=== PATIENT | male | born 1945 | race Caucasian/White ===

== ENCOUNTER → 2017-12-20 09:38 | Outpatient (CLI) | payer MEDICARE, OTHER, SELFPAY ==
[2017-12-20 10:41] LABS: AST(SGOT) 19 U/L (15-37); Alanine Aminotransfer ALT/SGPT 26 U/L (16-61); Albumin, Serum 3.8 g/dL (3.2-5.0); Alkaline Phosphatase 68 U/L (45-117); Bilirubin, Direct 0.27 mg/dL (0.00-0.30); Cholesterol 108 mg/dL (200); Globulin 2.7 g/dL (2.2-4.2); High Density Lipoprotein 47 mg/dL; Protein, Total 6.5 g/dL (6.4-8.2); Triglycerides 70 mg/dL; Very Low Density Lipoprotein 14 mg/dL (5-40)
== END ==
PROVIDERS: Family Provider Family Medicine; PCP Family Medicine; Visit Provider Internal Medicine Cardiovascular Disease
DX: E78.5 Hyperlipidemia, unspecified (principal); Z79.899 Other long term (current) drug therapy
CPT/HCPCS: 36415; 80061; 80076

== ENCOUNTER → 2018-01-30 15:01 | Outpatient (CLI) | payer MEDICARE, OTHER, SELFPAY ==
--- NOTE | 2018-01-30 15:02 | RAD_ITS ---
STUDY: X-RAY - LEFT SHOULDER REASON FOR EXAM: Male, 72 years old. Shoulder pain. TECHNIQUE: 3 view(s) of the shoulder. COMPARISON: None. FINDINGS: There is generalized osteopenia. There is mild arthrosis of the acromioclavicular and glenohumeral joints. Normal acromion. Normal humeral head and visualized proximal humerus. The soft tissue structures are unremarkable. Normal visualized pulmonary apex. RAD/Shoulder min 2 Views IMPRESSION: Osteopenia with mild arthrosis of the glenohumeral and acromioclavicular joints. Electronically Signed: Ty Torres MD at 12:25 EDT , Service support ,
== END ==
PROVIDERS: Family Provider Family Medicine; PCP Family Medicine; Visit Provider Orthopaedic Surgery
DX: M25.512 Pain in left shoulder (principal)
CPT/HCPCS: 73030

== ENCOUNTER → 2018-03-10 11:04 | Outpatient (CLI) | payer MEDICARE, OTHER, SELFPAY ==
--- NOTE | 2018-03-10 11:09 | RAD_ITS ---
STUDY: X-RAY CHEST REASON FOR EXAM: Male, 72 years old. With TECHNIQUE: Frontal and lateral views of the chest COMPARISON: 12/27/2016 FINDINGS: The lungs are clear. There are no pleural effusions. There is no pneumothorax. The heart is normal in size. The patient is status post sternotomy. RAD/Chest PA and Lateral IMPRESSION: No acute thoracic pathology. Electronically Signed: Umang Flowers, at 20:01 EDT Tel , Service support ,
[2018-03-10 12:07] LABS: Absolute Lymphocyte Count 0.96 X10^3/ul (0.83-4.51); Absolute Neutrophil Count 4.4 X10^3/uL (2.0-7.7); Basophil# 0.01 X10^3/uL; Basophil% 0.2 % (0-1); Eosinophil# 0.04 X10^3/uL; Eosinophils% 0.7 % (0-5); Hematocrit 43.8 % (40-54); Hemoglobin 14.6 g/dl (13.0-16.5); Lymphocyte # 0.96 X10^3/ul (4.0); Lymphocyte % 16.4 % (19-41); Mean Corp Hgb Conc 33.3 g/gl (32-36); Mean Corpuscular Hgb 31.5 pg (27.0-32.0); Mean Corpuscular Volume 94.6 fL (80-94); Mean Platelet Vol. 9.9 fl (6.2-12.0); Monocyte# 0.44 X10^3/uL; Monocyte% 7.5 % (0-10); Neutrophil # 4.42 X10^3/uL (2.7-7.7); Neutrophil % 75.2 % (47-70); Platelet Count 130 K/mm3 (150-450); RBC Distribution Width CV 13.2 % (11.6-14.6); Red Blood Count 4.63 M/mm3 (4.6-6.2); White Blood Count 5.9 K/mm3 (4.4-11.0)
[2018-03-10 12:14] LABS: POSITIVE COUNT NO; POSITIVE DIFFERENTIAL NO; POSITIVE MORPHOLOGY NO
[2018-03-10 12:47] LABS: ALB/GLOB Ratio 1.4 RATIO (0.9-2.4); AST(SGOT) 23 U/L (15-37); Alanine Aminotransfer ALT/SGPT 31 U/L (16-61); Albumin, Serum 3.8 g/dL (3.2-5.0); Alkaline Phosphatase 60 U/L (45-117); Anion Gap 5 (5-15); BUN 22 mg/dL (7-18); BUN/Creat Ratio 22.5 RATIO (10-20); Calcium,Total 9.1 mg/dL (8.5-10.1); Chloride 110 mmol/L (98-107); Creatinine, Serum 0.98 mg/dL (0.70-1.30); EST Glomerular Filtration Rate 80 mL/min (>60); Est Glom Filt Rate - Afr Amer 97 mL/min (>60); Globulin 2.7 g/dL (2.2-4.2); Glucose 90 mg/dL (74-106); PSA,Total - Annual Screen 5.26 ng/mL (0.00-4.00); Potassium 4.2 mmol/L (3.5-5.1); Protein, Total 6.5 g/dL (6.4-8.2); Sodium Level 143 mmol/L (136-145); Thyroid Stim Hormone (TSH) 0.59 uIU/mL (0.358-3.74)
== END ==
PROVIDERS: Family Provider Family Medicine; PCP Family Medicine; Visit Provider Family Medicine
DX: R63.4 Abnormal weight loss (principal); R97.20 Elevated prostate specific antigen [PSA]; Z12.5 Encounter for screening for malignant neoplasm of prostate
CPT/HCPCS: 36415; 71046; 80053; 84153; 84443; 85025; G0103

== ENCOUNTER → 2018-05-30 07:57 | Outpatient (CLI) | payer MEDICARE, OTHER, SELFPAY ==
[2018-05-30 09:45] LABS: AST(SGOT) 20 U/L (15-37); Alanine Aminotransfer ALT/SGPT 25 U/L (16-61); Albumin, Serum 3.6 g/dL (3.2-5.0); Alkaline Phosphatase 58 U/L (45-117); Cholesterol 129 mg/dL (200); Globulin 2.9 g/dL (2.2-4.2); High Density Lipoprotein 52 mg/dL; Protein, Total 6.5 g/dL (6.4-8.2); Triglycerides 76 mg/dL; Very Low Density Lipoprotein 15 mg/dL (5-40)
== END ==
PROVIDERS: Family Provider Family Medicine; PCP Family Medicine; Visit Provider Internal Medicine Cardiovascular Disease
DX: E78.5 Hyperlipidemia, unspecified (principal); Z79.899 Other long term (current) drug therapy
CPT/HCPCS: 36415; 80061; 80076

== ENCOUNTER 2018-07-03 19:18 | Inpatient (IN) | payer MEDICARE, OTHER, SELFPAY ==
[2018-07-03 19:20] VITALS: BP 129/72; PULSE 95; RESP 20; TEMP 37.9; O2SAT 97; BMI 23.3
--- NOTE | 2018-07-03 20:21 | EKG12_ITS ---
Test Reason : GEN ILL Blood Pressure : / mmHG Vent. Rate : 081 BPM Atrial Rate : 081 BPM P-R Int : 172 ms QRS Dur : 082 ms QT Int : 352 ms P-R-T Axes : 042 016 050 degrees QTc Int : 408 ms Normal sinus rhythm Normal ECG Confirmed by JENNIE CARLSON ([id number]), newspaper editor managing CASSANDRA MIRANDA ([id number]) on 07/08/2018 2:41:34 PM Referred By: Criss Feliciano Confirmed By:JENNIE CARLSON
[2018-07-03 20:46] LABS: Mucous, Urine 0 SEEN /hpf (<or=2+); Red Blood Cells-Urine 0 SEEN /hpf (0-5); Squamous Epithelial Cells - UA 0 SEEN /hpf (0-5)
[2018-07-03 20:56] LABS: Color, Urine Yellow (Yellow); Glucose, Dipstick Normal (Normal); Ketone-Dipstick 5 mg/dl (Negative); Leukocyte Esterase-Dipstick 500 /ul (Negative); Nitrite-Dipstick Positive (Negative); Occult Blood-Urine 25 /ul (Negative); Protein-Dipstick 15 mg/dl (Negative); Specific Gravity, Urine 1.015 (1.002-1.030); Urine Bilirubin Dipstick Negative (Negative); Urine Clarity Clear (Clear); Urine Urobilinogen Normal (Normal)
[2018-07-03 20:59] LABS: Absolute Neutrophil Count 8.3 X10^3/uL (2.0-7.7); Basophil# 0.01 X10^3/uL; Basophil% 0.1 % (0-1); Eosinophil# 0.01 X10^3/uL; Eosinophils% 0.1 % (0-5); Hematocrit 44.6 % (40-54); Hemoglobin 14.6 g/dl (13.0-16.5); Lymphocyte % 4.4 % (19-41); Mean Corp Hgb Conc 32.7 g/gl (32-36); Mean Corpuscular Hgb 31.3 pg (27.0-32.0); Mean Corpuscular Volume 95.7 fL (80-94); Mean Platelet Vol. 10.3 fl (6.2-12.0); Monocyte# 0.33 X10^3/uL; Monocyte% 3.6 % (0-10); Neutrophil % 91.8 % (47-70); Platelet Count 88 K/mm3 (150-450); RBC Distribution Width CV 12.9 % (11.6-14.6); RBC Distribution Width SD 44.7 fl (35.1-43.9); Red Blood Count 4.66 M/mm3 (4.6-6.2); White Blood Count 9.1 K/mm3 (4.4-11.0)
[2018-07-03 21:01] LABS: Anion Gap 12 (5-15); BUN 21 mg/dL (7-18); BUN/Creat Ratio 21.5 RATIO (10-20); Calcium,Total 9.1 mg/dL (8.5-10.1); Chloride 104 mmol/L (98-107); Creatinine, Serum 0.98 mg/dL (0.70-1.30); EST Glomerular Filtration Rate 80 mL/min (>60); Est Glom Filt Rate - Afr Amer 97 mL/min (>60); Estimated Creatinine Clearance 69.14 ml/min; Glucose 96 mg/dL (74-106); Potassium 3.8 mmol/L (3.5-5.1); Sodium Level 138 mmol/L (136-145)
[2018-07-03 21:02] LABS: White Blood Cells 50-100 SEEN /hpf (0-5)
[2018-07-03 21:03] LABS: Bacteria 2+ /hpf (None Seen)
[2018-07-03 21:06] LABS: Differential Indicated SCAN CRITERIA MET; POSITIVE COUNT NO; POSITIVE DIFFERENTIAL YES; POSITIVE MORPHOLOGY NO
[2018-07-03 21:21] VITALS: BP 134/70; PULSE 85; RESP 15; O2SAT 98
[2018-07-03 21:29] LABS: Anisocytosis RARE; Macrocytosis RARE; Platelet Estimate MOD DEC (ADEQ)
[2018-07-03] MEDS: Ceftriaxone 1 GM/50 ML BAG IV (21:45)
--- NOTE | 2018-07-03 22:09 | PCM.HP.STD ---
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 Associated symptoms includes chills.He went to the urgent care and because his heart rate was severely elevated above his base line it was thought that he may be in sepsis so he was advised to come to the ED. 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 At emergency department his temperature was 100.2. Past Medical History Past Medical History (Chronic Problems): Chronic Problems (Last Reviewed 07/03/18 @ 23:28 by Wade Kelley MD) Premature ventricular contractions (Chronic) Left carotid bruit (Chronic) 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) stenosis (Chronic) Presence of aortocoronary bypass graft (Chronic) CABG 01/11/93, DELANEY to LAD, THIAGO to lateral circumflex, SVG to diagonal & SVG to PDA Arteriosclerosis of coronary artery bypass graft (Chronic) Hypertension (Chronic) Hyperlipidemia (Chronic) Medical History: Medical History (Last Reviewed 07/03/18 @ 23:28 by Wade Kelley MD) Premature ventricular contractions (Chronic) I49.3 Left carotid bruit (Chronic) R09.89 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) stenosis (Chronic) I35.0 Arteriosclerosis of coronary artery bypass graft (Chronic) I25.810 Hypertension (Chronic) I10 Hyperlipidemia (Chronic) E78.5 custodial use of drug Z79.899 Allergies Opioids - Morphine Analogues Allergy (Verified 07/03/18 19:22) Nausea PAIN MEDICATION Allergy (Uncoded 07/03/18 19:22) Unknown Home Medications: Ambulatory Orders Medication Instructions Recorded Aspirin 81 mg PO DAILY 01/01/17 Cholecalciferol (VIT D3) [Vitamin 1,000 unit PO DAILY 01/01/17 D] Lisinopril [Zestril] 15 mg PO DAILY 01/01/17 Omeprazole [Prilosec] 20 mg PO DAILY 01/01/17 cyanocobalamin (vit B-12) 1,000 1,000 mcg PO DAILY 12/17/17 mcg tablet Atenolol [Tenormin (beta shakir)] 25 mg PO QODAY 07/03/18 Rosuvastatin Calcium [Crestor] 40 mg PO DAILY 07/03/18 Surgical History: Surgical History (Last Reviewed 07/03/18 @ 23:28 by Wade Kelley MD) Presence of aortocoronary bypass graft (Chronic) Z95.1 CABG 01/11/93, DELANEY to LAD, THIAGO to lateral circumflex, SVG to diagonal & SVG to PDA Surgical History: herniorrhaphy, - - Decompression surgery at back x 2; fusion of L4-L5 X 1 Lives: Spouse/ Significant Other Smoking Status: Never smoker Alcohol: Occasional - *Family History Maternal Family History: Family History (Last Reviewed 07/04/18 @ 07:19 by Wade Kelley MD) Father CAD (coronary artery disease) Cancer Myocardial infarction FH valvular heart dx FH: CABG (coronary artery bypass surgery) Mother Alzheimer disease Sister Hypertension Other Family history of hypertension Paternal Family History: Family History (Last Reviewed 07/04/18 @ 07:19 by Wade Kelley MD) Father CAD (coronary artery disease) Cancer Myocardial infarction FH valvular heart dx FH: CABG (coronary artery bypass surgery) Mother Alzheimer disease Sister Hypertension Other Family history of hypertension Review of Systems Constitutional: Reports: Chills, Fever Eyes: Denies: Blurred vision, Pain HEENT: Denies: Head Aches, Sinus Congestion, Sinus Drainage Cardiovascular: Reports: Light Headedness, - - NEAR SYNCOPE Respiratory: Denies: Cough, Shortness of breath at rest, Sputum production Gastrointestinal: Denies: Abdominal Pain, Nausea, Vomiting Genitourinary: Reports: Dysuria Musculoskeletal: Denies: Joint Pain, Joint Tenderness Skin: Denies: Rash, Wounds Neurological: Denies: Numbness, Tingling, Focal weakness Psychiatric: Denies: Anxiety, Depression, Homicidal Ideations, Suicidal Ideations Hematologic/ Lymphatic: Denies: Easy Bruising, Easy Bleeding VTE Information - Inpt Only VTE Present on Admission: No VTE Mechan Device Prophylaxis: SCD's VTE Pharm Prophylaxis ordered?: No Reason prophylaxis not ordered:: Medical Contraindication - Thrombocytopenia Patient Problems: Active and Suspected Problems (Last Reviewed 07/03/18 @ 23:28 by Wade Kelley MD) Cystitis (Acute) Thrombocytopenia (Acute) - Physical Exam General: Alert, Oriented x3, Cooperative HEENT: Atraumatic, PERRLA, EOMI, Normocephalic Neck: Supple, No JVD, Negative Carotid Bruits Lungs: Clear to auscultation, Normal air movement Cardiovascular: Regular rate, No murmurs Abdomen: Bowel Sounds Present, Soft, Non Tender Extremities: No edema, Capillary Refill Less than 3 Seconds Skin: No rashes, No breakdown Musculoskeletal: No Tenderness to Palpation of Joints or Extremities Neurological: Cranial nerves II-XII grossly intact Psych/Mental Status: Normal Affect, Appropriate Vital Signs Temp Pulse Resp BP Pulse Ox 100.2 F H 85 15 134/70 H 98 07/03/18 19:20 07/03/18 21:21 07/03/18 21:21 07/03/18 21:21 07/03/18 21:21 Oxygen Delivery Method Room Air Weight: 71.668 kg Body Mass Index (BMI) 23.3 Laboratory Tests Past 24 Hrs 07/03/18 07/03/18 07/03/18 20:35 20:35 20:35 WBC 9.1 RBC 4.66 Hgb 14.6 Hct 44.6 MCV 95.7 H MCH 31.3 MCHC 32.7 RDW 12.9 RDW Differential 44.7 H Plt Count 88 L MPV 10.3 Immature Gran % (Auto) 0.000 Neut % (Auto) 91.8 H Lymph % (Auto) 4.4 L [place] % (Auto) 3.6 Eos % (Auto) 0.1 Baso % (Auto) 0.1 Absolute Neuts (auto) 8.3 H Absolute Lymphs (auto) 0.40 L Total Counted Not Reportable Differential Comment SEE COMMENT Platelet Estimate MOD DEC Anisocytosis RARE Macrocytosis RARE Sodium 138 Potassium 3.8 Chloride 104 Carbon Dioxide 22.0 Anion Gap 12 BUN 21 H Creatinine 0.98 Estim Creat Clear Calc 69.14 Est GFR (MDRD) Af Amer 97 Est GFR (MDRD) Non-Af 80 BUN/Creatinine Ratio 21.5 H Glucose 96 Lactic Acid 1.0 Calcium 9.1 Urine Color Urine Clarity Urine pH Ur Specific [place] Urine Protein Urine Glucose (UA) Urine Ketones Urine Occult Blood Urine Nitrite Urine Bilirubin Urine Urobilinogen Ur Leukocyte Esterase Urine RBC Urine WBC Ur Squamous Epith Cells Urine Bacteria Urine Mucus 07/03/18 20:35 WBC RBC Hgb Hct MCV MCH MCHC RDW RDW Differential Plt Count MPV Immature Gran % (Auto) Neut % (Auto) Lymph % (Auto) [place] % (Auto) Eos % (Auto) Baso % (Auto) Absolute Neuts (auto) Absolute Lymphs (auto) Total Counted Differential Comment Platelet Estimate Anisocytosis Macrocytosis Sodium Potassium Chloride Carbon Dioxide Anion Gap BUN Creatinine Estim Creat Clear Calc Est GFR (MDRD) Af Amer Est GFR (MDRD) Non-Af BUN/Creatinine Ratio Glucose Lactic Acid Calcium Urine Color Yellow Urine Clarity Clear Urine pH 5.0 Ur Specific [place] 1.015 Urine Protein 15 H Urine Glucose (UA) Normal Urine Ketones 5 H Urine Occult Blood 25 H Urine Nitrite Positive H Urine Bilirubin Negative Urine Urobilinogen Normal Ur Leukocyte Esterase 500 H Urine RBC 0 SEEN Urine WBC 50-100 SEEN Ur Squamous Epith Cells 0 SEEN Urine Bacteria 2+ Urine Mucus 0 SEEN Assessment/Plan All Active Problems (Last Reviewed 07/03/18 @ 23:28 by Wade Kelley MD) Cystitis (Acute) Thrombocytopenia (Acute) Family history of hypertension (Acute) Fatigue (Acute) The patient is a 72 year old M with a significant history of CAD s/p quadruple CABG, HTN who presents with a one day history of burning with urination; fever chills and near syncope consistent with likely cystitis. Cystitis Urinalysis reviewed; abnormal Ceftriaxone started at the emergency department; continued Trend CBC and BMP Blood culture and urine urine culture pending Received IV normal saline bolus at emergency department. IV normal saline continued. Hypertension Controlled Trend blood pressures Lisinopril continued with hold parameters. Atenolol continued with hold parameters. Thrombocytopenia Platelets on admission was 88 Review of old records showed mildly reduced platelets. His platelets at this time is markedly reduced from baseline. This could be due to infection Trend CBC. DVT prophylaxis No anticoagulants because of thrombocytopenia Code Visit Inpatient E&M: 66579 Init Hosp L3
--- NOTE | 2018-07-03 22:34 | ED.VISSUMM ---
- ER Visit Summary Date of Service: 07/03/18 Chief Complaint: Generalized weakness, fever History of Present Illness: The patient is a 72 M presenting with generalized weakness, fever. Patient states he has not felt well today. He complains of dizziness with near syncope. He complains of generalized weakness and fatigue. He went to urgent care. He had a urinalysis which showed UTI. His heart rate is elevated. His doctor advised that his heart rate usually runs in the 50s and it has been in the high 90s today. He was sent in for concern for sepsis. He denies chest pain or shortness of breath. He has a history of chronic back pain but states this is no worse than usual. He complains of dysuria. Denies other complaints. Physical Examination: Vitals are stable. Heart rate 99. Temperature 100.2 Alert no acute distress. HEENT exam dry mucous membranes Neck is supple. Lungs are clear and equal bilaterally. Heart is regular and tachycardic. Abdomen is soft nontender nondistended. No guarding or rebound Extremities are unremarkable. Skin is warm and dry. No focal neurologic deficit. Remainder of exam is unremarkable. Emergency Department Course and Treatment: EKG is sinus rhythm rate of 81. Chest x-ray shows no acute process. CBC is unremarkable other than platelets of 88. Chemistries show BUN 21. Urinalysis shows 50-100 white blood cells with 2+ bacteria. Lactic acid is normal. Urine culture was sent. He was given IV fluids, Tylenol. He was given Rocephin IV. Discussed with the hospitalist for admission. Disposition: Admission Impression: UTI, generalized weakness, near syncope This note was generated with [employer] dictation software. It may contain incorrect words, spelling, and punctuation that were not noted in review of the chart prior to signing ED Disposition - Plan for ED Patient: Chief Complaint: General Illness Referrals: Nori Louis MD [Primary Care Provider] -
[2018-07-03 22:48] VITALS: BP 97/60; PULSE 80; RESP 15
[2018-07-03] MEDS: Acetaminophen 500 MG Tablet 1000 MG PO (22:52)
[2018-07-03] MEDS: 0.9% Normal Saline 1,000 ML 999 ML IV (22:52)
[2018-07-03 23:25] VITALS: BMI 23.0
[2018-07-03 23:28] VITALS: BMI 23.0
[2018-07-03 23:55] VITALS: BP 97/63; PULSE 66; RESP 18; TEMP 36.8; O2SAT 94
[2018-07-04] VITALS (7 sets, daily range): BP systolic 100–119; BP diastolic 60–68; PULSE 58–64; RESP 16–18; TEMP 36.4–37.1; O2SAT 94–100
[2018-07-04] MEDS: 0.9% Normal Saline 1,000 ML 100 ML IV ×3 (00:32→23:17)
[2018-07-04] MEDS: Aspirin 81 MG TAB.CHEW PO (02:14)
[2018-07-04] MEDS: Cyanocobalamin 500 MCG Tablet 1000 MCG PO (02:14)
[2018-07-04 06:08] LABS: Absolute Lymphocyte Count 0.71 X10^3/ul (0.83-4.51); Basophil# 0.01 X10^3/uL; Basophil% 0.1 % (0-1); Eosinophil# 0.02 X10^3/uL; Eosinophils% 0.2 % (0-5); Hemoglobin 13.2 g/dl (13.0-16.5); Lymphocyte # 0.71 X10^3/ul (4.0); Lymphocyte % 7.6 % (19-41); Mean Corpuscular Volume 97.1 fL (80-94); Mean Platelet Vol. 10.3 fl (6.2-12.0); Monocyte# 0.57 X10^3/uL; Monocyte% 6.1 % (0-10); Neutrophil # 7.97 X10^3/uL (2.7-7.7); Neutrophil % 85.9 % (47-70); Platelet Count 92 K/mm3 (150-450); RBC Distribution Width CV 12.8 % (11.6-14.6); RBC Distribution Width SD 44.7 fl (35.1-43.9); Red Blood Count 4.12 M/mm3 (4.6-6.2); White Blood Count 9.3 K/mm3 (4.4-11.0)
[2018-07-04 06:18] LABS: POSITIVE COUNT NO; POSITIVE DIFFERENTIAL NO; POSITIVE MORPHOLOGY NO
[2018-07-04 06:51] LABS: Anion Gap 9 (5-15); BUN 21 mg/dL (7-18); Calcium,Total 8.6 mg/dL (8.5-10.1); Chloride 111 mmol/L (98-107); Creatinine, Serum 0.95 mg/dL (0.70-1.30); EST Glomerular Filtration Rate 83 mL/min (>60); Est Glom Filt Rate - Afr Amer 100 mL/min (>60); Estimated Creatinine Clearance 71.32 ml/min; Glucose 104 mg/dL (74-106); Potassium 4.3 mmol/L (3.5-5.1); Sodium Level 145 mmol/L (136-145)
[2018-07-04] MEDS: Pantoprazole Sodium 20 MG Tablet PO (09:37)
[2018-07-04] MEDS: Lisinopril 5 MG Tablet 15 MG PO (09:37)
--- NOTE | 2018-07-04 10:34 | PCM.PN.HOSP ---
Patient Problems: Active and Suspected Problems (Last Reviewed 07/03/18 @ 23:28 by Wade Kelley MD) Cystitis (Acute) Thrombocytopenia (Acute) Subjective: Patient seen and examined. Discussed with patient and his present in the room. Patient complain of burning micturition, increased frequency and urgency for last 2 days. Also had chills. He had history of kidney stones in the past and has seen Dr. Lopez Sharp and had a stent put in about 5-10 years ago. He does not remember well which kidney or ureter stone. He also complained of incomplete empty bladder completely urinary incontinence and has perhaps history of BPH. Is not on Flomax or helical medication Vitals/I&O's: Vital Signs Temp Pulse Resp BP Pulse Ox 98.6 F 58 L 16 108/68 97 07/04/18 07:46 07/04/18 07:46 07/04/18 07:46 07/04/18 07:46 07/04/18 07:50 Oxygen Delivery Method Room Air Weight: 156 lb Body Mass Index (BMI) 23.0 Intake and Output for Last 24 Hours 07/02/18 07/03/18 07/04/18 23:59 23:59 23:59 Intake Total 218 / 2182 Balance 218 / 218 General: Alert, Oriented x3, Cooperative HEENT: Atraumatic, PERRLA, EOMI, Normocephalic Neck: Supple, No JVD, Negative Carotid Bruits Lungs: Clear to auscultation, Normal air movement Cardiovascular: Regular rate, Regular Rhythm, Normal S1, Normal S2, No murmurs Abdomen: Bowel Sounds Present, Soft, Non Tender, Non-Distended Extremities: No edema, Capillary Refill Less than 3 Seconds Skin: No rashes, No breakdown Musculoskeletal: No Tenderness to Palpation of Joints or Extremities Neurological: Cranial nerves II-XII grossly intact Psych/Mental Status: Normal Affect, Appropriate Laboratory Results 07/04/18 05:12: WBC 9.3, RBC 4.12 L, Hgb 13.2, Hct 40.0, MCV 97.1 H, MCH 32.0, MCHC 33.0, RDW 12.8, RDW Differential 44.7 H, Plt Count 92 L, MPV 10.3, Immature Gran % (Auto) 0.100, Neut % (Auto) 85.9 H, Lymph % (Auto) 7.6 L, [place] % (Auto) 6.1, Eos % (Auto) 0.2, Baso % (Auto) 0.1, Absolute Neuts (auto) 8.0 H, Absolute Lymphs (auto) 0.71 L, Total Counted Not Reportable 07/04/18 05:12: Sodium 145, Potassium 4.3, Chloride 111 H, Carbon Dioxide 25.0, Anion Gap 9, BUN 21 H, Creatinine 0.95, Estim Creat Clear Calc 71.32, Est GFR (MDRD) Af Amer 100, Est GFR (MDRD) Non-Af 83, BUN/Creatinine Ratio 22.0 H, Glucose 104, Calcium 8.6 Current Medications Acetaminophen (Tylenol) 650 mg PO Q6H PRN PRN PRN Reason: Mild Pain (scale 0-3)/T>100.7 Al Hydroxide/Mg Hydroxide (Mylanta Ii) 30 ml PO Q6H PRN PRN PRN Reason: Gastric Burning Aspirin (Aspirin, Baby) [facility] Last Admin: 07/04/18 02:14 Dose: 81 mg Atenolol (Tenormin (Beta Letitia)) 25 mg PO QODAY@2200 [facility] Cholecalciferol (Vitamin D) 1,000 unit PO DAILY [facility] Cyanocobalamin (Vitamin B12) 1,000 mcg PO DAILY [facility] Last Admin: 07/04/18 02:14 Dose: 1,000 mcg Docusate Sodium (Colace) 200 mg PO BID PRN PRN PRN Reason: Constipation Sodium Chloride () 1,000 mls @ 100 mls/hr IV .Q10H [facility] Last Admin: 07/04/18 00:32 Dose: 100 mls/hr Ceftriaxone Sodium (Rocephin) 1 gm in 50 mls @ 100 mls/hr IV Q24 [facility] Lisinopril (Zestril) 10 mg PO DAILY [facility] Magnesium Hydroxide (Milk Of Magnesia) 30 ml PO DAILY PRN PRN PRN Reason: Constipation Morphine Sulfate () 1 - 2 mg IV Q4H PRN PRN PRN Reason: SEVERE PAIN (6-10/10) Ondansetron HCl (Zofran) 4 mg IV Q6H PRN PRN PRN Reason: Nausea Oxycodone HCl (Oxyir) 5 mg PO Q4H PRN PRN PRN Reason: Moderate Pain (pain scale 4-5) Pantoprazole Sodium (Protonix) 20 mg PO DAILY [facility] Last Admin: 07/04/18 09:37 Dose: 20 mg Sodium Chloride () 5 - 30 ml IV UD PRN PRN Reason: SALINE FLUSH Tamsulosin HCl (Flomax) 0.4 mg PO DAILY@1730 [facility] Medical Necessity - Tobacco Use Smoking Status: Never smoker Assessment/Plan All Active Problems (Last Reviewed 07/03/18 @ 23:28 by Wade Kelley MD) Cystitis (Acute) Thrombocytopenia (Acute) Family history of hypertension (Acute) Fatigue (Acute) The patient is a 72 year old M with a significant history of CAD s/p quadruple CABG, HTN who is being admitted with lower urinary tract symptoms of burning micturition, increased frequency, urgency for about 2 days consistent with UTI. He also has history of incomplete emptying of bladder most probably from undiagnosed BPH. he also had fever with chills and near syncope. 1. Complicated E. coli UTI most probably secondary to bladder outlet obstruction with BPH: Patient is being admitted on regular MedSurg floor. Started on IV ceftriaxone. Urine culture shows more than 100,000 E. coli; complete sensitivity pending. Since patient has history of kidney stones in the past, CT abdomen KUB, stone protocol ordered and done but official report pending. Bladder scan every 6 hourly to look for post void residual. Patient had history of UTI about 3 months. 2. Possible undiagnosed BPH with bladder outlet obstruction: Started on Flomax. Patient will need outpatient PSA when UTI is treated. Follow-up with urologist Dr. Vera as an outpatient. 3. Cardiac conditions: Coronary artery status post quadruple CABG, hypertension: Continue home medication. No chest pain. 4. Acute on chronic thrombocytopenia, probably from infection: Patient admitting platelet was 88,000. Currently 92,000. His platelet count was about 1 25,000 from March 2013 until February 2018. Pharmacological prophylaxis contraindicated. B/L SCDs Microbiology Past 72 Hours 07/03/18 20:35 Urine, Clean Catch Urine Culture - Preliminary Presumptive E. coli 07/03/18 21:30 Blood Culture (Wb) - Left Hand Blood Culture - Preliminary 07/03/18 20:35 Blood Culture (Wb) - Anticubital Left Blood Culture - Preliminary Laboratory Results 07/03/18 20:35: WBC 9.1, RBC 4.66, Hgb 14.6, Hct 44.6, MCV 95.7 H, MCH 31.3, MCHC 32.7, RDW 12.9, RDW Differential 44.7 H, Plt Count 88 L, MPV 10.3, Immature Gran % (Auto) 0.000, Neut % (Auto) 91.8 H, Lymph % (Auto) 4.4 L, [place] % (Auto) 3.6, Eos % (Auto) 0.1, Baso % (Auto) 0.1, Absolute Neuts (auto) 8.3 H, Absolute Lymphs (auto) 0.40 L, Total Counted Not Reportable, Differential Comment SEE COMMENT, Platelet Estimate MOD DEC, Anisocytosis RARE, Macrocytosis RARE 07/03/18 20:35: Sodium 138, Potassium 3.8, Chloride 104, Carbon Dioxide 22.0, Anion Gap 12, BUN 21 H, Creatinine 0.98, Estim Creat Clear Calc 69.14, Est GFR (MDRD) Af Amer 97, Est GFR (MDRD) Non-Af 80, BUN/Creatinine Ratio 21.5 H, Glucose 96, Calcium 9.1 07/03/18 20:35: Lactic Acid 1.0 07/03/18 20:35: Urine Color Yellow, Urine Clarity Clear, Urine pH 5.0, Ur Specific [place] 1.015, Urine Protein 15 H, Urine Glucose (UA) Normal, Urine Ketones 5 H, Urine Occult Blood 25 H, Urine Nitrite Positive H, Urine Bilirubin Negative, Urine Urobilinogen Normal, Ur Leukocyte Esterase 500 H, Urine RBC 0 SEEN, Urine WBC 50-100 SEEN, Ur Squamous Epith Cells 0 SEEN, Urine Bacteria 2+, Urine Mucus 0 SEEN 07/04/18 05:12: WBC 9.3, RBC 4.12 L, Hgb 13.2, Hct 40.0, MCV 97.1 H, MCH 32.0, MCHC 33.0, RDW 12.8, RDW Differential 44.7 H, Plt Count 92 L, MPV 10.3, Immature Gran % (Auto) 0.100, Neut % (Auto) 85.9 H, Lymph % (Auto) 7.6 L, [place] % (Auto) 6.1, Eos % (Auto) 0.2, Baso % (Auto) 0.1, Absolute Neuts (auto) 8.0 H, Absolute Lymphs (auto) 0.71 L, Total Counted Not Reportable 07/04/18 05:12: Sodium 145, Potassium 4.3, Chloride 111 H, Carbon Dioxide 25.0, Anion Gap 9, BUN 21 H, Creatinine 0.95, Estim Creat Clear Calc 71.32, Est GFR (MDRD) Af Amer 100, Est GFR (MDRD) Non-Af 83, BUN/Creatinine Ratio 22.0 H, Glucose 104, Calcium 8.6 Clinical Impression(s) from Imaging Studies Chest X-Ray 07/03/18 20:28 IMPRESSION: No acute cardiopulmonary process. Active Medications Acetaminophen (Tylenol) 650 mg PO Q6H PRN PRN PRN Reason: Mild Pain (scale 0-3)/T>100.7 Al Hydroxide/Mg Hydroxide (Mylanta Ii) 30 ml PO Q6H PRN PRN PRN Reason: Gastric Burning Aspirin (Aspirin, Baby) [facility] Last Admin: 07/04/18 02:14 Dose: 81 mg Atenolol (Tenormin (Beta Letitia)) 25 mg PO QODAY@2200 [facility] Cholecalciferol (Vitamin D) 1,000 unit PO DAILY [facility] Last Admin: 07/04/18 13:57 Dose: 1,000 unit Cyanocobalamin (Vitamin B12) 1,000 mcg PO DAILY [facility] Last Admin: 07/04/18 02:14 Dose: 1,000 mcg Docusate Sodium (Colace) 200 mg PO BID PRN PRN PRN Reason: Constipation Sodium Chloride () 1,000 mls @ 100 mls/hr IV .Q10H [facility] Last Admin: 07/04/18 10:44 Dose: 100 mls/hr Ceftriaxone Sodium (Rocephin) 1 gm in 50 mls @ 100 mls/hr IV Q24 [facility] Last Admin: 07/04/18 11:46 Dose: 100 mls/hr Lisinopril (Zestril) 10 mg PO DAILY [facility] Magnesium Hydroxide (Milk Of Magnesia) 30 ml PO DAILY PRN PRN PRN Reason: Constipation Morphine Sulfate () 1 - 2 mg IV Q4H PRN PRN PRN Reason: SEVERE PAIN (6-10/10) Ondansetron HCl (Zofran) 4 mg IV Q6H PRN PRN PRN Reason: Nausea Oxycodone HCl (Oxyir) 5 mg PO Q4H PRN PRN PRN Reason: Moderate Pain (pain scale 4-5) Pantoprazole Sodium (Protonix) 20 mg PO DAILY [facility] Last Admin: 07/04/18 09:37 Dose: 20 mg Sodium Chloride () 5 - 30 ml IV UD PRN PRN Reason: SALINE FLUSH Last Admin: 07/04/18 11:47 Dose: 10 ml Tamsulosin HCl (Flomax) 0.4 mg PO DAILY@1730 [facility] Last Admin: 07/04/18 11:54 Dose: 0.4 mg Code Visit Inpatient E&M: 27912 Subs Hosp L3
--- NOTE | 2018-07-04 10:50 | NURSING ---
pt off unit at this time via wc for ct
--- NOTE | 2018-07-04 11:40 | CASEMGMT ---
ROXANN PRICE Face to Face with patient for initial transition planning/care coordination assessment. RN CM introduced self and role at [facility]. Patient lying in bed, alert and oriented. Patient willing to participate in assessment and is able to answer all questions appropriately. Care providers, pharmacy, and demographics verified. Patient lives in 2 story home with . Patient is independent at home and denies DME needs at this time. Patient wishes to discharge home, denies need for home health at this time. Patient states he has no further needs or concerns at this time. CM to follow for discharge planning needs that may arise. Disposition Plan: Patient to discharge home with family support and follow-up plans in place. Georgina MUIR, RN, CM
[2018-07-04] MEDS: Ceftriaxone 1 GM/50 ML BAG IV (11:46)
[2018-07-04] MEDS: 0.9% NaCl Peripheral Flush Adult/Peds IV (11:47)
[2018-07-04] MEDS: Tamsulosin HCl 0.4 MG Capsule PO (11:54)
--- NOTE | 2018-07-04 16:53 | NURSING ---
PT VOIDED PRIOR TO BLADDER SCAN, BUT PT VOIDED DIRECTLY IN TOILET - DID NOT MEASURE.
[2018-07-04] MEDS: Atenolol 25 MG Tablet PO (23:23)
[2018-07-05 05:25] VITALS: BP 110/64; PULSE 59; RESP 16; TEMP 36.9; O2SAT 96
[2018-07-05 07:40] VITALS: O2SAT 97
[2018-07-05] MEDS: Pantoprazole Sodium 20 MG Tablet PO (10:24)
[2018-07-05] MEDS: Aspirin 81 MG TAB.CHEW PO (10:24)
[2018-07-05] MEDS: Cyanocobalamin 500 MCG Tablet 1000 MCG PO (10:24)
[2018-07-05] MEDS: Lisinopril 10 MG Tablet PO (10:25)
[2018-07-05] MEDS: Tamsulosin HCl 0.4 MG Capsule PO (10:25)
[2018-07-05] MEDS: Ceftriaxone 1 GM/50 ML BAG IV (10:33)
[2018-07-05 11:15] VITALS: BP 112/66; PULSE 66; RESP 16; TEMP 36.7; O2SAT 99
--- NOTE | 2018-07-05 11:30 | PCM.DC ---
- Discharge Diagnoses Current Active Problems: Current Active and Chronic Problems (Last Reviewed 07/03/18 @ 23:28 by Wade Kelley MD) Cystitis (Acute) Thrombocytopenia (Acute) You will use the following diet at home:: Cardiac Discharge Activity: May not drive while taking narcotic pain medications. Call your doctor if you observe: Fever of 101 or Higher, Inability to urinate, Shortness of breath Allergies/Adverse Reactions: Allergies Opioids - Morphine Analogues Allergy (Verified 07/03/18 19:22) Nausea PAIN MEDICATION Allergy (Uncoded 07/03/18 19:22) Unknown Medications to take at Discharge Aspirin 81 mg PO QHS 01/01/17 Cholecalciferol (VIT D3) [Vitamin D3] 1,000 unit PO DAILY 01/01/17 Lisinopril [Zestril] 15 mg PO DAILY 01/01/17 Omeprazole [Prilosec] 20 mg PO DAILY 01/01/17 cyanocobalamin (vit B-12) 1,000 mcg tablet 1,000 mcg PO QHS 12/17/17 Atenolol [Tenormin (beta shakir)] 25 mg PO QHS 07/03/18 Rosuvastatin Calcium [Crestor] 40 mg PO QHS 07/03/18 Cefadroxil [Duracef] 500 mg PO BID #14 cap 07/05/18 Lactobacillus Acidophilus [Acidophilus] 1 each PO BID #14 tablet 07/05/18 Tamsulosin HCl [Flomax] 0.4 mg PO DAILY@1730 #30 cap 07/05/18 The following prescriptions were given: Tamsulosin HCl [Flomax] 0.4 mg PO DAILY@1730 #30 capsule Cefadroxil [Duracef] 500 mg PO BID #14 capsule Primary Care Physician: Nori Louis MD [Primary Care Provider] - Please follow up with your Primary Care Physician in: in 1-2 weeks Test Results: Test results from this visit will be discussed in further detail at your follow-up appointment, if applicable. Please Follow Up With: Navid Vera MD When: IN 2-3 WEEKS FOR BPH and UTI
--- NOTE | 2018-07-05 13:09 | PCM.DC.SUM ---
Discharge Date and Diagnosis Date of Admission: 07/03/18 Date of Discharge: 07/05/18 - Primary Discharge Diagnosis Active and Suspected Problems (Last Reviewed 07/03/18 @ 23:28 by Wade Kelley MD) Complicated E. coli UTI with E. coli bacteremia most probably secondary to bladder outlet obstruction with BPH: Pyelonephritis ruled out. 2. Possible undiagnosed BPH with bladder outlet obstruction: Started on Flomax. 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 He also has history of incomplete emptying of bladder most probably from undiagnosed BPH. he also had fever with chills and near syncope. 1. Complicated E. coli UTI with E. coli bacteremia most probably secondary to bladder outlet obstruction with BPH: Patient was being admitted on regular [facility] floor. Started on IV ceftriaxone. Urine culture shows more than 100,000 E. coli; sensitive to cephalosporins and in fact pansensitive. Since patient has history of kidney stones in the past, CT abdomen KUB, stone protocol was done. It is reported as bilateral perinephric fluid, which may be the result of previous infection or ischemia. No CT evidence for hydronephrosis, hydroureter or radiopaque ureteral calculus. Patient does not have renal angle tenderness or ureteric colic pain, or leukocytosis. I do not think patient has evidence of pyelonephritis. Postvoid bladder scan was 145 mL and then 110 mL. Patient was started on Flomax at the time of admission. Patient is discharged on cefadroxil 500 mg twice daily for 7 more days to complete a total of 10 days. Advised to take probiotic. 2. Possible undiagnosed BPH with bladder outlet obstruction: Started on Flomax. Patient will need outpatient PSA when UTI is treated. Follow-up with urologist Dr. Vera as an outpatient. 3. Cardiac conditions: Coronary artery status post quadruple CABG, hypertension: Continue home medication. No chest pain. 4. Acute on chronic thrombocytopenia, probably from infection: Patient admitting platelet was 88,000. Currently 92,000. His platelet count was about 1 25,000 from March 2013 until February 2018. Pharmacological prophylaxis contraindicated. B/L SCDs Microbiology Past 72 Hours 07/03/18 20:35 Urine, Clean Catch Urine Culture - Final Presumptive E. coli 07/03/18 21:30 Blood Culture (Wb) - Left Hand Blood Culture - Preliminary GNR lactose hydrographical technical officer 07/03/18 20:35 Blood Culture (Wb) - Anticubital Left Blood Culture - Preliminary GNR lactose hydrographical technical officer Clinical Impression(s) from Imaging Studies Chest X-Ray 07/03/18 20:28 IMPRESSION: No acute cardiopulmonary process. Electronically Signed: Padma Tucker MD at 20:55 EDT Tel , Service support , Abdomen/Pelvis CT 07/04/18 10:27 IMPRESSION: 1. No CT evidence of acute intra-abdominal disease. 2. Hepatic cysts. 3. 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 4. Colonic diverticulosis. Discharge Activity: May not drive while taking narcotic pain medications. Call your doctor if you observe: Fever of 101 or Higher, Inability to urinate, Shortness of breath Home Medications: Medications to take at Discharge Aspirin 81 mg PO QHS 01/01/17 Cholecalciferol (VIT D3) [Vitamin D3] 1,000 unit PO DAILY 01/01/17 Lisinopril [Zestril] 15 mg PO DAILY 01/01/17 Omeprazole [Prilosec] 20 mg PO DAILY 01/01/17 cyanocobalamin (vit B-12) 1,000 mcg tablet 1,000 mcg PO QHS 12/17/17 Atenolol [Tenormin (beta shakir)] 25 mg PO QHS 07/03/18 Rosuvastatin Calcium [Crestor] 40 mg PO QHS 07/03/18 Cefadroxil [Duracef] 500 mg PO BID #14 cap 07/05/18 Lactobacillus Acidophilus [Acidophilus] 1 each PO BID #14 tablet 07/05/18 Tamsulosin HCl [Flomax] 0.4 mg PO DAILY@1730 #30 cap 07/05/18 Following Prescrptions Were Given to Patient: Tamsulosin HCl [Flomax] 0.4 mg PO DAILY@1730 #30 cap Cefadroxil [Duracef] 500 mg PO BID #14 cap Lactobacillus Acidophilus [Acidophilus] 1 each PO BID #14 tablet Primary Care Physician: Nori Louis MD [Primary Care Provider] - Please follow up with your Primary Care Physician in: in 1-2 weeks Please Follow Up With: Navid Vera MD When: IN 2-3 WEEKS FOR BPH and UTI Medical Necessity - Tobacco Use Smoking Status: Never smoker Meaningful Use Info Meaningful Use Diagnoses (Choose all that apply): None applicable Code Visit Inpatient E&M: 41762 [facility]
== END 2018-07-05 13:55 | disposition home or self-care (01) | DRG 690 ==
LOC: ED 22:35 → MS3 22:54
PROVIDERS: Emergency Medicine; Admitting Provider Hospitalist; Emergency Provider Emergency Medicine; Family Provider Family Medicine; PCP Family Medicine; Visit Provider Internal Medicine
DX: N39.0 Urinary tract infection, site not specified (principal); I10 Essential (primary) hypertension; N13.8 Other obstructive and reflux uropathy; D69.6 Thrombocytopenia, unspecified; I25.10 Atherosclerotic heart disease of native coronary artery without angina pectoris; Z95.1 Presence of aortocoronary bypass graft; B96.20 Unspecified Escherichia coli [E. coli] as the cause of diseases classified elsewhere; E78.5 Hyperlipidemia, unspecified; I35.0 Nonrheumatic aortic (valve) stenosis; N40.1 Benign prostatic hyperplasia with lower urinary tract symptoms; Z87.442 Personal history of urinary calculi
CPT/HCPCS: 36415; 71045; 74176; 80048; 81001; 83605; 85025; 87040; 87077; 87086; 87088; 87186; 93005; 99282; J7030; J7050; A4216

== ENCOUNTER 2019-01-05 19:42 | Emergency (ER) | payer MEDICARE, OTHER, SELFPAY ==
[2018-10-09 10:37] VITALS: BMI 23.3
[2019-01-05 19:43] VITALS: BP 139/78; PULSE 82; RESP 18; TEMP 38.1; O2SAT 97; BMI 24.7
[2019-01-05 21:52] VITALS: PULSE 85; TEMP 38
[2019-01-05 22:03] LABS: Absolute Lymphocyte Count 0.98 X10^3/ul (0.83-4.51); Absolute Neutrophil Count 10.5 X10^3/uL (2.0-7.7); Basophil# 0.01 X10^3/uL; Basophil% 0.1 % (0-1); Eosinophil# 0.01 X10^3/uL; Eosinophils% 0.1 % (0-5); Hematocrit 42.7 % (40-54); Hemoglobin 13.9 g/dl (13.0-16.5); Lymphocyte # 0.98 X10^3/ul (4.0); Lymphocyte % 8.2 % (19-41); Mean Corp Hgb Conc 32.6 g/gl (32-36); Mean Corpuscular Hgb 30.6 pg (27.0-32.0); Mean Corpuscular Volume 94.1 fL (80-94); Mean Platelet Vol. 10.4 fl (6.2-12.0); Monocyte# 0.45 X10^3/uL; Monocyte% 3.8 % (0-10); Neutrophil # 10.48 X10^3/uL (2.7-7.7); Neutrophil % 87.7 % (47-70); POSITIVE COUNT NO; POSITIVE DIFFERENTIAL NO; POSITIVE MORPHOLOGY NO; Platelet Count 125 K/mm3 (150-450); RBC Distribution Width CV 13.1 % (11.6-14.6); RBC Distribution Width SD 44.9 fl (35.1-43.9); Red Blood Count 4.54 M/mm3 (4.6-6.2); White Blood Count 11.9 K/mm3 (4.4-11.0)
[2019-01-05 22:03] LABS: Mucous, Urine 0 SEEN /hpf (<or=2+); Red Blood Cells-Urine 0 SEEN /hpf (0-5); Squamous Epithelial Cells - UA 0 SEEN /hpf (0-5)
[2019-01-05 22:07] LABS: Color, Urine Yellow (Yellow); Glucose, Dipstick Normal (Normal); Ketone-Dipstick 5 mg/dl (Negative); Leukocyte Esterase-Dipstick 500 /ul (Negative); Nitrite-Dipstick Positive (Negative); Occult Blood-Urine 25 /ul (Negative); Protein-Dipstick 30 mg/dl (Negative); Specific Gravity, Urine 1.015 (1.002-1.030); Urine Bilirubin Dipstick Negative (Negative); Urine Clarity Clear (Clear); Urine Urobilinogen Normal (Normal)
[2019-01-05 22:16] LABS: Bacteria 2+ /hpf (None Seen); White Blood Cells 10-25 SEEN /hpf (0-5)
[2019-01-05 22:20] LABS: Anion Gap 10 (5-15); BUN 19 mg/dL (7-18); BUN/Creat Ratio 21.7 RATIO (10-20); Calcium,Total 8.8 mg/dL (8.5-10.1); Chloride 110 mmol/L (98-107); Creatinine, Serum 0.88 mg/dL (0.70-1.30); EST Glomerular Filtration Rate 91 mL/min (>60); Est Glom Filt Rate - Afr Amer 110 mL/min (>60); Estimated Creatinine Clearance 75.88 ml/min; Glucose 104 mg/dL (74-106); Potassium 4.2 mmol/L (3.5-5.1); Sodium Level 141 mmol/L (136-145)
[2019-01-05 22:33] LABS: Lactic Acid 0.9 mmol/L (0.4-2.0)
--- NOTE | 2019-01-05 23:00 | ED.VISSUMM ---
- ER Visit Summary Date of Service: 01/05/19 Chief Complaint: Urinary frequency and fever History of Present Illness: The patient is a 73 M who reports urinary frequency and mild burning with urination today. This evening he developed chills and body aches. He was admitted in June for similar symptoms and had E. coli bacteremia at that time. Patient states his fever was reportedly up to 104 over urgent care, but he was not given anything for fever. Patient states he does have a follow-up appointment with Dr. Vera 830 tomorrow morning already scheduled. Patient is a history of reflux disease, hypertension, high cholesterol, BPH. Physical Examination: Blood pressure is 139/78, temperature 100.4, heart rate 85, respiratory rate 18, pulse ox 97% on room air. Patient sitting upright in bed no acute distress. He is nontoxic appearing. Head neck examination is normal. Heart is regular rate and rhythm with a 3/6 murmur. Lung sounds are clear. Abdomen is soft with mild right sided tenderness. No guarding or rebound. Back examination was no CVA tenderness. Test Results: CBC was a white count 11.9 with 87% neutrophils. Platelet count is 125,000. Chemistry studies unremarkable. Urinalysis is positive for nitrites with 10-25 white cells and 2+ bacteria. Lactate is normal. CT flank shows no acute findings. Enlarged prostate is noted. Blood and urine cultures were sent. Emergency Department Course and Treatment: Patient was given a dose of IV Rocephin here along with Zofran and p.o. Tylenol. Patient wishes to go home. I did discuss with him the importance of close follow-up. If his blood cultures are positive he will be called and asked to return for admission. He voices understanding and agreement. Patient is given a prescription for Cipro but will follow up with Dr. Vera in the morning before filling this. Treatment Plan: [] Disposition: Discharge Impression: Cystitis This note was generated with [employer] dictation software. It may contain incorrect words, spelling, and punctuation that were not noted in review of the chart prior to signing ED Disposition - Plan for ED Patient: Disposition: Home or Assisted Living Instructions: ED UTI Cystitis Male Prescriptions: Ciprofloxacin [Cipro] 500 mg PO BID #14 tablet Referrals: Navid Vera MD [STAFF PHYSICIAN] - Keep Eileen appointment
[2019-01-05 23:04] VITALS: BP 125/73; PULSE 82; RESP 20; TEMP 37.7; O2SAT 96
[2019-01-05] MEDS: Ceftriaxone 1 GM/50 ML BAG IV (23:15)
[2019-01-05] MEDS: Ondansetron 4 MG/2 ML Vial IV (23:15)
[2019-01-05] MEDS: Acetaminophen 325 MG Tablet 650 MG PO (23:15)
[2019-01-05] MEDS: 0.9% Normal Saline 1,000 ML 150 ML IV (23:35)
[2019-01-06 01:47] VITALS: BP 106/59; PULSE 67; PULSE 69; RESP 16; TEMP 36.9; O2SAT 96
[2019-01-06 02:33] VITALS: BP 114/60; PULSE 68; RESP 16; TEMP 36.6; O2SAT 97
--- NOTE | 2019-01-06 02:33 | ED.DEP ---
ED Disposition - Plan for ED Patient: Disposition: Home or Assisted Living Instructions: ED UTI Cystitis Male Prescriptions: Ciprofloxacin [Cipro] 500 mg PO BID #14 tablet Referrals: Navid Vera MD [STAFF PHYSICIAN] - Keep Eileen appointment
--- NOTE | 2019-01-06 22:56 | CT_ITS ---
STUDY: CT ABDOMEN AND PELVIS WITHOUT CONTRAST REASON FOR EXAM: Male, 73 years old. Urinary frequency. Penile pain. Fever, chills, nausea. RADIATION DOSAGE (If Supplied By Facility): CTDIvol = ( 7.02 ) mGy, DLP = ( 517.48 ) mGycm TECHNIQUE: Transaxial images were obtained from the dome of the diaphragm to the symphysis pubis without oral contrast, and without intravenous contrast. Sagittal and coronal images were reconstructed. Individualized dose optimization techniques were used for this CT. COMPARISON: July 04, 2018. FINDINGS: The visualized lung bases are unremarkable. The visualized portions of the heart are within normal limits. Sternal wires are present. Multiple hepatic cysts, the largest measuring 2.3 cm, clearly simple, unchanged. Normal gallbladder and extrahepatic biliary system. Normal spleen. Normal pancreas. Normal bilateral adrenal glands. Bilateral parapelvic renal cysts. No hydronephrosis. Normal visualized stomach. Normal small intestine. Minimal colonic diverticulosis. There are surgical clips in the region of the appendix consistent with a prior appendectomy. There is diffuse atherosclerotic calcification of the abdominal aorta and common iliac arteries, in addition to atherosclerotic calcification of the origin of major branch vessels. Mild dilatation of common iliac arteries unchanged. Normal inferior vena cava. Normal retroperitoneum. No intra-abdominal free air. Normal urinary bladder. Prostate gland is enlarged measuring 5.8 cm in transverse dimension. Scrotal hydrocele. No inguinal lymphadenopathy. Normal abdominal wall. Postoperative changes of posterior fusion L4-L5. Bilateral rods and pedicle screws. Surgical hardware appears intact. Multilevel degenerative changes of the lower thoracic and lumbar spine. CT/Abdomen/Pelvis without Cont IMPRESSION: No acute findings in the abdomen or pelvis. Prostate gland enlargement. Hydrocele. Stable hepatic cysts. Parapelvic renal cysts. Minimal colonic diverticulosis. Atherosclerotic calcification of the abdominal aorta and major branch vessels. Postoperative changes of posterior lumbar fusion. Electronically Signed: Rocco Esquivel MD at 2:16 EDT , Service support ,
== END 2019-01-06 02:38 | disposition home or self-care (01) ==
PROVIDERS: Emergency Provider Emergency Medicine; Family Provider Family Medicine; PCP Family Medicine
DX: N30.90 Cystitis, unspecified without hematuria (principal); I10 Essential (primary) hypertension; E78.00 Pure hypercholesterolemia, unspecified; K21.9 Gastro-esophageal reflux disease without esophagitis; N40.0 Benign prostatic hyperplasia without lower urinary tract symptoms; Z79.899 Other long term (current) drug therapy
CPT/HCPCS: 74176; 80048; 81001; 83605; 85025; 87040; 87086; 87088; 87186; 96361; 96365; 96366; 96375; 99282; J7030; A4216; J2405

== ENCOUNTER → 2019-01-22 07:00 | Outpatient (CLI) | payer MEDICARE, OTHER, SELFPAY ==
[2019-01-05 19:43] VITALS: BMI 24.7
--- NOTE | 2019-01-22 07:40 | MRI_ITS ---
STUDY: MRI RIGHT FOREFOOT WITHOUT CONTRAST REASON FOR EXAM: Pain for 4 years, evaluate for Meyer's neuroma in third intermetatarsal space. TECHNIQUE: Standardized fat and water weighted pulse sequences were obtained in all 3 orthogonal planes. COMPARISON: None. FINDINGS: There is arthrosis of the metatarsophalangeal joint of the hallux with chondral thinning (T1 sagittal image 24). There is cystic change of the tibial sesamoid (inversion recovery sagittal image 25) suggestive of sesamoiditis. Normal fibular sesamoid. There is arthrosis of the interphalangeal joint of the hallux with chondral thinning (T1 sagittal image 23). There is a prominent cyst in the first proximal phalanx (inversion recovery sagittal images 23-25) measuring 1.6 cm in length. Normal first distal phalanx. Normal medial and lateral heads of the flexor hallucis brevis tendons. Normal flexor and extensor hallucis longus tendons. Normal second through fifth metatarsophalangeal (MTP) joints. Normal interphalangeal joints of the second through fifth toes. Normal proximal, middle and distal phalanges of the second through fifth toes. There is soft tissue fullness at the plantar aspect of the third webspace (T1 series 2 images 22, 23) measuring 0.7 cm in AP dimension. There is also soft tissue fullness at the plantar aspect of the second webspace (T1 series 2 images 23, 24) measuring 0.4 cm in AP dimension. Normal flexor and extensor tendons of the second through fifth toes. There is mild cystic change of the head/neck of the first metatarsal (T2 series 5 images 8, 9). Otherwise, unremarkable metatarsals. There is atrophy with partial fat replacement of the abductor digiti minimi muscle (T1 sagittal images 8, 9). There is mild edema in the dorsal subcutis adipose space. 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 Arthrosis of the first metatarsophalangeal joint and interphalangeal joint of the first digit. Prominent cyst in the first proximal phalanx. Tibial sesamoiditis. Atrophy of the abductor digiti minimi muscle. Electronically Signed: Dane Arellano MD at 14:53 EDT Tel , Service support ,
== END ==
PROVIDERS: Family Provider Family Medicine; PCP Family Medicine; Referring Provider Podiatrist; Visit Provider Podiatrist
DX: G57.61 Lesion of plantar nerve, right lower limb (principal)
CPT/HCPCS: 73718

== ENCOUNTER → 2019-03-27 | Outpatient (CLI) | payer MEDICARE, OTHER, SELFPAY ==
[2019-03-27 07:37] LABS: AST(SGOT) 17 U/L (15-37); Alanine Aminotransfer ALT/SGPT 25 U/L (16-61); Albumin, Serum 3.7 g/dL (3.2-5.0); Alkaline Phosphatase 63 U/L (45-117); Bilirubin, Direct 0.24 mg/dL (0.00-0.30); Cholesterol 143 mg/dL (200); High Density Lipoprotein 69 mg/dL; Protein, Total 6.7 g/dL (6.4-8.2); Triglycerides 70 mg/dL; Very Low Density Lipoprotein 14 mg/dL (5-40)
== END | disposition home or self-care (01) ==
LOC: LAB 06:57
PROVIDERS: Family Provider Family Medicine; PCP Family Medicine; Referring Provider Internal Medicine Cardiovascular Disease; Visit Provider Internal Medicine Cardiovascular Disease
DX: E78.5 Hyperlipidemia, unspecified (principal)
CPT/HCPCS: 36415; 80061; 80076

== ENCOUNTER → 2019-04-24 | Outpatient (CLI) | payer MEDICARE, OTHER, SELFPAY ==
[2019-04-14 09:22] VITALS: BMI 23.6
--- NOTE | 2019-04-24 07:31 | CDU_ITS ---
Reason For Study: Left carotid bruit Rt. Velocities/BP Lt. Velocities/BP Prox CCA 95.6/18.6 cm/sec. Prox CCA 92.5/21.2 cm/sec. Mid CCA 100.8/16 cm/sec. Mid CCA 87.6/16.3 cm/sec. Dist CCA 82.6/17.3 cm/sec. Dist CCA 75.3/16.3 cm/sec. Prox ICA 66.9/13.4 cm/sec. Prox ICA 70.4/16.3 cm/sec. Mid ICA 79.9/26.5 cm/sec. Mid ICA 85.1/27.4 cm/sec. Dist ICA 91.7/30.4 cm/sec. Dist ICA 88.8/27.4 cm/sec. Rt. ICA/CCA = 1.0. Lt. ICA/CCA = 1.0. Prox ECA 94.3/9.5 cm/sec. Prox ECA 75.3/9 cm/sec. Rt. Vert. 34.4/7.7 cm/sec. Lt. Vert. 48.6/14.4 cm/sec. Right Extracranial There is intimal thickening but no significant atherosclerotic plaque noted in the right common carotid artery. There is heterogeneous, irregular atherosclerotic plaque noted in the right internal carotid artery. There is intimal thickening but no significant atherosclerotic plaque noted in the right external carotid artery. Antegrade flow is noted in the right vertebral artery. Left Extracranial There is homogeneous, smooth atherosclerotic plaque noted in the left common carotid artery. There is heterogeneous, irregular atherosclerotic plaque noted in the left internal carotid artery. There is intimal thickening but no significant atherosclerotic plaque noted in the left external carotid artery. Antegrade flow is noted in the left vertebral artery. Procedure Carotid Duplex [id number]. Exam performed in department. Interpretation Summary Minimal calcific plague at the proximal right internal and external carotids with <50% stenosis of each Irregular calcific plague at the proximal left internal carotid with <50% stenosis. <50% stenosis left external carotid Patent and antegrade vertebrals bilaterally Ordering Physician: Devi Ramos Referring Physician: Nori Louis M.D. Performed By: Georgina Howard RVT
== END | disposition home or self-care (01) ==
LOC: CVS 07:29
PROVIDERS: Family Provider Family Medicine; PCP Family Medicine; Referring Provider Physician Assistant Medical; Visit Provider Physician Assistant Medical
DX: R09.89 Other specified symptoms and signs involving the circulatory and respiratory systems (principal)
CPT/HCPCS: 93880

== ENCOUNTER → 2019-07-31 | Outpatient (CLI) | payer MEDICARE, OTHER, SELFPAY ==
[2019-04-14 09:22] VITALS: BMI 23.6
[2019-07-31 08:49] LABS: PSA,Total- Diagnostic 2.92 ng/mL (0.0-4.0)
[2019-07-31 14:54] LABS: Hematocrit 45.4 % (40-54); Hemoglobin 14.4 g/dL (13.0-16.5); Mean Corp Hgb Conc 31.7 g/dL (32-36); Mean Corpuscular Hgb 31.4 pg (27.0-32.0); Mean Corpuscular Volume 98.9 fL (80-94); Platelet Count 134 K/mm3 (150-450); RBC Distribution Width CV 12.6 % (11.6-14.6); RBC Distribution Width SD 46.2 fl (35.1-43.9); Red Blood Count 4.59 M/mm3 (4.6-6.2); White Blood Count 4.9 K/mm3 (4.4-11.0)
[2019-07-31 16:08] LABS: Anion Gap 7 (5-15); BUN 21 mg/dL (7-18); Calcium,Total 9.1 mg/dL (8.5-10.1); Chloride 111 mmol/L (98-107); Creatinine, Serum 0.88 mg/dL (0.70-1.30); EST Glomerular Filtration Rate 91 mL/min (>60); Est Glom Filt Rate - Afr Amer 110 mL/min (>60); Glucose 113 mg/dL (74-106); Potassium 4.5 mmol/L (3.5-5.1); Sodium Level 145 mmol/L (136-145)
== END | disposition home or self-care (01) ==
LOC: LAB 07:18
PROVIDERS: Family Provider Family Medicine; PCP Family Medicine; Referring Provider Urology; Visit Provider Urology
DX: Z01.818 Encounter for other preprocedural examination (principal); N40.0 Benign prostatic hyperplasia without lower urinary tract symptoms
CPT/HCPCS: 36415; 80048; 84153; 85027

== ENCOUNTER 2019-08-05 09:03 | Day surgery (SDC) | payer MEDICARE, OTHER, SELFPAY ==
[2019-04-14 09:22] VITALS: BMI 23.6
--- NOTE | 2019-08-03 07:46 | PCM.HP.BLA ---
History and Physical Patient Name: Lopez Garcia : 1945 From: [facility] DATE OF SURGERY: 08/05/2019 SCHEDULED PROCEDURE: Left knee arthroscopy with partial medial and lateral meniscectomy and chondroplasty HISTORY OF PRESENT ILLNESS: Preoperative history and physical exam was performed on July 31, 2019. This is a 73-year-old male who is having ongoing pain in his left knee since February 2019. Patient had an injury at that time when he was hiking in [place] when he twisted his knee climbing a mountain. Since then patient has had pain in the left knee. Patient has undergone corticosteroid injection which initially helped but the pain did return. He has tried [id number] medications without any relief in symptoms. Patient is an avid cyclist and hiker. This has prevented him from performing his activities. He is now having increased pain with clicking sensation as well as locking. He does have episodes of instability. Patient did have an MRI of the left knee which did reveal medial and lateral meniscus tear as well as underlying chondromalacia in the left knee. Patient has failed conservative measures including physical therapy, corticosteroid injection, [id number] medications. At this time patient does wish to proceed with a left knee arthroscopy with partial medial and lateral meniscectomy and chondroplasty. Patient does have a history of previous heart bypass as well as coronary artery disease and heart attack. Heart bypass was in 1991. He is followed by Dr. Yadav. We are obtaining surgical clearance from the [employer]. He currently denies any chest pain, shortness of breath, fevers chills, or recent infections. REVIEW OF SYSTEMS: ROS: Const: Reports change in appetite, but denies fever and weight change. CV: Reports heart murmur, but denies chest pain and irregular heartbeat. Resp: Denies cough, pneumonia, shortness of breath, tuberculosis and wheezing. GI: Reports heartburn, but denies constipation, diarrhea, nausea, rectal itching, bloody stools and vomiting. : Denies incontinence. Musculo: Denies leg swelling, pain, trouble walking and weakness. Skin: Reports history of shingles and tattoo, but denies Raynaud's. Neuro: Denies ambulatory dysfunction, dizziness, numbness/tingling and tremor. Psych: Denies anxiety, insomnia and stress. Chaz/Lymph: Denies anemia, bleeding/bruising tendency and past transfusion. Reviewed, no changes. PAST MEDICAL HISTORY: Advance Care Plan: Other Directive, POA Effective Date: 04/09/2019 Other Directive, LIVING WILL Effective Date: 04/09/2019 PMH: Medical Problems: Arthritis, Coronary Artery Disease (CAD), Hard of Hearing, Heart Attack, High Blood Pressure, Hypercholesterolemia, History Of Phlebitis, Kidney Stones Accidents: Fracture - LT LEG LT ARM 5 RIBS Surgical Hx: Appendectomy - (2015) [facility] Heart Bypass (CABG) - (1991) [facility] Hernia Repair - (2013) [facility] Tonsillectomy - (1953) Kidney Stones - (2011) [facility] JOEL Anesthesia Complications: None Assistive Devices: Glasses, Hearing Aid Reviewed, no changes. SOCIAL HISTORY: SH: Marital: .Occupation: Retired.Work Status: Retired.Hand Dominance: Ambidextrous. Personal Habits: Cigarette Use: Former.Smokeless Tobacco: Never Used Smokeless Tobacco.E-Cigarette Use: Never used.Alcohol: Weekly use.Drug Use: Denies Use.Enjoy Exercising: Daily. Reviewed, no changes. VITALS: Ht: 69 Wt: 162lb 8oz Wt k.710 BMI: 24.0 BP: 112/63 Pulse: 67 Resp: 16 T: 98.1 T: 36.7C ALLERGIES: opioid anangesics MEDICATIONS: Tramadol HCL 50 mg 1-2 by mouth every 6 hours as needed pain, Atenolol 25 mg 1 by mouth every other day, Lisinopril 10 mg 1 half tablet by mouth every day, Crestor 40 mg 1 po daily, Aspirin 81 81 mg 1 po daily, Tamsulosin HCL 0.4 mg 1 by mouth every day, Dutasteride 0.5 mg 1 by mouth every day, mm Vitamin B12 5000 mcg 1 po daily, CVS D3 5000 Unit 1 po daily PRE-OP EXAM: General appearance:NORMAL Other: Eyes: Conjunctivae and lids: NORMAL Pupils: ERR Ears, Nose, Mouth, and Throat: NORMAL Other: Inspection of lips, teeth and gums: NORMAL Other: Neck: Examination of neck: no masses noted. Respiratory: Assessment of respiratory effort: NORMAL Other: Auscultation of lungs: clear to auscultation no wheezes, rhonchi or rales. Cardiovascular: Auscultation of heart: regular rate and rhythm, positive systolic murmur Gastrointestinal: Exam of abdomen: soft, nontender, nondistended bowel sounds present. PHYSICAL EXAMINATION: On exam patient does walk with a limping gait. There is tenderness to palpation along the medial and lateral joint line of the left knee. There is tenderness to palpation the posterior left knee. Trace effusion. Range of motion left knee: 0 of extension to 110 flexion. Positive Pauline's examination with reproduction of symptoms. Negative anterior/posterior drawer, negative varus/valgus stress test. Sensation intact to light touch. IMAGING STUDIES: [facility] 2019 which does reveal moderate joint space narrowing and osteophyte formation of the left knee in the medial compartment. There is osteoarthritis in the patellofemoral joint with osteophyte formation and joint space narrowing. There is presence of grafting on the left lower leg with vascular clips. MRI of the left knee was obtained at [facility] on July 24, 2019 of the left knee which did reveal posterior horn lateral meniscus tear with chondromalacia in the lateral compartment. There is medial meniscus tear with chondromalacia. There is evidence of patellofemoral chondral malacia. IMPRESSION: 1. Left knee medial and lateral meniscus tear 2. Left knee osteoarthritis 3. Hypertension 4. Hypercholesterolemia 5. History of phlebitis 6. Previous heart attack and coronary artery disease: Heart bypass 1992 PLAN: I did discuss and review with the patient all treatment options including surgical versus nonsurgical options. Patient does wish to proceed with the above-stated procedure. Potential risks, benefits, and complications of the procedure were discussed in detail including but not limited to , infection, nerve and blood vessel damage, persistent pain, numbness, tingling, paresthesias, blood clot, pulmonary embolism, and requirement for possible further surgery. The patient expressed full understanding and has no further questions for the doctor. Patient does agree to proceed with the above-stated procedure and has signed the surgery consent form. We are obtaining surgical clearance from the [employer]. Patient was given tramadol for postoperative pain control. He will use Tylenol Extra Strength 500 mg 2 tablets 3 times daily. We will also have the patient continue with his aspirin postoperatively for DVT prophylaxis. This dictation was created using voice recognition software. Phonetic and/or grammatical errors may exist. ___ I have re-examined the patient. There are no clinical changes since date of exam. ___ See progress notes for changes. ___ Dictated on admission Date: Time: Signature:
[2019-08-05] VITALS (8 sets, daily range): BP systolic 111–150; BP diastolic 56–85; PULSE 55–70; RESP 14–16; TEMP 36.6–37.2; O2SAT 96–99; BMI 24.0
[2019-08-05] MEDS: Lactated Ringers 1,000 ML 100 ML IV (10:06)
[2019-08-05] MEDS: Cefazolin 2 GM in 0.9% Normal Saline 100 ML IV (11:34)
[2019-08-05] MEDS: Epinephrine (1 mg/ml) 1 MG/ML VIAL (12:01)
--- NOTE | 2019-08-05 12:20 | OP.PCM_ITS ---
Report of Operation Date of Procedure: 08/05/19 Pre-Operative Diagnosis: Left knee medial and lateral meniscus tearing. Left knee chondromalacia tricompartmental Post-Operative Diagnosis: Left knee medial and lateral meniscus tearing. Left knee chondromalacia tricompartmental Surgery/Procedure Performed:: 1. Arthroscopic left knee partial medial lateral meniscectomy. 2. 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 Patient was brought back to the operating room where they w ere transferred to the bed. Anesthesia assumed control of the C-spine airway and administered anesthetic. All bony prominences were identified and well- padded and the L leg was placed in the arthroscopic leg escalante. The contralateral leg was then draped over the bed and well-padded. There was padding underneath both sciatic nerves. The foot of the bed was then dropped and the L leg was prepped in a sterile fashion. The surgeon then scrubbed. Upon reentering the room, the operative leg was draped in a standard orthopedic fashion. A timeout was called, everyone agreed upon the side, the site, the procedure to be performed, patient's identity and antibiotics given. Incisions were marked out for the medial and lateral infrapatellar portals. Esmarch bandage was then used to exsanguinate the leg and tourniquet was placed at 250 mmHg. At this time, the lateral portal incision was made in a vertical fashion. The trocar was placed into the joint. The camera was then placed and the p atellofemoral joint was visualized. The patella did appear to have grade 3 chondral changes. The trochlea appeared to have grade 3 chondral changes. We then directed our attention to the medial gutter where there was no foreign body. Then directed our attention to the medial joint compartment. There were grade 3 chondral changes on the medial distal femur, grade 3 chondral changes on the medial tibial plateau. The medial meniscus had large posterior horn tear. The medial portal was then placed under direct visualization using a spinal needle an 11 blade scalpel. Once this was done a probe was placed in the joint and the meniscus was probed finding large posterior horn tear. The biters and joseph were then used sequentially to debriding get rid of any free edges that could be a source of pain and catching in the meniscus tear. At the completion of this we also used a shaver to clean up any free edges of cartilage flap tissue and chondromalacia performing her chondroplasty in the medial compartment. Once we felt medial meniscus tear was adequately debrided, we again visualized the joint and noted the meniscus tear was adequately debrided. Attention was then turned towards the notch where the anterior cruciate ligament was intact. PCL was visualized and appeared intact. Attention was then directed towards the lateral compartment where the lateral distal femur had grade 3 chondral changes, the lateral proximal tibia had grade 3 chondral changes. The lateral meniscus had a cleavage tear.The biters and joseph were then used sequentially to debriding get rid of any free edges that could be a source of pain and catching in the meniscus tear. At the completion of this we also used a shaver to clean up any free edges of cartilage flap tissue and chondromalacia performing her chondroplasty in the lateral compartment. We then directed our attention to the lateral gutter, which was visualized and no free bodies were noted. At this time the wound was copiously irrigated out with normal saline with epinephrine. The wound was closed with 4-0 nylon and 0.5% Marcaine and epinephrine were injected for local anesthetic. Xeroform was placed over the incision. Sterile dressing was placed. Compressive dressing was placed. Tourniquet was let down. For that there was then placed up. Patient was awakened by anesthesia patient was transferred to the PACU for recovery in stable condition. Postoperative plan: Patient will be made weight-bear as tolerated. Return to activities as tolerated. He will come to the office in 2 weeks for postoperative wound check and suture removal. If he is doing well that time he can follow-up as needed. - Complications No intraoperative complications - Admit VTE Documentation VTE Present on Admission: No VTE Mechan Device Prophylaxis: SCD's VTE Pharm Prophylaxis ordered?: Yes
[2019-08-05] MEDS: Ketorolac 15 MG/ML Vial IV (12:25)
--- NOTE | 2019-08-05 14:46 | SUR.PREOP ---
PHYSICAL THERAPY IN ROOM SEEING PT.
--- NOTE | 2019-08-05 15:05 | SUR.PHASEII ---
KNEE IMMOBLIZER APPLIED TO LEFT LEG.
== END 2019-08-05 15:22 | disposition home or self-care (01) ==
LOC: SDC 09:03 → AC 09:04
PROVIDERS: Family Provider Family Medicine; PCP Family Medicine; Referring Provider Specialist; Visit Provider Specialist
PROC: (CPT 29870; principal; 2019-08-05 10:55)
DX: S83.282A Other tear of lateral meniscus, current injury, left knee, initial encounter (principal); S83.242A Other tear of medial meniscus, current injury, left knee, initial encounter; M94.262 Chondromalacia, left knee; M17.12 Unilateral primary osteoarthritis, left knee; I10 Essential (primary) hypertension; E78.00 Pure hypercholesterolemia, unspecified; I25.2 Old myocardial infarction; I25.10 Atherosclerotic heart disease of native coronary artery without angina pectoris; K21.9 Gastro-esophageal reflux disease without esophagitis; Z87.891 Personal history of nicotine dependence; Z95.1 Presence of aortocoronary bypass graft; Z79.82 Long term (current) use of aspirin; Z79.899 Other long term (current) drug therapy; Z85.828 Personal history of other malignant neoplasm of skin; Z87.442 Personal history of urinary calculi; X50.1XXA Overexertion from prolonged static or awkward postures, initial encounter; Y93.31 Activity, mountain climbing, rock climbing and wall climbing; Y92.828 Other wilderness area as the place of occurrence of the external cause; Y99.8 Other external cause status
CPT/HCPCS: 01400; 29880; 93005; 97162; J7120

== ENCOUNTER → 2019-11-06 12:33 | Outpatient (CLI) | payer MEDICARE, OTHER, SELFPAY ==
[2019-10-15 08:22] VITALS: BMI 24.7
--- NOTE | 2019-11-06 12:34 | ECHOD_ITS ---
Reason For Study: MURMUR Procedure This was a 2D Doppler, Color Flow transthoracic echocardiogram. The exam was of adequate technical quality. Exam performed in department. Left Ventricle Normal LV size. Segmental dysfunction with preserved ejection fraction (see wall motion). The estimated ejection fraction is 65 %. No evidence for diastolic dysfunction. Infero-Basal: Hypokinetic. Mid-Inferior: Hypokinetic. Mid-inferoseptal : Hypokinetic. Mid-anteroseptal : Hypokinetic. Right Ventricle Normal RV size. Normal systolic function. Atria The left atrium is mildly enlarged. Normal right atrium. No doppler evidence for ASD. Mitral Valve There is mild mitral annular calcification. Extension of the mitral annular calcification on the base of the posterior mitral valve leaflet. Mild (1+) mitral valve insufficiency. Tricuspid Valve Normal tricuspid valve. Mild tricuspid valve insufficiency. Right ventricular systolic pressure estimated to be 33 mmHg. Aortic Valve Trisinus/trileaflet aortic valve. Mild diffuse aortic valve thickening. Moderate diffuse aortic valve calcification. Moderate aortic stenosis. Pulmonic Valve The pulmonic valve is not well visualized. Mild (1+) pulmonic valve insufficiency. Great Vessels Normal sized aortic root. Calcified aortic root. Pericardium/Pleural No pericardial effusion. MMode/2D Measurements & Calculations LVIDd: 5.1 cm IVSd: 1.2 cm LVOT diam: 2.0 cm LVIDs: 3.5 cm LVPWd: 1.1 cm LVOT area: 3.1 cm2 RVDd: 4.0 cm FS: 31.6 % Ao root diam: 3.3 cm LAV(MOD-bp): 67.4 ml LVAd ap4: 33.4 cm2 LAV(MOD-bp) Indexed: 35.9 ml/m2 EDV(MOD-sp4): 108.5 ml LAV(MOD-sp2): 74.0 ml EDV(sp4-el): 112.5 ml LAV(MOD-sp4): 57.1 ml LVAs ap4: 16.8 cm2 ESV(MOD-sp4): 34.8 ml ESV(sp4-el): 35.0 ml EF(MOD-sp4): 67.9 % EF(sp4-el): 68.9 % SV(MOD-sp4): 73.7 ml SV(sp4-el): 77.5 ml LA A4 area: 20.5 cm2 LA dimension(2D): 4.9 cm RA A4 area: 17.8 cm2 Time Measurements MV dec time: 0.28 sec Doppler Measurements & Calculations MV E max jarrett: 93.7 cm/sec Lat Peak E' Jarrett: 13.8 cm/sec Med Peak E' Jarrett: 7.4 cm/sec MV A max jarrett: 104.8 cm/sec E/E' lat: 6.8 E/E' med: 12.6 MV E/A: 0.89 Ao V2 max: 359.2 cm/sec LV V1 max: 179.8 cm/sec SV(LVOT): 130.0 ml Ao max P.7 mmHg LV V1 max P.9 mmHg Ao V2 mean: 271.2 cm/sec LV V1 mean P.9 mmHg Ao mean P.1 mmHg LV V1 mean: 121.3 cm/sec Ao V2 VTI: 87.6 cm LV V1 VTI: 41.8 cm OSIEL(I,D): 1.5 cm2 OSIEL(V,D): 1.6 cm2 PA V2 max: 135.9 cm/sec TR max jarrett: 273.2 cm/sec TR max P.9 mmHg Interpretation Summary Segmental dysfunction with preserved ejection fraction (see wall motion). The estimated ejection fraction is 65 %. The left atrium is mildly enlarged. There is mild mitral annular calcification. Extension of the mitral annular calcification on the base of the posterior mitral valve leaflet. Mild (1+) mitral valve insufficiency. Mild tricuspid valve insufficiency. Moderate aortic stenosis. Mild (1+) pulmonic valve insufficiency. Calcified aortic root. Right ventricular systolic pressure estimated to be 33 mmHg. No evidence for diastolic dysfunction. Ordering Physician: Devi Ramos/Lopez Yadav Referring Physician: GERARDO STEINBERG Performed By: Ester Wheeler RDCS
== END ==
PROVIDERS: Family Provider Family Medicine; PCP Family Medicine; Referring Provider Physician Assistant Medical; Visit Provider Physician Assistant Medical
DX: I25.810 Atherosclerosis of coronary artery bypass graft(s) without angina pectoris (principal)
CPT/HCPCS: 93306

== ENCOUNTER → 2019-11-17 06:05 | Outpatient (CLI) | payer MEDICARE, OTHER, SELFPAY ==
[2019-10-15 08:22] VITALS: BMI 24.7
--- NOTE | 2019-11-17 10:46 | STRESSREP ---
Stress Test Report Date: 11-17-2019 Procedure: Exercise tolerance test/imaging study Indications: Palpitations; fatigue; CAD; abnormal transthoracic echocardiogram Consent: Per the patient Procedure: The patient exercised on a Robert protocol for 7 minutes and 30 seconds completing Stage II and 1 minute and 30 seconds of Stage III achieving a peak heart rate of 151 bpm (102 % predicted maximal heart rate) with a peak blood pressure 170/90 mmHg and a peak MET capacity of 9 METs. The baseline ECG demonstrated sinus bradycardia. The peak exercise ECG demonstrated somatic/motion artifact with [id number] nonspecific ST segment variability with gradual resolution towards baseline in recovery. There was an occasional PVC during exercise and recovery; a rare ventricular couplet/triplets/quadruplet during exercise; a rare ventricular couplet during recovery. The functional capacity was considered good. There was no complaint of chest discomfort during exercise or recovery. The examination was discontinued secondary to back discomfort. Impression: 1. Technically adequate (percent predicted maximal heart rate greater than 85%) exercise tolerance test 2. Peak exercise ECG with somatic/motion artifact with [id number] nonspecific ST segment variability with gradual resolution towards baseline in recovery 3. There was an occasional PVC during exercise and recovery; a rare ventricular couplets/triplets/quadruplet during exercise; a rare ventricular couplet during recovery 4. Nuclear images pending Myocardial perfusion imaging study: Technique: The patient was injected with 11.1 mCi of technetium 99m Cardiolite and subsequently rest SPECT Cardiolite nuclear imaging was obtained in the horizontal long, vertical long, and short axis views. The patient exercised on a Robert protocol for 7 minutes and 30 seconds completing Stage II and 1 minute and 30 seconds of Stage III achieving a peak heart rate of 151 bpm (102 % predicted maximal heart rate) with a peak blood pressure 170/90 mmHg and a peak MET capacity of 9 METs. The patient was injected with a 3.0 mCi of technetium 99m Cardiolite and subsequently stress SPECT Cardiolite nuclear imaging was obtained in the horizontal long, vertical long, and short axis views. A gated Cardiolite study at peak stress was obtained. Interpretation: Rest and stress SPECT Cardiolite nuclear imaging status post realignment, normalization, and attenuation correction, demonstrates the appearance of an area of diminished tracer uptake in portions of the mid anterior segments which status post stress appears to be more prominent in the mid to distal anterior and distal anterolateral segments. There is end systolic thickening and brightening. The gated Cardiolite study demonstrates myocardial thickening and inward wall motion. The reported LVEF is 63 %. Impression: 1. Rest and stress SPECT Cardiolite nuclear imaging demonstrate cardial perfusion changes potentially compatible with an area of previous myocardial injury/infarction portions of the mid anterior segments with post stress myocardial perfusion changes appearing compatible with an area of stress-induced myocardial ischemia in portions of the mid to distal anterior and distal anterolateral segments. 2. The gated Cardiolite study reports an LVEF of 63 %. This note was generated with [employer] software. It may contain incorrect words, spelling, and punctuation that were not noted in checking the note before signing.
== END ==
PROVIDERS: PCP Family Medicine; Referring Provider Physician Assistant Medical; Visit Provider Physician Assistant Medical
DX: I10 Essential (primary) hypertension (principal); I25.810 Atherosclerosis of coronary artery bypass graft(s) without angina pectoris; I49.3 Ventricular premature depolarization; E78.5 Hyperlipidemia, unspecified; I25.10 Atherosclerotic heart disease of native coronary artery without angina pectoris; R53.83 Other fatigue; R00.2 Palpitations
CPT/HCPCS: 78452; 93017; A9500; A4216

== ENCOUNTER 2019-11-27 07:46 | Day surgery (SDC) | payer MEDICARE, OTHER, SELFPAY ==
[2019-10-15 08:22] VITALS: BMI 24.7
--- NOTE | 2019-11-20 06:35 | RAD_ITS ---
STUDY: X-RAY CHEST REASON FOR EXAM: Male, 74 years old. ABN STRESS TEST, PRE-HEART CATH. NO CHEST COMPLAINTS TODAY. HX CAD, CABG X 4 IN 1991 TECHNIQUE: PA and lateral views of the chest. COMPARISON: 07/03/2018 FINDINGS: Status post median sternotomy. The lungs are clear and expanded. There is no demonstrated pleural abnormality. Normal size heart. Normal mediastinum and zeyad. Normal visualized pulmonary arteries. Normal visualized aortic arch and descending thoracic aorta. Normal visualized thoracic spine. Normal visualized ribs, clavicles, and shoulders. There is no demonstrated abnormality of the visualized soft tissue structures of the upper abdomen. RAD/Chest PA and Lateral IMPRESSION: No active disease. Electronically Signed: Percy Brdoy MD at 8:25 EST Tel , Service support ,
[2019-11-20 07:26] LABS: Absolute Lymphocyte Count 1.29 X10^3/uL (0.83-4.51); Basophil# 0.03 X10^3/uL; Basophil% 0.6 % (0-1); Eosinophil# 0.25 X10^3/uL; Eosinophils% 5.1 % (0-5); Hemoglobin 14.1 g/dL (13.0-16.5); Lymphocyte # 1.29 X10^3/ul (4.0); Lymphocyte % 26.4 % (19-41); Mean Corp Hgb Conc 32.8 g/dL (32-36); Mean Corpuscular Hgb 31.6 pg (27.0-32.0); Mean Corpuscular Volume 96.4 fL (80-94); Mean Platelet Vol. 10.5 fl (6.2-12.0); Monocyte# 0.33 X10^3/uL; Monocyte% 6.8 % (0-10); NRBC Flagged by Analyzer 0 % (0-5); Neutrophil # 2.97 X10^3/uL (2.7-7.7); Neutrophil % 60.9 % (47-70); Platelet Count 124 K/mm3 (150-450); RBC Distribution Width CV 12.7 % (11.6-14.6); RBC Distribution Width SD 45.3 fl (35.1-43.9); Red Blood Count 4.46 M/mm3 (4.6-6.2); White Blood Count 4.9 K/mm3 (4.4-11.0)
[2019-11-20 07:49] LABS: AST(SGOT) 19 U/L (15-37); Alanine Aminotransfer ALT/SGPT 28 U/L (16-61); Albumin, Serum 3.8 g/dL (3.2-5.0); Alkaline Phosphatase 84 U/L (45-117); Anion Gap 5 (5-15); BUN 22 mg/dL (7-18); BUN/Creat Ratio 22.2 RATIO (10-20); Bilirubin, Direct 0.27 mg/dL (0.00-0.30); Calcium,Total 9.2 mg/dL (8.5-10.1); Chloride 111 mmol/L (98-107); Cholesterol 136 mg/dL (200); Creatinine, Serum 0.99 mg/dL (0.70-1.30); EST Glomerular Filtration Rate 79 mL/min (>60); Est Glom Filt Rate - Afr Amer 95 mL/min (>60); Globulin 2.8 g/dL (2.2-4.2); Glucose 100 mg/dL (74-106); High Density Lipoprotein 65 mg/dL; Potassium 4.2 mmol/L (3.5-5.1); Protein, Total 6.6 g/dL (6.4-8.2); Sodium Level 144 mmol/L (136-145); Triglycerides 74 mg/dL; Very Low Density Lipoprotein 15 mg/dL (5-40)
[2019-11-26 07:50] VITALS: BMI 24.7
--- NOTE | 2019-11-26 16:02 | PCM.HP.BLA ---
<Denis Cameron - Last Filed: 11/27/19 08:44> History and Physical Date of Admission: 11/27/19 HPI HPI History of Present Illness Details: LOPEZ NAJERA, is a 74 M who presents to the [facility] lab[facility] today for for a heart catheterization. He has a history of coronary artery disease with bypass surgery and aortic stenosis. 1992 he had an DELANEY to his LAD, THIAGO to the lateral circumflex, SVG to the diagonal, SVG to the PDA. He does have known mild aortic stenosis. He also has a history of hyperlipidemia. After his office appointment on 10/15/2019 he underwent an echocardiogram to evaluate aortic stenosis. His echocardiogram showed ejection unction of 65%, mildly large left atrium, mild mitral insufficiency, mild aortic stenosis, mild pulmonic valve insufficiency, and RVSP 33 mmHg. Segmental dysfunction with preserved ejection fraction was noted. Because his aortic valve is slightly worse, he underwent a stress test on 11/17/2019 to evaluate palpitations in the setting of coronary artery disease. This showed an area of stress-induced myocardial-ischemia in portions of the mid to distal anterior and distal anterolateral segments. Because of this result, he will proceed with a right and left heart catheterization. From a cardiac standpoint, patient is doing well. He does not have any chest discomfort/heaviness/tightness. His exercise tolerance is stable for his age. He continues to some kind of activity every day whether it is between walking, hiking, biking or swimming. He does not have any worsening symptoms of shortness of breath. He denies any PND. He does not have any orthopnea. He does not have any symptoms of congestive heart failure. He does not have any lightheadedness or dizziness. He does not have any near-syncope or syncope. He does not have any lower extremity edema. He does not have any symptoms of claudication. His biggest issue is his arthritis. He did have knee surgery 2 months ago and has recovered from this. After surgery he felt fluttering when he would start to walk, this would then go away after a few minutes. He has not had any for approx one month. 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 Required: No Accompanied by: None Is patient in pain?: No Allergies Opioids - Morphine Analogues Allergy (Verified 10/15/19 08:22) Nausea PAIN MEDICATION Allergy (Uncoded 08/05/19 09:38) Unknown Medications See EMR [facility] Medical History Atherosclerosis of coronary artery bypass graft without angina pectoris (Chronic) Essential hypertension (Chronic) Premature ventricular contractions (Chronic) Left carotid bruit (Chronic) 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) stenosis (Chronic) Hyperlipidemia (Chronic) FDC use of drug (Chronic) Arteriosclerosis of coronary artery bypass graft (Inactive) Hypertension (Inactive) Surgical History Presence of aortocoronary bypass graft (Chronic ~01/11/93) Family History Father CAD (coronary artery disease) Cancer Bone cancer Myocardial infarction FH valvular heart dx FH: CABG (coronary artery bypass surgery) Mother Alzheimer disease Sister Hypertension Other Family history of hypertension Social History (Updated 10/15/19 @ 09:07 by JEREMY Paredes) Smoking Status: Former smoker how long ago did patient quit smokin alcohol intake: current alcohol intake frequency: a few times a week Alcohol type: wine substance use type: does not use caffeine: Yes Type: tea what type of physical activity do you participate in: bicycling, weight training frequency: daily duration: 60-90 minutes/day seatbelt use: always do you feel safe at home: Yes ROS Const Const: Negative for fatigue, weakness, fever(s) or headache(s) Eyes Eyes: Negative for blind spots, loss of peripheral vision or transient loss of vision ENT ENT: Negative for headache(s) Cardio Chest Pain: No Palpitations: Yes Edema: None Muscle aches with walking: None Resp Respiratory: Negative for SOB with activity, SOB at rest, SOB orthopnea\SOB lying down or Cough GI GI: Negative nausea, vomiting, heartburn or vomiting blood/hematemesis : Negative for hematuria Musc Musc: Negative for muscle aches/ myalgia Neuro Neuro: Negative for headache(s) or weakness Chaz Hematologic/Lymphatic: Negative for easy bleeding Endo Endo: Negative for fatigue Cardiology Exam Const Appearance: cooperative, no acute distress and well developed Orientation: alert, awake and oriented x3 Head Head: normocephalic and atraumatic Mouth: moist mucous membranes Eyes General: appearance normal, both eyes and all related structures Conjunctivae: conjunctivae normal Pupils: PERRL EOM: EOM intact bilaterally Neck Neck: normal visual inspection, no lymphadenopathy and no JVD Neck Mass: Negative Neck mass Chest Chest inspection: normal inspection of the chest and symmetric chest movement Auscultation: Bilateral: Clear to Auscultation Cardio Palpation: normal PMI Rate: regular rate Rhythm: regular rhythm Heart sounds: S1 normal, S2 normal and murmur; negative rub or gallop Murmur: Grade 2/6, harsh and mid systolic (radiates to carotids) GI GI: normal to inspection, soft, no hepatosplenomegaly and bowel sounds present; negative tender Neuro General: alert, awake, oriented x3, CN's II-XI intact bilaterally and moves all extremities Extremities Pulses: Normal: Right Posterior Tibial Pulse, Left Posterior Tibial Pulse, Right Radial Pulse, Left Radial Pulse Lower Extremity Edema: None: Bilateral Psych Psychological: normal affect Assessment & Plan 1. Atherosclerosis of coronary artery bypass graft of [place] heart without angina pectoris I25.810 Plan His stress test on 11/17/2019 was considered to be abnormal. He will proceed with heart catheterization to further evaluate. 2. Essential hypertension I10 Plan Blood pressure is well controlled on current medications, we do not recommend any changes at this time. 3. Pure hypercholesterolemia E78.00 Plan Recent lipid profile demonstrates: Cholesterol 143, HDL 69, LDL 60. Patient will continue with current medical management. He is due to have these checked. 4. 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) stenosis I35.0 Plan Patient does have mild aortic stenosis. His murmur does appear slightly louder, with his palpitations post surgery would like to reevaluate this. 5. Palpitations R00.2 Plan Patient has not had any further recurrence. If he has any recurrence have asked him to let us know. We will then obtain labs and a Holter monitor to further evaluate. Supplemental Info Supplemental Information Echocardiogram from 11/06/2019 Interpretation Summary Segmental dysfunction with preserved ejection fraction (see wall motion). The estimated ejection fraction is 65 %. The left atrium is mildly enlarged. There is mild mitral annular calcification. Extension of the mitral annular calcification on the base of the posterior mitral valve leaflet. Mild (1+) mitral valve insufficiency. Mild tricuspid valve insufficiency. Moderate aortic stenosis. Mild (1+) pulmonic valve insufficiency. Calcified aortic root. Right ventricular systolic pressure estimated to be 33 mmHg. No evidence for diastolic dysfunction. Heart catheterization in 2017 demonstrated left main with moderate calcification with 25% stenosis, the LAD with moderate calcification with proximal 50% stenosis. The LAD filled from competitive flow from antegrade flow and DELANEY graft flow. The first diagonal branch was a small caliber vessel with proximal 85% appearing stenosis. The LCX had an OM vessel which was occluded. The OM filled from the THIAGO graft. The RCA was proximally occluded with bridging collaterals to the mid segment which appear to be occluded. The DELANEY to the LAD was patent. The THIAGO to the LCX was patent, the SVG to the diagonal branch was occluded and the SVG to the RCA had been previously documented as occluded. Medical therapy recommended Stress Test Report Date: 11-17-2019 Procedure: Exercise tolerance test/imaging study Indications: Palpitations; fatigue; CAD; abnormal transthoracic echocardiogram Consent: Per the patient Procedure: The patient exercised on a Robert protocol for 7 minutes and 30 seconds completing Stage II and 1 minute and 30 seconds of Stage III achieving a peak heart rate of 151 bpm (102 % predicted maximal heart rate) with a peak blood pressure 170/90 mmHg and a peak MET capacity of 9 METs. The baseline ECG demonstrated sinus bradycardia. The peak exercise ECG demonstrated somatic/motion artifact with sdwe-le-myxh nonspecific ST segment variability with gradual resolution towards baseline in recovery. There was an occasional PVC during exercise and recovery; a rare ventricular couplet/triplets/quadruplet during exercise; a rare ventricular couplet during recovery. The functional capacity was considered good. There was no complaint of chest discomfort during exercise or recovery. The examination was discontinued secondary to back discomfort. Impression: 1. Technically adequate (percent predicted maximal heart rate greater than 85%) exercise tolerance test 2. Peak exercise ECG with somatic/motion artifact with [id number]-ex-oywt nonspecific ST segment variability with gradual resolution towards baseline in recovery 3. There was an occasional PVC during exercise and recovery; a rare ventricular couplets/triplets/quadruplet during exercise; a rare ventricular couplet during recovery 4. Nuclear images pending Myocardial perfusion imaging study: Technique: The patient was injected with 11.1 mCi of technetium 99m Cardiolite and subsequently rest SPECT Cardiolite nuclear imaging was obtained in the horizontal long, vertical long, and short axis views. The patient exercised on a Robert protocol for 7 minutes and 30 seconds completing Stage II and 1 minute and 30 seconds of Stage III achieving a peak heart rate of 151 bpm (102 % predicted maximal heart rate) with a peak blood pressure 170/90 mmHg and a peak MET capacity of 9 METs. The patient was injected with a 3.0 mCi of technetium 99m Cardiolite and subsequently stress SPECT Cardiolite nuclear imaging was obtained in the horizontal long, vertical long, and short axis views. A gated Cardiolite study at peak stress was obtained. Interpretation: Rest and stress SPECT Cardiolite nuclear imaging status post realignment, normalization, and attenuation correction, demonstrates the appearance of an area of diminished tracer uptake in portions of the mid anterior segments which status post stress appears to be more prominent in the mid to distal anterior and distal anterolateral segments. There is end systolic thickening and brightening. The gated Cardiolite study demonstrates myocardial thickening and inward wall motion. The reported LVEF is 63 %. Impression: 1. Rest and stress SPECT Cardiolite nuclear imaging demonstrate cardial perfusion changes potentially compatible with an area of previous myocardial injury/infarction portions of the mid anterior segments with post stress myocardial perfusion changes appearing compatible with an area of stress-induced myocardial ischemia in portions of the mid to distal anterior and distal anterolateral segments. 2. The gated Cardiolite study reports an LVEF of 63 %. Carotid ultrasound in 2017 demonstrated mild stenosis bilaterally <Lopez Yadav - Last Filed: 11/27/19 08:58> History and Physical I have re-examined the patient. There are no clinical changes since date of exam.
--- NOTE | 2019-11-27 11:00 | CL.D_ITS ---
Patient Name: LOPEZ NAJERA Study Date: 11/27/2019 Performing: Lopez Yadav MD Ht: 68.89 inches 175 cm : 1945 Wt: 167.55 lbs 76 kg Age: 74 Gender: male BSA: 1.91 PROCEDURE(S) PERFORMED [id number]/LHC/COR/LV/CABG CLINICAL PROFILE AND INDICATIONS Indications: Suspected CAD, Valvular Disease Heart Failure: None Stress/Imaging Date: 11/17/2019 Angina Classification Anginal Classification w/in 2 Weeks: No symptoms CAD Presentations: Other: palpitations CONCLUSIONS Right heart pressures - Normal Intracardiac shunting: None Normal Left Ventricular End Diastolic Pressure Segmented LV systolic dysfunction- Mild LVEF: by LV gram 60 % [place] Multivessel CAD DELANEY to LAD: patent THIAGO to LCX/OM: patent SVG to DX1: occluded (chronic) SVG to RCA: occluded (chronic) Right to Right Collateral Flow Aortic Valve Stenosis- Moderate RECOMMENDATIONS Risk factor modification Medical therapy DESCRIPTION OF PROCEDURE The patient arrived to the procedure lab. The risks and benefits of the procedure as well as a full d escription of our services here and current unavailability of surgical backup were fully explained to the patient and/or their significant other prior to the catheterization. The Timeout was completed, verifying the correct patient and procedure. The patient's procedural site was prepped and draped in the usual fashion. Local anesthetic was given subcutaneously to right groin region with Lidocaine 2%. Using a modified Seldinger technique, arterial access was obtained via the right femoral artery, a 4 Fr sheath was inserted Venous access was obtained via the right femoral vein, a 7Fr sheath was insert ed. A 7Fr thermal dilution catheter was inserted and right heart pressures were recorded, it was then advanced to PA position for cardiac outputs. Thermal dilution cardiac outputs were then recorded. O2 saturations were then obtained. Simultaneous pressures were then recorded. Left Ventriculography was performed in JACOBSON projection using a 4 Fr. Pigtail catheter. LV to AO pullback pr essures were then recorded. The Thermal dilution catheter was then removed. Left Coronary Artery chicho ctive angiography was performed in multiple views using a 4 Fr. JL5 catheter. Saphenous Vein graft to the RPDA selective angiography was performed in multiple views using a 4 Fr. JR4 catheter. Right Cor onary Artery selective angiography was then performed in multiple views using a 4 Fr. JR4 catheter. R ight internal mammary artery graft to the Circumflex selective angiography was performed in multiple views using a 4 Fr. IM catheter. Left internal mammary artery graft to the LAD selective angiography was performed in multiple views using a 4 Fr. IM catheter.The arterial sheath was pulled and manual c ompression applied until hemostasis is achieved.. The venous sheath was then pulled and manual compre ssion applied until hemostasis achieved CORONARY ANGIOGRAPHY DOMINANCE: Right Dominant LEFT HEART ASSESSMENT Left Ventricular Ejection Fraction: by LV Gram 60 % Inferior Mid Hypokinesis Normal Left Ventricular End Diastolic Pressure LVEDP: 7 mmHg RIGHT HEART ASSESSMENT Thermal CO: 5.96 Thermal CI: 3.12 Reba CO: 6.97 Reba CI: 3.65 PW: 5/2 2 PA: 17/1 6 RV: 22/-4 1 RA: 10/29 - PVR: 54 Aortic Valve Area: 1.43 Aortic Valve Index: 0.75 Aortic Valve Mean Gradient: 26.9 Mitral Valve Area: 2.78 Mitral Valve index: 1.45 Mitral Valve Mean Gradient: 6.1 Right Heart pressures - normal Intracardiac shunting: None LEFT MAIN: Moderate calcification, 25 % Stenosis LEFT ANTERIOR DESCENDING ARTERY: PROX LAD: Moderate calcification, 50 % Stenosis MID LAD: filling from competitive flow but predeominantly DELANEY graft flow with no angiographically si gnificant appearing stenosis distal to the graft attachment DIAGONAL 1: Proximal - small caliber vessel: proximal: 85 % Stenosis CIRCUMFLEX ARTERY: OM 1: Proximal - is occluded with the remainder of the vessel filling from THIAGO graft flow with no an giographically significant appearing stenosis distal to the graft attachment RIGHT CORONARY ARTERY: PROX RCA: is occluded with bridging collaterals filling the mid RCA with the distal RCA being occlude d GRAFTS: DELANEY graft to the Mid LAD is patent THIAGO graft to the LCX/OM: patent Saphenous Vein graft to the 1st Diagonal is totally occluded (chronic) Saphenous Vein graft to the RCA is totally occluded (chronic: not reevaluated during this procedure) COLLATERAL FLOW: Collateral flow from Right to Right VALVE FINDINGS: Aortic Valve Stenosis - moderate AORTIC ROOT: Angiographically normal COMPLICATIONS No Complications PROCEDURE MEDICATIONS Versed 1 mg IV Oxygen: 2 L/min via nasal cannula SUMMARY OF HEMODYNAMIC DATA Time AIR REST ECG 08:03:09 RA 10/29 (-1) :35:39 RV 22/-4, 1 09:36:01 PW 5/2 (2) PV 09:36:46 PA 17/1 (6) PA 09:37:00 LV 136/-14, 9 09:48:34 LV 140/-16, 7 09:48:40 LV 141/-16, 5 09:49:01 PW 6/3 (1) 09:49:01 LV 143/-15, 10 09:50:20 LV 140/-14, 6 09:50:26 LV 139/-13, 9 09:50:39 PW 7/ (3) 09:50:39 LVp 136/-13, 4 09:51:01 AOp 118/57 (83) 09:51:06 PA 19/3 (10) 09:52:03 RV 23/-4, 1 09:52:21 RA 3/ (0) 09:52:34 AO 96/59 (77) SA 09:55:37 RM AIR REST 10:47:38 Valve Area (c P-P/ms Time AIR REST Mitral 2.77 6.1 mn/378 ms 09:50:39 Aortic 1.43 26.9 mn/288 ms18.0 pk/288 ms 09:51:01 Type SV CO (l/m) CI (l/m/ HR Time AIR REST Thermal 102.80 5.96 3.12 58 08:03:09 Reba 120.20 6.97 3.65 58 08:03:09 RM AIR REST Thermal 0.00 [id number] [id number] 0 10:47:38 Label % O2 Pres/Loc Time AIR REST AO 96 PV 09:46:50 PA 72 PA 09:46:55 IVC 77 SV 09:47:03 SVC 71 09:47:11 Signed By Lopez Yadav MD On 11/27/2019 11:00:13 Lopez Yadav MD
[2019-11-27 11:06] LABS: Blood Gas Specimen Type VEN; VBG BASE EXCESS -2 mmol/L (-1.0-3.5); VBG Bicarbonate 23 mmol/L (22-26); VBG Oxygen Content 25 mmol/L (23-33); VBG PO2 39 mmHg (25-40); VBG SO2 71 % (50-70); VBG pH 7.35 (7.32-7.42)
[2019-11-27 11:06] LABS: Blood Gas Specimen Type VEN; VBG BASE EXCESS -2 mmol/L (-1.0-3.5); VBG Bicarbonate 23 mmol/L (22-26); VBG Oxygen Content 24 mmol/L (23-33); VBG PO2 39 mmHg (25-40); VBG SO2 72 % (50-70); VBG pCO2 40.2 mmHg (41-51); VBG pH 7.37 (7.32-7.42)
[2019-11-27 11:06] LABS: Base Excess -2 mmol/L (-2 to +2); Bicarbonate 23.2 mmol/L (22-26); Blood Gas Specimen Type ART; PO2 85 mmHG (75-100); SO2 96 % (95-99); Total Carbon Dioxide 24 mmol/L; pCO2 39.4 mmHg (35-45); pH 7.38 (7.35-7.45)
[2019-11-27 11:06] LABS: Blood Gas Specimen Type VEN; VBG BASE EXCESS -1 mmol/L (-1.0-3.5); VBG Bicarbonate 24 mmol/L (22-26); VBG Oxygen Content 25 mmol/L (23-33); VBG PO2 43 mmHg (25-40); VBG SO2 77 % (50-70); VBG pH 7.37 (7.32-7.42)
== END 2019-11-27 15:00 | disposition home or self-care (01) ==
LOC: CLSP 07:46
PROVIDERS: PCP Family Medicine; Referring Provider Internal Medicine Cardiovascular Disease; Visit Provider Internal Medicine Cardiovascular Disease
DX: I25.810 Atherosclerosis of coronary artery bypass graft(s) without angina pectoris (principal); R94.39 Abnormal result of other cardiovascular function study; I35.0 Nonrheumatic aortic (valve) stenosis; E78.5 Hyperlipidemia, unspecified; R00.2 Palpitations; R09.89 Other specified symptoms and signs involving the circulatory and respiratory systems; I10 Essential (primary) hypertension; Z87.891 Personal history of nicotine dependence; Z88.6 Allergy status to analgesic agent; Z88.5 Allergy status to narcotic agent; Z82.49 Family history of ischemic heart disease and other diseases of the circulatory system
CPT/HCPCS: 36415; 71046; 80048; 80061; 80076; 82803; 85025; 93461; 99152; 99153; J7040; Q9967; C1751; C1769; C1894

== ENCOUNTER → 2020-04-18 12:13 | Outpatient (CLI) | payer MEDICARE, OTHER, SELFPAY ==
[2019-11-26 07:50] VITALS: BMI 24.7
[2020-04-18 15:58] LABS: Absolute Lymphocyte Count 1.18 X10^3/uL (0.83-4.51); Absolute Neutrophil Count 3.7 X10^3/uL (2.0-7.7); Basophil# 0.02 X10^3/uL; Basophil% 0.4 % (0-1); Eosinophil# 0.09 X10^3/uL; Eosinophils% 1.7 % (0-5); Hematocrit 43.5 % (40-54); Hemoglobin 13.9 g/dL (13.0-16.5); Lymphocyte # 1.18 X10^3/ul (4.0); Lymphocyte % 21.8 % (19-41); Mean Corpuscular Hgb 31.5 pg (27.0-32.0); Mean Corpuscular Volume 98.6 fL (80-94); Mean Platelet Vol. 10.5 fl (6.2-12.0); Monocyte# 0.41 X10^3/uL; Monocyte% 7.6 % (0-10); NRBC Flagged by Analyzer 0 % (0-5); Neutrophil % 68.3 % (47-70); Platelet Count 120 K/mm3 (150-450); RBC Distribution Width CV 12.9 % (11.6-14.6); RBC Distribution Width SD 46.3 fl (35.1-43.9); Red Blood Count 4.41 M/mm3 (4.6-6.2); White Blood Count 5.4 K/mm3 (4.4-11.0)
[2020-04-18 16:27] LABS: ALB/GLOB Ratio 1.4 RATIO (0.9-2.4); AST(SGOT) 23 U/L (15-37); Alanine Aminotransfer ALT/SGPT 27 U/L (16-61); Alkaline Phosphatase 66 U/L (45-117); Anion Gap 7 (5-15); BUN 24 mg/dL (7-18); BUN/Creat Ratio 26.1 RATIO (10-20); Calcium,Total 9.2 mg/dL (8.5-10.1); Chloride 110 mmol/L (98-107); Creatinine, Serum 0.92 mg/dL (0.70-1.30); EST Glomerular Filtration Rate 86 mL/min (>60); Est Glom Filt Rate - Afr Amer 103 mL/min (>60); Globulin 2.9 g/dL (2.2-4.2); Glucose 96 mg/dL (74-106); Protein, Total 6.9 g/dL (6.4-8.2); Sodium Level 142 mmol/L (136-145); Thyroid Stim Hormone (TSH) 0.84 uIU/mL (0.358-3.74)
[2020-04-18 17:16] LABS: Erythrocyte Sedimentation Rate 1 mm/hr (0-20)
== END ==
PROVIDERS: PCP Family Medicine; Referring Provider Family Medicine; Visit Provider Family Medicine
DX: R63.4 Abnormal weight loss (principal)
CPT/HCPCS: 36415; 80053; 84443; 85025; 85652

== ENCOUNTER → 2020-04-27 07:45 | Outpatient (CLI) | payer MEDICARE, OTHER, SELFPAY ==
[2019-11-26 07:50] VITALS: BMI 24.7
--- NOTE | 2020-04-27 07:46 | CT_ITS ---
STUDY: CT ABDOMEN AND PELVIS WITH CONTRAST REASON FOR EXAM: Male, 74 years old. RECENT WEIGHT LOSS, NAUSEA RADIATION DOSAGE (If Supplied By Facility): CTDIvol = ( 15.09 ) mGy, DLP = ( 683.03 ) mGycm TECHNIQUE: Transaxial images were obtained from the dome of the diaphragm to the symphysis pubis with oral contrast. Oral and amp; IV Readi-CAT and amp; 100mL Isovue-300 was administered. Sagittal and coronal images were reconstructed. Individualized dose optimization techniques were used for this CT. COMPARISON: Comparison is made with prior examination dated January 06, 2019. FINDINGS: The visualized lung bases are unremarkable. The visualized portions of the heart are within normal limits. Stable multiple hepatic cysts involving the left and right lobes of the liver. Normal gallbladder and extrahepatic biliary system. Normal spleen. Normal pancreas. Normal bilateral adrenal glands. Normal right kidney. Normal left kidney. Normal visualized stomach. Normal small intestine. There are multiple colonic diverticula consistent with diverticulosis. There are surgical clips in the region of the appendix consistent with a prior appendectomy. There is diffuse atherosclerotic calcification of the abdominal aorta and its major visceral branches, with minimally dilated dictation of the distal abdominal aorta with a transverse dimension of 2.7 cm. Normal inferior vena cava. Normal retroperitoneum. Normal urinary bladder. There is enlargement of the prostate gland. The prostate measures 4.5 cm x 5.5 cm. This causes indentation at the bladder base. Normal abdominal wall. There are diffuse degenerative changes of the visualized lumbar spine. Prior laminectomy and fusion at the L4-L5 level. CT/Abdomen/Pelvis WITH Contrast IMPRESSION: Stable examination. Multiple hepatic cysts. Sigmoid diverticulosis. Prostatic enlargement. Electronically Signed: Giovany Jorge, at 15:38 EDT , Service support ,
== END ==
PROVIDERS: PCP Family Medicine; Referring Provider Family Medicine; Visit Provider Family Medicine
DX: R63.4 Abnormal weight loss (principal)
CPT/HCPCS: 74177; Q9967

== ENCOUNTER → 2020-05-03 08:07 | Outpatient (CLI) | payer MEDICARE, OTHER, SELFPAY ==
[2019-11-26 07:50] VITALS: BMI 24.7
[2020-05-03 10:50] LABS: PSA,Total - Annual Screen 2.56 ng/mL (0.00-4.00)
== END ==
PROVIDERS: PCP Family Medicine; Referring Provider Family Medicine; Visit Provider Family Medicine
DX: R97.20 Elevated prostate specific antigen [PSA] (principal); Z12.5 Encounter for screening for malignant neoplasm of prostate
CPT/HCPCS: 36415; 84153; G0103

== ENCOUNTER → 2020-05-21 07:09 | Outpatient (CLI) | payer MEDICARE, OTHER, SELFPAY ==
[2020-05-19 15:25] VITALS: BMI 23.6
[2020-05-21 08:09] LABS: AST(SGOT) 16 U/L (15-37); Alanine Aminotransfer ALT/SGPT 21 U/L (16-61); Alkaline Phosphatase 63 U/L (45-117); Bilirubin, Direct 0.36 mg/dL (0.00-0.30); Cholesterol 131 mg/dL (200); Globulin 2.6 g/dL (2.2-4.2); High Density Lipoprotein 74 mg/dL; Protein, Total 6.6 g/dL (6.4-8.2); Triglycerides 55 mg/dL; Very Low Density Lipoprotein 11 mg/dL (5-40)
== END ==
PROVIDERS: PCP Family Medicine; Referring Provider Internal Medicine Cardiovascular Disease; Visit Provider Internal Medicine Cardiovascular Disease
DX: E78.00 Pure hypercholesterolemia, unspecified (principal); E78.5 Hyperlipidemia, unspecified
CPT/HCPCS: 36415; 80061; 80076

== ENCOUNTER → 2020-09-12 07:13 | Outpatient (CLI) | payer MEDICARE, OTHER, SELFPAY ==
[2020-05-19 15:25] VITALS: BMI 23.6
--- NOTE | 2020-09-12 07:20 | MRI_ITS ---
STUDY: MRI BRAIN WITH AND WITHOUT CONTRAST REASON FOR EXAM: Male, 75 years old. diplopia; one episode, migraines TECHNIQUE: Standardized multiplanar fat and water weighted pulse sequences were obtained. IV Dotarem 15ml was administered for the contrast portion of the examination. COMPARISON: None. FINDINGS: Normal size of the ventricles and extra-axial spaces for the patient''s age. Normal white matter tracts of the supratentorial brain. There is no evidence for recent intracranial ischemia or other cause of cytotoxic edema on diffusion weighted imaging (DWI). Normal T2* images of the brain without demonstrated susceptibility artifact. There is no demonstrated hemosiderin stain. Normal bilateral basal ganglia. Normal thalami. There is no extra-axial fluid accumulation. Normal flow voids within the major intracranial circulation suggesting patency by spin echo criteria. Normal venous enhancement. There is no enhancing intra-axial or extra-axial abnormality. Normal sella turcica, pituitary gland, infundibular stalk, optic chiasm and hypothalamus. Normal tectal plate and pineal gland. Normal midbrain, julianna and medulla. Normal cerebellum. Normal basal cisterns. Normal bilateral temporal bones. Normal bilateral internal auditory canals. No demonstrated orbital abnormality, within the constraints of a routine brain study. Normal visualized paranasal sinuses. Normal calvarium and skull base. Normal visualized soft tissue structures. Normal visualized upper cervical spine. MRI/Brain W/WO Contrast IMPRESSION: Normal unenhanced and enhanced MRI of the brain. Electronically Signed: Percy Brody MD at 8:51 EST Tel , Service support ,
[2020-09-12 09:10] LABS: EGFR FINGERSTICK > 60.0000 mL/min (>60)
== END ==
PROVIDERS: PCP Family Medicine; Referring Provider Family Medicine; Visit Provider Family Medicine
DX: H53.2 Diplopia (principal)
CPT/HCPCS: 70553; A9575

== ENCOUNTER 2020-09-28 10:11 | Day surgery (SDC) | payer MEDICARE, OTHER, SELFPAY ==
[2020-05-19 15:25] VITALS: BMI 23.6
[2020-09-12 15:26] VITALS: BMI 23.9
--- NOTE | 2020-09-14 09:15 | PCM.HP.BLA ---
History and Physical History and Physical [facility] Patient Name: Lopez Garcia : 1945 From: [facility] DATE OF SURGERY: 09/28/2020 SCHEDULED PROCEDURE: right knee arthroscopy with medial and lateral meniscectomy with chondroplasty HISTORY OF PRESENT ILLNESS: Preoperative history and physical exam was performed on September 14, 2020. This is a 75-year-old male who initially had an injury on July 18, 2020 while golfing. Patient states during his back swing he was off balance and had a locking sensation in his right knee during the swing. Since then he has had increased pain. He gets instability with the right knee since the injury. His pain can reach 8/10. He has increased pain going up and down stairs, walking, and sitting. He has attempted nonsteroidal anti-inflammatories without any relief. Patient is frustrated with the limitations with his activities of daily living due to the right knee pain. Patient has had a previous left knee arthroscopy by Dr. Umang Blackmon in July 2019 and his symptoms are very similar. Patient is a very active 75-year-old male who tries to bicycle 30-50 miles per week, walks 4-6 miles, and plays golf but this has been decreased and difficult since his injury. An MRI did reveal meniscus tearing. After failing conservative measures and discussing treatment options the patient does wish to proceed with a right knee arthroscopy with medial and lateral meniscectomy and chondroplasty. 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 Previous heart bypass in 1991. He currently denies any chest pain, shortness of breath, fevers chills, or recent infections. Patient will stop the aspirin 81 mg 5 days prior to surgery. REVIEW OF SYSTEMS: ROS: Const: Reports change in appetite and weight change, but denies fever. CV: Reports heart murmur, but denies chest pain and irregular heartbeat. Resp: Denies cough, pneumonia, shortness of breath, tuberculosis and wheezing. GI: Reports heartburn, but denies constipation, diarrhea, nausea, rectal itching, bloody stools and vomiting. : . (F Genital Sx) Denies incontinence. Musculo: Denies leg swelling, pain, trouble walking and weakness. Skin: Reports history of shingles and tattoo, but denies Raynaud's. Neuro: Denies ambulatory dysfunction, dizziness, numbness/tingling and tremor. Psych: Denies anxiety, insomnia and stress. Chaz/Lymph: Denies anemia, bleeding/bruising tendency and past transfusion. Reviewed and updated. PAST MEDICAL HISTORY: Advance Care Plan: Other Directive, POA Effective Date: 04/09/2019 Other Directive, LIVING WILL Effective Date: 04/09/2019 PMH: Medical Problems: Arthritis, Coronary Artery Disease (CAD), Hard of Hearing, Heart Attack, High Blood Pressure, Hypercholesterolemia, History Of Phlebitis, Kidney Stones, Hiatal Hernia Accidents: Fracture - LT LEG LT ARM 5 RIBS RT Knee Injury - (07/18/2020) [facility] Surgical Hx: Appendectomy - (2015) [facility] Heart Bypass (CABG) - (1991) [facility] ULLOA Hernia Repair - (2013) [facility] Tonsillectomy - (1953) Kidney Stones - (2011) [facility]-DR JOEL LT Knee Arthroscopy - (08/05/2019) [email or web address] Anesthesia Complications: None Assistive Devices: Glasses, Hearing Aid Reviewed and updated. SOCIAL HISTORY: SH: Marital: .Occupation: Retired.Work Status: Retired.Hand Dominance: Ambidextrous. Personal Habits: Cigarette Use: Former.Smokeless Tobacco: Never Used Smokeless Tobacco.E-Cigarette Use: Never used.Alcohol: Weekly use.Drug Use: Denies Use.Enjoy Exercising: Daily. Reviewed, no changes. VITALS: Ht: 69.5 Wt: 160lb Wt k.576 BMI: 23.3 BP: 122/86 Pulse: 76 T: 94.3 T: 34.6C ALLERGIES: opioid anangesics MEDICATIONS: Tramadol HCL 50 mg 1 by mouth every 6 hours as needed pain, Atenolol 25 mg 1 by mouth every other day, Lisinopril 10 mg 1 half tablet by mouth every day, Crestor 40 mg 1 po daily, Dutasteride 0.5 mg 1 by mouth every day, [facility] D3 5000 Unit 1 po daily, Prilosec OTC 20 mg 1po qday, Vitamin B12 1000 mcg 1po qday, Advil 200 mg 1po qday, Tamsulosin HCL 0.4 mg 1 by mouth every day, Aspirin 81 81 mg 1 by mouth every day PRE-OP EXAM: General appearance:NORMAL Other: Eyes: Conjunctivae and lids: NORMAL Pupils: ERR Ears, Nose, Mouth, and Throat: NORMAL Other: Inspection of lips, teeth and gums: NORMAL Other: Neck: Examination of neck: no masses noted. Respiratory: Assessment of respiratory effort: NORMAL Other: Auscultation of lungs: clear to auscultation no wheezes, rhonchi or rales. Cardiovascular: Auscultation of heart: regular rate and rhythm, positive systolic murmur Exam of carotid arteries: NORMAL Other: Gastrointestinal: Exam of abdomen: soft, nontender, nondistended bowel sounds present. PHYSICAL EXAMINATION: Exam of the right knee patient does have positive effusion. There is tenderness to palpation along the medial and lateral joint line. Range of motion: 0 of extension to 100 flexion on the right knee with increased pain, left knee 0 extension to 120 flexion. Special tests: Positive Pauline's examination on the right knee which does reproduce symptoms, stable to varus/valgus stress test, stable to anterior/posterior drawer. Patient does walk with a limping gait. IMAGING STUDIES: Previous x-rays of the right knee does reveal mild to moderate narrowing of the medial compartment with well-maintained lateral compartment. There is moderate to severe patellofemoral osteoarthritis. MRI was obtained on July 21, 2020 and [facility] which does reveal a large lateral meniscus tear with a medial meniscus posterior horn tear. There is chondral malacia in the patellofemoral compartment and medial compartment and lateral compartment. Most severe in the patellofemoral. IMPRESSION: 1. Right knee pain with medial and lateral meniscus tear 2. Right knee osteoarthritis 3. Previous left knee arthroscopy 2018 4. Coronary artery disease 5. Hypertension 6. Hypercholesterolemia 7. Hiatal hernia 8. History of kidney stones 9. Previous heart bypass 1992 PLAN: I did discuss and review with the patient all treatment options including surgical versus nonsurgical options. Patient does wish to proceed with the above-stated procedure. Potential risks, benefits, and complications of the procedure were discussed in detail including but not limited to , infection, nerve and blood vessel damage, persistent pain, numbness, tingling, paresthesias, blood clot, pulmonary embolism, and requirement for possible further surgery. The patient expressed full understanding and has no further questions for the doctor. Patient does agree to proceed with the above-stated procedure and has signed the surgery consent form. We discussed the current risks associated with COVID 19. This does include the risk of exposure while in the hospital. Patient was reassured local hospitals have low infection rates and are taking all necessary precautions to avoid exposure to patients. In addition, we discussed strategies that can be used to help limit exposure including those that limit the patient's time in the hospital. Also using strategies to limit the patient's need for continued inpatient services after being discharged from the hospital. Patient was notified that we will need to comply with any screening or testing the hospital wishes to perform or that surgery may be delayed for any positive results. This dictation was created using voice recognition software. Phonetic and/or grammatical errors may exist. ___ I have re-examined the patient. There are no clinical changes since date of exam. ___ See progress notes for changes. ___ Dictated on admission Date: Time: Signature:
[2020-09-27 14:28] LABS: Probe Check PASS; Specimen Processing Control PASS
[2020-09-28 10:30] VITALS: BP 105/57; PULSE 48; RESP 16; TEMP 36.8; O2SAT 98; BMI 23.8
[2020-09-28] MEDS: Lactated Ringers 1,000 ML 125 ML IV (11:00)
[2020-09-28] MEDS: Cefazolin 2 GM in 0.9% Normal Saline 100 ML IV (11:42)
[2020-09-28] MEDS: Epinephrine (1 mg/ml) 1 MG/ML VIAL (12:06)
--- NOTE | 2020-09-28 12:28 | OP.PCM_ITS ---
Report of Operation Date of Procedure: 09/28/20 Pre-Operative Diagnosis: Right knee lateral meniscus tear. Right knee medial meniscus tear. Right knee chondromalacia Post-Operative Diagnosis: Right knee lateral meniscus tear. Right knee medial plica. Right knee chondromalacia Surgery/Procedure Performed:: Right knee arthroscopic. 1. Partial lateral meniscectomy. 2. Lateral chondroplasty. 3. Medial plica resection Description of Surgical Findings:: A large medial plica was encountered intraoperatively. No definitive medial meniscus tear was appreciated intraoperatively. deputy register of deeds: None Type of Anesthesia:: General Anesthesiologist: aMx Aguilar Special Medications: Ancef Estimated Blood Loss (mL): 5 Fluids Replaced: 800 mL crystalloid Description of Procedure: On the date of the procedure, the patient's R lower extremity was marked in the preoperative area. Patient was brought back to the operating room where they were transferred to the bed. Anesthesia assumed control of the C-spine airway and administered anesthetic. All bony prominences were identified and well- padded and the R leg was placed in the arthroscopic leg escalante. The contralateral leg was then draped over the bed and well-padded. There was padding underneath both sciatic nerves. The foot of the bed was then dropped and the R leg was prepped in a sterile fashion. The surgeon then scrubbed. Upon reentering the room, the operative leg was draped in a standard orthopedic fashion. A timeout was called, everyone agreed upon the side, the site, the procedure to be performed, patient's identity and antibiotics given. Incisions were marked out for the medial and lateral infrapatellar portals. Esmarch bandage was then used to exsanguinate the leg and tourniquet was placed at 250 mmHg. At this time, the lateral portal incision was made in a vertical fashion. The trocar was placed into the joint. The camera was then placed and the patellofemoral joint was visualized. The patella did appear to have grade 4 chondral changes on the superior medial facet remainder had grade 2 chondral changes. The trochlea appeared to have grade 2 chondral changes. We then directed our attention to the medial gutter where there was no foreign body. As we directed our attention to the medial gutter there was a large plica on OUr way. Then directed our attention to the medial joint compartment. There were grade 2 chondral changes on the medial distal femur, grade 2 chondral changes on the medial tibial plateau. The medial meniscus had no visible tears. The medial portal was then placed under direct visualization using a spinal needle an 11 blade scalpel. Once this was done a probe was placed in the joint and the meniscus was probed finding no appreciable tears. Based on the preoperative MRI which showed possible tear with intrasubstance signal we elected not to proceed with any meniscus debridement. Attention was then turned towards the notch where the anterior cruciate ligament was intact. PCL was visualized and appeared intact. Attention was then directed towards the lateral compartment where the lateral distal femur had grade 3 chondral changes, the lateral proximal tibia had grade 2 chondral changes. The lateral meniscus had a fibrillated anterior horn meniscus tear and posterior body cleavage tear. The biters and joseph were then used sequentially to debriding get rid of any free edges that could be a source of pain and catching in the meniscus tear. Once we felt lateral meniscus tear was adequately debrided, we again visualized the joint and noted the meniscus tear was adequately debrided. At this time we noted there was some chondral flaps on the distal femoral condyle. Shaver was used to debride these chondral flaps and smooth out cartilage edges performing our chondroplasty. We then directed our attention to the lateral gutter, which was visualized and no free bodies were noted. We then directed our attention back to patellofemoral compartment. Shaver was placed in patellofemoral compartment and the shaver was used to debride the large medial plica. At this time the wound was copiously irrigated out with normal saline with epinephrine. The wound was closed with 4-0 nylon and 0.5% Marcaine and epinephrine were injected for local anesthetic. Xeroform was placed over the incision. Sterile dressing was placed. Compressive dressing was placed. Tourniquet was let down. For that there was then placed up. Patient was awakened by anesthesia patient was transferred to the PACU for recovery in stable condition. Postoperative plan: Patient will be made weight-bear as tolerated. Return to activities as tolerated. He will come to the office in 2 weeks for postoperative wound check and suture removal. If he is doing well that time he can follow-up as needed. - Complications No intraoperative complications - Admit VTE Documentation VTE Present on Admission: No VTE Mechan Device Prophylaxis: SCD's, Thigh High ARIES Hose VTE Pharm Prophylaxis ordered?: Yes
[2020-09-28 12:40] VITALS: BP 105/57; BP 111/65; PULSE 65; RESP 16; TEMP 36.5; O2SAT 97
[2020-09-28 12:45] VITALS: BP 105/57; BP 112/60; PULSE 65; RESP 16; O2SAT 97
[2020-09-28 13:00] VITALS: BP 101/64; BP 105/57; PULSE 63; RESP 16; O2SAT 98
[2020-09-28] MEDS: Ketorolac 30 MG/ML Syringe IV (13:07)
[2020-09-28 13:14] VITALS: BP 105/57; BP 110/52; PULSE 60; RESP 16; TEMP 36.9; O2SAT 99
== END 2020-09-28 14:07 | disposition home or self-care (01) ==
LOC: SDC 10:12 → AC 10:14
PROVIDERS: PCP Family Medicine; Referring Provider Specialist; Visit Provider Specialist
PROC: (CPT 29870; principal; 2020-09-28 11:55)
DX: S83.281A Other tear of lateral meniscus, current injury, right knee, initial encounter (principal); Z20.828 Contact with and (suspected) exposure to other viral communicable diseases; S83.241A Other tear of medial meniscus, current injury, right knee, initial encounter; X58.XXXA Exposure to other specified factors, initial encounter; Y93.53 Activity, golf; Y92.9 Unspecified place or not applicable; Y99.9 Unspecified external cause status; M94.261 Chondromalacia, right knee; E78.00 Pure hypercholesterolemia, unspecified; K44.9 Diaphragmatic hernia without obstruction or gangrene; I25.10 Atherosclerotic heart disease of native coronary artery without angina pectoris; I25.2 Old myocardial infarction; I10 Essential (primary) hypertension; Z79.82 Long term (current) use of aspirin; Z79.899 Other long term (current) drug therapy; M17.11 Unilateral primary osteoarthritis, right knee
CPT/HCPCS: 01400; 29881; 87426; 87635; C9803; J7120; J2405; U0002

== ENCOUNTER → 2021-05-26 07:13 | Outpatient (CLI) | payer MEDICARE, OTHER, SELFPAY ==
[2021-05-25 08:59] VITALS: BMI 23.8
[2021-05-26 07:56] LABS: Absolute Lymphocyte Count 1.35 X10^3/uL (0.83-4.51); Absolute Neutrophil Count 3.7 X10^3/uL (2.0-7.7); Basophil# 0.04 X10^3/uL; Basophil% 0.7 % (0-1); Eosinophil# 0.22 X10^3/uL; Eosinophils% 3.8 % (0-5); Hematocrit 43.5 % (40-54); Hemoglobin 14.1 g/dL (13.0-16.5); Lymphocyte # 1.35 X10^3/ul (0.83-4.51); Lymphocyte % 23.1 % (19-41); Mean Corp Hgb Conc 32.4 g/dL (32-36); Mean Corpuscular Hgb 31.1 pg (27.0-32.0); Mean Platelet Vol. 9.4 fl (6.2-12.0); Monocyte# 0.53 X10^3/uL; Monocyte% 9.1 % (0-10); NRBC Flagged by Analyzer 0 % (0-5); Neutrophil # 3.69 X10^3/uL (2.7-7.7); Neutrophil % 63.1 % (47-70); Platelet Count 136 K/mm3 (150-450); RBC Distribution Width CV 12.8 % (11.6-14.6); RBC Distribution Width SD 45.8 fl (35.1-43.9); Red Blood Count 4.53 M/mm3 (4.6-6.2); White Blood Count 5.8 K/mm3 (4.4-11.0)
[2021-05-26 08:16] LABS: ALB/GLOB Ratio 1.3 RATIO (0.9-2.4); AST(SGOT) 20 U/L (15-37); Alanine Aminotransfer ALT/SGPT 26 U/L (16-61); Albumin, Serum 4.1 g/dL (3.2-5.0); Alkaline Phosphatase 61 U/L (45-117); Anion Gap 7 (5-15); BUN 20 mg/dL (7-18); Calcium,Total 9.1 mg/dL (8.5-10.1); Chloride 109 mmol/L (98-107); Cholesterol 149 mg/dL (200); EST Glomerular Filtration Rate 78 mL/min (>60); Est Glom Filt Rate - Afr Amer 94 mL/min (>60); Globulin 3.1 g/dL (2.2-4.2); Glucose 93 mg/dL (74-106); High Density Lipoprotein 71 mg/dL; Potassium 4.2 mmol/L (3.5-5.1); Protein, Total 7.2 g/dL (6.4-8.2); Sodium Level 141 mmol/L (136-145); Triglycerides 87 mg/dL; Very Low Density Lipoprotein 17 mg/dL (5-40)
== END ==
PROVIDERS: PCP Family Medicine; Referring Provider Nurse Practitioner Gerontology; Visit Provider Nurse Practitioner Gerontology
DX: R06.02 Shortness of breath (principal); I10 Essential (primary) hypertension; E78.00 Pure hypercholesterolemia, unspecified
CPT/HCPCS: 36415; 80053; 80061; 85025

== ENCOUNTER → 2021-06-13 07:49 | Outpatient (CLI) | payer MEDICARE, OTHER, SELFPAY ==
[2021-05-25 08:59] VITALS: BMI 23.8
--- NOTE | 2021-06-13 07:50 | ECHOD_ITS ---
Reason For Study: Dyspnea/SOB Procedure This was a 2D Doppler, Color Flow transthoracic echocardiogram. Exam performed in department. Left Ventricle Normal LV size. Segmental dysfunction with preserved ejection fraction (see wall motion). The estimated ejection fraction is 65 %. Diastolic function is indeterminate. No regional wall motion abnormalities noted. Right Ventricle Normal RV size. Normal systolic function. Atria The left atrium is mildly enlarged. Normal right atrium. No doppler evidence for ASD. Mitral Valve There is no mitral annular calcification. Normal mitral valve. Mild (1+) mitral valve insufficiency. Tricuspid Valve Normal tricuspid valve. Mild tricuspid valve insufficiency. Unable to estimate RV systolic pressure due to insufficient tricuspid regurgitant envelope. Aortic Valve Trisinus/trileaflet aortic valve. Mild diffuse aortic valve thickening. Moderate to severe diffuse calcification of the aortic valve leaflets. Moderate aortic stenosis. Trivial aortic valve insufficiency. Pulmonic Valve The pulmonic valve is not well visualized. Trivial pulmonic valve insufficiency. Great Vessels The aortic root is not well visualized. Pericardium/Pleural No pericardial effusion. MMode/2D Measurements & Calculations LVIDd: 5.4 cm IVSd: 1.2 cm LVOT diam: 2.0 cm LVIDs: 3.4 cm LVPWd: 1.7 cm LVOT area: 3.0 cm2 RVDd: 4.0 cm FS: 36.3 % LA dimension: 4.7 cm LAV(MOD-bp): 66.4 ml LA A4 area: 21.4 cm2 LAV(MOD-bp) Indexed: 35.2 ml/m2 LAV(MOD-sp2): 61.6 ml LAV(MOD-sp4): 60.2 ml RA A4 area: 16.9 cm2 Time Measurements MV dec time: 0.49 sec Doppler Measurements & Calculations MV E max jarrett: 64.6 cm/sec Lat Peak E' Jarrett: 10.2 cm/sec Med Peak E' Jarrett: 4.7 cm/sec MV A max jarrett: 96.6 cm/sec E/E' lat: 6.3 E/E' med: 13.7 MV E/A: 0.67 MV V2 max: 101.1 cm/sec MV P1/2t max jarrett: 80.9 cm/sec Ao V2 max: 339.0 cm/sec MV max P.1 mmHg MV P1/2t: 188.4 msec Ao max P.0 mmHg MV V2 mean: 53.7 cm/sec MV dec slope: 125.8 cm/sec2 Ao V2 mean: 240.5 cm/sec MV mean P.3 mmHg Ao mean P.9 mmHg MV V2 VTI: 41.6 cm MVA(P1/2t): 1.2 cm2 Ao V2 VTI: 83.1 cm MVA(VTI): 2.4 cm2 OSIEL(I,D): 1.2 cm2 OSIEL(V,D): 1.3 cm2 AI max jarrett: 448.4 cm/sec LV V1 max: 145.5 cm/sec SV(LVOT): 99.0 ml AI max P.4 mmHg LV V1 max P.5 mmHg LV V1 mean P.6 mmHg AI dec slope: 167.6 cm/sec2 LV V1 mean: 85.4 cm/sec AI P1/2t: 783.9 msec LV V1 VTI: 32.8 cm PA V2 max: 109.8 cm/sec ECHO/Echo Complete Interpretation Summary Segmental dysfunction with preserved ejection fraction (see wall motion). The estimated ejection fraction is 65 %. The left atrium is mildly enlarged. Mild (1+) mitral valve insufficiency. Mild tricuspid valve insufficiency. Moderate aortic stenosis. Trivial aortic valve insufficiency. Trivial pulmonic valve insufficiency. Unable to estimate RV systolic pressure due to insufficient tricuspid regurgita nt envelope. Diastolic function is indeterminate. Ordering Physician: Devi Ramos Referring Physician: Nori Louis M.D. Performed By: Kvng Collins RCS
== END ==
PROVIDERS: PCP Family Medicine; Referring Provider Physician Assistant Medical; Visit Provider Physician Assistant Medical
DX: I25.810 Atherosclerosis of coronary artery bypass graft(s) without angina pectoris (principal)
CPT/HCPCS: 93306

== ENCOUNTER → 2021-07-13 08:42 | Outpatient (CLI) | payer MEDICARE, OTHER, SELFPAY ==
[2021-07-13 11:22] LABS: PSA,Total - Annual Screen 3.08 ng/mL (0.00-4.00)
== END ==
PROVIDERS: PCP Family Medicine; Referring Provider Nurse Practitioner Adult Health; Visit Provider Nurse Practitioner Adult Health
DX: Z12.5 Encounter for screening for malignant neoplasm of prostate (principal)
CPT/HCPCS: 36415; 84153; G0103

== ENCOUNTER → 2021-08-30 06:23 | Outpatient (CLI) | payer MEDICARE, OTHER, SELFPAY ==
--- NOTE | 2021-08-30 17:04 | STRESSREP_ITS ---
Stress Test Report Date: 08-30-2021 Procedure: Exercise tolerance test/imaging study Indications: Chest pain; shortness of breath/dyspnea on exertion; CAD; CABG Consent: Per the patient Procedure: The patient exercised on a Robert protocol for 7 minutes and 10-second completing Stage II and 1 minute and 10 seconds of Stage III achieving a peak heart rate of 148 bpm (102% predicted maximal heart rate) with a peak blood pressure 160/70 mmHg and a peak MET capacity of 9 METs. The baseline ECG demonstrated normal sinus rhythm. The peak exercise ECG demonstrated somatic/motion artifact with no obvious ECG changes. There were occasional PVCs and ventricular couplets during exercise and an isolated ventricular triplet near peak exercise and an occasional PVC and an isolated ventricular couplet in recovery. The functional capacity was considered good. There was no complaint of chest discomfort during exercise or recovery. The examination was discontinued secondary to dyspnea. Impression: 1. Technically adequate (percent predicted maximal heart rate greater than 85%) exercise tolerance test 2. Peak exercise ECG with somatic/motion artifact with no obvious ECG changes 3. There were occasional PVCs and ventricular couplets during exercise and an isolated ventricular triplet near peak exercise and an occasional PVC and an isolated ventricular couplet in recovery 4. Nuclear images pending Myocardial perfusion imaging study: Technique: The patient was injected with 11.8 mCi of technetium 99m Cardiolite and subsequently rest SPECT Cardiolite nuclear imaging was obtained in the horizontal long, vertical long, and short axis views. The patient exercised on a Robert protocol for 7 minutes and 10-second completing Stage II and 1 minute and 10 seconds of Stage III achieving a peak heart rate of 148 bpm (102% predicted maximal heart rate) with a peak blood pressure 160/70 mmHg and a peak MET capacity of 9 METs. The patient was injected with 33.9 mCi of technetium 99m Cardiolite and subsequently stress SPECT Cardiolite nuclear imaging was obtained in the horizontal long, vertical long, and short axis views. A gated Cardiolite study at peak stress was obtained. Interpretation: Rest and stress SPECT Cardiolite nuclear imaging status post realignment, normalization, and attenuation correction, demonstrates status post stress the appearance of diminished absence of myocardial perfusion/tracer uptake in portions of the mid anterior segments. There is diminished end systolic thickening and brightening in the aforementioned areas. The gated Cardiolite study demonstrates myocardial thickening and inward wall motion. The reported LVEF is 59%. Impression: 1. Rest and stress SPECT Cardiolite nuclear imaging demonstrate myocardial perfusion changes concerning for an area of stress-induced myocardial ischemia in portions of the mid anterior segments. 2. The gated Cardiolite study reports an LVEF of 59%. This note was generated with [employer] software. It may contain incorrect words, spelling, and punctuation that were not noted in checking the note before signing.
== END ==
PROVIDERS: PCP Family Medicine; Referring Provider Nurse Practitioner Gerontology; Visit Provider Nurse Practitioner Gerontology
DX: R07.89 Other chest pain (principal); R06.02 Shortness of breath
CPT/HCPCS: 78452; 93017; A9500; A4216

== ENCOUNTER 2021-09-26 07:55 | Day surgery (SDC) | payer MEDICARE, OTHER, SELFPAY ==
--- NOTE | 2021-09-19 11:20 | RAD_ITS ---
STUDY: X-RAY CHEST REASON FOR EXAM: Male, 76 years old. Preprocedural evaluation for heart catheterization. TECHNIQUE: Frontal and lateral views of the chest. COMPARISON: 11/20/2019. FINDINGS: The lungs are clear and expanded. There is no demonstrated pleural abnormality. Cardiomegaly with sternotomy wires and changes of coronary artery bypass grafting, unaltered. Normal mediastinum and zeyad. Normal visualized pulmonary arteries. Normal visualized aortic arch and descending thoracic aorta. Stable thoracic spondylosis. Normal visualized ribs, clavicles, and shoulders. There is no demonstrated abnormality of the visualized soft tissue structures of the upper abdomen. RAD/Chest PA and Lateral IMPRESSION: Stable cardiomegaly with no acute or active cardiopulmonary disease. Electronically Signed: Ty Torres MD at 11:56 EST , Service support ,
[2021-09-19 12:33] LABS: Hematocrit 44.7 % (40-54); Hemoglobin 14.4 g/dL (13.0-16.5); Mean Corp Hgb Conc 32.2 g/dL (32-36); Mean Corpuscular Hgb 30.7 pg (27.0-32.0); Mean Corpuscular Volume 95.3 fL (80-94); Mean Platelet Vol. 9.9 fl (6.2-12.0); Platelet Count 159 K/mm3 (150-450); RBC Distribution Width CV 12.5 % (11.6-14.6); RBC Distribution Width SD 43.6 fl (35.1-43.9); Red Blood Count 4.69 M/mm3 (4.6-6.2); White Blood Count 5.7 K/mm3 (4.4-11.0)
[2021-09-19 12:53] LABS: Prothrombin Time (Protime)PT. 12.5 SECONDS (11.7-14.9)
[2021-09-19 12:54] LABS: Partial Thromboplast Time 26.8 Seconds (24.1-36.2)
[2021-09-19 12:58] LABS: Anion Gap 5 (5-15); BUN 21 mg/dL (7-18); BUN/Creat Ratio 23.2 RATIO (10-20); Calcium,Total 9.3 mg/dL (8.5-10.1); Chloride 111 mmol/L (98-107); Creatinine, Serum 0.91 mg/dL (0.70-1.30); EST Glomerular Filtration Rate 87 mL/min (>60); Est Glom Filt Rate - Afr Amer 105 mL/min (>60); Glucose 95 mg/dL (74-106); Sodium Level 141 mmol/L (136-145)
[2021-09-25 09:58] VITALS: BMI 24.0
--- NOTE | 2021-09-25 17:59 | HP.PCM_ITS ---
History and Physical Date of Admission: 09/26/21 [facility] [id number] [place], [place] [phone] OFFICE VISITDate of Service: 09/19/21 MR#:[id number]:[id number]: LOPEZ NAJERA Jr.Rep #:[id number] Provider: BREN Menon/Sex: 76/M [facility] H[facility] HPI History of Present Illness Surgical H&P: Yes Details: LOPEZ NAJERA, is a 76 year old white male who presents to the office today for for a cardiovascular visit. He is scheduled for a cardiac catheterization on 09/26/2021. He has a history of coronary artery disease with bypass surgery and aortic stenosis and hyperlipidemia. As you recall, in 1992 he had an DELANEY to his LAD, THIAGO to the lateral circumflex, SVG to the diagonal, SVG to the PDA. His recent stress test was abnormal-results are noted below. He does have an occasional flutter sensation. He states this is about once a week. He does state that he has chest tightness/heaviness with activity. Goes away with rest. He does continue to have SOB with exertion. He denies Orthopnea, and PND. He does not have any bleeding issues; no blood in urine, stool or nosebleeds. He denies any decrease in energy level, myalgias, or claudication. He does not have edema, or sudden weight gain. He denies dizziness, lightheadedness, syncopal or near syncopal episodes, and headaches. Intake Vital Signs 09/19/21 11:48 Height 5 ft 9 in Weight: 163 lb 8 oz BMI 24.1 BP 120/78 Blood Pressure Location Lt brachial Position Sitting Respiration 16 Pulse 82 Pulse Oximetry (%) 97 Oxygen Delivery Method room air Intake Visit Reasons: H&P for heart cath for PFM Allergies Opioids - Morphine Analogues Allergy (Verified 09/19/21 10:55) Nausea PAIN MEDICATION Allergy (Uncoded 08/05/19 09:38) Unknown Medications aspirin 81 mg PO QHS 01/01/17 [History Confirmed 09/19/21] cholecalciferol (vitamin D3) 1,000 unit PO DAILY 01/01/17 [History Confirmed 09/19/21] omeprazole 20 mg PO DAILY 01/01/17 [History Confirmed 09/19/21] tamsulosin 0.4 mg PO DAILY 01/05/19 [History Confirmed 09/19/21] dutasteride 0.5 mg capsule 0.5 mg PO DAILY #90 cap 04/14/19 [History Confirmed 09/19/21] vitamin B12 2,500 mcg-folic acid 400 mcg disintegrating tablet tab PO DAILY tab 05/25/21 [History Confirmed 09/19/21] rosuvastatin 40 mg tablet 40 mg PO QHS #90 tab 06/08/21 [Rx Confirmed 09/19/21] lisinopril 10 mg tablet 15 mg PO DAILY #135 tab 07/07/21 [Rx Confirmed 09/19/21] clopidogrel 75 mg tablet 75 mg PO DAILY #30 tab 08/31/21 [Rx Confirmed 09/19/21] PFSH Medical History Arteriosclerosis of coronary artery bypass graft Atherosclerosis of coronary artery bypass graft without angina pectoris Essential hypertension History of left heart catheterization (LHC) (~11/27/19) Hyperlipidemia Hypertension 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) stenosis Premature ventricular contractions Surgical History Presence of aortocoronary bypass graft (~01/11/93) Family History Father CAD (coronary artery disease) Cancer Bone cancer Myocardial infarction FH valvular heart dx FH: CABG (coronary artery bypass surgery) Mother Alzheimer disease Sister Hypertension Other Family history of hypertension Social History Smoking Status: Former smoker how long ago did patient quit smokin alcohol intake: current alcohol intake frequency: a few times a week Alcohol type: wine substance use type: does not use caffeine: Yes Type: tea what type of physical activity do you participate in: bicycling and weight training frequency: daily duration: 60-90 minutes/day seatbelt use: always do you feel safe at home: Yes ROS Const Const: Negative for fatigue, weakness, fever(s), headache(s), chills, frequent falls, weight gain or weight loss Eyes Eyes: Negative for blind spots, loss of peripheral vision, transient loss of vision, blurry vision, change in vision, double vision, floaters or tunnel vision ENT ENT: Negative for headache(s), dizziness, Nosebleed/epistaxis, balance problems or neck pain Cardio Chest Pain: No Palpitations: No Edema: None Muscle aches with walking: None Resp Respiratory: Negative for SOB with activity, SOB at rest or SOB orthopnea\SOB lying down GI GI: Negative nausea, vomiting, heartburn, bloating, vomiting blood/hematemesis, bright, red blood in stools or black,tarry stools Musc Musc: Negative for muscle aches/ myalgia, muscle weakness, joint pain or balance problems Neuro Neuro: Negative for dizziness, lightheadedness, near syncope, syncope, orthostatic symptoms, frequent falls, headache(s), weakness, blurry vision or double vision Chaz Hematologic/Lymphatic: Negative for easy bleeding or easy bruising Endo Endo: Negative for fatigue Cardiology Exam Const Appearance: cooperative and no acute distress Orientation: alert and oriented x3 Head Head: normal to inspection Ears: hearing grossly normal bilaterally Nose: external nose normal Face and Sinus: face symmetric Eyes General: appearance normal, both eyes and all related structures Eyelids: eyelids normal Conjunctivae: conjunctivae normal Pupils: PERRL and pupil size EOM: EOM intact bilaterally Neck Neck: normal visual inspection Carotids: Negative bruit Chest Chest inspection: normal inspection of the chest and normal respiratory effort Auscultation: Bilateral: Clear to Auscultation Cardio Palpation: normal PMI Rate: regular rate Rhythm: regular rhythm Heart sounds: S1 normal, S2 normal and murmur; Negative rub or gallop Murmur: Grade 3/6, harsh, mid systolic, LLSB, LVOT and sternal notch GI GI: normal to inspection and soft; Negative no hepatosplenomegaly Neuro General: patient alert, patient oriented x3 and CN's II-XI intact bilaterally Skin Skin: no rashes or lesions noted Extremities Pulses: Normal: Right Posterior Tibial Pulse, Left Posterior Tibial Pulse, Right Radial Pulse and Left Radial Pulse Lower Extremity Edema: None: Bilateral Psych Psychological: normal affect Supplemental Info Supplemental Information Test test from 08/30/2021: Procedure: Exercise tolerance test/imaging study Indications: Chest pain; shortness of breath/dyspnea on exertion; CAD; CABG Consent: Per the patient Procedure: The patient exercised on a Robert protocol for 7 minutes and 10-second completing Stage II and 1 minute and 10 seconds of Stage III achieving a peak heart rate of 148 bpm (102% predicted maximal heart rate) with a peak blood pressure 160/70 mmHg and a peak MET capacity of 9 METs. The baseline ECG demonstrated normal sinus rhythm. The peak exercise ECG demonstrated somatic/motion artifact with no obvious ECG changes. There were occasional PVCs and ventricular couplets during exercise and an isolated ventricular triplet near peak exercise and an occasional PVC and an isolated ventricular couplet in recovery. The functional capacity was considered good. There was no complaint of chest discomfort during exercise or recovery. The examination was discontinued secondary to dyspnea. Impression: 1. Technically adequate (percent predicted maximal heart rate greater than 85%) exercise tolerance test 2. Peak exercise ECG with somatic/motion artifact with no obvious ECG changes 3. There were occasional PVCs and ventricular couplets during exercise and an isolated ventricular triplet near peak exercise and an occasional PVC and an isolated ventricular couplet in recovery 4. Nuclear images pending Myocardial perfusion imaging study: Technique: The patient was injected with 11.8 mCi of technetium 99m Cardiolite and subsequently rest SPECT Cardiolite nuclear imaging was obtained in the horizontal long, vertical long, and short axis views. The patient exercised on a Robert protocol for 7 minutes and 10-second completing Stage II and 1 minute and 10 seconds of Stage III achieving a peak heart rate of 148 bpm (102% predicted maximal heart rate) with a peak blood pressure 160/70 mmHg and a peak MET capacity of 9 METs. The patient was injected with 33.9 mCi of technetium 99m Cardiolite and subsequently stress SPECT Cardiolite nuclear imaging was obtained in the horizontal long, vertical long, and short axis views. A gated Cardiolite study at peak stress was obtained. Interpretation: Rest and stress SPECT Cardiolite nuclear imaging status post realignment, chery lization, and attenuation correction, demonstrates status post stress the appearance of diminished absence of myocardial perfusion/tracer uptake in portions of the mid anterior segments. There is diminished end systolic thickening and brightening in the aforementioned areas. The gated Cardiolite study demonstrates myocardial thickening and inward wall motion. The reported LVEF is 59%. Impression: 1. Rest and stress SPECT Cardiolite nuclear imaging demonstrate myocardial perfusion changes concerning for an area of stress-induced myocardial ischemia in portions of the mid anterior segments. 2. The gated Cardiolite study reports an LVEF of 59%. Cardiac catheterization from 11/27/2019: PROCEDURE(S) PERFORMED MY02-DZW/LHC/COR/LV/CABG CLINICAL PROFILE AND INDICATIONS Indications: Suspected CAD, Valvular Disease Heart Failure: None Stress/Imaging Date: 11/17/2019 Angina Classification Anginal Classification w/in 2 Weeks: No symptoms CAD Presentations: Other: palpitations CONCLUSIONS Right heart pressures - Normal Intracardiac shunting: None Normal Left Ventricular End Diastolic Pressure Segmented LV systolic dysfunction- Mild LVEF: by LV gram 60 % [place] Multivessel CAD DELANEY to LAD: patent THIAGO to LCX/OM: patent SVG to DX1: occluded (chronic) SVG to RCA: occluded (chronic) Right to Right Collateral Flow Aortic Valve Stenosis- Moderate RECOMMENDATIONS Risk factor modification Medical therapy DESCRIPTION OF PROCEDURE The patient arrived to the procedure lab. The risks and benefits of the procedure as well as a full description of our services here and current unavailability of surgical backup were fully explained to the patient and/or their significant other prior to the catheterization. The Timeout was completed, verifying the correct patient and procedure. The patient's procedural site was prepped and draped in the usual fashion. Local anesthetic was given subcutaneously to right groin region with Lidocaine 2%. Using a modified Seldinger technique, arterial access was obtained via the right femoral artery, a 4Fr sheath was inserted Venous access was obtained via the right femoral vein, a 7Fr sheath was inserted. A 7Fr thermal dilution catheter was inserted and right heart pressures were recorded, it was then advanced to PA position for cardiac outputs. Thermal dilution cardiac outputs were then recorded. O2 saturations were then obtained. Simultaneous pressures were then recorded. Left Ventriculography was performed in JACOBSON projection using a 4 Fr. Pigtail catheter. LV to AO pullback pressures were then recorded. The Thermal dilution catheter was then removed. Left Coronary Artery selective angiography was performed in multiple views using a 4 Fr. JL5 catheter. Saphenous Vein graft to the RPDA selective angiography was performed in multiple views using a 4 Fr. JR4 catheter. Right Coronary Artery selective angiography was then performed in multiple views using a 4 Fr. JR4 catheter. Right internal mammary artery graft t o the Circumflex selective angiography was performed in multiple views using a 4 Fr. IM catheter. Left internal mammary artery graft to the LAD selective angiography was performed in multiple views using a 4 Fr. IM catheter.The arterial sheath was pulled and manual compression applied until hemostasis is achieved.. The venous sheath was then pulled and manual compression applied until hemostasis achieved CORONARY ANGIOGRAPHY DOMINANCE: Right Dominant LEFT HEART ASSESSMENT Left Ventricular Ejection Fraction: by LV Gram 60 % Inferior Mid Hypokinesis Normal Left Ventricular End Diastolic Pressure LVEDP: 7 mmHg RIGHT HEART ASSESSMENT Thermal CO: 5.96 Thermal CI: 3.12 Reba CO: 6.97 Reba CI: 3.65 PW: 5/2 2 PA: 17/ 6 RV: 22/-4 1 RA: 2 -1 PVR: 54 Aortic Valve Area: 1.43 Aortic Valve Index: 0.75 Aortic Valve Mean Gradient: 26.9 Mitral Valve Area: 2.78 Mitral Valve index: 1.45 Mitral Valve Mean Gradient: 6.1 Right Heart pressures - normal Intracardiac shunting: None LEFT MAIN: Moderate calcification, 25 % Stenosis LEFT ANTERIOR DESCENDING ARTERY: PROX LAD: Moderate calcification, 50 % Stenosis MID LAD: filling from competitive flow but predeominantly DELANEY graft flow with no angiographically significant appearing stenosis distal to the graft attachment DIAGONAL 1: Proximal - small caliber vessel: proximal: 85 % Stenosis CIRCUMFLEX ARTERY: OM 1: Proximal - is occluded with the remainder of the vessel filling from THIAGO graft flow with no angiographically significant appearing stenosis distal to the graft attachment RIGHT CORONARY ARTERY: PROX RCA: is occluded with bridging collaterals filling the mid RCA with the distal RCA being occluded GRAFTS: DELANEY graft to the Mid LAD is patent THIAGO graft to the LCX/OM: patent Saphenous Vein graft to the 1st Diagonal is totally occluded (chronic) Saphenous Vein graft to the RCA is totally occluded (chronic: not reevaluated during this procedure) COLLATERAL FLOW: Collateral flow from Right to Right VALVE FINDINGS: Aortic Valve Stenosis - moderate AORTIC ROOT: Angiographically normal Echocardiogram from 06/13/2021: Interpretation Summary Segmental dysfunction with preserved ejection fraction (see wall motion). The estimated ejection fraction is 65 %. The left atrium is mildly enlarged. Mild (1+) mitral valve insufficiency. Mild tricuspid valve insufficiency. Moderate aortic stenosis. Trivial aortic valve insufficiency. Trivial pulmonic valve insufficiency. Unable to estimate RV systolic pressure due to insufficient tricuspid regurgitant envelope. Diastolic function is indeterminate. Labs: LDL Cholesterol 61 mg/dL (0-130) HDL Cholesterol 71 mg/dL (40-) Triglycerides 87 mg/dL (-199) VLDL Cholesterol 17 mg/dL (5-40) Diagnostics: Electrocardiogram Echocardiogram Stress Test NM Stress Test Cardiac Catheterization Chest X-Ray Pulmonary: No Data to Display Assessment and Plan Assessment and Plan (1) Abnormal stress test: Status: Acute Orders: Orders: 12 Lead EKG performed by BMS Today Plan: Patient's most recent stress test was noted to be abnormal. His EKG from today demonstrated Sinus Rhythm with a heart rate of 65. He will undergo a cardiac catheterization to evaluate his coronary arteries. Cardiac Catheterization instructions given to patient. Patient verbalized understanding. (2) SOBOE (shortness of breath on exertion): Status: Acute Plan: Patient has complaints of shortness of breath with exertion. His most recent stress test was abnormal. He will undergo a cardiac catheterization to evaluate his coronary arteries. If his cardiac catheterization is normal. Patient will be referred to pulmonology for a workup of his shortness of breath. (3) Atherosclerosis of coronary artery bypass graft without angina pectoris: Status: Chronic Qualifiers: [place] vs. transplanted heart: [place] heart Qualified Code(s): I25.810 - Atherosclerosis of coronary artery bypass graft(s) without angina pectoris Plan: Patient has a history of coronary artery disease. He does have complaints of chest tightness/heaviness and shortness of breath with exertion. His most recent stress test was abnormal. He will be evaluated with a cardiac catheterization. At this time, he will continue with his current medications, along with aggressive risk factor and lifestyle modifications. (4) Presence of aortocoronary bypass graft: Status: Chronic Comment: CABG 01/11/93, DELANEY to LAD, THIAGO to lateral circumflex, SVG to diagonal & SVG to PDA Plan: Patient has a history of coronary artery disease with bypass surgery in 1992. He does have complaints of chest tightness/heaviness, and shortness of breath with exertion. Again, his most recent stress test was abnormal. He will be evaluated with a cardiac catheterization. At this time, he will continue with his current medications, along with aggressive risk factor and lifestyle modifications. (5) 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) stenosis: Status: Chronic Plan: Patient does have a history of aortic valve stenosis. His most recent echocardiogram from May 2021 demonstrated moderate aortic stenosis. We will continue to monitor with history, exam, and echocardiograms as deemed appropriate. (6) Essential hypertension: Status: Chronic Plan: Patient has a history of hypertension. His blood pressure is well controlled at this time. He will continue with his current medications, along with monitoring his blood pressures at home. (7) Hyperlipidemia: Status: Chronic Qualifiers: Hyperlipidemia type: pure hypercholesterolemia Qualified Code(s): E78.00 - Pure hypercholesterolemia, unspecified; E78.0 - Pure hypercholesterolemia Plan: Patient has a history of hyperlipidemia. His most recent lipid panel from 05/26/2021: Cholesterol 149, HDL 71, LDL 61, triglycerides 87. He will continue with rosuvastatin 40 mg daily. Plan Details Additional Comments: Patient will follow up in 7 months, or sooner if needed. Thank you for allowing me to participate in the care of your patient. Please don't hesitate to call if any issues arise. This note was generated using a voice recognition system and there may be incorrect words, spelling, or punctuation that were not noted when reviewing the office note prior to saving. Follow Up: Keep as is (PFM) COVID (Procedure Consent) Procedure Criteria Procedure Criteria: Yes Elective The surgeon/proceduralist and patient have discussed in detail the risk of exposure to and/or potential harm posed by the COVID-19 virus with having a surgery/procedure at this time versus the risk of delaying the surgery/procedure. It is not possible to know either the risk of delaying the surgery or procedure or chance of getting an infection with perfect accuracy, but a joint decision was made between the patient and the surgeon/proceduralist to proceed at this time with the scheduled surgery/pro cedure as indicated on the consent form. Coding Level of Care Code Off vis,est,level 3 Diagnoses Abnormal stress test R94.39 SOBOE (shortness of breath on exertion) R06.02 Atherosclerosis of coronary artery bypass graft without angina pectoris I25.810 [place] vs. transplanted heart: [place] heart Presence of aortocoronary bypass graft Z95.1 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) stenosis I35.0 Essential hypertension I10 Hyperlipidemia E78.00; E78.0 Hyperlipidemia type: pure hypercholesterolemia Coding Level of Care Code Off vis,est,level 3 Diagnoses Abnormal stress test R94.39 SOBOE (shortness of breath on exertion) R06.02 Atherosclerosis of coronary artery bypass graft without angina pectoris I25.810 [place] vs. transplanted heart: [place] heart Presence of aortocoronary bypass graft Z95.1 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) stenosis I35.0 Essential hypertension I10 Hyperlipidemia E78.00; E78.0 Hyperlipidemia type: pure hypercholesterolemia 09/19/21 1206<Electronically signed by Molly Sidhu TYPEWRITER OPERATOR AUTOMATIC TYPEWRITER OPERATOR AUTOMATIC-C>Date Molly Sidhu NP TYPEWRITER OPERATOR AUTOMATIC-C 09/20/212051<Electronically signed by Lopez Yadav MD>Cosigner Signature:Date (if applicable)Lopez Yadav MD CC: Dr. Nori Louis MD ~ Assessment & Plan Addt'l Comments I have re-examined the patient. There are no clinical changes since date of exam
[2021-09-26 10:35] LABS: Base Excess -3 mmol/L (-2 to +2); Bicarbonate 21.9 mmol/L (22-26); Blood Gas Specimen Type ART; PO2 89 mmHG (75-100); SO2 97 % (95-99); Total Carbon Dioxide 23 mmol/L; pCO2 36.2 mmHg (35-45); pH 7.39 (7.35-7.45)
[2021-09-26 10:40] LABS: Blood Gas Specimen Type VEN; VBG BASE EXCESS -3 mmol/L (-1.0-3.5); VBG Bicarbonate 23 mmol/L (22-26); VBG PO2 33 mmHg (25-40); VBG SO2 59 % (50-70); VBG TCO2 24 mmol/L (23-33); VBG pCO2 42.7 mmHg (41-51); VBG pH 7.34 (7.32-7.42)
[2021-09-26 10:40] LABS: Blood Gas Specimen Type VEN; VBG BASE EXCESS -3 mmol/L (-1.0-3.5); VBG Bicarbonate 22 mmol/L (22-26); VBG PO2 40 mmHg (25-40); VBG SO2 74 % (50-70); VBG TCO2 24 mmol/L (23-33); VBG pCO2 38.4 mmHg (41-51); VBG pH 7.38 (7.32-7.42)
[2021-09-26 11:00] LABS: Blood Gas Specimen Type VEN; VBG BASE EXCESS -3 mmol/L (-1.0-3.5); VBG Bicarbonate 23 mmol/L (22-26); VBG PO2 41 mmHg (25-40); VBG SO2 76 % (50-70); VBG TCO2 24 mmol/L (23-33); VBG pCO2 37.8 mmHg (41-51); VBG pH 7.38 (7.32-7.42)
[2021-09-26 11:00] LABS: Blood Gas Specimen Type VEN; VBG BASE EXCESS -2 mmol/L (-1.0-3.5); VBG Bicarbonate 23 mmol/L (22-26); VBG PO2 38 mmHg (25-40); VBG SO2 70 % (50-70); VBG TCO2 25 mmol/L (23-33); VBG pCO2 40.8 mmHg (41-51); VBG pH 7.36 (7.32-7.42)
--- NOTE | 2021-09-26 16:28 | CL.D_ITS ---
Patient Name: LOPEZ NAJERA [facility] Study Date: 09/26/2021 Performing: Lopez Yadav MD Ht: 69 inches 175 cm : 1945 Wt: 163.4 lbs 74 kg Age: 76 Gender: male BSA: 1.89 PROCEDURE(S) PERFORMED BM51-FBU/LHC/COR/LV/CABG CLINICAL PROFILE AND INDICATIONS Indications: Worsening Angina, Suspected CAD, Valvular Disease Heart Failure: None Stress/Imaging Date: 08/30/2021tress Test with SPECT MPI: Positive Intermediate Risk Angina Classification Anginal Classification w/in 2 Weeks: CCS III CAD Presentations: Stable angina. Other: dyspnea on exertion CONCLUSIONS Right heart pressures - Normal The patient has normal pulmonary hemodynamics. Intracardiac shunting: None Normal Left Ventricular End Diastolic Pressure Normal LV size, wall motion,and systolic function LVEF: by LV gram 55 % [place] Multivessel CAD DELANEY to LAD: patent THIAGO to OM1: patent SVG to DX1: occluded (chronic) SVG to RCA: occluded (chronic) Aortic Valve Calcification- Moderate Aortic Valve Stenosis- Mild to Moderate RECOMMENDATIONS Risk factor modification Medical therapy Surgery consult for valvular disease DESCRIPTION OF PROCEDURE The patient arrived to the procedure lab. The risks and benefits of the procedure as well as a full d escription of our services here and current unavailability of surgical backup were fully explained to the patient and/or their significant other prior to the catheterization. The Timeout was completed, verifying the correct patient and procedure. The patient's procedural site was prepped and draped in the usual fashion. Local anesthetic was given subcutaneously to right groin region with Lidocaine 2%. Using a modified Seldinger technique, arterial access was obtained via the right femoral artery, a 4 Fr sheath was inserted Venous access was obtained via the right femoral vein, a 7Fr sheath was insert ed. Left Coronary Artery selective angiography was performed in multiple views using a 4 Fr. JL5 cath eter. Right Coronary Artery selective angiography was then performed in multiple views using a 4 Fr. 3DRC catheter. Right internal mammary artery graft to the Circumflex selective angiography was performed in multiple views using a 4 Fr. 3DRC catheter. Left internal mammary artery graft to th e LAD selective angiography was performed in multiple views using a 4 Fr. JR4 catheter. Left Ventricu lography was performed in JACOBSON projection using a 4 Fr. Pigtail catheter. LV to AO pullback pressures were then recorded. A 7Fr thermal dilution catheter was inserted and right heart pressures were recor ded, it was then advanced to PA position for cardiac outputs. Thermal dilution cardiac outputs were t hen recorded. O2 saturations were then obtained. LV to AO pullback pressures were then recorded. The Thermal dilution catheter was then removed.The venous sheath was then pulled and manual compression a pplied until hemostasis achieved. The arterial sheath was pulled and manual compression applied until hemostasis is achieved. CORONARY ANGIOGRAPHY DOMINANCE: Right Dominant LEFT HEART ASSESSMENT Left Ventricular Ejection Fraction: by LV Gram 55 % Normal LV wall motion Normal Left Ventricular End Diastolic Pressure LVEDP: 11 mmHg RIGHT HEART ASSESSMENT Thermal CO: 5.81 Thermal CI: 3.07 Reba CO: 6.11 Reba CI: 3.23 PW: 6/5 2 PA: 20/1 7 RV: 26/-4 1 RA: 3/1 0 PVR: 69 Aortic Valve Area: 2.20 Aortic Valve Index: 1.17 Aortic Valve Mean Gradient: 23.8 LEFT MAIN: Mild luminal irregularities, distal: eccentric: 25 % Stenosis LEFT ANTERIOR DESCENDING ARTERY: PROX LAD: Mild calcification MID LAD: is occluded with the mid to distal LAD filling from the DELANEY graft with no angiographically significant appearing disease distal to the graft attachment CIRCUMFLEX ARTERY: OM 1: Proximal - is occluded with the mid to distal OM1 filling from the THIAGO graft with no angiograp hically significant appearing disease distal to the graft attachment RIGHT CORONARY ARTERY: PROX RCA: is occluded GRAFTS: DELANEY graft to the Mid LAD is patent THIAGO graft to the OM1 is patent OM 1 is patent Saphenous Vein graft to the 1st Diagonal is totally occluded (chronic: not reevaluated during this ex amination) Saphenous Vein graft to the RCA is totally occluded (chronic: not reevaluated during this examination ) VALVE FINDINGS: Aortic Valve Calcification - moderate Aortic Valve Stenosis - mild to moderate AORTIC ROOT: Angiographically normal COMPLICATIONS No Complications PROCEDURE MEDICATIONS Versed 1 mg IV Oxygen: 2 L/min via nasal cannula SUMMARY OF HEMODYNAMIC DATA Time AIR REST ECG 08:22:51 Art 139/61 (88) 09:37:05 AO 110/61 (83) SA 09:46:43 LV 145/0, 9 10:04:39 LV 151/-2, 8 10:05:05 LV 143/-11, 16 10:05:53 LV 144/-10, 11 10:06:00 LVp 145/-17, 5 10:06:06 AOp 123/56 (83) 10:06:11 RA 3/1 (0) 10:33:19 RV 26/-4, 1 10:33:36 PW 6/5 (2) PV 10:34:29 PA 20/1 (7) PA 10:34:46 LV 133/1, 5 10:43:57 PW 8/7 (2) 10:43:57 LV 134/1, 5 10:44:03 PW 9/8 (2) 10:44:03 LV 153/-15, 8 10:45:08 PW 8/5 (3) 10:45:08 LV 148/-17, 7 10:45:15 PW 7/5 (2) 10:45:15 LVp 135/-14, 7 10:46:06 AOp 117/46 (78) 10:46:11 Valve Area (c P-P/ms Time AIR REST Aortic 0.00 23.8 mn/200 ms22.0 pk/200 ms 10:06:06 Aortic 1.73 19.2 mn/288 ms18.0 pk/288 ms 10:46:06 Type SV CO (l/m) CI (l/m/ HR Time AIR REST Thermal 80.70 5.81 3.07 72 08:22:51 Reba 84.90 6.11 3.23 72 08:22:51 Label % O2 Pres/Loc Time AIR REST AO 97 PV 10:48:20 PA 74 PA 10:58:30 IVC 76 SV 10:58:38 Signed By Lopez Yadav MD On 09/26/2021 16:27:45 Lopez Yadav MD
== END 2021-09-26 15:50 | disposition home or self-care (01) ==
LOC: CLSP 07:56
PROVIDERS: PCP Family Medicine; Referring Provider Internal Medicine Cardiovascular Disease; Visit Provider Internal Medicine Cardiovascular Disease
DX: I25.708 Atherosclerosis of coronary artery bypass graft(s), unspecified, with other forms of angina pectoris (principal); I25.118 Atherosclerotic heart disease of native coronary artery with other forms of angina pectoris; R06.09 Other forms of dyspnea; I35.0 Nonrheumatic aortic (valve) stenosis; R06.02 Shortness of breath; E78.5 Hyperlipidemia, unspecified; I10 Essential (primary) hypertension; Z95.1 Presence of aortocoronary bypass graft; Z87.891 Personal history of nicotine dependence; Z82.49 Family history of ischemic heart disease and other diseases of the circulatory system; Z79.899 Other long term (current) drug therapy; Z79.82 Long term (current) use of aspirin
CPT/HCPCS: 36415; 71046; 80048; 82803; 85027; 85610; 85730; 93461; 99152; 99153; J7040; Q9967; C1751; C1769; C1894

== ENCOUNTER → 2021-10-03 06:55 | Outpatient (CLI) | payer MEDICARE, OTHER, SELFPAY ==
--- NOTE | 2021-10-03 13:47 | PFTCOMP_ITS ---
COMPLETE PULMONARY FUNCTION TEST INTERPRETATION Brief HPI: Patient is a 76 year old male, currently under the care of Dr. Yadav, who presents to [facility] for complete pulmonary function tests secondary to diagnosis of dyspnea. Respiratory therapist reports good effort and reproducible results. Interpretation: Forced expiration spirometry shows no large airways obstructive ventilatory defect with an FEV1 of 105% predicted. There is no significant bronchodilator response by strict ATS criteria. Spirograms are of good quality and plateau slowly, indicating slowly emptying areas of the lungs. The respiratory flow volume loop shows decreased expiratory flow rates at high lung volumes consistent with small airways obstruction. Lung volumes by body plethysmography show a normal total lung capacity at 6.73 L, 109% predicted. All other lung volumes are within normal limits. Diffusion capacity by carbon monoxide is elevated at 158% predicted. The airway resistance is normal. No previous pulmonary function tests were available for review. Impression: Grossly normal pulmonary function studies with some stigmata of small airways disease. Could consider a bronchoprovocation study if asthma is suspected
== END ==
PROVIDERS: PCP Family Medicine; Referring Provider Internal Medicine Cardiovascular Disease; Visit Provider Internal Medicine Cardiovascular Disease
DX: R06.02 Shortness of breath (principal)
CPT/HCPCS: 94060; 94726; 94729

== ENCOUNTER → 2021-10-23 12:50 | Outpatient (CLI) | payer MEDICARE, OTHER, SELFPAY ==
[2021-10-23] MEDS: Methacholine Chloride 18 ml neb kit INHALATION (13:03)
--- NOTE | 2021-10-24 10:37 | BRONCHALL ---
Bronchoprovocation Challenge Bronchoprovocation Challenge Bronchoprovocation Challenge: INTRODUCTION: The patient is a 76-year-old male that presents for a bronchoprovocation challenge secondary to a diagnosis of shortness of breath. Respiratory therapy reported good patient effort. Patient did not have any contraindications to testing. INTERPRETATION: Initial spirometry did not show any large airways obstructive ventilatory defect and preserved airflows throughout. The patient was then given progressively increasing doses of methacholine in a standardized fashion. At no point during testing did the patient's FEV1 drop to the threshold that would be considered a positive test. IMPRESSION: Negative methacholine challenge.
== END ==
PROVIDERS: PCP Family Medicine; Referring Provider Internal Medicine Critical Care Medicine; Visit Provider Internal Medicine Critical Care Medicine
DX: R06.02 Shortness of breath (principal)
CPT/HCPCS: 94070; 95070

== ENCOUNTER 2021-12-18 06:27 | Outpatient (CLI) | payer MEDICARE, OTHER, SELFPAY ==
[2021-12-18 06:49] LABS: Hematocrit 36.6 % (40-54); Hemoglobin 11.8 g/dL (13.0-16.5); Mean Corp Hgb Conc 32.2 g/dL (32-36); Mean Corpuscular Hgb 31.1 pg (27.0-32.0); Mean Corpuscular Volume 96.6 fL (80-94); POSITIVE COUNT YES; RBC Distribution Width CV 12.5 % (11.6-14.6); RBC Distribution Width SD 44.3 fl (35.1-43.9); Red Blood Count 3.79 M/mm3 (4.6-6.2); White Blood Count 5.7 K/mm3 (4.4-11.0)
[2021-12-18 07:37] LABS: ALB/GLOB Ratio 1.1 RATIO (0.9-2.4); AST(SGOT) 23 U/L (15-37); Alanine Aminotransfer ALT/SGPT 20 U/L (16-61); Albumin, Serum 3.3 g/dL (3.2-5.0); Alkaline Phosphatase 60 U/L (45-117); Anion Gap 2 (5-15); BUN 30 mg/dL (7-18); BUN/Creat Ratio 29.1 RATIO (10-20); Calcium,Total 9.2 mg/dL (8.5-10.1); Chloride 112 mmol/L (98-107); Cholesterol 130 mg/dL (200); Creatinine, Serum 1.03 mg/dL (0.70-1.30); EST Glomerular Filtration Rate 75 mL/min (>60); Est Glom Filt Rate - Afr Amer 91 mL/min (>60); Globulin 3.1 g/dL (2.2-4.2); Glucose 109 mg/dL (74-106); High Density Lipoprotein 60 mg/dL; Potassium 4.2 mmol/L (3.5-5.1); Protein, Total 6.4 g/dL (6.4-8.2); Sodium Level 142 mmol/L (136-145); Triglycerides 61 mg/dL; Very Low Density Lipoprotein 12 mg/dL (5-40)
[2021-12-18 08:03] LABS: Platelet Count 20 K/mm3 (150-450); Scan Indicated on CBC? Y/N YES- FLAGS NOTED
[2021-12-18 14:23] LABS: Pathologist Review Reviewed
== END 2021-12-18 23:59 | disposition home or self-care (01) ==
LOC: LAB 06:32
PROVIDERS: PCP Family Medicine; Referring Provider Nurse Practitioner Gerontology; Visit Provider Nurse Practitioner Gerontology
DX: I10 Essential (primary) hypertension (principal); E78.00 Pure hypercholesterolemia, unspecified; Z95.2 Presence of prosthetic heart valve
CPT/HCPCS: 80053; 80061; 85027

== ENCOUNTER → 2022-04-18 | Outpatient (CLI) | payer MEDICARE, OTHER, SELFPAY ==
[2022-04-18] VITALS (9 sets, daily range): BP systolic 130–170; BP diastolic 46–76; PULSE 62–71; RESP 12–35; TEMP 36.4; O2SAT 96–100; BMI 23.3
--- NOTE | 2022-04-18 | BMB_PTH ---
PATIENT: GOVIND NAJERA Jr. LOC: [place] U#:[id number] AGE/SX: 76/M ROOM: RE04/18/[address]: Dr. Wade Lopez MD : 1945 BED: DIS: 04/18/2022 SPEC #: [id number] RECD: 04/18/22 11:26 STATUS: JEREMY NITA #: [id number] JORGE: 04/18/22 00:[address]: Wade Lopez DEPT: BONE MARROW RECD BY: Deysi Guallpa ENTERED: 04/18/22 11:26 SP TYPE: BMB PAUL DR: Dr. Nori Louis MD Tissues: A - Bone marrow, NOS B - Bone marrow, NOS C - Bone marrow, NOS Procedures: Decalcification bone/plaque Bone Marrow Aspiration Bone Marrow Core Biopsy Iron Stain Bone Marrow HEADER OPERATION: Bone marrow biopsy and aspiration, left hip PRE-OP DIAGNOSIS: Persistent thrombocytopenia TISSUE SUBMITTED: A - Core, B - Clot, C - Smears, and send outs (flow, cytogenetics and FISH) BONE MARROW DIAGNOSIS Bone marrow biopsy, clot and aspiration: Normocytic anemia. Moderate thrombocytopenia. Trilineage hematopoiesis. Benign lymphoid aggregates. No evidence of malignancy. See comment. AM:lc 04/23/2022 COMMENT Flow cytometry analysis of aspirate material reveals no evidence of acute leukemia or increased blasts. There is no evidence of abnormal myeloid maturation, T or B-cell lymphoproliferative disorder or monocytosis. Complete flow report is viewable in EMR. Immunohistochemistry ([id number]) supports the above diagnosis. Case has been reviewed in consultation with Dr. Sears who concurs with the above diagnosis. IDC:[id number] BONE MARROW STUDY Slides are reviewed. CBC DATE: 04/18/2022 WBC 5.6; RBC 4.3; HGB 12.6; HCT 39.1; MCV 90.9; RDW 41.0; PLTS 70,000 SEGS 69.8%; LYMPHS 19.5%; MONOS 7.8%; EOS 2.0%; BASOS 0.7% PERIPHERAL SMEAR: Submitted. RBC: Normocytic anemia WBC: Normomorphic PLTS: Moderate thrombocytopenia BONE MARROW ASPIRATE DIFFERENTIAL: Markedly hemodilute with trilineage hematopoiesis. ASPIRATE FINDINGS: Site: Left hip Aspicular Hypocellular M/E ratio: Not applicable (Normal 1.5 - 4.0) Megakaryocytes: Rare, normomorphic Erythropoiesis: Normoblastic Granulopoiesis: Progressive CORE BIOPSY FINDINGS: Site: Left hip Adequacy: Adequate Cellularity %: 15-20% M/E ratio: Within normal limits Megakaryocytes: Adequate Bony trabeculae: Within normal limits Granulomas: 0 Lymphoid aggregate(s): Rare, microscopic and polytypic by IHC. Atypical infiltrate(s): None ASPIRATE CLOT FINDINGS: Site: Left hip Cellularity %: 10-15% M/E ratio: Within normal limits Megakaryocytes: Rare Granuloma(s): 0 Lymphoid aggregate(s): 0 Atypical infiltrate(s): 0 SPECIAL STAINS (with matched controls): Iron: No stainable iron identified. Reticulin: Within normal limits PAS: Highlights myeloid elements and megakaryocytes. BONE MARROW GROSS A - Received is a container labeled with the patient's name and designated left hip bone marrow. The specimen consists of multiple fragments of blood clot mixed with fragments of bone measuring in aggregate 1.5 x 0.5 x 0.1 cm after decalcification. / SJ: 04/18/2022 B - Received labeled with the patient's name and designated left hip bone marrow clot is a specimen that consists of approximately 5 ml of reddish-reynoso tissue that on filtration yields multiple minute fragments of reddish-reynoso tissue measuring in aggregate 3 x 2.5 x <0.1 cm. The specimen is totally submitted in one cassette. / AM: 04/18/2022 C - Also received are 13 unstained and 1 peripheral stained slides. The unstained slides are submitted for appropriate staining. Also received are two green top tubes which are sent to our reference lab for flow, cytogenetics and FISH. / AM: 04/18/2022 TC:5 CPT: 64598, 85199, 56767 x2, 30388 x3, 82531 ADDENDUM ADDENDUM ADDENDUM ADDENDUM ADDENDUM ADDENDUM ADDENDUM ADDENDUM ADDENDUM ADDENDUM ADDENDUM ADDENDUM ADDENDUM ADDENDUM ADDENDUM ADDENDUM ADDENDUM ADDENDUM ADDENDUM ADDENDUM 05/01/2022 09:29 ADDENDUM 05/01/2022 09:29 ADDENDUM 05/01/2022 09:29 ADDENDUM 05/01/2022 09:29 ADDENDUM 05/01/2022 09:29 CYTOGENETICS REPORT FROM [facility] INTERPRETATION: A normal male karyotype was observed in twenty metaphases analyzed. Karyotype: 46,XY[20] FLUORESCENCE IN SITU HYBRIDIZATION (FISH) FROM [facility] INTERPRETATION: 1. No evidence of deletion of 5q or monosomy 5. 2. No evidence of monosomy 7 or deletion of 7q. 3. No evidence of trisomy 8 (+8). 4. No evidence of deletion of 20q12. 5. No evidence of BCR/ABL rearrangement. 6. No evidence of PML/LUISA gene rearrangement. 7. No evidence of RUNX1/RWCJ0O5 [t(8;21)]. 8. No evidence of CBFB [inversion(16) or translocation t(16;16) 9. No evidence of MLL gene locus 11q23 translocation. Please see complete report in e-chart or EMR
--- NOTE | 2022-04-18 | IMM_PTH ---
PATIENT: GOVIND NAJERA Jr. LOC: [place] U#:[id number] AGE/SX: 76/M ROOM: RE04/18/[address]: Dr. Wade Lopez MD : 1945 BED: DIS: 04/18/2022 SPEC #: [id number] RECD: 04/19/22 11:46 STATUS: JEREMY REQ #: [id number] JORGE: 04/18/22 00:[address]: Wade Lopez DEPT: IMMUNOHISTOCHEMISTRY RECD BY: Maci Hoffmann ENTERED: 04/19/22 11:49 SP TYPE: IMMUNO OTHR DR: Dr. Nori Louis MD Tissues: A - Bone marrow of iliac crest Procedures: BCL-2 (add) BCL-6 (add) CD10 (add) CD138 (add) CD20 (add) CD3 (add) CD30 (add) CD34 (add) CD43 (add) CD45 (add) CD5 (add) CD56 (add) CD79A (add) CYCLIN (add) KAPPA (add) KI-67 (add) LAMBDA (add) MUM1 (add) C-MYC (add) Pankeratin (initial) PHYSICIAN & [place] [id number] SPECIMEN INFORMATION: Tissue Source: A ? Bone marrow biopsy, core Clinical Info: Persistent thrombocytopenia Specimen Number: [id number] CPT code: 82707, 27200 x19 METHODOLOGY: Deparaffinized sections of prefer/formalin-fixed tissue or PAP/DQ stained slides are incubated with monoclonal/polyclonal antibodies/oligonucleotide probes. Localization is made via biotin free immunoperoxidase method. Appropriate controls are performed and reacted as expected. Results on target cell population are indicated in the following table: RESULTS: ANTIBODY / CLONE RESULT Block A AE1-3 (AE1/AE3/PCK26) negative CD3 (PS1) positive CD5 (SP10) positive CD10 (56C6) negative CD20 (L26) positive CD30 (Tyron-H2) negative CD34 (QBEnd-10) negative CD43 (L60) positive CD45 (RP2/18) positive CD56 (123C3.D5) negative CD79a (11E3) positive CD138 (B-A38) negative BCL-2 (bcl-2/100/D5) negative BCL-6 (LT012L/A8) negative Cyclin D1/BCL-1 (SP4) negative MUM1 (MRQ-43) negative C-MYC (Y69) negative Amorita (polyclonal) negative Lambda (polyclonal) negative Ki-67 (30-9) negative These tests were developed and their performance characteristics determined by [facility]. They may not have been cleared or approved by the U.S. Food and Drug Administration. The FDA has determined that such clearance or approval is not necessary. The above immunohistochemical/dualISH markers are ordered and reviewed by the Pathologist. INTERPRETATION: A. Bone marrow biopsy, core: No evidence of lymphoproliferative disorder or plasma cell dyscrasia. See comment. AM:lc 04/23/2022 Comment: There is no evidence of an increased blast count.
--- NOTE | 2022-04-18 08:41 | CT_ITS ---
PROCEDURE: CT-guided bone marrow biopsy. DATE OF EXAMINATION: 04/18/2022 INDICATION: Male, 76 years old. Thrombocytopenia PHYSICIAN: Lew Estrada DO RADIATION DOSAGE (If Supplied By Facility): CTDIvol = ( 18.99 ) mGy, DLP = ( 441.64 ) mGycm CONSENT: The risks, benefits and alternatives to the procedure were explained to the patient, and the patient agreed to the procedure and signed the consent. SEDATION: 1 mg of VERSED. 50 mcg of FENTANYL. Sedation start time: 10:03 AM Sedation stop time: 10:42 AM STERILE BARRIER TECHNIQUE: The following sterile barrier precautions were used during the procedure: hand hygiene, mask, sterile gown, sterile gloves, and a large sterile sheet. PROCEDURE/TECHNIQUE: (All elements of maximal sterile barrier technique followed, including US elements as applicable) The risks, benefits, and alternatives to the procedure were explained to patient, and the patient agreed to the procedure and signed a consent form for the procedure. A timeout was performed to confirm the patient''s identity, the type of procedure, to be performed and the site of entry. Initial communications designer CT of the pelvis was performed. An appropriate trajectory in the patient''s right ischium was selected and the skin was marked. The skin surface was prepared with IODINE prep. 10 mL of LIDOCAINE was used for local anesthetic and injected to the cortex of the bone using CT guidance. A skin gabriella was then made. An 11-gauge bone marrow biopsy needle was then inserted into the bone using fluoroscopic guidance. A 10 cc sample with HEPARIN was aspirated and given to on-site pathology. An additional 4 cc sample without HEPARIN was aspirated and given to on-site pathology. The biopsy needle was then advanced for the core sample. A single core sample was obtained and given to on-site pathology. The needle was removed and the exam was completed. There were no complications. The patient tolerated the procedure well and was observed in the nursing bay for 2 hours post procedure. The patient was discharged home in stable condition. CT/Biopsy/Inj or Needle Placement IMPRESSION: CT-guided bone marrow biopsy as detailed above. Electronically Signed: Lew Estrada, at 12:55 EDT ,
[2022-04-18 08:49] LABS: Absolute Neutrophil Count 3.9 X10^3/uL (2.0-7.7); Basophil# 0.04 X10^3/uL; Basophil% 0.7 % (0-1); Eosinophil# 0.11 X10^3/uL; Hematocrit 39.1 % (40-54); Hemoglobin 12.6 g/dL (13.0-16.5); Lymphocyte % 19.5 % (19-41); Mean Corp Hgb Conc 32.2 g/dL (32-36); Mean Corpuscular Hgb 29.3 pg (27.0-32.0); Mean Corpuscular Volume 90.9 fL (80-94); Mean Platelet Vol. 11.1 fl (6.2-12.0); Monocyte# 0.44 X10^3/uL; Monocyte% 7.8 % (0-10); NRBC Flagged by Analyzer 0 % (0-5); Neutrophil # 3.94 X10^3/uL (2.7-7.7); Neutrophil % 69.8 % (47-70); POSITIVE COUNT YES; Platelet Count 70 K/mm3 (150-450); RBC Distribution Width CV 12.2 % (11.6-14.6); White Blood Count 5.6 K/mm3 (4.4-11.0)
[2022-04-18 08:53] LABS: Prothrombin Time (Protime)PT. 12.7 SECONDS (11.7-14.9)
[2022-04-18 08:54] LABS: Partial Thromboplast Time 24.3 Seconds (24.1-36.2)
[2022-04-18] MEDS: fentaNYL 100 MCG/2 ML Ampul IV (10:03)
[2022-04-18] MEDS: Midazolam 2 MG/2 ML Syringe IV (10:06)
[2022-04-18] MEDS: 0.9% Normal Saline 250 ML IV.SOLN. (10:08)
[2022-04-18] MEDS: 0.9% Saline Lock 10 ML Syringe IV (10:09)
[2022-04-18] MEDS: Lidocaine 2% (20 ml mdv) 20 ML Vial INFILT (10:15)
== END | disposition home or self-care (01) ==
PROVIDERS: PCP Family Medicine; Referring Provider Internal Medicine Medical Oncology; Visit Provider Internal Medicine Medical Oncology
DX: Z01.818 Encounter for other preprocedural examination (principal); D69.6 Thrombocytopenia, unspecified; I49.3 Ventricular premature depolarization
CPT/HCPCS: 38221; 36415; 77012; 85025; 85610; 85730; 88305; 88311; 88313; 88341; 88342; 99156; 99157; J7050; A4216

== ENCOUNTER → 2022-06-13 | Outpatient (CLI) | payer MEDICARE, OTHER, SELFPAY ==
--- NOTE | 2022-06-13 17:14 | RAD_ITS ---
STUDY: X-RAY - LEFT HAND REASON FOR EXAM: Male, 76 years old. THUMB SPRAIN TECHNIQUE: 3 view(s) of the hand. COMPARISON: None. 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 Mild osteoarthritis throughout the remainder of the carpus and MCP joints. Mild to moderate osteoarthritis distal second and third interphalangeal joints. Mild osteoarthritis remainder of interphalangeal joints. Soft tissues normal. RAD/Hand Min 3 Views IMPRESSION: Osteoarthritis as above. Electronically Signed: Edin Aguilar MD, CELESTE at 18:34 EDT ,
== END | disposition home or self-care (01) ==
LOC: MTRAD 17:12
PROVIDERS: PCP Family Medicine; Referring Provider Family Medicine; Visit Provider Family Medicine
DX: S63.602A Unspecified sprain of left thumb, initial encounter (principal)
CPT/HCPCS: 73130

== ENCOUNTER → 2022-07-17 | Outpatient (CLI) | payer MEDICARE, OTHER, SELFPAY ==
[2022-07-17 07:31] LABS: Absolute Lymphocyte Count 1.21 X10^3/uL (0.83-4.51); Basophil# 0.03 X10^3/uL; Basophil% 0.8 % (0-1); Eosinophil# 0.18 X10^3/uL; Eosinophils% 4.9 % (0-5); Hematocrit 38.8 % (40-54); Hemoglobin 12.6 g/dL (13.0-16.5); Lymphocyte # 1.21 X10^3/ul (0.83-4.51); Lymphocyte % 32.6 % (19-41); Mean Corp Hgb Conc 32.5 g/dL (32-36); Mean Corpuscular Hgb 30.2 pg (27.0-32.0); Mean Platelet Vol. 10.5 fl (6.2-12.0); Monocyte# 0.31 X10^3/uL; Monocyte% 8.4 % (0-10); NRBC Flagged by Analyzer 0 % (0-5); Neutrophil # 1.98 X10^3/uL (2.7-7.7); Neutrophil % 53.3 % (47-70); POSITIVE COUNT YES; Platelet Count 79 K/mm3 (150-450); RBC Distribution Width CV 15.7 % (11.6-14.6); RBC Distribution Width SD 53.6 fl (35.1-43.9); Red Blood Count 4.17 M/mm3 (4.6-6.2); White Blood Count 3.7 K/mm3 (4.4-11.0)
[2022-07-17 07:45] LABS: Differential Indicated SCAN CRITERIA MET
[2022-07-17 08:05] LABS: Platelet Estimate SLT DEC (ADEQ); Red Cell Morphology NORM C+C NORMAL (NORM C&C)
[2022-07-17 08:06] LABS: Vitamin B12 1497 pg/mL (211-911)
[2022-07-17 08:07] LABS: ALB/GLOB Ratio 1.3 RATIO (0.9-2.4); AST(SGOT) 22 U/L (15-37); Alanine Aminotransfer ALT/SGPT 27 U/L (16-61); Albumin, Serum 3.6 g/dL (3.2-5.0); Alkaline Phosphatase 60 U/L (45-117); Anion Gap 7 (5-15); BUN 22 mg/dL (7-18); BUN/Creat Ratio 20.4 RATIO (10-20); Calcium,Total 9.1 mg/dL (8.5-10.1); Chloride 112 mmol/L (98-107); Creatinine, Serum 1.08 mg/dL (0.70-1.30); EST Glomerular Filtration Rate 71 mL/min (>60); Est Glom Filt Rate - Afr Amer 86 mL/min (>60); Ferritin 13 ng/mL (26-388); Globulin 2.8 g/dL (2.2-4.2); Glucose 110 mg/dL (74-106); Iron 72 ug/dL (65-175); Iron Binding Capacity,Total 347 ug/dL (250-450); LDH 368 U/L (87-241); PERCENT IRON SATURATION 20.7 % (15.0-55.0); Protein, Total 6.4 g/dL (6.4-8.2); Sodium Level 144 mmol/L (136-145)
[2022-07-17 08:16] LABS: Cholesterol 145 mg/dL (200); High Density Lipoprotein 73 mg/dL; PSA,Total - Annual Screen 2.59 ng/mL (0.00-4.00); Triglycerides 108 mg/dL; Very Low Density Lipoprotein 22 mg/dL (5-40)
== END | disposition home or self-care (01) ==
LOC: LAB 06:49
PROVIDERS: Internal Medicine Medical Oncology; PCP Family Medicine; Referring Provider Nurse Practitioner Family; Visit Provider Nurse Practitioner Family
DX: Z12.5 Encounter for screening for malignant neoplasm of prostate (principal); D69.6 Thrombocytopenia, unspecified; I25.810 Atherosclerosis of coronary artery bypass graft(s) without angina pectoris; E78.00 Pure hypercholesterolemia, unspecified; R53.83 Other fatigue; D64.9 Anemia, unspecified
CPT/HCPCS: 36415; 80053; 80061; 82248; 82607; 82728; 83540; 83550; 83615; 84153; 85025; G0103

== ENCOUNTER → 2023-01-08 | Outpatient (CLI) | payer MEDICARE, OTHER, SELFPAY ==
[2023-01-08 08:17] LABS: Absolute Neutrophil Count 3.4 X10^3/uL (2.0-7.7); Basophil# 0.04 X10^3/uL; Basophil% 0.8 % (0-1); Eosinophil# 0.18 X10^3/uL; Eosinophils% 3.5 % (0-5); Hemoglobin 12.9 g/dL (13.0-16.5); Lymphocyte % 23.1 % (19-41); Mean Corp Hgb Conc 31.5 g/dL (32-36); Mean Corpuscular Hgb 29.9 pg (27.0-32.0); Mean Corpuscular Volume 95.1 fL (80-94); Mean Platelet Vol. 11.4 fl (6.2-12.0); Monocyte# 0.39 X10^3/uL; Monocyte% 7.5 % (0-10); NRBC Flagged by Analyzer 0 % (0-5); Neutrophil # 3.37 X10^3/uL (2.7-7.7); Neutrophil % 64.9 % (47-70); POSITIVE COUNT YES; Platelet Count 65 K/mm3 (150-450); RBC Distribution Width CV 13.1 % (11.6-14.6); RBC Distribution Width SD 45.9 fl (35.1-43.9); Red Blood Count 4.31 M/mm3 (4.6-6.2); White Blood Count 5.2 K/mm3 (4.4-11.0)
[2023-01-08 08:42] LABS: Vitamin B12 376 pg/mL (211-911)
[2023-01-08 08:47] LABS: Cholesterol 130 mg/dL (200); High Density Lipoprotein 58 mg/dL; Triglycerides 76 mg/dL; Very Low Density Lipoprotein 15 mg/dL (5-40)
[2023-01-08 08:53] LABS: ALB/GLOB Ratio 1.4 RATIO (0.9-2.4); AST(SGOT) 22 U/L (15-37); Alanine Aminotransfer ALT/SGPT 23 U/L (16-61); Albumin, Serum 3.8 g/dL (3.2-5.0); Alkaline Phosphatase 59 U/L (45-117); Anion Gap 8 (5-15); BUN 22 mg/dL (7-18); Bilirubin, Direct 0.26 mg/dL (0.00-0.30); Chloride 113 mmol/L (98-107); Creatinine, Serum 0.96 mg/dL (0.70-1.30); EST Glomerular Filtration Rate 81 mL/min (>60); Est Glom Filt Rate - Afr Amer 98 mL/min (>60); Ferritin 10 ng/mL (26-388); Globulin 2.8 g/dL (2.2-4.2); Glucose 102 mg/dL (74-106); Iron 65 ug/dL (65-175); Iron Binding Capacity,Total 351 ug/dL (250-450); LDH 345 U/L (87-241); PERCENT IRON SATURATION 18.5 % (15.0-55.0); Protein, Total 6.6 g/dL (6.4-8.2); Sodium Level 146 mmol/L (136-145)
[2023-01-09 08:16] LABS: Haptoglobin < 10 mg/dL (34-355)
== END | disposition home or self-care (01) ==
PROVIDERS: Nurse Practitioner Family; PCP Family Medicine; Referring Provider Internal Medicine Medical Oncology; Visit Provider Internal Medicine Medical Oncology
DX: D69.6 Thrombocytopenia, unspecified (principal); E61.1 Iron deficiency; E78.00 Pure hypercholesterolemia, unspecified
CPT/HCPCS: 36415; 80053; 80061; 82248; 82607; 82728; 82746; 83010; 83540; 83550; 83615; 85025

== ENCOUNTER → 2023-01-30 | Outpatient (CLI) | payer MEDICARE, OTHER, SELFPAY ==
--- NOTE | 2023-01-30 09:18 | US_ITS ---
STUDY: ABDOMINAL ULTRASOUND - ELASTOGRAPHY REASON FOR VISIT: Male, 77 years old. Low levels of 13. TECHNIQUE: Liver stiffness measurements were obtained on a [employer] RS 85 ultrasound machine using a CA 1-7 probe following the SRU guidelines. 3 measurements were obtained using a 2-D-SWE method. TheIQR/M was 16% suggesting a quality data set. TECHNICAL QUALITY: Adequate. COMPARISON: Comparison is made with prior study done earlier today. FINDINGS: Liver: Heterogeneous hepatic echotexture. Median liver stiffness measured 16.5 kPa. Abdomen: There is no demonstrated mass lesion. US/Elastography Parenchyma/Organ IMPRESSION: Liver stiffness measures 16.5 kPa compatible with F3-F4 (Moderate to severe liver fibrosis) Metavir score. Electronically Signed: Giovany Jorge MD at 15:31 EDT ,
--- NOTE | 2023-01-30 09:18 | US_ITS ---
STUDY: ABDOMINAL ULTRASOUND REASON FOR EXAM: Male, 77 years old. LOW FERRITIN-R/O LIVER DISEASE TECHNIQUE: Transabdominal ultrasound was performed with real-time and static simmons scale imaging. TECHNICAL QUALITY: Adequate. COMPARISON: None. FINDINGS: Liver: The liver measures 13.5 cm. There is a heterogeneous echogenicity of the liver. The bile ducts are within normal limits. There is hepatic color flow. The direction of portal flow is hepatopetal. There is a 1.9 cm x 1.8 cm x 0.8 cm cyst in the left lobe of the liver. 2 cysts are seen in the right lobe. The largest cyst measures 2 cm x 2.2 cm x 2.1 cm. Gallbladder: Normal distended gallbladder. The gallbladder wall measures 1.7 mm. There is a negative sonographic Villegas''s sign. There is no pericholecystic fluid. There are no gallstones. Common Bile Duct (C.B.D.): The common bile duct measures 3.8 mm. Pancreas: There is nonvisualization of the pancreas due to overlying bowel gas. Spleen: Normal size of the spleen. The spleen measures 10.3 cm x 4.8 cm x 4.7 cm. Right Kidney: Normal size of the right kidney. The right kidney measures 11.5 cm x 5.7 cm x 5.3 cm. Normal renal cortex. The right cortex measures 1.2 cm. There is no demonstrated renal mass or cyst. There is no right hydronephrosis. Left Kidney: Normal size of the left kidney. The left kidney measures 11.8 cm x 4.6 cm x 4.2 cm. Normal renal cortex. The left cortex measures 1.4 cm. There is a 1.2 cm x 1.1 cm x 0.9 cm cyst in the lateral portion of the kidney. There is no left hydronephrosis. Aorta: Unremarkable. I.V.C.: The IVC is patent. There is no ascites. US/Abdomen Complete IMPRESSION: Multiple hepatic cysts. Small left renal cyst. Electronically Signed: Giovany Jorge MD at 11:07 EDT ,
== END | disposition home or self-care (01) ==
LOC: US 09:17
PROVIDERS: PCP Family Medicine; Referring Provider Internal Medicine Medical Oncology; Visit Provider Internal Medicine Medical Oncology
DX: R79.0 Abnormal level of blood mineral (principal); D69.6 Thrombocytopenia, unspecified
CPT/HCPCS: 76700; 76981

== ENCOUNTER → 2023-02-20 | Outpatient (CLI) | payer MEDICARE, OTHER, SELFPAY ==
--- NOTE | 2023-02-20 13:54 | US_ITS ---
STUDY: RENAL ULTRASOUND - COMPLETE REASON FOR EXAM: Male, 77 years old. Renal cysts. TECHNIQUE: Ultrasound evaluation of the kidneys was performed with real-time and static goode-scale imaging. COMPARISON: None. FINDINGS: RIGHT KIDNEY: Normal location of the right kidney, which is normal in size. The right kidney measures 11.5 cm x 5.3 cm x 6 cm. There is a normal cortex of the right kidney. The renal cortex measures 1 cm. There is no right renal mass or cyst. There are no right renal calculi. There is no right hydronephrosis. DISTAL RIGHT URETER: There is non-visualization of the distal right ureter. There is no demonstrated right ureterovesical junction calculus. There is a visualized right ureteral jet. LEFT KIDNEY: Normal location of the left kidney, which is normal in size. The left kidney measures 12 cm x 4.3 cm x 5.5 cm. There is a normal cortex of the left kidney. The renal cortex measures 1.1 cm. There is a 1.1 cm x 1 cm x 0.9 cm left renal cyst. There are no left renal calculi. There is no left hydronephrosis. DISTAL LEFT URETER: There is non-visualization of the distal left ureter. There is no demonstrated left ureterovesical junction calculus. There is a visualized left ureteral jet. BLADDER: The distended urinary bladder has a volume of 188.5 ml. There is a normal wall thickness of the distended urinary bladder. There is no demonstrated mass within the urinary bladder. There are no demonstrated bladder calculi. Incidental note is made of heterogeneous enlargement of the prostate. US/Kidney and Bladder IMPRESSION: Small left renal cyst. Heterogeneous enlargement of the prostate Electronically Signed: Giovany Jorge MD at 9:23 EDT ,
== END | disposition home or self-care (01) ==
LOC: US 13:53
PROVIDERS: PCP Family Medicine; Referring Provider Family Medicine; Visit Provider Family Medicine
DX: N28.1 Cyst of kidney, acquired (principal)
CPT/HCPCS: 76770

== ENCOUNTER → 2023-08-06 | Outpatient (CLI) | payer MEDICARE, OTHER, SELFPAY ==
[2023-08-06 07:02] LABS: Absolute Lymphocyte Count 1.12 X10^3/uL (0.83-4.51); Absolute Neutrophil Count 5.1 X10^3/uL (2.0-7.7); Basophil# 0.03 X10^3/uL; Basophil% 0.4 % (0-1); Eosinophils% 2.8 % (0-5); Hematocrit 38.8 % (40-54); Hemoglobin 12.5 g/dL (13.0-16.5); Lymphocyte # 1.12 X10^3/ul (0.83-4.51); Lymphocyte % 15.9 % (19-41); Mean Corp Hgb Conc 32.2 g/dL (32-36); Mean Corpuscular Hgb 31.6 pg (27.0-32.0); Mean Corpuscular Volume 98.2 fL (80-94); Mean Platelet Vol. 10.6 fl (6.2-12.0); Monocyte# 0.53 X10^3/uL; Monocyte% 7.5 % (0-10); NRBC Flagged by Analyzer 0 % (0-5); Neutrophil # 5.14 X10^3/uL (2.7-7.7); Neutrophil % 73.3 % (47-70); Platelet Count 115 K/mm3 (150-450); RBC Distribution Width CV 13.2 % (11.6-14.6); RBC Distribution Width SD 47.5 fl (35.1-43.9); Red Blood Count 3.95 M/mm3 (4.6-6.2)
[2023-08-06 07:44] LABS: ALB/GLOB Ratio 1.2 RATIO (0.9-2.4); AST(SGOT) 25 U/L (15-37); Alanine Aminotransfer ALT/SGPT 24 U/L (16-61); Albumin, Serum 3.9 g/dL (3.2-5.0); Alkaline Phosphatase 75 U/L (45-117); Anion Gap 4 (5-15); BUN 22 mg/dL (7-18); BUN/Creat Ratio 22.5 RATIO (10-20); Calcium,Total 9.3 mg/dL (8.5-10.1); Chloride 111 mmol/L (98-107); Creatinine, Serum 0.98 mg/dL (0.70-1.30); EST Glomerular Filtration Rate 79 mL/min (>60); Est Glom Filt Rate - Afr Amer 96 mL/min (>60); GGTP 23 U/L (15-85); Globulin 3.3 g/dL (2.2-4.2); Glucose 106 mg/dL (74-106); LDH 571 U/L (87-241); Potassium 4.1 mmol/L (3.5-5.1); Protein, Total 7.2 g/dL (6.4-8.2); Sodium Level 145 mmol/L (136-145)
[2023-08-06 08:01] LABS: Bilirubin, Direct 0.22 mg/dL (0.00-0.30); Cholesterol 150 mg/dL (200); High Density Lipoprotein 67 mg/dL; Triglycerides 88 mg/dL; Very Low Density Lipoprotein 18 mg/dL (5-40)
== END | disposition home or self-care (01) ==
LOC: LAB 06:36
PROVIDERS: Nurse Practitioner Family; PCP Family Medicine; Referring Provider Internal Medicine Medical Oncology; Visit Provider Internal Medicine Medical Oncology
DX: R53.83 Other fatigue (principal); D69.6 Thrombocytopenia, unspecified; E61.1 Iron deficiency; E78.00 Pure hypercholesterolemia, unspecified
CPT/HCPCS: 36415; 80053; 80061; 82248; 82977; 83615; 85025

== ENCOUNTER → 2023-11-19 | Outpatient (CLI) | payer MEDICARE, OTHER, SELFPAY ==
--- NOTE | 2023-11-19 14:55 | ECHOD_ITS ---
Reason For Study: CAD/ASHD Procedure This was a 2D Doppler, Color Flow transthoracic echocardiogram. Exam performed in department. Left Ventricle Normal LV size. Left ventricular systolic function is normal. The estimated ejection fraction is 65 %. Stage 1 diastolic dysfunction. No regional wall motion abnormalities noted. Right Ventricle Normal RV size. Normal systolic function. Atria Normal left atrium. Normal right atrium. Mitral Valve Normal mitral valve. Tricuspid Valve Normal tricuspid valve. Mild tricuspid valve insufficiency. Pulmonary artery systolic pressure is 30 mmHg. Aortic Valve Peak aortic valve gradient 56 mmHg. Mean aortic valve gradient 34 mmHg. Bioprosthetic aortic valve functioning normally. Pulmonic Valve Normal pulmonic valve. Great Vessels Normal aortic root. The pulmonary artery is normal size. Normal inferior vena cava. Pericardium/Pleural No pericardial effusion. MMode/2D Measurements & Calculations LVIDd: 5.6 cm IVSd: 1.1 cm LVOT diam: 2.0 cm LVIDs: 3.7 cm LVPWd: 1.1 cm LVOT area: 3.2 cm2 RVDd: 3.7 cm FS: 34.3 % Ao root diam: 3.2 cm LAV(MOD-bp): 54.4 ml LVAd ap4: 38.6 cm2 LAV(MOD-bp) Indexed: 28.9 ml/m2 LVLd ap4: 9.0 cm LAV(MOD-sp2): 55.4 ml EDV(MOD-sp4): 138.2 ml LAV(MOD-sp4): 51.5 ml EDV(sp4-el): 141.4 ml LVAs ap4: 19.7 cm2 LVLs ap4: 7.3 cm ESV(MOD-sp4): 46.5 ml ESV(sp4-el): 44.9 ml EF(MOD-sp4): 66.4 % EF(sp4-el): 68.3 % SV(MOD-sp4): 91.7 ml SV(sp4-el): 96.5 ml LA A4 area: 19.7 cm2 LA dimension(2D): 4.3 cm RA A4 area: 16.1 cm2 TAPSE: 1.8 cm Time Measurements MV dec time: 0.31 sec Doppler Measurements & Calculations MV E max jarrett: 58.8 cm/sec Lat Peak E' Jarrett: 12.8 cm/sec Med Peak E' Jarrett: 6.8 cm/sec MV A max jarrett: 102.2 cm/sec E/E' lat: 4.6 E/E' med: 8.6 MV E/A: 0.57 Ao V2 max: 375.2 cm/sec LV V1 max: 165.6 cm/sec SV(LVOT): 130.3 ml Ao max P.3 mmHg LV V1 max P.0 mmHg Ao V2 mean: 275.8 cm/sec LV V1 mean P.0 mmHg Ao mean P.4 mmHg LV V1 mean: 124.4 cm/sec Ao V2 VTI: 81.1 cm LV V1 VTI: 40.2 cm AV (velocity ratio): 0.50 OSIEL(I,D): 1.6 cm2 OSIEL(V,D): 1.4 cm2 PA V2 max: 117.0 cm/sec TR max jarrett: 250.4 cm/sec TR max P.1 mmHg ECHO/Echo Complete Interpretation Summary Normal LV size. Left ventricular systolic function is normal. The estimated ejection fraction is 65 %. Stage 1 diastolic dysfunction. Bioprosthetic aortic valve functioning normally. Mean aortic valve gradient 34 mmHg. Ordering Physician: Mg Forman Referring Physician: GERARDO STEINBERG Performed By: Ester Wheeler RDCS
== END | disposition home or self-care (01) ==
LOC: CVS 14:54
PROVIDERS: PCP Family Medicine; Referring Provider Internal Medicine Cardiovascular Disease; Visit Provider Internal Medicine Cardiovascular Disease
DX: I25.810 Atherosclerosis of coronary artery bypass graft(s) without angina pectoris (principal)
CPT/HCPCS: 93306

== ENCOUNTER → 2024-01-27 | Outpatient (CLI) | payer MEDICARE, OTHER, SELFPAY ==
[2024-01-27 07:31] LABS: Absolute Lymphocyte Count 1.48 X10^3/uL (0.83-4.51); Absolute Neutrophil Count 2.6 X10^3/uL (2.0-7.7); Basophil# 0.03 X10^3/uL; Basophil% 0.6 % (0-1); Eosinophil# 0.14 X10^3/uL; Hematocrit 39.2 % (40-54); Hemoglobin 12.9 g/dL (13.0-16.5); Lymphocyte # 1.48 X10^3/ul (0.83-4.51); Mean Corp Hgb Conc 32.9 g/dL (32-36); Mean Corpuscular Hgb 31.5 pg (27.0-32.0); Mean Corpuscular Volume 95.8 fL (80-94); Mean Platelet Vol. 10.3 fl (6.2-12.0); Monocyte# 0.39 X10^3/uL; Monocyte% 8.4 % (0-10); NRBC Flagged by Analyzer 0 % (0-5); Neutrophil # 2.57 X10^3/uL (2.7-7.7); Neutrophil % 55.8 % (47-70); Platelet Count 110 K/mm3 (150-450); RBC Distribution Width CV 13.3 % (11.6-14.6); Red Blood Count 4.09 M/mm3 (4.6-6.2); White Blood Count 4.6 K/mm3 (4.4-11.0)
[2024-01-27 08:35] LABS: Cholesterol 150 mg/dL (200); High Density Lipoprotein 73 mg/dL; Triglycerides 49 mg/dL; Very Low Density Lipoprotein 10 mg/dL (5-40)
[2024-01-27 08:36] LABS: ALB/GLOB Ratio 1.3 RATIO (0.9-2.4); AST(SGOT) 33 U/L (15-37); Alanine Aminotransfer ALT/SGPT 25 U/L (16-61); Alkaline Phosphatase 67 U/L (45-117); Anion Gap 5 (5-15); BUN 19 mg/dL (7-18); BUN/Creat Ratio 19.9 RATIO (10-20); Calcium,Total 9.3 mg/dL (8.5-10.1); Chloride 111 mmol/L (98-107); Creatinine, Serum 0.95 mg/dL (0.70-1.30); EST Glomerular Filtration Rate 81 mL/min (>60); Est Glom Filt Rate - Afr Amer 98 mL/min (>60); Ferritin 28 ng/mL (26-388); Glucose 103 mg/dL (74-106); Iron 82 ug/dL (65-175); Iron Binding Capacity,Total 343 ug/dL (250-450); LDH 441 U/L (87-241); PERCENT IRON SATURATION 23.9 % (15.0-55.0); Potassium 4.2 mmol/L (3.5-5.1); Sodium Level 142 mmol/L (136-145)
[2024-01-27 08:41] LABS: Thyroid Stim Hormone (TSH) 0.84 uIU/mL (0.358-3.74)
[2024-01-27 09:05] LABS: Vitamin B12 273 pg/mL (211-911)
== END | disposition home or self-care (01) ==
PROVIDERS: Internal Medicine Medical Oncology; Physician Assistant Medical; PCP Family Medicine; Referring Provider Nurse Practitioner Family; Visit Provider Nurse Practitioner Family
DX: D69.6 Thrombocytopenia, unspecified (principal); R53.83 Other fatigue; R06.02 Shortness of breath; R79.0 Abnormal level of blood mineral
CPT/HCPCS: 36415; 80053; 80061; 82607; 82728; 82746; 83540; 83550; 83615; 84443; 85025

== ENCOUNTER → 2024-04-01 | Outpatient (CLI) | payer MEDICARE, OTHER, SELFPAY ==
[2024-04-01 08:23] LABS: Absolute Lymphocyte Count 1.63 X10^3/uL (0.83-4.51); Absolute Neutrophil Count 3.6 X10^3/uL (2.0-7.7); Basophil# 0.03 X10^3/uL; Basophil% 0.5 % (0-1); Eosinophil# 0.13 X10^3/uL; Eosinophils% 2.2 % (0-5); Hematocrit 41.7 % (40-54); Hemoglobin 13.5 g/dL (13.0-16.5); Lymphocyte # 1.63 X10^3/ul (0.83-4.51); Lymphocyte % 27.7 % (19-41); Mean Corp Hgb Conc 32.4 g/dL (32-36); Mean Corpuscular Hgb 31.4 pg (27.0-32.0); Mean Platelet Vol. 10.4 fl (6.2-12.0); Monocyte# 0.46 X10^3/uL; Monocyte% 7.8 % (0-10); NRBC Flagged by Analyzer 0 % (0-5); Neutrophil # 3.61 X10^3/uL (2.7-7.7); Neutrophil % 61.5 % (47-70); POSITIVE COUNT YES; Platelet Count 89 K/mm3 (150-450); RBC Distribution Width CV 13.1 % (11.6-14.6); RBC Distribution Width SD 46.6 fl (35.1-43.9); White Blood Count 5.9 K/mm3 (4.4-11.0)
[2024-04-01 08:25] LABS: Differential Indicated SCAN CRITERIA MET
[2024-04-01 08:44] LABS: BNP,B-Type NATRIURETIC PEPTIDE 217.1 pg/mL (0-100)
[2024-04-01 09:21] LABS: Platelet Estimate MOD DEC (ADEQ)
[2024-04-01 09:44] LABS: ALB/GLOB Ratio 1.4 RATIO (0.9-2.4); AST(SGOT) 33 U/L (15-37); Alanine Aminotransfer ALT/SGPT 25 U/L (16-61); Albumin, Serum 4.2 g/dL (3.2-5.0); Alkaline Phosphatase 70 U/L (45-117); Anion Gap 10 (5-15); BUN 22 mg/dL (7-18); Calcium,Total 9.4 mg/dL (8.5-10.1); Chloride 110 mmol/L (98-107); EST Glomerular Filtration Rate 69 mL/min (>60); Est Glom Filt Rate - Afr Amer 83 mL/min (>60); Globulin 2.9 g/dL (2.2-4.2); Glucose 111 mg/dL (74-106); Potassium 4.2 mmol/L (3.5-5.1); Protein, Total 7.1 g/dL (6.4-8.2); Sodium Level 140 mmol/L (136-145)
== END | disposition home or self-care (01) ==
PROVIDERS: PCP Family Medicine; Referring Provider Nurse Practitioner Family; Visit Provider Nurse Practitioner Family
DX: R06.02 Shortness of breath (principal); D69.6 Thrombocytopenia, unspecified; R79.0 Abnormal level of blood mineral; Z95.1 Presence of aortocoronary bypass graft; Z95.2 Presence of prosthetic heart valve
CPT/HCPCS: 80053; 83880; 85025

== ENCOUNTER → 2024-04-24 | Outpatient (CLI) | payer MEDICARE, OTHER, SELFPAY | END | disposition home or self-care (01) | PROVIDERS: PCP Family Medicine; Referring Provider Nurse Practitioner Family; Visit Provider Nurse Practitioner Family | DX: R06.02 Shortness of breath (principal); I10 Essential (primary) hypertension; Z95.1 Presence of aortocoronary bypass graft; Z95.2 Presence of prosthetic heart valve ==

== ENCOUNTER → 2024-04-28 | Outpatient (CLI) | payer MEDICARE, OTHER, SELFPAY ==
--- NOTE | 2024-04-28 10:45 | RAD_ITS ---
STUDY: X-RAY CHEST REASON FOR EXAM: Male, 78 years old. Preoperative evaluation. TECHNIQUE: Frontal and lateral views of the chest on 3 images. COMPARISON: September 19, 2021 FINDINGS: Stable mild hyperinflation with scattered parenchymal granulomatous calcifications. Localized eventration of the right hemidiaphragm medially, unaltered. There is no demonstrated pleural abnormality. Cardiomegaly with sternotomy wires and valve replacement unchanged. Normal mediastinum and zeyad. Normal visualized pulmonary arteries. Aortic tortuosity with calcification unchanged. Diffuse thoracic osteopenia with diffuse mild thoracic spondylosis. Normal visualized ribs, clavicles, and shoulders. No abnormality of the visualized soft tissue structures of the upper abdomen. RAD/Chest PA and Lateral IMPRESSION: Stable cardiomegaly, eventration of the right hemidiaphragm and mild hyperinflation. No active or acute cardiopulmonary disease. Electronically Signed: Ty Torres MD at 11:02 EDT ,
[2024-04-28 11:33] LABS: Absolute Lymphocyte Count 1.14 X10^3/uL (0.83-4.51); Absolute Neutrophil Count 5.6 X10^3/uL (2.0-7.7); Basophil# 0.04 X10^3/uL; Basophil% 0.5 % (0-1); Eosinophil# 0.07 X10^3/uL; Hematocrit 40.8 % (40-54); Hemoglobin 13.3 g/dL (13.0-16.5); Lymphocyte # 1.14 X10^3/ul (0.83-4.51); Lymphocyte % 15.5 % (19-41); Mean Corp Hgb Conc 32.6 g/dL (32-36); Mean Corpuscular Hgb 31.2 pg (27.0-32.0); Mean Corpuscular Volume 95.8 fL (80-94); Mean Platelet Vol. 11.6 fl (6.2-12.0); Monocyte# 0.48 X10^3/uL; Monocyte% 6.5 % (0-10); NRBC Flagged by Analyzer 0 % (0-5); Neutrophil % 76.2 % (47-70); Platelet Count 103 K/mm3 (150-450); RBC Distribution Width SD 45.7 fl (35.1-43.9); Red Blood Count 4.26 M/mm3 (4.6-6.2); White Blood Count 7.4 K/mm3 (4.4-11.0)
[2024-04-28 11:54] LABS: Anion Gap 5 (5-15); BUN 24 mg/dL (7-18); BUN/Creat Ratio 18.8 RATIO (10-20); Calcium,Total 9.3 mg/dL (8.5-10.1); Chloride 108 mmol/L (98-107); Creatinine, Serum 1.28 mg/dL (0.70-1.30); EST Glomerular Filtration Rate 58 mL/min (>60); Est Glom Filt Rate - Afr Amer 70 mL/min (>60); Glucose 114 mg/dL (74-106); Potassium 4.3 mmol/L (3.5-5.1); Sodium Level 139 mmol/L (136-145)
== END | disposition home or self-care (01) ==
LOC: LAB 10:39
PROVIDERS: PCP Family Medicine; Referring Provider Nurse Practitioner Family; Visit Provider Nurse Practitioner Family
DX: Z01.818 Encounter for other preprocedural examination (principal); R06.02 Shortness of breath; Z95.1 Presence of aortocoronary bypass graft; I25.810 Atherosclerosis of coronary artery bypass graft(s) without angina pectoris; I10 Essential (primary) hypertension; I35.0 Nonrheumatic aortic (valve) stenosis; E78.00 Pure hypercholesterolemia, unspecified
CPT/HCPCS: 36415; 71046; 80048; 85025

== ENCOUNTER → 2024-06-01 | Outpatient (CLI) | payer MEDICARE, OTHER, SELFPAY ==
[2024-06-01 13:01] LABS: Anion Gap 5 (5-15); BUN 56 mg/dL (7-18); BUN/Creat Ratio 37.6 RATIO (10-20); Calcium,Total 10.2 mg/dL (8.5-10.1); Chloride 106 mmol/L (98-107); Creatinine, Serum 1.49 mg/dL (0.70-1.30); EST Glomerular Filtration Rate 49 mL/min (>60); Est Glom Filt Rate - Afr Amer 59 mL/min (>60); Glucose 112 mg/dL (74-106); Potassium 4.4 mmol/L (3.5-5.1); Sodium Level 138 mmol/L (136-145)
== END | disposition home or self-care (01) ==
LOC: LAB 11:43
PROVIDERS: PCP Family Medicine; Referring Provider Nurse Practitioner Family; Visit Provider Nurse Practitioner Family
DX: I10 Essential (primary) hypertension (principal); Z95.1 Presence of aortocoronary bypass graft
CPT/HCPCS: 36415; 80048

== ENCOUNTER → 2024-06-25 | Outpatient (CLI) | payer MEDICARE, OTHER, SELFPAY ==
--- NOTE | 2024-06-25 07:48 | ECHOD_ITS ---
Reason For Study: AORTIC VALVE REPLACEMENT Procedure This was a 2D Doppler, Color Flow transthoracic echocardiogram. Exam performed in department. Left Ventricle Normal LV size. Severe concentric left ventricular hypertrophy. The left ventricular ejection fraction is 60 %. Stage 1 diastolic dysfunction. No regional wall motion abnormalities noted. Right Ventricle Normal RV size. Normal systolic function. Atria Normal left atrium. Normal right atrium. Mitral Valve Mild (1+) mitral valve insufficiency. Tricuspid Valve Normal tricuspid valve. Aortic Valve Peak aortic valve gradient 50 mmHg. Mean aortic valve gradient 31 mmHg. Bioprosthetic aortic valve. Pericardium/Pleural No pericardial effusion. MMode/2D Measurements & Calculations LVIDd: 5.1 cm IVSd: 1.8 cm LVOT diam: 2.0 cm LVIDs: 3.3 cm LVPWd: 1.5 cm LVOT area: 3.2 cm2 RVDd: 3.9 cm FS: 35.6 % Ao root diam: 3.4 cm LAV(MOD-bp): 73.3 ml LVAd ap4: 34.8 cm2 LAV(MOD-bp) Indexed: 39.2 ml/m2 LVLd ap4: 8.3 cm LAV(MOD-sp2): 87.7 ml EDV(MOD-sp4): 117.3 ml LAV(MOD-sp4): 57.0 ml EDV(sp4-el): 123.3 ml LVAs ap4: 19.5 cm2 LVLs ap4: 7.1 cm ESV(MOD-sp4): 44.0 ml ESV(sp4-el): 45.6 ml EF(MOD-sp4): 62.5 % EF(sp4-el): 63.1 % SV(MOD-sp4): 73.3 ml SV(MOD-sp2): 96.4 ml LVAd ap2: 38.7 cm2 LVLd ap2: 8.3 cm EDV(MOD-sp2): 146.1 ml EDV(sp2-el): 153.1 ml LVAs ap2: 20.3 cm2 LVLs ap2: 7.0 cm ESV(MOD-sp2): 49.7 ml ESV(sp2-el): 50.1 ml EF(MOD-sp2): 66.0 % SV(sp4-el): 77.8 ml LA A4 area: 19.9 cm2 LA dimension(2D): 5.1 cm TAPSE: 1.8 cm RA A4 area: 13.0 cm2 Time Measurements MV dec time: 0.28 sec Doppler Measurements & Calculations MV E max jarrett: 72.9 cm/sec Lat Peak E' Jarrett: 14.9 cm/sec Med Peak E' Jarrett: 6.0 cm/sec MV A max jarrett: 85.9 cm/sec E/E' lat: 4.9 E/E' med: 12.1 MV E/A: 0.85 MV dec slope: 260.9 cm/sec2 Ao V2 max: 352.9 cm/sec LV V1 max: 137.6 cm/sec Ao max P.0 mmHg LV V1 max P.6 mmHg Ao V2 mean: 264.9 cm/sec LV V1 mean P.9 mmHg Ao mean P.7 mmHg LV V1 mean: 106.6 cm/sec Ao V2 VTI: 90.8 cm LV V1 VTI: 34.1 cm AV (velocity ratio): 0.38 OSIEL(I,D): 1.2 cm2 OSIEL(V,D): 1.3 cm2 SV(LVOT): 109.7 ml PA V2 max: 107.5 cm/sec PA max PG (full): 3.2 mmHg ECHO/Echo Complete Interpretation Summary Normal LV size. Severe concentric left ventricular hypertrophy. The left ventricular ejection fraction is 60 %. Stage 1 diastolic dysfunction. Mean aortic valve gradient 31 mmHg. Bioprosthetic aortic valve. Ordering Physician: Denis Cameron Referring Physician: Nori Louis M.D. Performed By: Kalyn Naik RDCS
== END | disposition home or self-care (01) ==
PROVIDERS: PCP Family Medicine; Referring Provider Nurse Practitioner Family; Visit Provider Nurse Practitioner Family
DX: Z95.2 Presence of prosthetic heart valve (principal)
CPT/HCPCS: 93306

== ENCOUNTER → 2024-08-27 | Outpatient (CLI) | payer MEDICARE, OTHER, SELFPAY ==
[2024-08-27 14:42] LABS: PSA,Total- Diagnostic 2.05 ng/mL (0.0-4.0)
== END | disposition home or self-care (01) ==
LOC: LAB 13:27
PROVIDERS: PCP Family Medicine; Referring Provider Urology; Visit Provider Urology
DX: R97.20 Elevated prostate specific antigen [PSA] (principal)
CPT/HCPCS: 36415; 84153

== ENCOUNTER → 2024-11-16 | Outpatient (CLI) | payer MEDICARE, OTHER, SELFPAY ==
--- NOTE | 2024-11-16 11:46 | CT_ITS ---
STUDY: CT BRAIN WITHOUT CONTRAST REASON FOR EXAM: Male, 79 years old. STAT, fall, LOC, amnesia RADIATION DOSAGE (If Supplied By Facility): CTDIvol = ( 44.99 ) mGy, DLP = ( 863.60 ) mGycm TECHNIQUE: Transaxial CT imaging of the brain was performed without administration of intravenous contrast material. Individualized dose optimization techniques were used for this CT. COMPARISON: No relevant priors. FINDINGS: Normal soft tissue structures. Normal calvarium. There is mild cerebral atrophy with widening of the extra-axial spaces and ventricular dilatation. 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 Normal basal ganglia and thalami. Normal brainstem. There is mild cerebellar atrophy. There is no intracranial hemorrhage. There are no findings of an acute ischemic infarction. Normal visualized paranasal sinuses. CT/Brain/Head without Contrast IMPRESSION: Chronic involutional changes of the brain. Prominent CSF space overlying the left cerebral hemisphere as described suggestive of chronic subdural hematoma. No midline shift is seen. Electronically Signed: Giovany Jorge MD at 12:37 EST ,
== END | disposition home or self-care (01) ==
LOC: CT 11:43
PROVIDERS: PCP Family Medicine; Referring Provider Family Medicine; Visit Provider Family Medicine
DX: S06.0X1A Concussion with loss of consciousness of 30 minutes or less, initial encounter (principal)
CPT/HCPCS: 70450

== ENCOUNTER → 2024-12-01 | Outpatient (CLI) | payer MEDICARE, OTHER, SELFPAY ==
[2024-12-01 08:15] LABS: AST(SGOT) 19 U/L (15-37); Alanine Aminotransfer ALT/SGPT 15 U/L (16-61); Albumin, Serum 3.7 g/dL (3.2-5.0); Alkaline Phosphatase 83 U/L (45-117); Bilirubin, Direct 0.16 mg/dL (0.00-0.30); Cholesterol 217 mg/dL (200); Globulin 2.9 g/dL (2.2-4.2); High Density Lipoprotein 63 mg/dL; Protein, Total 6.6 g/dL (6.4-8.2); Triglycerides 72 mg/dL; Very Low Density Lipoprotein 14 mg/dL (5-40)
== END | disposition home or self-care (01) ==
PROVIDERS: PCP Family Medicine; Referring Provider Nurse Practitioner Family; Visit Provider Nurse Practitioner Family
DX: E78.00 Pure hypercholesterolemia, unspecified (principal)
CPT/HCPCS: 36415; 80061; 80076

== ENCOUNTER → 2025-01-29 | Outpatient (CLI) | payer MEDICARE, OTHER, SELFPAY ==
[2025-01-29 15:36] LABS: Absolute Lymphocyte Count 1.53 X10^3/uL (0.83-4.51); Absolute Neutrophil Count 8.1 X10^3/uL (2.0-7.7); Basophil# 0.03 X10^3/uL; Basophil% 0.3 % (0-1); Eosinophil# 0.06 X10^3/uL; Eosinophils% 0.6 % (0-5); Hematocrit 42.3 % (40-54); Hemoglobin 13.8 g/dL (13.0-16.5); Lymphocyte # 1.53 X10^3/ul (0.83-4.51); Lymphocyte % 14.7 % (19-41); Mean Corp Hgb Conc 32.6 g/dL (32-36); Mean Corpuscular Hgb 30.7 pg (27.0-32.0); Mean Corpuscular Volume 94.2 fL (80-94); Mean Platelet Vol. 11.4 fl (6.2-12.0); Monocyte# 0.64 X10^3/uL; Monocyte% 6.2 % (0-10); NRBC Flagged by Analyzer 0 % (0-5); Neutrophil # 8.11 X10^3/uL (2.7-7.7); Platelet Count 102 K/mm3 (150-450); RBC Distribution Width SD 44.6 fl (35.1-43.9); Red Blood Count 4.49 M/mm3 (4.6-6.2); White Blood Count 10.4 K/mm3 (4.4-11.0)
[2025-01-29 16:31] LABS: ALB/GLOB Ratio 1.9 RATIO (0.9-2.4); AST(SGOT) 29 U/L (<=37); Alanine Aminotransfer ALT/SGPT 19 U/L (<=46); Albumin, Serum 4.7 g/dL (3.4-4.8); Alkaline Phosphatase 70 U/L (40-129); Anion Gap 14 (5-15); BUN 23 mg/dL (4-19); BUN/Creat Ratio 21.5 RATIO (10-20); Calcium,Total 10.2 mg/dL (7.6-11.0); Carbon Dioxide 22.2 mmol/L (21.0-32.0); Chloride 107 mmol/L (98-108); Creatinine, Serum 1.08 mg/dL (0.70-1.20); EST Glomerular Filtration Rate 70 (>60); Globulin 2.4 g/dL (2.2-4.2); Glucose 97 mg/dL (70-99); Potassium 4.2 mmol/L (3.3-5.1); Protein, Total 7.2 g/dL (5.9-8.4); Sodium Level 143 mmol/L (133-145); Total Bilirubin 1.17 mg/dL (0.00-1.30); Vitamin B12 238 pg/mL (180-914)
== END | disposition home or self-care (01) ==
LOC: MTLAB 12:37
PROVIDERS: PCP Family Medicine; Referring Provider Family Medicine; Visit Provider Family Medicine
DX: R41.89 Other symptoms and signs involving cognitive functions and awareness (principal)
CPT/HCPCS: 36415; 80053; 82607; 82746; 84443; 85025

== ENCOUNTER → 2025-02-22 | Outpatient (CLI) | payer MEDICARE, OTHER, SELFPAY ==
--- NOTE | 2025-02-22 16:47 | CT_ITS ---
PROCEDURE: BRAIN/HEAD W/WO CONTRAST 02/22/2025 REASON FOR EXAM: RECENT MENTAL STATUS CHANGES TECHNIQUE: Head CT before and following intravenous contrast. Coronal and Sagittal reconstruction series were provided. One or more dose reduction techniques were used (e.g., Automated exposure control, adjustment of the mA and/or kV according to patient size, use of iterative reconstruction technique). COMPARISON: 10/2024 FINDINGS: Acute findings: Thickening and enhancement of the dura surrounding of the left parietal lobe likely related to prior subdural hematoma. Brain: Within normal limits for age Postcontrast images: No solid contrast enhancement. CSF Spaces: Mild generalized cerebral atrophy Sinuses/Mastoids: Clear at visualized levels Bones: Unremarkable. CT/Brain/Head W/WO Contrast IMPRESSION: Thickening and enhancement of the dura surrounding of the left parietal lobe me asuring up to 4 mm thick likely related to prior subdural hematoma. No mass effect. Reading Location: [id number]
== END | disposition home or self-care (01) ==
LOC: CT 16:45
PROVIDERS: PCP Family Medicine; Referring Provider Family Medicine; Visit Provider Family Medicine
DX: R41.89 Other symptoms and signs involving cognitive functions and awareness (principal)
CPT/HCPCS: 70470; Q9967

== ENCOUNTER → 2025-06-08 | Outpatient (CLI) | payer MEDICARE, OTHER, SELFPAY ==
[2025-06-08 17:38] LABS: AST(SGOT) 28 U/L (<=37); Alanine Aminotransfer ALT/SGPT 20 U/L (<=46); Albumin, Serum 4.3 g/dL (3.4-4.8); Alkaline Phosphatase 68 U/L (40-129); Bilirubin, Direct 0.39 mg/dL (0.00-0.30); Cholesterol 143 mg/dL (<=200); Globulin 2.1 g/dL (2.2-4.2); Low Density Lipoprotein Calc. 44 mg/dL; Triglycerides 129 mg/dL; Very Low Density Lipoprotein 26 mg/dL (5-40); cholesterol:hdl ratio screen 1.95
== END | disposition home or self-care (01) ==
LOC: LAB 16:23
PROVIDERS: PCP Family Medicine; Referring Provider Student in an Organized Health Care Education/Training Program; Visit Provider Student in an Organized Health Care Education/Training Program
DX: E78.00 Pure hypercholesterolemia, unspecified (principal)
CPT/HCPCS: 36415; 80061; 80076

== ENCOUNTER → 2025-06-10 | Outpatient (CLI) | payer MEDICARE, OTHER, SELFPAY ==
[2025-06-10 10:26] LABS: Hematocrit 38.4 % (40-54); Hemoglobin 12.9 g/dL (13.0-16.5); Mean Corp Hgb Conc 33.6 g/dL (32-36); Mean Corpuscular Volume 93.2 fL (80-94); Mean Platelet Vol. 11.0 fl (6.2-12.0); POSITIVE COUNT YES; Platelet Count 90 K/mm3 (150-450); RBC Distribution Width CV 12.5 % (11.6-14.6); RBC Distribution Width SD 42.5 fl (35.1-43.9); Red Blood Count 4.12 M/mm3 (4.6-6.2); White Blood Count 5.3 K/mm3 (4.4-11.0)
[2025-06-10 10:45] LABS: AST(SGOT) 26 U/L (<=37); Alanine Aminotransfer ALT/SGPT 18 U/L (<=46); Albumin, Serum 4.2 g/dL (3.4-4.8); Alkaline Phosphatase 57 U/L (40-129); Anion Gap 11 (5-15); BUN 25 mg/dL (4-19); BUN/Creat Ratio 24.0 RATIO (10-20); Calcium,Total 9.7 mg/dL (7.6-11.0); Carbon Dioxide 23.3 mmol/L (21.0-32.0); Chloride 108 mmol/L (98-108); Globulin 2.1 g/dL (2.2-4.2); Glucose 108 mg/dL (70-99); Potassium 4.2 mmol/L (3.3-5.1)
[2025-06-14 13:08] LABS: Vitamin D 1,25-Dihydroxy 39.0 pg/mL (24.8-81.5)
[2025-06-15 11:08] LABS: VITAMIN B6 42.3 ug/L (3.4-65.2); Vitamin B1, Thiamine 140.9 nmol/L (66.5-200.0)
== END | disposition home or self-care (01) ==
LOC: MTLAB 07:56
PROVIDERS: PCP Family Medicine; Referring Provider Psychiatry & Neurology Neurology; Visit Provider Psychiatry & Neurology Neurology
DX: F07.81 Postconcussional syndrome (principal); R73.9 Hyperglycemia, unspecified; R53.83 Other fatigue; I10 Essential (primary) hypertension
CPT/HCPCS: 36415; 80053; 82652; 83036; 84207; 84425; 84443; 85027

== ENCOUNTER → 2025-06-21 | Outpatient (CLI) | payer MEDICARE, OTHER, SELFPAY ==
--- NOTE | 2025-06-21 09:55 | CDU_ITS ---
Reason For Study Reason For Study: Bilateral carotid bruit Rt. Velocities/BP Lt. Velocities/BP Prox CCA 103.5/12.6 cm/sec. Prox CCA 111.2/10.8 cm/sec. Mid CCA 90/10.2 cm/sec. Mid CCA 83/14.2 cm/sec. Dist CCA 71.8/11.3 cm/sec. Dist CCA 83.8/14.4 cm/sec. Prox ICA 77.7/12.6 cm/sec. Prox ICA 69.5/16.7 cm/sec. Mid ICA 80.4/21.1 cm/sec. Mid ICA 89.9/26.2 cm/sec. Dist ICA 71.8/20.1 cm/sec. Dist ICA 89.1/21.6 cm/sec. Rt. ICA/CCA = 0.89. Lt. ICA/CCA = 1.08. Prox ECA 98.6/7.7 cm/sec. Prox ECA 76.9/4.4 cm/sec. Rt. Vert. 50/10.7 cm/sec. Lt. Vert. 41/10.4 cm/sec. Right Extracranial There is intimal thickening but no significant atherosclerotic plaque noted in the right common carotid artery. There is heterogeneous, irregular atherosclerotic plaque noted in the right internal carotid artery. The right internal carotid artery is very tortuous. There is intimal thickening but no significant atherosclerotic plaque noted in the right external carotid artery. Antegrade flow is noted in the right vertebral artery. Left Extracranial There is intimal thickening but no significant atherosclerotic plaque noted in the left common carotid artery. There is heterogeneous, irregular atherosclerotic plaque noted in the left internal carotid artery. There is intimal thickening but no significant atherosclerotic plaque noted in the left external carotid artery. Antegrade flow is noted in the left vertebral artery. Procedure Carotid Duplex 18147. This is a Carotid Duplex examination using B-mode, color flow and specral Doppler. Exam performed in department. VL/Carotid Duplex Ultrasound Interpretation Summary Mild (<50%) stenosis right extracranial internal carotid. Mild (<50%) stenosis left extracranial internal carotid. Flow within the vertebral arteries is antegrade bilaterally. Ordering Physician: Elvin Grant Referring Physician: Lopez Burnette Performed By: Georgina Howard RVT and Student
== END | disposition home or self-care (01) ==
LOC: CVS 09:52
PROVIDERS: PCP Family Medicine; Referring Provider Psychiatry & Neurology Neurology; Visit Provider Psychiatry & Neurology Neurology
DX: R09.89 Other specified symptoms and signs involving the circulatory and respiratory systems (principal)
CPT/HCPCS: 93880

== ENCOUNTER → 2025-06-25 | Outpatient (CLI) | payer MEDICARE, OTHER, SELFPAY | END | disposition home or self-care (01) | PROVIDERS: PCP Family Medicine; Referring Provider Psychiatry & Neurology Neurology; Visit Provider Psychiatry & Neurology Neurology | DX: F07.81 Postconcussional syndrome (principal) | CPT/HCPCS: 95819 ==

== ENCOUNTER → 2025-07-06 | Outpatient (CLI) | payer MEDICARE, OTHER, SELFPAY ==
--- NOTE | 2025-07-06 06:54 | MRI_ITS ---
PROCEDURE: BRAIN W/WO CONTRAST 07/06/2025 REASON FOR EXAM: TBI; SUBDURAL HEMATOMA; MEMORY LOSS TECHNIQUE: Procedure Code: [id number] Modality: MR Procedure: BRAIN W/WO CONTRAST Multiplanar and multisequence images were obtained. CONTRAST: Clariscan VOLUME: 13 mL COMPARISON: Multiple previous exams including CTs of 02/22/2025 and 10/2024 and an MRI of the brain of 09/12/2020. FINDINGS: Stable small subdural hematoma in the left parietal convexity measuring 2.8 mm in greatest thickness and demonstrating avid enhancement following contrast. No new focal area of hemorrhage. Ventricles are normal in size and contour. There is no restricted diffusion to suggest acute infarct. No additional areas of enhancement detected. Mild small-vessel ischemic changes. The posterior fossa in orbits are intact. There is mucoperiosteal thickening in the ethmoid air cells. The mastoid air cells demonstrate normal signal as does the IAC's. Unremarkable appearance of the skull and soft tissues.. MRI/Brain W/WO Contrast IMPRESSION: Known small subdural hematoma along the left parietal convexity without mass ef fect. No change in size when compared to February 22, 2025. No acute intracranial abnormality. No restricted diffusion to suggest acute in farct. Mild small-vessel ischemic changes. Mild sinus disease. Reading Location: [id number]
--- OUTSIDE RECORDS SUMMARY | 2025-07-06 07:18 | XMS RPT_ITS | CCD ---
Author Organization [facility] Care Team Providers Care Exercise Equipment Specialist Name Role Phone [facility] Nurse Unavailable Unavailable [facility] Nurse Unavailable Unavailable Ivy, Stefany Unavailable Unavailable Stefany Ivy Unavailable Unavailable Felicia Bauer Unavailable Unavailable Leif DUONG, Lopez Rey Unavailable Dossi DC, Lizbeth Schulz Unavailable Rakesh GAS LINE INSTALLER SUPERVISOR, Denis Parkinson Unavailable Dossi DC, Lizbeth Schulz Unavailable [facility] Nurse Unavailable Unavailable Teresa RN, Devi Reynolds Unavailable DR NORI LOUIS MD Primary Care Physician DR NORI LOUIS MD Primary Care Physician Dr. Nori Louis Primary Care Provider Dr. Nori Louis Referring Provider Dr. Wade Lopez Attending Provider Dr. Lopez Yadav Attending Provider Dr. Nori Louis Primary Care Provider Dr. Nori Louis Referring Provider Dr. Wade Lopez Attending Provider Dr. Nori Louis Primary Care Provider Dr. Nori Louis Referring Provider Dr. Wade Lopez Attending Provider Rakesh GAS LINE INSTALLER SUPERVISOR, GAS LINE INSTALLER SUPERVISOR-Damon Parkinson Attending Provider MIGUELINA WHITT Attending Alberto LOUIS MD., DR. CARRILLO Primary Care Unavailable MIGUELINA WHITT Attending Unavail able HERIBERTO MCNEIL, DR. CARRILLO Primary Care Unavailable JAIMIE MADERA-NETWORK ARCHITECT, MIGUELINA Attending Unavail able HERIBERTO DUONG., DR. CARRILLO Primary Care Unavailable ELIO DUONG, MIHAIL Consulting Unavailable JAIMIE TRACYNETWORK ARCHITECT, MIGUELINA Attending Unavail able HERIBERTO DUONG., DR. CARRILLO Primary Care Unavailable ELIO DUONG, MIHAIL Attending Unavailable HERIBERTO DUONG., DRJimy CARRILLO Primary Care Unavailable ELIO DUONG, MIHAIL Attending Unavailable HERIBERTO DUONG., DRJimy CARRILLO Primary Care Unavailable ELIO DUONG, MIHAIL Admitting Unavailable JAIMIE TRACYNETWORK ARCHITECT, MIGUELINA Consulting Unavail able CONNOR DUONG., DR. STEPHAN Lima Consulting Unavailabl martha NULL MD, MIHAIL Attending Unavailable HERIBERTO DUONG., DR. CARIRLLO Primary Care Unavailable CONNOR DUONG., DR. STEPHAN Lima Consulting Unavailabl e ELIO DUONG, MIHAIL Admitting Unavailable ELIO DUONG, MIHAIL Attending Unavailable HERIBERTO DUONG., DR. CARRILLO Primary Care Unavailable JAIMIE TRACYNETWORK ARCHITECT, MIGUELINA Attending Unavail able HERIBERTO DUONG., DR. CARRILLO Primary Care Unavailable ELIO DUONG, MIHAIL Attending Unavailable HERIBERTO DUONG., DR. CARRILLO Primary Care Unavailable JAIMIE CABRERA, MIGUELINA Attending Unavail able HERIBERTO DUONG., DR. CARRILLO Primary Care Unavailable JAIMIE MADERA-NETWORK ARCHITECT, MIGUELINA Attending Unavail able HERIBERTO DUONG., DR. CARRILLO Primary Care Unavailable JAIMIE TRACYNETWORK ARCHITECT, MIGUELINA Attending Unavail able HERIBERTO MCNEIL, DR. CARRILLO Primary Care Unavailable Dr. Nori Louis Primary Care Provider Dr. Nori Louis Referring Provider [facility], Dr. Olvera Attending Provider [phone] Dr. Nori Louis Primary Care Provider Dr[facility]i Louis [facility] Olvera Attending Provider Dr. Nori Louis Primary Care Provider Dr. Nori Louis Referring Provider [phone] [facility], Dr. Olvera Attending Provider [phone] Dr. Mg Forman Attending Provider Dr. Nori Louis Primary Care Provider Dasia, Dr. Holliday Attending Provider Dasia, Dr. Holliday Referring Provider Dr. Nori Louis Referring Provider Dr. Wade Lopez Attending Provider Heriberto DUONG, Dr. Nori Holley Primary Care Provider Heriberto DUONG, Dr. Nori Holley Attending Provider Heriberto DUONG, Dr. Nori Holley Referring Provider Roof GAS LINE INSTALLER SUPERVISOR-C, Denis Parkinson Attending Provider Roof GAS LINE INSTALLER SUPERVISOR-C, Denis Parkinson Referring Provider John DUONG, Dr. Olvera Attending Provider John DUONG, Dr. Olvera Referring Provider Heriberto DUONG, Dr. Nori Holley Primary Care Provider Heriberto DUONG, Dr. Nori Holley Attending Provider Heriberto DUONG, Dr. Nori Holley Referring Provider Hitesh Hines Attending Provider Yomaira DUONG, Dr. Marroquin Primary Care Provider Hitesh Hines Referring Provider Rudy DUONG, Dr. Oconnor Attending Provider Rudy DUONG, Dr. Oconnor Referring Provider Heriberto DUONG, Dr. Nori Holley Referring Provider Lopez Burnette Primary Care Unavailable Elvin Grant Referring Unavailable Elvin Grant Attending Unavailable Wade Lopez Referring Unavailable Nori Louis Primary Care Unavailable Wade Lopez Attending Unavailable Lopez Brunette Primary Care Unavailable Elvin Grant Attending Unavailable Elvin Grant Referring Unavailable Lopez Burnette Primary Care Unavailable Elvin Grant Attending Unavailable Nori Louis Referring Unavailable Roof GAS LINE INSTALLER SUPERVISOR, Denis H Attending Unavailable Jolliff, Nori S Primary Care Unavailable Jolliff, Nori S Referring Unavailable Jolliff, Nori S Primary Care Unavailable Jolliff, Nori S Referring Unavailable Wade Lopez Attending Unavailable Demiter, Hitesh Attending Unavailable Jolliff, Nori S Referring Unavailable Burnette, Lopez Primary Care Unavailable Burentte, Lopez Primary Care Unavailable Rudy, Elvin Attending Unavailable Rudy, Elvin Referring Unavailable Chuy, Navid Lancaster Referring Unavailable Chuy, Navid Lancaster Attending Unavailable Jolliff, Nori S Primary Care Unavailable Jolliff, Nori S Primary Care Unavailable Jolliff, Nori S Referring Unavailable Jolliff, Nori S Attending Unavailable Roof GAS LINE INSTALLER SUPERVISOR, Denis H Referring Unavailable Roof GAS LINE INSTALLER SUPERVISOR, Denis H Attending Unavailable Jolliff, Nori S Primary Care Unavailable Jolliff, Nori S Primary Care Unavailable Jolliff, Nori S Referring Unavailable Jolliff, Nroi S Attending Unavailable Jolliff, Nori S Primary Care Unavailable Jolliff, Nori S Referring Unavailable Jolliff, Nori S Attending Unavailable Burnette, Lopez Primary Care Unavailable Rudy, Elvin Referring Unavailable Rudy, Elvin Attending Unavailable Burnette, Lopez Primary Care Unavailable Demiter, Hitesh Referring Unavailable Demiter, Hitesh Attending Unavailable Allergies Allergy Classification Reported Allergen(s) Allergy Type Date of Onset Reaction(s) Facility (14 sources) PAIN KILLERS drug allergy 05-27-20 13 [facility] Work Phone: (9 sources) Morphine; Translations: [morphine] Drug Allergy Nausea and vomiting (disorder) [facility] (20 sources) heparin; Translations: [heparin] Drug Allergy 04-06-20 22 thrombocytopenia [facility] (17 sources) Opioids - Morphine Analogues; Translations: [Opioids - Morphine Analogues] Allergy to substance 04-06-20 [address] [facility] (6 sources) PAIN MEDICATION Allergy to substance 04-06-[address] [facility] (1 source) Opiate agonist; Translations: [opioid-like analgesics] Drug allergy Nausea and vomiting (disorder) [facility] (1 source) heparin Drug Allergy 06-09-[address] [facility] Repository Medications Current Medications Medication Drug Class(es) Dates Sig (Normalized) Sig (Original) acetaminophen 325 mg oral tablet (8 sources) Start: 06-01-2024 take 2 tablets by mouth at bedtime Acetaminophen 325 mg tablet Active 650 mg PO AT BEDTIME June 01, 2024 12:00am Start: 06-21-2022 Tylenol Extra Strength 500 mg oral tablet Dose : 500 mg = 1 tab(s), Oral, q4h, PRN as needed for pain, # 50 tab(s), 0 Refill(s) Start Date: 06/21/22 Status: Ordered ALPRAZolam 1 mg oral tablet (4 sources) Benzodiazepine Start: 06-09-2025 Alprazolam 1 m g tablet Active 1 mg PO ONCE 1 0 June 09, 2025 12:00am Anxiety Anxiety disorder, unspecified Take 1 tablet orally 30 minutes prior to MRI. aspirin 81 mg delayed release oral tablet (20 sources) Nonsteroidal Anti-inflammatory Drug Start: 10-06-2021 aspirin 81 mg ora l delayed release tablet Dose : 81 mg = 1 tab(s), Oral, qPM, 0 Refill(s) Start Date: 10/06/21 Status: Ordered Start: 10-06-2021 aspirin 81 mg oral delayed release tablet Dose : 81 mg = 1 tab(s), Oral, qPM, 0 Refill(s) Start Date: 10/06/21 Status: Ordered Start: 10-06-2021 aspirin 81 mg oral delayed release tablet Dose : 81 mg = 1 tab(s), Oral, Daily, 0 Refill(s) Start Date: 10/06/21 Status: Ordered Start: 01-01-2017 take 1 tablet by david th at bedtime Aspirin 81 MG tablet,chewable Active 81 mg PO AT BEDTIME January 01, 2017 1:00am [facility] Start: 04-24-2011 take 1 tablet by david th once daily ASPIRIN 81 MG TABS One tablet by mouth daily ASPIRIN [id number] [facility] Start: 04-24-2011 take 1 tablet by david th once daily ASPIRIN 81 MG TABS One tablet by mouth daily ASPIRIN [id number] [employer] Start: 04-24-2011 take 1 tablet by david th once daily ASPIRIN EC 81 MG TBEC One tablet by mouth daily ASPIRIN [id number] Felicia Bauer atenolol 25 mg oral tablet (20 sources) beta-Adrenergic Letitia Start: 11-21-2021 atenol ol 25 mg oral tablet Dose : 25 mg = 1 tab(s), Oral, Every other day, 0 Refill(s) Start Date: 11/21/21 Status: Ordered Start: 04-24-2011 End: 08-31-2021 take 1 tablet by mouth every other day at bedtime Atenolol 25 mg tablet Discontinued 25 mg PO EVERY OTHER DAY 90 3 September 03, 2020 12:44pm August 31, 2021 1:54pm BLOOD PRESSURE qod hs Start: 04-24-2011 take 1 tablet by david th once daily ATENOLOL 25 MG TABS One tablet by mouth daily ATENOLOL [id number] Lopez Yadav MD Start: 04-24-2011 ATENOLOL 50 MG TABS 1/2 tablet daily ATENOLOL [id number] Devi Ramos PA-C Start: 04-24-2011 ATENOLOL 50 MG TABS 1/2 tablet 2 X daily ATENOLOL [id number] Lopez Yadav MD cholecalciferol 0.025 mg oral capsule (20 sources) Vitamin D Start: 12-18-2021 take 1 capsule by mouth once daily Cholecalciferol (Vitamin D3) 25 mcg (1,000 unit) capsule Active 25 ug PO DAILY December 18, 2021 1:00am Start: 01-01-2017 End: 10-16-2021 take 1 tablet by mouth once daily Cholecalciferol (Vitamin D3) 1,000 UNIT tablet Discontinued 1000 U PO DAILY January 01, 2017 1:00am October 16, 2021 2:35pm WELLNESS dutasteride 0.5 mg oral capsule (20 sources) 5-alpha Reductase Inhibitor Start: 07-10-2022 take 1 capsule by mouth once daily Dutasteride 0.5 mg capsule Active 0.5 mg PO DAILY July 10, 2022 12:00am Start: 04-14-2019 End: 12-18-2021 take 1 capsule by mouth once daily Dutasteride 0.5 mg capsule Discontinued 0.5 mg PO DAILY 90 0 April 14, 2019 12:00am December 18, 2021 2:09pm Multivitamin (Multiple Vitamins) tablet (5 sources) Start: 06-09-2025 Multivitamin (Multiple Vitamins) tablet Active 1 {tbl} PO daily June 09, 2025 12:00am omeprazole 20 mg delayed release oral capsule (20 sources) Proton Pump Inhibitor Start: 12-18-2021 End: 03-20-2022 take 1 capsule by mouth once daily Omeprazole 20 mg capsule,delayed release(DR/EC) Active 20 mg PO DAILY December 18, 2021 1:00am Start: 10-06-2021 omeprazole 20 mg oral delayed release tablet Dose : 20 mg = 1 tab(s), Oral, qAM, tab(s), 0 Refill(s) Start Date: 10/06/21 Status: Ordered Start: 01-01-2017 End: 10-16-2021 take 1 capsule by mouth once daily Omeprazole 20 MG capsule Discontinued 20 mg PO DAILY January 01, 2017 1:00am October 16, 2021 2:36pm ACID REFULX Start: 02-01-2014 take 1 tablet by david th once daily PRILOSEC OTC 20 MG TBEC One tablet by mouth daily OMEPRAZOLE MAGNESIUM [id number] Lopez Yadav MD Start: 02-01-2014 take 1 tablet by david th once daily PRILOSEC OTC 20 MG TBEC One tablet by mouth daily OMEPRAZOLE MAGNESIUM [id number] Lopez Yadav MD omeprazole 20 mg oral delaye d release tablet (4 sources) Start: 10-06-2021 omeprazole 20 mg oral delayed release tablet Dose : 20 mg = 1 tab(s), Oral, qAM, tab(s), 0 Refill(s) Start Date: 10/06/21 Status: Ordered Start: 10-06-2021 omeprazole 20 mg oral delayed release tablet Dose : 20 mg = 1 tab(s), Oral, qDay, tab(s), 0 Refill(s) Start Date: 10/06/21 Status: Ordered oregeno oil 50 mg (7 sources) Start: 06-01-2024 oregeno oil 50 mg Active 1 NMA PO TWICE A DAY June 01, 2024 12:00am Oxygen Concentrator (12 sources) Start: 05-03-2025 Oxygen Concent rator Active 0 .Route .MEDSUPPLY 1 0 May 03, 2025 9:27am Effects of high altitude Encounter for preventive measure Iron deficiency Paravalvular leak of prosthetic heart valve History of transcatheter aortic valve replacement (TAVR) Short of breath on exertion 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 Thrombocytopenia Low ferritin level Unspecified effects of high altitude, initial encounter Encounter for prophylactic measures, unspecified Iron deficiency Leakage of heart valve prosthesis, initial encounter Presence of prosthetic heart valve Shortness of breath Atherosclerosis of coronary artery bypass graft(s) without angina pectoris 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) stenosis Presence of aortocoronary bypass graft Thrombocytopenia, unspecified Abnormal level of blood mineral Prevention of Elevation Sickness As directed Start: 04-28-2025 End: 05-03-2025 Oxygen Concentrator Disconti nued 0 .Route .MEDSUPPLY 1 0 April 28, 2025 12:00am May 03, 2025 9:27am Effects of high altitude Encounter for preventive measure Iron deficiency Paravalvular leak of prosthetic heart valve History of transcatheter aortic valve replacement (TAVR) Short of breath on exertion 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 Thrombocytopenia Low ferritin level Unspecified effects of high altitude, initial encounter Encounter for prophylactic measures, unspecified Iron deficiency Leakage of heart valve prosthesis, initial encounter Presence of prosthetic heart valve Shortness of breath Atherosclerosis of coronary artery bypass graft(s) without angina pectoris 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) stenosis Presence of aortocoronary bypass graft Thrombocytopenia, unspecified Abnormal level of blood mineral Prevention of Elevation Sickness As directed oxymetazoline hydrochloride 0.5 mg/ml nasal spray (1 source) Start: 06-21-2022 Zicam Sinus Re lief 0.05% nasal spray Dose = 2 spray(s), Nasal, qHS, # 15 mL, 0 Refill(s) Start Date: 06/21/22 Status: Ordered rosuvastatin calcium 40 mg oral tablet (20 sources) HMG-CoA Reductase Inhibitor Start: 10-06-2021 rosuvastatin 40 mg oral capsule Dose : 40 mg = 1 cap(s), Oral, qPM, 0 Refill(s) Start Date: 10/06/21 Status: Ordered Start: 04-24-2011 End: 06-29-2025 take 1 tablet by mouth at bedtime Rosuvastatin 40 mg tablet Active 40 mg PO AT BEDTIME 90 June 29, 2025 12:21pm CHOLESTEROL tamsulosin hydrochloride 0.4 mg oral capsule (20 sources) alpha-Adrenergic Letitia Start: 07-05-2018 End: 01-05-2019 take 1 capsule by mouth once daily Tamsulosin 0.4 MG capsule Active 0.4 mg PO DAILY January 05, 2019 11:48pm Start: 04-24-2011 End: 02-01-2014 take 1 tablet by mouth once daily FLOMAX 0.4 MG CAPS One tablet by mouth daily TAMSULOSIN HCL [id number] [employer]elin [facility] vitamin b12 2.5 mg sublingual tablet (20 sources) Vitamin B12 Start: 10-06-2021 Vitamin B12 25 00 mcg sublingual tablet Dose : 2,500 mcg = 1 tab(s), Sublingual, 0 Refill(s) Start Date: 10/06/21 Status: Ordered Start: 12-17-2017 End: 05-25-2021 take 5 tablets by mouth at bedtime Cyanocobalamin (Vitamin B-12) (Vitamin B-12) 1,000 mcg tablet Discontinued 5000 ug PO AT BEDTIME December 17, 2017 1:00am May 25, 2021 3:00pm [facility] Start: 04-22-2015 take 1 tablet by david th once daily VITAMIN B-12 1000 MCG TABS One tablet by mouth daily (2500 mcg daily) CYANOCOBALAMIN [id number] Lopez Yadav MD Vitamin B12 2500 mcg sublingual tablet (5 sources) Start: 10-06-2021 Vitamin B12 25 00 mcg sublingual tablet Dose : 2,500 mcg = 1 tab(s), Sublingual, 0 Refill(s) Start Date: 10/06/21 Status: Ordered Vitamin S27-Vehgh Acid (20 sources) Start: 04-06-2022 take 1 tablet by mouth once daily Vitamin G35-Omjrb Acid Active 1 TABLET PO DAILY April 06, 2022 9:37am Start: 04-06-2022 take 1 tablet by david th once daily Vitamin T87-Fjsqa Acid Active 1 TABLET PO DAILY April 06, 2022 10:37am Start: 12-18-2021 End: 04-06-2022 Vitamin K91-Ksnqy Acid Disco ntinued TABLET PO December 18, 2021 12:00am April 06, 2022 9:37am Start: 12-18-2021 End: 04-06-2022 Vitamin M53-Pbomp Acid Disco ntinued TABLET PO December 18, 2021 1:00am April 06, 2022 10:37am Start: 05-25-2021 End: 10-16-2021 take 1 tablet by mouth once daily Vitamin C65-Spuqe Acid Discontinued 1 TABLET PO DAILY May 24, 2021 11:00pm October 16, 2021 1:36pm Start: 05-25-2021 End: 10-16-2021 take 1 tablet by mouth once daily Vitamin K69-Jsxwg Acid Discontinued 1 TABLET PO DAILY May 25, 2021 12:00am October 16, 2021 2:36pm Vitamin D3 (2 sources) Start: 10-06-2021 Vitamin D3 Dos e : 1,000 unit(s) = 1 tab(s), Oral, Daily, 0 Refill(s) Start Date: 10/06/21 Status: Ordered Vitamin D3 25 mcg (1000 intl units) oral capsule (7 sources) Start: 12-06-2021 Vitamin D3 25 mcg (1000 intl units) oral capsule Dose : 1,000 unit(s) = 1 cap(s), Oral, qAM, # 30 cap(s), 0 Refill(s) Start Date: 12/06/21 Status: Ordered Completed/Discontinued Medications Medication Drug Class(es) Dates Sig (Normalized) Sig (Original) [id number] actuat albuterol 0.09 mg/actuat metered dose inhaler (16 sources) beta2-Adrenergic Agonist Start: 10-16-2021 End: 04-06-2022 Albuterol Sulfate 90 mcg/actuation HFA aerosol inhaler Discontinued 2 NMA INHALATION Q4H as needed for shortness of breath or wheezing 8.5 3 October 16, 2021 1:00am April 06, 2022 10:36am administer with spacer Start: 10-16-2021 End: 04-06-2022 take 1 puff(s) by inhalation every four hours Albuterol Sulfate Discontinued 2 PUFF INHALATION Q4H 8.5 October 16, 2021 1:00am April 06, 2022 10:36am administer with spacer amLODIPine 2.5 mg oral tablet (20 sources) Dihydropyridine Calcium Channel Letitia Start: 01-14-2024 End: 02-11-2025 take 1 tablet by mouth once daily Amlodipine 2.5 mg tablet Discontinued 2.5 mg PO DAILY 90 3 February 09, 2025 9:08am February 11, 2025 7:56am amoxicillin 500 mg oral tablet (20 sources) Penicillin-class Antibacterial Start: 11-06-2011 End: 02-01-2014 AMOXICILLIN 500 MG TABS 4 tablets 1 hour prior to procedure AMOXICILLIN [id number] Pito Segal MD cefadroxil 500 mg oral capsule (16 sources) Cephalosporin Antibacterial Start: 07-05-2018 End: 10-09-2018 take 1 capsule by mouth twice daily Cefadroxil 500 MG capsule Discontinued 500 mg PO TWICE A DAY 14 0 July 05, 2018 12:00am October 09, 2018 11:38am ciprofloxacin 500 mg oral tablet (16 sources) Quinolone Antimicrobial Start: 01-06-2019 End: 04-14-2019 take 1 tablet by mouth twice daily Ciprofloxacin Hcl 500 MG tablet Discontinued 500 mg PO TWICE A DAY 14 0 January 06, 2019 12:00am April 14, 2019 9:52am clopidogrel 75 mg oral tablet (20 sources) [id number] Platelet Inhibitor Start: 08-31-2021 End: 09-26-2021 take 1 tablet by mouth once daily Clopidogrel (Plavix) 75 mg tablet Discontinued 75 mg PO DAILY 30 3 August 31, 2021 12:00am September 26, 2021 6:37pm for heart cath Start: 11-18-2019 End: 11-30-2019 take 1 tablet by mouth once daily Clopidogrel (Plavix) 75 mg tablet Discontinued 75 mg PO DAILY 30 November 18, 2019 1:00am November 30, 2019 10:20am Start: 01-01-2017 End: 12-23-2017 take 1 tablet by mouth once daily Clopidogrel 75 MG tablet Discontinued 75 mg PO DAILY January 01, 2017 1:00am December 23, 2017 11:02am Start: 12-27-2016 End: 01-01-2017 PLAVIX 75 MG TABS 4 tablets by mouth today, then 1 tablet by mouth daily for heart cath on 01/01/2017 CLOPIDOGREL BISULFATE [id number] Lopez Yadav MD etodolac 400 mg oral tablet (20 sources) Nonsteroidal Anti-inflammatory Drug Start: 09-30-2012 End: 06-06-2016 take 1 tablet by mouth twice daily ETODOLAC 400 MG TABS One tablet by mouth twice daily ETODOLAC [id number] Pito Segal MD folic acid 0.8 mg oral capsule (7 sources) Start: 03-30-2024 End: 06-01-2024 take 1 capsule by mouth once daily Folic Acid 0.8 mg capsule Discontinued 0.8 mg PO DAILY March 30, 2024 12:00am June 01, 2024 10:40am furosemide 40 mg oral tablet (20 sources) Loop Diuretic Start: 04-29-2024 End: 06-08-2025 take 1 tablet by mouth once daily as needed for edema Furosemide 40 mg tablet Discontinued 40 mg PO DAILY as needed for edema 26 09June 15, 2024 9:27am June 08, 2025 3:26pm gabapentin 300 mg oral capsule (10 sources) Anti-epileptic Agent Start: 08-07-2023 End: 06-01-2024 take 1 capsule by mouth twice daily Gabapentin 300 mg capsule Discontinued 300 mg PO TWICE A DAY August 07, 2023 12:00am June 01, 2024 10:40am glucosamine sulfate 500 mg oral tablet (20 sources) Start: 04-24-2011 End: 09-30-2012 take 1 tablet by mouth twice daily GLUCOSAMINE SULFATE 500 MG TABS One tablet by mouth twice daily GLUCOSAMINE SULFATE [id number] Mayelin Church lactobacillus acidophilus [id number] unt oral tablet (16 sources) Start: 07-05-2018 End: 10-09-2018 Lactobacillus Acidophilus 1 EACH tablet Discontinued 1 NMA PO TWICE A DAY 14 0 July 05, 2018 12:00am October 09, 2018 11:39am Start: 07-05-2018 End: 10-09-2018 Lactobacillus Acidophilus Di scontinued 1 EACH PO TWICE A DAY July 05, 2018 12:00am October 09, 2018 11:39am lisinopril 40 mg oral tablet (20 sources) Angiotensin Converting Enzyme Inhibitor Start: 11-28-2023 End: 02-09-2025 take 1 tablet by mouth once daily Lisinopril 40 mg tablet Discontinued 40 mg PO DAILY 90 0 November 16, 2024 9:43am February 09, 2025 7:51am Start: 04-06-2022 End: 11-28-2023 take 1 tablet by mouth once daily Lisinopril 20 mg tablet Discontinued 20 mg PO DAILY 90 3 June 07, 2023 10:39am November 28, 2023 5:19pm Start: 03-01-2022 lisinopril 10 mg oral tablet Dose : 20 mg = 2 tab(s), Oral, qAM, # 60 tab(s), 3 Refill(s), Pharmacy: [facility] [address], 175.3, cm, 02/20/22 6:39:00 EDT, Height Start Date: 03/01/22 Status: Ordered Start: 10-06-2021 lisinopril 10 mg oral tablet Dose : 15 mg = 1.5 tab(s), Oral, qAM, 0 Refill(s) Start Date: 10/06/21 Status: Ordered Start: 10-06-2021 take 1.5 tablets by mouth once daily lisinopril 10 mg oral tablet 1.5, Oral, Daily, 0 Refill(s) Start Date: 10/06/21 Status: Ordered Start: 01-01-2017 End: 04-06-2022 Lisinopril 10 mg tablet Disc ontinued 15 mg PO DAILY 135 3 July 07, 2021 3:15pm April 06, 2022 10:36am BLOOD PRESSURE Start: 01-01-2017 End: 04-06-2022 take 15 mg by mouth once daily Lisinopril Discontinued 15 MG PO DAILY 135 July 07, 2021 3:15pm April 06, 2022 10:36am Start: 04-24-2011 take 1-0.5 tablets b y mouth once daily ZESTRIL 10 MG TABS 1-1/2 tablets by mouth daily LISINOPRIL [id number] Lopez Yadav MD medical marijuana (7 sources) Start: 12-06-2021 edmund medrano medical marijuana, 0.5 dropper, Oral, qDay, 0 Refill(s), 75 Start Date: 12/06/21 Status: Ordered niacin 500 mg oral tablet (20 sources) Nicotinic Acid Start: 11-20-2013 End: 02-01-2014 take 1 tablet by mouth once daily NIACIN TABS One tablet by mouth daily NIACIN TABS Santa Terry RN Start: 04-24-2011 take 1 tablet by david th once daily NIASPAN 1000 MG CR-TABS One tablet by mouth daily NIACIN (ANTIHYPERLIPIDEMIC) [id number] Lopez Yadav MD Start: 04-24-2011 take 1 tablet by david th once daily NIASPAN 1000 MG CR-TABS One tablet by mouth daily NIACIN (ANTIHYPERLIPIDEMIC) [id number] Lopez Yadav MD polysaccharide iron complex 150 mg oral capsule (20 sources) Start: 04-25-2022 End: 10-15-2024 Polysaccharide Iron Complex (Ferrex 150) 150 mg iron capsule Discontinued 150 mg PO DAILY 90 3 September 13, 2023 2:54pm October 15, 2024 5:21pm potassium chloride 10 meq extended release oral tablet (20 sources) Start: 04-24-2011 End: 09-30-2012 POTASSIUM CHLORIDE ER 10 MEQ CR-TABS As needed POTASSIUM CHLORIDE [id number] Pito Segal MD Vitamin Q49-Tyqpt Acid 1-0.8 mg tablet (14 sources) Start: 04-06-2022 End: 03-30-2024 Vitamin S04-Bfyha Acid 1-0.8 mg tablet Discontinued 1 {tbl} PO DAILY April 06, 2022 10:37am March 30, 2024 10:57am Start: 12-18-2021 End: 04-06-2022 Vitamin W52-Cdllp Acid 1-0.8 mg tablet Discontinued {tbl} PO December 18, 2021 1:00am April 06, 2022 10:37am Vitamin C43-Rcvma Acid 2,500-400 mcg tablet,disintegrating (7 sources) Start: 05-25-2021 End: 10-16-2021 Vitamin Z66-Dyzsx Acid 2,500-400 mcg tablet,disintegrating Discontinued 1 {tbl} PO DAILY May 25, 2021 12:00am October 16, 2021 2:36pm CHOLECALCIFEROL (14 sources) Start: 02-01-2014 take 1 tablet by mouth once daily VITAMIN D 1000 UNIT TABS One tablet by mouth daily CHOLECALCIFEROL [id number] Lopez Yadav MD Start: 02-01-2014 take 1 tablet by david th once daily VITAMIN D 1000 UNIT TABS One tablet by mouth daily CHOLECALCIFEROL [id number] Lopez Yadav MD Start: 02-01-2014 take 1 tablet by david th once daily VITAMIN D 1000 UNIT TABS One tablet by mouth daily CHOLECALCIFEROL [id number] Lopez Yadav MD Problems Active Problems Problem Classification Problem Date Documented Date Episodic/Chronic Abdominal hernia (2 sources) Diaphragmatic hernia; Translations: [Diaphragmatic hernia without obstruction or gangrene] Episodic Cardiac dysrhythmias (20 sources) Ventricular premature beats; Translations: [Ventricular premature complex] Onset: 05-16-2015 05-16-2015 Chronic Cardiac dysrhythmias (20 sources) Sinus bradycardia; Translations: [Bradycardia, unspecified] Episodic Cataract (1 source) Cataract 06-21-2022 Chronic Coagulation and hemorrhagic disorders (20 sources) Heparin-induced thrombocytopenia; 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 No intervention needed at this time. Coagulation and hemorrhagic disorders (1 source) Acquired thrombocytopenia; Translations: [Other secondary thrombocytopenia] Episodic Complication of device; implant or graft (20 sources) Arteriosclerosis of coronary artery bypass graft; Translations: [Atherosclerosis of coronary artery bypass graft(s) without angina pectoris] Onset: 04-24-2011 01-02-2017 Chronic Coronary atherosclerosis and other heart disease (20 sources) Atherosclerotic heart disease of [place] coronary artery without angina pectoris; Translations: [Coronary arteriosclerosis] Onset: 04-24-2011 06-05-2016 Chronic Deficiency and other anemia (1 source) Anemia 06-21-2022 Episodic Delirium, dementia, and amnestic and other cognitive disorders (9 sources) Postconcussion syndrome; Translations: [Postconcussional syndrome] Onset: 07-01-2025 06-09-2025 Chronic Disorders of lipid metabolism (20 sources) Hyperlipidemia; Translations: [Hyperlipidemia, unspecified] Onset: 04-24-2011 04-24-2011 Chronic E Codes: Fall (7 sources) Fall; Translations: [Unspecified fall, initial encounter] 12-01-2024 Episodic Esophageal disorders (1 source) Gastroesophageal reflux disease 06-21-2022 Chronic Essential hypertension (20 sources) Hypertensive disorder; Translations: [Essential hypertension] Onset: 04-24-2011 04-24-2011 Chronic Headache; including migraine (1 source) Migraine 06-21-2022 Chronic Heart valve disorders (20 sources) 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) stenosis; Translations: [Aortic valve disorder] Onset: 04-24-2011 10-17-2015 Chronic Comment on above: FAILED; paravalvular leak 01/2022; replaced with Parsons 23mm S3 11/2021 Hyperplasia of prostate (1 source) Large prostate 06-21-2022 Chronic Joint disorders and dislocations; trauma-related (14 sources) Chondromalacia of patella; Translations: [Chondromalacia patellae, left knee] 03-20-2013 Chronic Malaise and fatigue (20 sources) Fatigue; Translations: [Other fatigue] Onset: 12-04-2016 12-04-2016 Episodic Melanomas of skin (13 sources) Malignant melanoma of skin, unspecified; Translations: [Malignant melanoma of skin, unspecified] Onset: 05-28-2017 05-28-2017 Chronic Nonspecific chest pain (14 sources) Chest pain; Translations: [Chest pain, unspecified] Onset: 06-09-2025 07-09-2024 Episodic Nutritional deficiencies (20 sources) Iron deficiency; Translations: [Iron deficiency] Episodic Comment on above: No stainable iron in bone marrow. Ferritin is 28 on 01/27/2024. Improving. Osteoarthritis (13 sources) Unspecified osteoarthritis, unspecified site; Translations: [Unspecified osteoarthritis, unspecified site] Onset: 05-28-2017 05-28-2017 Chronic Other aftercare (1 source) Long-term current use of anticoagulant; Translations: [intermediate (current) use of anticoagulants] Episodic Other circulatory disease (20 sources) Carotid bruit; Translations: [Other specified symptoms and signs involving the circulatory and respiratory systems] Onset: 05-27-2013 12-04-2016 Episodic Other circulatory disease (1 source) Other specified symptoms and signs involving the circulatory and respiratory systems; Translations: [Other specified symptoms and signs involving the circulatory and respiratory systems] Onset: 06-24-2025 Episodic Other ear and sense organ disorders (1 source) Hearing loss 06-21-2022 Chronic Other injuries and conditions due to external causes (6 sources) Effects of high altitude; Translations: [Unspecified effects of high altitude, initial encounter] 04-28-2025 Episodic Other liver diseases (16 sources) Hepatic fibrosis; Translations: [Hepatic fibrosis] 02-06-2023 Chronic Comment on above: Discussed liver fibr osis and management, observation till he has symptoms. Pt does not want referral to [facility]. Other lower respiratory disease (16 sources) Dyspnea; Translations: [Shortness of breath] 10-16-2021 Episodic Other lower respiratory disease (20 sources) Dyspnea on exertion; Translations: [Shortness of breath] 06-21-2022 Episodic Other nervous system disorders (13 sources) Cervical radiculopathy; Translations: [Radiculopathy, cervical region] Onset: 05-28-2017 05-29-2017 Chronic Other nervous system disorders (1 source) H/O: retinal detachment 06-21-2022 Episodic Other nervous system disorders (8 sources) Paresthesia of skin; Translations: [Paresthesia of both hands] 06-09-2025 Episodic Other screening for suspected conditions (not mental disorders or infectious disease) (20 sources) Cardiovascular stress test abnormal; Translations: [Carotid bruit] Onset: 05-27-2013 12-13-2016 Episodic Residual codes; unclassified (1 source) Past history of procedure; Translations: [Other specified postprocedural states] Onset: 02-21-2022 Episodic Residual codes; unclassified (6 sources) Patient encounter status; Translations: [Encounter for prophylactic measures, unspecified] 04-28-2025 Episodic Spondylosis; intervertebral disc disorders; other back problems (1 source) Backache 06-21-2022 Episodic Substance-related disorders (1 source) Marijuana user 06-21-2022 Episodic Unclassified (20 sources) FH: Hypertension; Translations: [Family history of ischemic heart disease and other diseases of the circulatory system] 08-02-2014 Episodic Unclassified (4 sources) Long-term drug therapy; Translations: [Other watermaster (current) drug therapy] Onset: 04-24-2011 04-24-2011 Unclassified (1 source) Eye glasses, device (physical object) 06-21-2022 Unclassified (1 source) Hearing aid, device (physical object) 06-21-2022 Comment on above: bilat Unclassified (2 sources) Concussion with loss of consciousness status unknown, initial encounter; Translations: [Concussion with loss of consciousness status unknown, initial encounter] Onset: 06-09-2025 Unclassified (1 source) Hepatic fibrosis, unspecified; Translations: [Hepatic fibrosis, unspecified] Onset: 02-01-2025 Urinary tract infections (16 sources) Cystitis; Translations: [Cystitis, unspecified without hematuria] 08-03-2019 Episodic Past or Other Problems Problem Classification Problem Date Documented Da te Episodic/Chronic Complication of device; implant or graft (20 sources) Mechanical complication of heart valve prosthesis; 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] Onset: 10-28-2021 02-09-2022 Episodic Comment on above: Failed TAVR Coronary atherosclerosis and other heart disease (20 sources) Presence of aortocoronary bypass graft; Translations: [Aortocoronary bypass graft present] Onset: 12-26-1992 06-05-2016 Episodic Comment on above: CABG 01/11/93, DELANEY t o LAD, THIAGO to lateral circumflex, SVG to diagonal & SVG to PDA Intracranial injury (13 sources) Concussion injury of body structure; Translations: [Concussion] Onset: 12-05-2024 12-01-2024 Episodic Joint disorders and dislocations; trauma-related (20 sources) Tear of medial meniscus of knee; Translations: [Tear of lateral meniscus of knee] Onset: 03-30-2013 04-06-2013 Episodic Other aftercare (10 sources) Other watermaster (current) drug therapy; Translations: [Other group home (current) drug therapy] Onset: 04-24-2011 04-24-2011 Episodic Other bone disease and musculoskeletal deformities (20 sources) Segmental and somatic dysfunction; Translations: [Segmental and somatic dysfunction of thoracic region] Onset: 05-28-2017 05-29-2017 Episodic Other gastrointestinal disorders (1 source) Heartburn; Translations: [Heartburn] Onset: 02-01-2025 Episodic Other nervous system disorders (1 source) Other symptoms and signs involving cognitive functions and awareness; Translations: [Other symptoms and signs involving cognitive functions and awareness] Onset: 03-01-2025 Episodic Other nutritional; endocrine; and metabolic disorders (20 sources) Body mass index (BMI) 28.0-28.9, adult; Translations: [Body mass index (BMI) 27.0-27.9, adult] Onset: 02-01-2014 Resolved: 10-14-2015 02-01-2014 Episodic Other nutritional; endocrine; and metabolic disorders (12 sources) Body mass index (BMI) 27.0-27.9, adult; Translations: [Body mass index (BMI) 26.0-26.9, adult] Onset: 08-02-2014 08-02-2014 Episodic Other screening for suspected conditions (not mental disorders or infectious disease) (20 sources) Ferritin level low; Translations: [Abnormal level of blood mineral] Onset: 09-15-2024 01-09-2023 Episodic Comment on above: R/o Liver disease. L iver elastography on 01/30/2023 shows moderate to severe fibrosis. Results Test Name Value Interpretation Reference Range Facility Duplex ultrasound of carotid artery reportOrdered By: Devendra Singh on 06-23-2025 Study report [facility] [address] [place] [id number] Carotid Duplex Ultrasound 06/21/25 1009 MR#: [id number] Acct: [id number] Name: DANIALOPEZ BANKSABBIE Alves Rep #:[id number] : 1945 79 From: Devendra Signh MD Attending Dr: Dr. Elvin Grant MD Status: REG CLI Ordering Dr: Elvin Grant MD Date: 06/21/25 Location: [facility] Sex: M C Admitted: Reason For Study Reason For Study: Bilateral carotid bruit Rt. Velocities/BP Lt. Velocities/BP Prox CCA 103.5/12.6 cm/sec. Prox CCA 111.2/10.8 cm/sec. Mid CCA 90/10.2 cm/sec. Mid CCA 83/14.2 cm/sec. Dist CCA 71.8/11.3 cm/sec. Dist CCA 83.8/14.4 cm/sec. Prox ICA 77.7/12.6 cm/sec. Prox ICA 69.5/16.7 cm/sec. Mid ICA 80.4/21.1 cm/sec. Mid ICA 89.9/26.2 cm/sec. Dist ICA 71.8/20.1 cm/sec. Dist ICA 89.1/21.6 cm/sec. Rt. ICA/CCA = 0.89. Lt. ICA/CCA = 1.08. Prox ECA 98.6/7.7 cm/sec. Prox ECA 76.9/4.4 cm/sec. Rt. Vert. 50/10.7 cm/sec. Lt. Vert. 41/10.4 cm/sec. Right Extracranial There is intimal thickening but no significant atherosclerotic plaque noted in the right common carotid artery. There is heterogeneous, irregular atherosclerotic plaque noted in the right internal carotid artery. The right internal carotid artery is very tortuous. There is intimal thickening but no significant atherosclerotic plaque noted in the right external carotid artery. Antegrade flow is noted in the right vertebral artery. Left Extracranial There is intimal thickening but no significant atherosclerotic plaque noted in the left common carotid artery. There is heterogeneous, irregular atherosclerotic plaque noted in the left internal carotid artery. There is intimal thickening but no significant atherosclerotic plaque noted in the left external carotid artery. Antegrade flow is noted in the left vertebral artery. Procedure Carotid Duplex [id number]. This is a Carotid Duplex examination using B-mode, color flow and specral Doppler. Exam performed in department. VL/Carotid Duplex Ultrasound Interpretation Summary Mild (<50%) stenosis right extracranial internal carotid. Mild (<50%) stenosis left extracranial internal carotid. Flow within the vertebral arteries is antegrade bilaterally. Ordering Physician: Elvin Grant Referring Physician: Lopez Burnette Performed By: Georgina Howard RVT and Student 06/23/252242 Date _ Devendra Singh MD CC: Dr. Lopez Burnette MD; Dr. Elvin Grant MD ~ Date Dictated: 06/21/251008 Date Transcribed: 06/23/252242 Mine Surveyor: Signed [facility] Other Carotid Duplex Ultrasoundon 06-21-2025 Carotid Duplex Ultrasound [facility] [address] [place] [address] Carotid Duplex Ultrasound 06/21/25 100 MR#: [id number] Acct: [id number] Name: LOPEZ NAJERA Jr. Rep #: [id number] : 1945 79 From: Devendra Singh MD Attending Dr: Dr. Elvin Grant MD Status: R EG CLI Ordering Dr: Elvin Grant MD Date: 06/21/25 Location: [facility] Sex: M C Admitted: Reason For Study Reason For Study: Bilateral carotid bruit Rt. Velocities/BP Lt. Velocities/BP Prox CCA 103.5/12.6 cm/sec. Prox CCA 111.2/10.8 cm/sec. Mid CCA 90/10.2 cm/sec. Mid CCA 83/14.2 cm/sec. Dist CCA 71.8/11.3 cm/sec. Dist CCA 83.8/14.4 cm/sec. Prox ICA 77.7/12.6 cm/sec. Prox ICA 69.5/16.7 cm/sec. Mid ICA 80.4/21.1 cm/sec. Mid ICA 89.9/26.2 cm/sec. Dist ICA 71.8/20.1 cm/sec. Dist ICA 89.1/21.6 cm/sec. Rt. ICA/CCA = 0.89. Lt. ICA/CCA = 1.08. Prox ECA 98.6/7.7 cm/sec. Prox ECA 76.9/4.4 cm/sec. Rt. Vert. 50/10.7 cm/sec. Lt. Vert. 41/10.4 cm/sec. Right Extracranial There is intimal thickening but no significant atherosclerotic plaque noted in the right common carotid artery. There is heterogeneous, irregular atherosclerotic plaque noted in the right internal carotid artery. The right internal carotid artery is very tortuous. There is intimal thickening but no significant atherosclerotic plaque noted in the right external carotid artery. Antegrade flow is noted in the right vertebral artery. Left Extracranial There is intimal thickening but no significant atherosclerotic plaque noted in the left common carotid artery. There is heterogeneous, irregular atherosclerotic plaque noted in the left internal carotid artery. There is intimal thickening but no significant atherosclerotic plaque noted in the left external carotid artery. Antegrade flow is noted in the left vertebral artery. Procedure Carotid Duplex 57894. This is a Carotid Duplex examination using B-mode, color flow and specral Doppler. Exam performed in department. VL/Carotid Duplex Ultrasound Interpretation Summary Mild (<50%) stenosis right extracranial internal carotid. Mild (<50%) stenosis left extracranial internal carotid. Flow within the vertebral arteries is antegrade bilaterally. Ordering Physician: Elvin Grant Referring Physician: Lopez Burnette Performed By: Georgina Howard RVT and Student 06/23/252242 Date Devendra Singh MD CC: Dr. Lopez Burnette MD; Dr. Elvin Grant MD Date Dictated: 06/21/25 1009 Date Transcribed: 06/23/252242 Mine Surveyor: Signed Normal [facility] L3300.8200on 06-15-2025 VITAMIN B6 42.3 ug/L Normal 3.4-65.[address] [facility] Comment on above: Order Comment: Test( s) 415036-Rfyeegg B6was developed and its performance characteristicsdetermined by [employer]. It has not been cleared or approvedby the Food and Drug Administration. Result Comment: Defi ciency: <3.4 Marginal: 3.4 - 5.1 Adequate: >5.1 Performed By: #### L 3300.0960, L3300.8000, L3300.8200, L501.9520, L500.4050, L501.9985, L100.0500 ####[facility] [address] [place], [place], [id number] Vitamin B1, Thiamineon 06-15 VIT B1 THIAMINE 140.9 nmol/L Normal 66.5-200.[address] [facility] Comment on above: Order Comment: Test( s) [id number]-Eoezjtx B6 was developed and its performance characteristics determined by [employer]. It has not been cleared or approved by the Food and Drug Administration. Result Comment: Perf ormed at: [address] [id number] [place]odmare Foreman: Josefa Whittaker MD, Phone: [phone] Performed By: #### L 3300.0960, L3300.8000, L3300.8200, L501.9520, L500.4050, L501.9985, L100.0500 #### [facility] [address] [place], [address] Vitamin D 1,25-Dihydroxyon 0 06-14-2025 VIT D 1,25 DIHY 39.0 pg/mL Normal 24.8-81.[address] [facility] Comment on above: Result Comment: Perf ormed at: [address] [id number] Brood[place] Foreman: Josefa Whittaker MD, Phone: [phone] Performed By: #### L 3300.0960, L3300.8000, L3300.8200, L501.9520, L500.4050, L501.9985, L100.0500 #### [facility] [address] [place], [address] Anion gap in Serum or Plasma Ordered By: Elvin Grant on 06-10-2025 Anion gap [Moles/Vol] 11 mmol/L 5-15 [facility] BUN/creatinine ratioOrdered By: Elvin Grant on 06-10-2025 Urea nitrogen/Creatinine [Mass ratio] 24.0 mg/mg High 10-[address] [facility] Bilirubin, totalOrdered By: Elvin Grant on 06-10-2025 Bilirubin [Mass/Vol] 1.11 mg/dL 0.00-1.30 [facility] CBC-Complete Blood Cnt No Di ffon 06-10-2025 Erythrocyte distribution width (RBC) [Ratio] 12.5 % Normal 11.6-14.[address] [facility] Comment on above: Performed By: #### L 3300.0960, L3300.8000, L3300.8200, L501.9520, L500.4050, L501.9985, L100.0500 #### [facility] [address] [place], [address] Hematocrit (Bld) [Volume fraction] 38.4 % Low 40-[address] [facility] Comment on above: Performed By: #### L 3300.0960, L3300.8000, L3300.8200, L501.9520, L500.4050, L501.9985, L100.0500 #### [facility] [address] [place], [address] Hemoglobin (Bld) [Mass/Vol] 12.9 g/dL Low 13.0-16.[address] [facility] Comment on above: Performed By: #### L 3300.0960, L3300.8000, L3300.8200, L501.9520, L500.4050, L501.9985, L100.0500 #### [facility] [address] [place], [address] MCH (RBC) [Entitic mass] 31.3 pg Normal 27.0-32.[address] [facility] Comment on above: Performed By: #### L 3300.0960, L3300.8000, L3300.8200, L501.9520, L500.4050, L501.9985, L100.0500 #### [facility] [address] [place], [address] MCHC (RBC) [Mass/Vol] 33.6 g/dL Normal 32-36 [facility] Comment on above: Performed By: #### L 3300.0960, L3300.8000, L3300.8200, L501.9520, L500.4050, L501.9985, L100.0500 #### [facility] [address] [place], [address] MCV (RBC) [Entitic vol] 93.2 fL Normal 80-[address] [facility] Comment on above: Performed By: #### L 3300.0960, L3300.8000, L3300.8200, L501.9520, L500.4050, L501.9985, L100.0500 #### [facility] [address] [place], [address] Platelet mean volume (Bld) [Entitic vol] 11.0 fL Normal 6.2-12.[address] [facility] Comment on above: Performed By: #### L 3300.0960, L3300.8000, L3300.8200, L501.9520, L500.4050, L501.9985, L100.0500 #### [facility] [address] [place], [address] Platelets (Bld) [#/Vol] 90 10*3/uL Low 150-[address] [facility] Comment on above: Performed By: #### L 3300.0960, L3300.8000, L3300.8200, L501.9520, L500.4050, L501.9985, L100.0500 #### [facility] [address] [place], [address] RBC (Bld) [#/Vol] 4.12 10*6/uL Low 4.6-6.2 [facility] Comment on above: Performed By: #### L 3300.0960, L3300.8000, L3300.8200, L501.9520, L500.4050, L501.9985, L100.0500 #### [facility] [address] [place], [address] RDW SD 42.5 fl Normal 35.1-43.[address] [facility] Comment on above: Performed By: #### L 3300.0960, L3300.8000, L3300.8200, L501.9520, L500.4050, L501.9985, L100.0500 #### [facility] [address] [place], [address] WBC (Bld) [#/Vol] 5.3 10*3/uL Normal 4.4-11.0 [facility] Comment on above: Performed By: #### L 3300.0960, L3300.8000, L3300.8200, L501.9520, L500.4050, L501.9985, L100.0500 #### [facility] [address] [place], [address] Carbon dioxide, total [Moles /volume] in Central venous bloodOrdered By: Elvin Grant on 06-10-2025 CO2 [Moles/Vol] 23.3 mmol/L 21.0-32.[address] [facility] Chloride assayOrdered By: Ra asia Grant on 06-10-2025 Chloride [Moles/Vol] 108 mmol/L 98-108 [facility] Comprehensive Metabolic Prof ilon 06-10-2025 Albumin [Mass/Vol] 4.2 g/dL Normal 3.4-4.8 [facility] Comment on above: Performed By: #### L 3300.0960, L3300.8000, L3300.8200, L501.9520, L500.4050, L501.9985, L100.0500 #### [facility] [address] [place], [address] Albumin/Globulin [Mass ratio] 2.0 {ratio} Normal 0.9-2.[address] [facility] Comment on above: Performed By: #### L 3300.0960, L3300.8000, L3300.8200, L501.9520, L500.4050, L501.9985, L100.0500 #### [facility] [address] [place], [address] ALK PHOS 57 U/L Normal 40-[address] [facility] Comment on above: Performed By: #### L 3300.0960, L3300.8000, L3300.8200, L501.9520, L500.4050, L501.9985, L100.0500 #### [facility] [address] [place], [address] ALT [Catalytic activity/Vol] 18 U/L Normal <=[address] [facility] Comment on above: Performed By: #### L 3300.0960, L3300.8000, L3300.8200, L501.9520, L500.4050, L501.9985, L100.0500 #### [facility] [address] [place], [address] AST [Catalytic activity/Vol] 26 U/L Normal <=[address] [facility] Comment on above: Performed By: #### L 3300.0960, L3300.8000, L3300.8200, L501.9520, L500.4050, L501.9985, L100.0500 #### [facility] [address] [place], [address] Bilirubin [Mass/Vol] 1.11 mg/dL Normal 0.00-1.30 [facility] Comment on above: Performed By: #### L 3300.0960, L3300.8000, L3300.8200, L501.9520, L500.4050, L501.9985, L100.0500 #### [facility] [address] [place], [address] BUN/CRE 24.0 RATIO High 10-[address] [facility] Comment on above: Performed By: #### L 3300.0960, L3300.8000, L3300.8200, L501.9520, L500.4050, L501.9985, L100.0500 #### [facility] [address] [place], [address] Calcium [Mass/Vol] 9.7 mg/dL Normal 7.6-11.0 [facility] Comment on above: Performed By: #### L 3300.0960, L3300.8000, L3300.8200, L501.9520, L500.4050, L501.9985, L100.0500 #### [facility] [address] [place], [address] Chloride [Moles/Vol] 108 mmol/L Normal 98-108 [facility] Comment on above: Performed By: #### L 3300.0960, L3300.8000, L3300.8200, L501.9520, L500.4050, L501.9985, L100.0500 #### [facility] [address] [place], [address] CO2 [Moles/Vol] 23.3 mmol/L Normal 21.0-32.[address] [facility] Comment on above: Performed By: #### L 3300.0960, L3300.8000, L3300.8200, L501.9520, L500.4050, L501.9985, L100.0500 #### [facility] [address] [place], [address] Creatinine [Mass/Vol] 1.05 mg/dL Normal 0.70-1.20 [facility] Comment on above: Performed By: #### L 3300.0960, L3300.8000, L3300.8200, L501.9520, L500.4050, L501.9985, L100.0500 #### [facility] [address] [place], [address] GAP 11 Normal 5-[address] [facility] Comment on above: Performed By: #### L 3300.0960, L3300.8000, L3300.8200, L501.9520, L500.4050, L501.9985, L100.0500 #### [facility] [address] [place], [address] GFR/1.73 sq M.predicted among non-blacks MDRD (S/P/Bld) [Vol rate/Area] 73 mL/min/{1.73_m2} Normal >[address] [facility] Comment on above: Result Comment: mL/m in/1.73m2 CKD-EPI Creatinine Equation (2020) Performed By: #### L 3300.0960, L3300.8000, L3300.8200, L501.9520, L500.4050, L501.9985, L100.0500 #### [facility] [address] [place], [address] Globulin (S) [Mass/Vol] 2.1 g/dL Low 2.2-4.[address] [facility] Comment on above: Performed By: #### L 3300.0960, L3300.8000, L3300.8200, L501.9520, L500.4050, L501.9985, L100.0500 #### [facility] [address] [place], [address] Glucose [Mass/Vol] 108 mg/dL High 70-99 [facility] Comment on above: Performed By: #### L 3300.0960, L3300.8000, L3300.8200, L501.9520, L500.4050, L501.9985, L100.0500 #### [facility] [address] [place], [address] Potassium [Moles/Vol] 4.2 mmol/L Normal 3.3-5.1 [facility] Comment on above: Performed By: #### L 3300.0960, L3300.8000, L3300.8200, L501.9520, L500.4050, L501.9985, L100.0500 #### [facility] [address] [place], [address] Sodium [Moles/Vol] 142 mmol/L Normal 133-145 [facility] Comment on above: Performed By: #### L 3300.0960, L3300.8000, L3300.8200, L501.9520, L500.4050, L501.9985, L100.0500 #### [facility] [address] [place], [address] T PROT 6.3 g/dL Normal 5.9-8.[address] [facility] Comment on above: Performed By: #### L 3300.0960, L3300.8000, L3300.8200, L501.9520, L500.4050, L501.9985, L100.0500 #### [facility] [address] [place], [address] Urea nitrogen [Mass/Vol] 25 mg/dL High 4-[address] [facility] Comment on above: Performed By: #### L 3300.0960, L3300.8000, L3300.8200, L501.9520, L500.4050, L501.9985, L100.0500 #### [facility] [address] [place], [address] Erythrocyte distribution wid th ratioOrdered By: Elvin Grant on 06-10-2025 Erythrocyte distribution width (RBC) [Ratio] 12.5 % 11.6-14.[address] [facility] Erythrocyte distribution wid th standard deviationOrdered By: Elvin Grant on 06-10-2025 Erythrocyte distribution width (RBC) [Ratio] 42.5 fl 35.1-43.[address] [facility] Glomerular filtration rate ( GFR) estimation/1.73 sq m using serum, plasma, or whole bOrdered By: Elvin Grant on 06-10-2025 GFR/1.73 sq M.predicted among non-blacks MDRD (S/P/Bld) [Vol rate/Area] 73 mL/min/{1.73_m2} >[address] [facility] Comment on above: mL/min/1.73m2 CKD-EP I Creatinine Equation (2020) Hematocrit Auto (Bld) [Volum e fraction]Ordered By: Elvin Grant on 06-10-2025 Hematocrit (Bld) [Volume fraction] 38.4 % Low 40-[address] [facility] Hemoglobin A1con 06-10-2025 HbA1c (Bld) [Mass fraction] 5.4 % Normal <=5.[address] [facility] Comment on above: Result Comment: Norm al < 5.7 % Prediabetic 5.7 - 6.4 % Diabetic >or= 6.5 % Please note range changes. Performed By: #### L 3300.0960, L3300.8000, L3300.8200, L501.9520, L500.4050, L501.9985, L100.0500 #### [facility] [address] [place] [address]. [place], [place], [id number] Hemoglobin A1c percentageOrd ered By: Elvin Grant on 06-10-2025 HbA1c (Bld) [Mass fraction] 5.4 % <5.[address] [facility] Comment on above: Normal < 5.7 % Predi abetic 5.7 - 6.4 % Diabetic >or= 6.5 % Please note range changes. Hemoglobin measurementOrdere d By: Elvin Grant on 06-10-2025 Hemoglobin (Bld) [Mass/Vol] 12.9 g/dL Low 13.0-16.[address] [facility] - Chemistry and C hemistry - challengeOrdered By: Elvin Grant on 06-10-2025 AST [Catalytic activity/Vol] 26 U/L <[address] [facility] MCV (mean corpuscular volume ) determinationOrdered By: Elvin Grant on 06-10-2025 MCV (RBC) [Entitic vol] 93.2 fL 80-[address] [facility] Mean corpuscular hemoglobin (MCH) determinationOrdered By: Elvin Grant on 06-10-2025 MCH (RBC) [Entitic mass] 31.3 pg 27.0-32.[address] [facility] Mean corpuscular hemoglobin concentration (MCHC) determinationOrdered By: Elvin Grant on 06-10-2025 MCHC (RBC) [Mass/Vol] 33.6 g/dL 32-36 [facility] Mean platelet volume determi nationOrdered By: Elvin Grant on 06-10-2025 Platelet mean volume (Bld) [Entitic vol] 11.0 fL 6.2-12.[address] [facility] Platelet countOrdered By: Ra asia Grant on 06-10-2025 Platelets (Bld) [#/Vol] 90 10*3/uL Low 150-[address] [facility] Potassium measurement (mass/ volume)Ordered By: Elvin Grant on 06-10-2025 Potassium (Unsp spec) [Mass/Vol] 4.2 mmol/L 3.3-5.[address] [facility] RBC Auto (Bld) [#/Vol]Ordere d By: Elvin Grant on 06-10-2025 RBC (Bld) [#/Vol] 4.12 10*6/uL Low 4.6-6.2 [facility] Serum creatinine measurement (mass/volume)Ordered By: Elvin Grant on 06-10-2025 Creatinine [Mass/Vol] 1.05 mg/dL 0.70-1.20 [facility] Serum globulin measurementOr dered By: Elvin Grant on 06-10-2025 Globulin (S) [Mass/Vol] 2.1 g/dL Low 2.2-4.[address] [facility] Serum glucose measurement (m ass/volume)Ordered By: Elvin Grant on 06-10-2025 Glucose [Mass/Vol] 108 mg/dL High 70-99 [facility] Serum or plasma alanine francis otransferase (ALT) measurementOrdered By: Elvin Grant on 06-10-2025 ALT [Catalytic activity/Vol] 18 U/L <[address] [facility] Serum or plasma albumin pauline urement (mass/volume)Ordered By: Elvin Grant on 06-10-2025 Albumin [Mass/Vol] 4.2 g/dL 3.4-4.8 [facility] Serum or plasma albumin/glob ulin mass ratioOrdered By: Elvin Grant on 06-10-2025 Albumin/Globulin [Mass ratio] 2.0 {ratio} 0.9-2.[address] [facility] Serum or plasma alkaline marisel sphatase measurementOrdered By: Elvin Grant on 06-10-2025 ALP [Catalytic activity/Vol] 57 U/L 40-[address] [facility] Serum or plasma calcitriol m easurement (mass/volume)Ordered By: Elvin Grant on 06-10-2025 1,25-dihydroxyvitamin D3 [Mass/Vol] 39.0 pg/mL 24.8-81.[address] [facility] Comment on above: Performed at: [facility] [place] [id number] Director: Josefa Whittaker MD, Phone: [phone] Serum or plasma calcium pauline urement (mass/volume)Ordered By: Elvin Grant on 06-10-2025 Calcium [Mass/Vol] 9.7 mg/dL 7.6-11.0 [facility] Serum or plasma thiamine dax surement (mass/volume)Ordered By: Elvin Grant on 06-10-2025 Thiamine [Mass/Vol] 140.9 nmol/L 66.5-200.0 [facility] Comment on above: Performed at: [facility] [place], [place] [id number] Director: Josefa Whittaker MD, Phone: [phone] Serum or plasma urea nitroge n measurement (mass/volume)Ordered By: Elvin Grant on 06-10-2025 Urea nitrogen [Mass/Vol] 25 mg/dL High 4-[address] [facility] Sodium levelOrdered By: Samuel Grant on 06-10-2025 Sodium [Moles/Vol] 142 mmol/L 133-145 [facility] TSH DL <= 0.005 mIU/L QnOrde red By: Elvin Grant on 06-10-2025 TSH Qn 1.060 uIU/mL 0.300-4.[address] [facility] Thyroid Stim Hormone (TSH)on 06-10-2025 TSH 1.060 uIU/mL Normal 0.300-4.[address] [facility] Comment on above: Performed By: #### L 3300.0960, L3300.8000, L3300.8200, L501.9520, L500.4050, L501.9985, L100.0500 #### [facility] [address] [place], [address] Total proteinOrdered By: Rafal Grant on 06-10-2025 Protein [Mass/Vol] 6.3 g/dL 5.9-8.4 [facility] White blood cell (WBC) count Ordered By: Elvin Grant on 06-10-2025 WBC (Bld) [#/Vol] 5.3 10*3/uL 4.4-11.0 [facility] Neurology Visit Reporton Neurology Visit Report [facility] [address] [place] [address], [address] [place] [address] OFFICE VISIT Date of Service: 06/09/25 MR#: [id number] Acct: [id number] Name: LOPEZ NAJERA Rep #: [id number] : 1945 Provider: Dr. Elvin sanchez MD Age/Sex: 79/M Location: [facility]. Status: Signed [facility] HPI Chief Complaint: Establish Care Details: History: The patient is a 79-year-old left-handed male with a past medical history of hypertension, hyperlipidemia, coronary artery disease status post CABG, status post TAVR (2022) and squamous cell skin cancer who presents for evaluation of memory loss and abnormal head MRI. In October 2024, he fell and struck his head and sustained a concussion with loss of consciousness. He remembers the process of falling and then his next recollection is walking into a family member's home possibly around 30 minutes later. 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 Since his concussion he has had gait imbalance that he attributes to disequilibrium. He denies having lightheadedness. His disequilibrium is worsened with position change. He has also had memory difficulty manifesting with poor recollection of some prior events, losing his train of thought, and forgetting conversations. He remains independent in his daily activities. Also since his concussion he has had intermittent momentary diplopia that had occurred about once per week; this resolved in April 2025. He denies having any significant memory difficulty prior to his concussion in October 2024. He denies having weakness. He has intermittent numbness and tingling in the forearm and hands that has been present since 2023. He has neck pain and low back pain. He underwent lumbar surgery at L4-5 in years past and has had a reduction of his low back pain. He has arthritic pain in the hands. He denies having weakness. He has chronic hearing loss and uses bilateral hearing aids. Since January 2025, he has experienced momentary sharp head pains at times affecting the left side of the calvarium and other times the right side of the calvarium. These episodes occur 3-4 times per week. He denies having any significant headaches prior to January 2025. He has however experienced rainbow type scintillations lasting several minutes that have occurred numerous times over the years. These were diagnosed as migraine auras without headache. A follow-up head CT with and without contrast in January 2025 revealed dural enhancement along the left cerebral hemisphere consistent with consequences of prior subdural hematoma. In addition, on my review, there appeared to be an acute/subacute component to the underlying left cerebral hemispheric convexity subdural hematoma. The subdural hematoma was not significantly changed in size compared to the patient's prior scan in October 2024. The patient denied having any head trauma prior to or before his concussion in October 2024. The patient has fatigue. His B12 level is near the low end of the normal range. Past Medical History: As above. There is no history of diabetes mellitus, cardiac arrhythmia, lung disease, stroke, seizure, thyroid disease, renal disease, or sleep apnea. Social History: He quit smoking tobacco over 40 years ago. He uses marijuana. He drinks about 1 glass of wine every 3 days. Between the ages of 26 and 36 he drank 3 glasses of wine daily. Family History: The patient's mother and maternal grandmother had dementia (the patient's grandmother was diagnosed with Alzheimer's disease). There is no family history of cerebral aneurysm, seizure, or stroke. Review of Systems: As above. The patient has not had any recent fever, rash, or urinary problems. Earlier in 2024 he had lost 20 pounds then he regained about 10 pounds. He has depression and anxiety. He denies having insomnia. He has dyspnea on exertion. He has frequent nausea, abdominal pain and decreased appetite. Physical Exam: General: Well-developed, well-nourished male in no acute distress. Neuro: The patient is awake and alert and responds appropriately; speech is fluent; language function is within normal limits; Mini-Mental status exam score is 30/30 Cranial nerves: PERRL, 3mm bilaterally; EOMI; visual herzog are full; visual acuity is 20/20 on the right and 20/30 on the left; face is symmetrical; tongue is midline Cerebellar system: No nystagmus or dysmetria Deep tendon reflexes: +2 at the triceps, absent at the biceps bilaterally, brachioradialis bilaterally, knees and ankles; plantar responses are downward bilaterally Motor: Strength 5/5 in the biceps bilaterally, abductor pollicis brevis muscles bilaterally, first dorsal interosseous muscles bilate (more content not included)... Normal [facility] Bilirubin directOrdered By: Hitesh Domínguez on 06-08-2025 Bilirubin.direct [Mass/Vol] 0.39 mg/dL High 0.00-0.[address] [facility] Bilirubin, totalOrdered By: Hitesh Domínguez on 06-08-2025 Bilirubin [Mass/Vol] 0.95 mg/dL 0.00-1.30 [facility] Calculated very low density lipoprotein (VLDL) cholesterol measurementOrdered By: Hitesh Domínguez on 06-08-2025 Calculated very low density lipoprotein (VLDL) cholesterol measurement 26 mg/dL 5-[address] [facility] Cardiology Visit Reporton Cardiology Visit Report [facility] [address] [place] [address] OFFICE VISIT Date of Service: 06/08/25 MR#: [id number] Acct: [id number] Name: LOPEZ NAJERA Jr. Rep #: [id number] : 1945 Provider: JEREMY Tenorio Age/Sex: 79/M Location: [facility] Status: Signed HPI HPI History of Present Illness Details: Lopez Najera is a 79-year-old male who presents to office today for follow-up for monitoring his cardiovascular health. He has a history of CAD status post CABG, aortic valve stenosis status post TAVR/failed TAVR, hyperlipidemia and history of heparin-induced thrombocytopenia. Patient underwent partially successful TAVR in November 2021 with a 23 mm Parsons KODAK 3 THV valve placed. It was decided to observe it and not go into repeat this procedure. Upon presentation today, patient reports doing fairly well. He experienced a fall earlier this year and experienced a TBI. He has been recovering from this. He reports he is currently not biking secondary to ongoing balance concern from his TBI. He does experience daily chest pain that he describes as a stinging sensation with associated shortness of breath that is directly associated with activity. This resolves with slowing down and rest. He reports chronic fluttering in his chest that is unchanged. Further ROS below. Intake Vital Signs 02/01/25 14:33 06/08/25 10:45 Height 5 ft 9 in 5 ft 9 in Weight: 158 lb BMI 23.3 BP 108/57 L Blood Pressure Location Lt brachial Position Sitting Respiration 18 Pulse 62 Pulse Source Monitor Pulse Oximetry (%) 98 Intake Visit Reasons: 1 Y FU Dental Scheduler Required: No Is patient in pain?: No Allergies Opioids - Morphine Analogues Allergy (Verified 06/09/25 09:55) Nausea heparin Adverse Reaction (Verified 06/09/25 09:55) Thrombocytopenia Medications ???Medication ???Instructions ???Recorded ???Confirmed ???Type aspirin 81 mg chewable tablet 81 mg PO [facility] 01/01/17 06/09/25 History tamsulosin 0.4 mg capsule 0.4 mg PO DAILY 01/05/19 06/09/25 History cholecalciferol (vitamin D3) 25 25 mcg PO DAILY 12/18/21 06/09/25 History mcg (1,000 unit) capsule omeprazole 20 mg capsule,delayed 20 mg PO DAILY 12/18/21 06/09/25 H istory release dutasteride 0.5 mg capsule 0.5 mg PO DAILY 07/10/22 06/09/25 History acetaminophen 325 mg tablet 650 mg PO QHS 06/01/24 06/09/25 Hi story oregeno oil 1 cap PO BID 06/01/24 06/09/25 His tory polysaccharide iron complex 150 mg 150 mg PO DAILY #90 caps 4 06/09/25 Rx iron capsule (Ferrex) lisinopril 40 mg tablet 40 mg PO DAILY #90 tabs 02/09/25 0 06/09/25 Rx amlodipine 2.5 mg tablet 2.5 mg PO DAILY #90 tabs 02/11/25 06/09/25 Rx rosuvastatin 40 mg tablet 40 mg PO QHS CHOLESTEROL #90 tabs 03/24/25 06/09/25 Rx Oxygen Concentrator #1 ea 05/03/25 Rx alprazolam 1 mg tablet 1 mg PO ONCE #1 TAB 06/09/2506/09 Rx multivitamin (Multiple Vitamins 1 tab PO QDAY 06/09/25 06/09/25 Hi story tablet) Have you fallen in the past year?: Yes (fell on ice) [facility] Medical History Fall Paravalvular leak (prosthetic valve) ( 01/2022) History of transcatheter aortic valve replacement (TAVR) ( 11/2021) GERD (gastroesophageal reflux disease) Former smoker Irregular heart beat Hypertension Coronary artery disease Asthma Heart attack Atherosclerosis of coronary artery bypass graft without angina pectoris Essential hypertension Hyperlipidemia Hypertension Arteriosclerosis of coronary artery bypass graft 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) stenosis 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 Left carotid bruit Premature ventricular contractions Surgical History History of back surgery History of appendectomy S/P TAVR (transcatheter aortic valve replacement) History of right and left heart catheterization (LHC) ( 09/26/21) History of left heart catheterization (LHC) ( 11/26/20) Presence of aortocoronary bypass graft ( 01/11/93) Family History Father CAD (coronary artery disease) Cancer Bone cancer Myocardial infarction FH valvular heart dx FH: CABG (coronary artery bypass surgery) Mother Alzheimer disease Sister Hypertension Other Family history of hypertension Social History housing: house pets and animals: No Smoking Status: Former smoker how long ago did patient quit smokin alcohol intake: current alcohol intake frequency: a few times a week Alcohol type: wine substance use type: does not use caffeine: Yes Type: tea what type of physical activity do you participate in: bicycling an (more content not included)... Normal [facility] LDL calc ser/plasOrdered By: Hitesh Domínguez on 06-08-2025 Cholesterol in LDL [Mass/Vol] 44 mg/dL [facility] Comment on above: Mdcxqxjnab=938-111 m g/dL & Higher Iodo=256 mg/dL or greaterFriedwald Equation for LDL-C Laboratory - Chemistry and C hemistry - challengeOrdered By: Hitesh Domínguez on 06-08-2025 AST [Catalytic activity/Vol] 28 U/L <[address] [facility] Lipid Profileon 06-08-2025 CHOL:HDL 1.[address] [facility] Comment on above: Performed By: #### L 500.4100, L500.3400 #### [facility] [address] [place], [place], [id number] Cholesterol [Mass/Vol] 143 mg/dL Normal <=[address] [facility] Comment on above: Result Comment: Chol esterol level, Desirable <200 mg/dL Borderline high cholesterol 200-239 mg/dL High cholesterol >=240 mg/dL Recommendations of the NCEP Adult Treatment Panel for the following risk-cutoff thresholds for the [place] population. Performed By: #### L 500.4100, L500.3400 #### [facility] [address] [place] [place], [address] Cholesterol in HDL [Mass/Vol] 73 mg/dL Normal [facility] Comment on above: Result Comment: Brandy onal Cholesterol Education Program (NCEP) guidelines: <40 mg/dL: Low HDL-cholesterol (major risk factor for CHD) >= 60 mg/dL: High HDL-cholesterol (negative risk factor for CHD) HDL-cholesterol is affected by a number of factors, e.g. smoking, exercise, hormones, sex and age. Performed By: #### L 500.4100, L500.3400 #### [facility] [address] [place], [address] Cholesterol in LDL [Mass/Vol] 44 mg/dL Normal [facility] Comment on above: Result Comment: Bord fohiyi=294-103 mg/dL Higher Irhy=016 mg/dL or greater Friedwald Equation for LDL-C Performed By: #### L 500.4100, L500.3400 #### [facility] [address] [place], [address] Cholesterol in VLDL [Mass/Vol] 26 mg/dL Normal 5-[address] [facility] Comment on above: Performed By: #### L 500.4100, L500.3400 #### [facility] [address] [place], [address] Triglyceride [Mass/Vol] 129 mg/dL Normal [facility] Comment on above: Result Comment: The drugs N-Acetylcysteine and Metamizole may falsely depress this assay. Normal range: <150 mg/dL Borderline High: 150-199 mg/dL High: 200-499 mg/dL Very High: >500 mg/dL Performed By: #### L 500.4100, L500.3400 #### [facility] [address] [place], [address] Liver Profileon 06-08-2025 Albumin [Mass/Vol] 4.3 g/dL Normal 3.4-4.8 [facility] Comment on above: Performed By: #### L 500.4100, L500.3400 #### [facility] [address] [place], [address] ALK PHOS 68 U/L Normal 40-[address] [facility] Comment on above: Performed By: #### L 500.4100, L500.3400 #### [facility] [address] [place], [address] ALT [Catalytic activity/Vol] 20 U/L Normal <=[address] [facility] Comment on above: Performed By: #### L 500.4100, L500.3400 #### [facility] [address] [place], [address] AST [Catalytic activity/Vol] 28 U/L Normal <=[address] [facility] Comment on above: Performed By: #### L 500.4100, L500.3400 #### [facility] [address] [place], [address] Bilirubin [Mass/Vol] 0.95 mg/dL Normal 0.00-1.30 [facility] Comment on above: Performed By: #### L 500.4100, L500.3400 #### [facility] [address] [place], [address] Bilirubin.direct [Mass/Vol] 0.39 mg/dL High 0.00-0.[address] [facility] Comment on above: Performed By: #### L 500.4100, L500.3400 #### [facility] [address] [place], [address] Globulin (S) [Mass/Vol] 2.1 g/dL Low 2.2-4.[address] [facility] Comment on above: Performed By: #### L 500.4100, L500.3400 #### [facility] [address] [place], [address] T PROT 6.4 g/dL Normal 5.9-8.4 [facility] Comment on above: Performed By: #### L 500.4100, L500.3400 #### [facility] [place], [address] Screening total cholesterol/ high density lipoprotein (HDL) cholesterol ratioOrdered By: Hitesh Domínguez on 06-08-2025 Cholesterol.total/Cho lesterol in HDL [Mass ratio] 1.95 {ratio} [facility] Serum globulin measurementOr dered By: Hitesh Domínguez on 06-08-2025 Globulin (S) [Mass/Vol] 2.1 g/dL Low 2.2-4.[address] [facility] Serum or plasma alanine francis otransferase (ALT) measurementOrdered By: Hitesh Domínguez on 06-08-2025 ALT [Catalytic activity/Vol] 20 U/L <[address] [facility] Serum or plasma albumin pauline urement (mass/volume)Ordered By: Hiteshjohn Domínguez on 06-08-2025 Albumin [Mass/Vol] 4.3 g/dL 3.4-4.8 [facility] Serum or plasma alkaline marisel sphatase measurementOrdered By: Hiteshjohn Domínguez on 06-08-2025 ALP [Catalytic activity/Vol] 68 U/L 40-[address] [facility] Serum or plasma cholesterol in HDL measurement (mass/volume)Ordered By: Hitesh Domínguez on 06-08-2025 Cholesterol in HDL [Mass/Vol] 73 mg/dL >[address] [facility] Comment on above: National Cholesterol Education Program (NCEP) guidelines:<40 mg/dL: Low HDL-cholesterol (major risk factor for CHD)>= 60 mg/dL: High HDL-cholesterol (negative risk factor for CHD)HDL-cholesterol is affected by a number of factors, e.g. smoking, exercise, hormones, sex and age. Serum or plasma cholesterol measurement (mass/volume)Ordered By: Hitesh Domínguez on 06-08-2025 Cholesterol [Mass/Vol] 143 mg/dL <[address] [facility] Comment on above: Cholesterol level, D esirable <200 mg/dLBorderline high cholesterol 200-239 mg/dLHigh cholesterol >=240 mg/dLRecommendations of the NCEP Adult Treatment Panel for the following risk-cutoff thresholds for the [place] population. Total proteinOrdered By: Gilberto Domínguez on 06-08-2025 Protein [Mass/Vol] 6.4 g/dL 5.9-8.4 [facility] Triglycerides measurementOrd ered By: Hitesh Domínguez on 06-08-2025 Triglyceride [Mass/Vol] 129 mg/dL <[address] [facility] Comment on above: The drugs N-Acetylcy steine and Metamizole may falsely depress this assay. Normal range: <150 mg/dLBorderline High: 150-199 mg/dLHigh: 200-499 mg/dLVery High: >500 mg/dL Brain/Head W/WO Contraston 0 02-22-2025 Brain/Head W/WO Contrast [facility] Imaging Services [address] [facility] [place], [place] [address] Brain/Head W/WO Contrast MR#: [id number] Acct: [id number] Name: LOPEZ NAJERAABBIE Alves Rep #: [id number] : 1945 M 79 From: Percy Brody MD PCP: Dr. Nori Louis MD Status: REG CLI Study: Brain/Head W/WO Contrast Date of Exam: 5 Exam# [id number] Ordering Dr: Nori Louis MD PROCEDURE: BRAIN/HEAD W/WO CONTRAST 02/22/2025 REASON FOR EXAM: RECENT MENTAL STATUS CHANGES TECHNIQUE: Head CT before and following intravenous contrast. Coronal and Sagittal reconstruction series were provided. One or more dose reduction techniques were used (e.g., Automated exposure control, adjustment of the mA and/or kV according to patient size, use of iterative reconstruction technique). COMPARISON: 10/2024 FINDINGS: Acute findings: Thickening and enhancement of the dura surrounding of the left parietal lobe likely related to prior subdural hematoma. Brain: Within normal limits for age Postcontrast images: No solid contrast enhancement. CSF Spaces: Mild generalized cerebral atrophy Sinuses/Mastoids: Clear at visualized levels Bones: Unremarkable. CT/Brain/Head W/WO Contrast IMPRESSION: Thickening and enhancement of the dura surrounding of the left parietal lobe measuring up to 4 mm thick likely related to prior subdural hematoma. No mass effect. 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 H pylori Breath Teston 02-03 H.Pylori Breath Negative Normal Negative [facility] Comment on above: Order Comment: Reaso n for Exam: HEARTBURN Result Comment: Perf ormed at: [facility] [address] [id number] [place] Foreman: Brian Lechuga PhD, Phone: [phone] Performed By: #### L 500.4100, L500.3400 #### [facility] [address] [place], [address] Absolute neutrophil countOrd ered By: Wade Lopez on 02-01-2025 Neutrophils (Bld) [#/Vol] 6.8 10*3/uL 2.0-7.[address] [facility] Anion gap in Serum or Plasma Ordered By: Wade Lopez on 02-01-2025 Anion gap [Moles/Vol] 11 mmol/L 5-15 [facility] BUN/creatinine ratioOrdered By: Wade Lopez on 02-01-2025 Urea nitrogen/Creatinine [Mass ratio] 24.0 mg/mg High 10-[address] [facility] Basophil percentageOrdered B y: Wade Lopez on 02-01-2025 Basophils/100 WBC (Bld) 0.4 % 0-[address] [facility] Bilirubin, totalOrdered By: Wade Lopez on 02-01-2025 Bilirubin [Mass/Vol] 1.22 mg/dL 0.00-1.30 [facility] CBC W/Diff, Automatedon 04-0 PLT EST SLT DEC Normal ADEQ [facility] Comment on above: Performed By: #### L 503.6030, L500.4050, L100.0100, L503.6550, L504.2610 ####[facility] [address] [place], [address] Calculated total iron bindin g capacityOrdered By: Wade Lopez on 02-01-2025 Total Iron Binding Capacity 317 ug/dL 250-[address] [facility] Carbon dioxide, total [Moles /volume] in Central venous bloodOrdered By: Wade Lopez on 02-01-2025 CO2 [Moles/Vol] 24.3 mmol/L 21.0-32.[address] [facility] Chloride assayOrdered By: Erika Lopez on 02-01-2025 Chloride [Moles/Vol] 108 mmol/L 98-108 [facility] Comprehensive Metabolic Prof ilon 02-01-2025 Albumin [Mass/Vol] 4.5 g/dL Normal 3.4-4.8 [facility] Comment on above: Performed By: #### L 503.6030, L500.4050, L100.0100, L503.6550, L504.2610 ####[facility] [address] [place], [address] Albumin/Globulin [Mass ratio] 1.9 {ratio} Normal 0.9-2.[address] [facility] Comment on above: Performed By: #### L 503.6030, L500.4050, L100.0100, L503.6550, L504.2610 ####[facility] [address] [place], [address] ALK PHOS 72 U/L Normal 40-[address] [facility] Comment on above: Performed By: #### L 503.6030, L500.4050, L100.0100, L503.6550, L504.2610 ####[facility] [address] [place], [address] ALT [Catalytic activity/Vol] 21 U/L Normal <=[address] [facility] Comment on above: Performed By: #### L 503.6030, L500.4050, L100.0100, L503.6550, L504.2610 ####[facility] [address] [place], [address] AST [Catalytic activity/Vol] 34 U/L Normal <=[address] [facility] Comment on above: Performed By: #### L 503.6030, L500.4050, L100.0100, L503.6550, L504.2610 ####[facility] [address] [place], [address] Bilirubin [Mass/Vol] 1.22 mg/dL Normal 0.00-1.30 [facility] Comment on above: Performed By: #### L 503.6030, L500.4050, L100.0100, L503.6550, L504.2610 ####[facility] [address] [place], [address] BUN/CRE 24.0 RATIO High 10-[address] [facility] Comment on above: Performed By: #### L 503.6030, L500.4050, L100.0100, L503.6550, L504.2610 ####[facility] [address] [place], [address] Calcium [Mass/Vol] 9.4 mg/dL Normal 7.6-11.0 [facility] Comment on above: Performed By: #### L 503.6030, L500.4050, L100.0100, L503.6550, L504.2610 ####[facility] [address] [place], [address] Chloride [Moles/Vol] 108 mmol/L Normal 98-108 [facility] Comment on above: Performed By: #### L 503.6030, L500.4050, L100.0100, L503.6550, L504.2610 ####[facility] [address] [place], [address] CO2 [Moles/Vol] 24.3 mmol/L Normal 21.0-32.[address] [facility] Comment on above: Performed By: #### L 503.6030, L500.4050, L100.0100, L503.6550, L504.2610 ####[facility] [address] [place], [address] Creatinine [Mass/Vol] 1.22 mg/dL High 0.70-1.20 [facility] Comment on above: Performed By: #### L 503.6030, L500.4050, L100.0100, L503.6550, L504.2610 ####[facility] [address] [place], [address] ECRCL 49.90 ml/min Low 50-[address] [facility] Comment on above: Performed By: #### L 503.6030, L500.4050, L100.0100, L503.6550, L504.2610 ####[facility] [address] [place], [address] GAP 11 Normal 5-[address] [facility] Comment on above: Performed By: #### L 503.6030, L500.4050, L100.0100, L503.6550, L504.2610 ####[facility] [address] [place], [address] GFR/1.73 sq M.predicted among non-blacks MDRD (S/P/Bld) [Vol rate/Area] 61 mL/min/{1.73_m2} Normal >[address] [facility] Comment on above: Result Comment: mL/m in/1.73m2 CKD-EPI Creatinine Equation (2020) Performed By: #### L 503.6030, L500.4050, L100.0100, L503.6550, L504.2610 ####[facility] [address] [place], [address] Globulin (S) [Mass/Vol] 2.3 g/dL Normal 2.2-4.[address] [facility] Comment on above: Performed By: #### L 503.6030, L500.4050, L100.0100, L503.6550, L504.2610 ####[facility] [address] [place], [address] Glucose [Mass/Vol] 103 mg/dL High 70-99 [facility] Comment on above: Performed By: #### L 503.6030, L500.4050, L100.0100, L503.6550, L504.2610 ####[facility] [address] [place], [address] Potassium [Moles/Vol] 4.1 mmol/L Normal 3.3-5.1 [facility] Comment on above: Performed By: #### L 503.6030, L500.4050, L100.0100, L503.6550, L504.2610 ####[facility] [address] [place], [address] Sodium [Moles/Vol] 143 mmol/L Normal 133-145 [facility] Comment on above: Performed By: #### L 503.6030, L500.4050, L100.0100, L503.6550, L504.2610 ####[facility] [address] [place], [address] T PROT 6.8 g/dL Normal 5.9-8.[address] [facility] Comment on above: Performed By: #### L 503.6030, L500.4050, L100.0100, L503.6550, L504.2610 ####[facility] [address] [place], [address] Urea nitrogen [Mass/Vol] 29 mg/dL High 4-[address] [facility] Comment on above: Performed By: #### L 503.6030, L500.4050, L100.0100, L503.6550, L504.2610 ####[facility] [address] [place], [address] Eosinophil percentageOrdered By: Wade Lopez on 02-01-2025 Eosinophils/100 WBC (Bld) 0.8 % 0-[address] [facility] Erythrocyte distribution wid th (RBC) [Ratio]Ordered By: [facility] on 02-01-2025 Erythrocyte distribution width (RBC) [Entitic vol] 45.9 fL High 35.1-43.[address] [facility] Erythrocyte distribution wid th ratioOrdered By: [facility] on 02-01-2025 Erythrocyte distribution width (RBC) [Ratio] 13.0 % 11.6-14.[address] [facility] Estimation of creatinine brenden aranceOrdered By: [facility] on 02-01-2025 Estimated Creatinine Clearance Calc 49.90 ml/min Low 50-[address] [facility] Ferritinon 02-01-2025 Ferritin [Mass/Vol] 43 ng/mL Normal 37-417 [facility] Comment on above: Performed By: #### L 500.4100, L500.3400 #### [facility] [address] [place] [address], [id number] GFR/1.73 sq M.predicted madelyn g non-blacks MDRD (S/P/Bld) [Vol rate/Area]Ordered By: [facility] on 02-01-2025 Estimated GFR (MDRD) Non-Af Amer 61 >[address] [facility] Comment on above: mL/min/1.73m2 CKD-EP I Creatinine Equation (2020) Hematocrit Auto (Bld) [Volum e fraction]Ordered By: [facility] on 02-01-2025 Hematocrit (Bld) [Volume fraction] 40.6 % 40-[address] [facility] Hemoglobin measurementOrdere d By: [facility] on 02-01-2025 Hemoglobin (Bld) [Mass/Vol] 13.3 g/dL 13.0-16.[address] [facility] Immature granulocytes/100 WB C Auto (Bld)Ordered By: [facility] on 02-01-2025 Immature granulocytes/100 WBC (Bld) 0.400 % 0.0-0.[address] [facility] Comment on above: IG% - Immature Granu locytes (promyelocytes, myelocytes and metamyelocytes) > 1% indicates that a LEFT SHIFT is Present. Iron (Unsp spec) [Mass/Mass] Ordered By: Wade Lopez on 02-01-2025 Iron [Mass/Vol] 99 ug/dL 65-[address] [facility] Iron saturation [Mass fracti on]Ordered By: Wade Lopez on 02-01-2025 Iron Saturation 31.0 % 9-[address] [facility] Iron+Iron Binding Capacityon 02-01-2025 Iron [Mass/Vol] 99 ug/dL Normal 65-[address] [facility] Comment on above: Performed By: #### L 503.6030, L500.4050, L100.0100, L503.6550, L504.2610 ####[facility] [address] [place], [address] IRON SATURATION 31.0 Normal 9-[address] [facility] Comment on above: Performed By: #### L 503.6030, L500.4050, L100.0100, L503.6550, L504.2610 ####[facility] [address] [place], [address] TIBC 317 ug/dL Normal 250-[address] [facility] Comment on above: Performed By: #### L 503.6030, L500.4050, L100.0100, L503.6550, L504.2610 ####[facility] [address] [place], [address] UIBC 218 ug/dL Low 228-[address] [facility] Comment on above: Performed By: #### L 503.6030, L500.4050, L100.0100, L503.6550, L504.2610 ####[facility] [address] [place], [address] LDHon 02-01-2025 LDH 459 U/L High 87-[address] [facility] Comment on above: Order Comment: 1 Performed By: #### L 500.4100, L500.3400 #### [facility] [address] [place], [address] Laboratory - Chemistry and C hemistry - challengeOrdered By: Wade Lopez on 02-01-2025 AST [Catalytic activity/Vol] 34 U/L <[address] [facility] Lactate dehydrogenase (LDH) measurementOrdered By: Wade Lopez on 02-01-2025 LDH [Catalytic activity/Vol] 459 U/L High 87-[address] [facility] Lymphocytes Auto (Unsp spec) [#/Vol]Ordered By: Wade Lopez on 02-01-2025 Lymphocytes (Bld) [#/Vol] 1.64 10*3/uL 0.83-4.[address] [facility] Lymphocytes/100 WBC Auto (Un sp spec)Ordered By: Wdae Lopez on 02-01-2025 Lymphocytes/100 WBC (Bld) 18.1 % Low 19-[address] [facility] MCV (mean corpuscular volume ) determinationOrdered By: Wade Lopez on 02-01-2025 MCV (RBC) [Entitic vol] 96.0 fL High 80-[address] [facility] Mean corpuscular hemoglobin (MCH) determinationOrdered By: Wade Lopez on 02-01-2025 MCH (RBC) [Entitic mass] 31.4 pg 27.0-32.[address] [facility] Mean corpuscular hemoglobin concentration (MCHC) determinationOrdered By: Wade Lopez on 02-01-2025 MCHC (RBC) [Mass/Vol] 32.8 g/dL 32-36 [facility] Mean platelet volume determi nationOrdered By: Wade Lopez on 02-01-2025 Platelet mean volume (Bld) [Entitic vol] 10.3 fL 6.2-12.[address] [facility] Monocyte percentageOrdered B y: Wade Lopez on 02-01-2025 Monocytes/100 WBC (Bld) 5.8 % 0-[address] [facility] Neutrophil percentageOrdered By: Wade Lopez on 02-01-2025 Neutrophils/100 WBC (Bld) 74.5 % High 47-[address] [facility] No Panel InformationOrdered By: Wade Lopez on 02-01-2025 Unsaturated Iron Binding Capacity 218 ug/dL Low 228-[address] [facility] Nucleated red blood cell per centageOrdered By: aWde Lopez on 02-01-2025 Nucleated RBC/100 WBC (Bld) [Ratio] 0 % 0-[address] [facility] Oncology Visit Reporton 04-0 Oncology Visit Report [facility] [place] [address] OFFICE VISIT Date of Service: 02/01/25 1432 MR#: [id number] Acct: [id number] Name: LOPEZ NAJERA Jr. Rep #: [id number] : 1945 From: Wade Lopez MD Age/Sex: 79/M Location[place] [facility] [place] Status: Signed HPI Subjective Date of Service 02/01/25 Chief Complaint F/u for Low Platelets/Iron deficiency/Liver disease. History of Present Illness 79-year-old man had cardiac catheterization on 09/26/2020. He went on to have TAVR procedure on 12/14/2021. He received heparin on both occasions. Platelet count on 12/13/2021 was 121, repeat on 12/14/2021 was 69. Had blood work done the next morning and PLT count was 20 so referred for further evaluation. HIPA testing done on 12/18/2021 was normal. Platelet antibody profile on 04/02/2022 was negative. Still had thrombocytopenia-70K, Bone marrow aspiration and biopsy done on 04/18/2022 showed trilineage hematopoiesis, 15% to 20% cellularity, 1+ iron stain. He was started on Oral Iron on 04/25/2022. Was found to have low Haptoglobulin/Ferritin, Liver US and elastography on 01/30/2023 showed heterogenous echogenicity of liver and moderate to severe fibrosis. He is on observation. Comes for follow up. Feels well. 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) History of transcatheter aortic valve replacement (TAVR) ( 11/2021) GERD (gastroesophageal reflux disease) Former smoker Irregular heart beat Hypertension Coronary artery disease Asthma Heart attack Atherosclerosis of coronary artery bypass graft without angina pectoris Essential hypertension Hyperlipidemia Hypertension Arteriosclerosis of coronary artery bypass graft 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) stenosis intermediate use of drug Left carotid bruit Premature ventricular contractions Surgical History History of back surgery History of appendectomy S/P TAVR (transcatheter aortic valve replacement) History of right and left heart catheterization (LHC) ( 09/26/21) History of left heart catheterization (LHC) ( 11/26/20) Presence of aortocoronary bypass graft ( 01/11/93) Family History Father CAD (coronary artery disease) Cancer Bone cancer Myocardial infarction FH valvular heart dx FH: CABG (coronary artery bypass surgery) Mother Alzheimer disease Sister Hypertension Other Family history of hypertension Social History housing: house pets and animals: No Smoking Status: Former smoker how long ago did patient quit smokin alcohol intake: current alcohol intake frequency: a few times a week Alcohol type: wine substance use type: does not use caffeine: Yes Type: tea what type of physical activity do you participate in: bicycling and weight training frequency: daily duration: 60-90 minutes/day seatbelt use: always do you feel safe at home: Yes Intake Vital Signs 12/01/24 10:18 02/01/25 14:33 Height 5 ft 9 in 5 ft 9 in Weight: 71.271 kg BMI 23.2 BP 128/65 H Blood Pressure Location Lt brachial Position Sitting Respiration 18 Pulse 61 Pulse Source Monitor Temp 98.2 F Temperature Source Temporal Artery Pulse Oximetry (%) 97 Oxygen Delivery Method room air Intake Is patient in pain?: Yes (general/back pain) Pain scale (1-10): 4 Allergies Opioids - Morphine Analogues Allergy (Verified 02/01/25 14:35) Nausea heparin Adverse Reaction (Verified 02/01/25 14:35) Thrombocytopenia Medications ???Medication ???Instructions ???Recorded ???Confirmed ???Type aspirin 81 mg chewable tablet 81 mg PO QHS [facility]ART [facility] 01/01/17 02/01/25 History tamsulosin 0.4 mg capsule 0.4 mg PO DAILY 01/05/19 02/01/25 History cholecalciferol (vitamin D3) 25 25 mcg PO DAILY 12/18/21 02/01/25 History mcg (1,000 unit) capsule omeprazole 20 mg capsule,delayed 20 mg PO DAILY 12/18/21 02/01/25 H istory release dutasteride 0.5 mg capsule 0.5 mg PO DAILY 07/10/22 02/01/25 History amlodipine 2.5 mg tablet 2.5 mg PO DAILY #90 tabs 02/24/24 02/01/25 Rx rosuvastatin 40 mg tablet 40 mg PO QHS CHOLESTEROL #90 tabs 04/14/24 02/01/25 Rx acetaminophen 325 mg tablet 650 mg PO QHS 06/01/24 02/01/25 Hi story oregeno oil 1 cap PO BID 06/01/24 02/01/25 His tory furosemide 40 mg tablet 40 mg PO DAILY PRN edema #30 tabs 06/15/24 02/01/25 Rx polysaccharide iron complex 150 mg 150 mg PO DAILY #90 caps 4 02/01/25 Rx iron capsule (Ferrex) lisinopril 40 mg tablet 40 mg PO DAILY #90 tabs 11/16/24 0 02/01/25 Rx Have you fallen in the past (more content not included)... Normal [facility] Platelet countOrdered By: Erika Lopez on 02-01-2025 Platelets (Bld) [#/Vol] 87 10*3/uL Low 150-[address] [facility] Platelets LM Ql (Bld)Ordered By: Wade Lopez on 02-01-2025 Platelet Estimate SLT DEC ADEQ [facility] Potassium (Unsp spec) [Mass/ Vol]Ordered By: Wade Lopez on 02-01-2025 Potassium [Moles/Vol] 4.1 mmol/L 3.3-5.1 [facility] RBC Auto (Bld) [#/Vol]Ordere d By: Wade Lopez on 02-01-2025 RBC (Bld) [#/Vol] 4.23 10*6/uL Low 4.6-6.2 [facility] Serum creatinine measurement (mass/volume)Ordered By: Wade Lopez on 02-01-2025 Creatinine [Mass/Vol] 1.22 mg/dL High 0.70-1.20 [facility] Serum globulin measurementOr dered By: Wade Lopez on 02-01-2025 Globulin (S) [Mass/Vol] 2.3 g/dL 2.2-4.[address] [facility] Serum glucose measurement (m ass/volume)Ordered By: Wade Lopez on 02-01-2025 Glucose [Mass/Vol] 103 mg/dL High 70-99 [facility] Serum or plasma alanine francis otransferase (ALT) measurementOrdered By: Wade Lopez on 02-01-2025 ALT [Catalytic activity/Vol] 21 U/L <[address] [facility] Serum or plasma albumin pauline urement (mass/volume)Ordered By: Wade Lopez on 02-01-2025 Albumin [Mass/Vol] 4.5 g/dL 3.4-4.8 [facility] Serum or plasma albumin/glob ulin mass ratioOrdered By: Wade Lopez on 02-01-2025 Albumin/Globulin [Mass ratio] 1.9 {ratio} 0.9-2.[address] [facility] Serum or plasma alkaline marisel sphatase measurementOrdered By: Wade Lopez on 02-01-2025 ALP [Catalytic activity/Vol] 72 U/L 40-[address] [facility] Serum or plasma calcium pauline urement (mass/volume)Ordered By: Wade Lopez on 02-01-2025 Calcium [Mass/Vol] 9.4 mg/dL 7.6-11.0 [facility] Serum or plasma ferritin dax surement (mass/volume)Ordered By: Wade Lopez on 02-01-2025 Ferritin [Mass/Vol] 43 ng/mL 37-417 [facility] Serum or plasma urea nitroge n measurement (mass/volume)Ordered By: Wade Lopez on 02-01-2025 Urea nitrogen [Mass/Vol] 29 mg/dL High 4-[address] [facility] Sodium levelOrdered By: Artemio Lopez on 02-01-2025 Sodium [Moles/Vol] 143 mmol/L 133-145 [facility] Total proteinOrdered By: Aftab Lopez on 02-01-2025 Protein [Mass/Vol] 6.8 g/dL 5.9-8.4 [facility] White blood cell (WBC) count Ordered By: Wade Lopez on 02-01-2025 WBC (Bld) [#/Vol] 9.1 10*3/uL 4.4-11.0 [facility] Absolute neutrophil countOrd ered By: Nori Louis on 01-29-2025 Neutrophils (Bld) [#/Vol] 8.1 10*3/uL High 2.0-7.[address] [facility] Anion gap in Serum or Plasma Ordered By: Nori Louis on 01-29-2025 Anion gap [Moles/Vol] 14 mmol/L 5-15 [facility] BUN/creatinine ratioOrdered By: Nori Louis on 01-29-2025 Urea nitrogen/Creatinine [Mass ratio] 21.5 mg/mg High 10-[address] [facility] Basophil percentageOrdered B y: Nori Louis on 01-29-2025 Basophils/100 WBC (Bld) 0.3 % 0-[address] [facility] Bilirubin, totalOrdered By: Nori Louis on 01-29-2025 Bilirubin [Mass/Vol] 1.17 mg/dL 0.00-1.30 [facility] CBC W/Diff, Automatedon - Absolute Lymph 1.53 X10 3/uL Normal 0.83-4.[address] [facility] Comment on above: Performed By: #### L 501.9520, L100.0100, L506.0200, L500.4050, L503.0106 ####[facility] [address] [place], [address] Absolute Neut 8.1 X10 3/uL High 2.0-7.[address] [facility] Comment on above: Performed By: #### L 501.9520, L100.0100, L506.0200, L500.4050, L503.0106 ####[facility] [address] [place], [address] Basophils/100 WBC (Bld) 0.3 % Normal 0-[address] [facility] Comment on above: Performed By: #### L 501.9520, L100.0100, L506.0200, L500.4050, L503.0106 ####[facility] [address] [place], [address] Eosinophils/100 WBC (Bld) 0.6 % Normal 0-[address] [facility] Comment on above: Performed By: #### L 501.9520, L100.0100, L506.0200, L500.4050, L503.0106 ####[facility] [address] [place], [address] Erythrocyte distribution width (RBC) [Ratio] 13.0 % Normal 11.6-14.[address] [facility] Comment on above: Performed By: #### L 501.9520, L100.0100, L506.0200, L500.4050, L503.0106 ####[facility] [address] [place], [address] Hematocrit (Bld) [Volume fraction] 42.3 % Normal 40-[address] [facility] Comment on above: Performed By: #### L 501.9520, L100.0100, L506.0200, L500.4050, L503.0106 ####[facility] [address] [place], [address] Hemoglobin (Bld) [Mass/Vol] 13.8 g/dL Normal 13.0-16.[address] [facility] Comment on above: Performed By: #### L 501.9520, L100.0100, L506.0200, L500.4050, L503.0106 ####[facility] [address] [place], [address] IG% 0.200 Normal 0.0-0.[address] [facility] [address] [facility] Comment on above: Result Comment: IG% - Immature Granulocytes (promyelocytes, myelocytes and metamyelocytes) > 1% indicates that a LEFT SHIFT is Present. Performed By: #### L 501.9520, L100.0100, L506.0200, L500.4050, L503.0106 ####[facility] [address] [place], [address] Lymphocytes/100 WBC (Bld) 14.7 % Low 19-[address] [facility] Comment on above: Performed By: #### L 501.9520, L100.0100, L506.0200, L500.4050, L503.0106 ####[facility] [address] [place], [address] MCH (RBC) [Entitic mass] 30.7 pg Normal 27.0-32.[address] [facility] Comment on above: Performed By: #### L 501.9520, L100.0100, L506.0200, L500.4050, L503.0106 ####[facility] [address] [place], [address] MCHC (RBC) [Mass/Vol] 32.6 g/dL Normal 32-36 [facility] Comment on above: Performed By: #### L 501.9520, L100.0100, L506.0200, L500.4050, L503.0106 ####[facility] [address] [place], [address] MCV (RBC) [Entitic vol] 94.2 fL High 80-[address] [facility] Comment on above: Performed By: #### L 501.9520, L100.0100, L506.0200, L500.4050, L503.0106 ####[facility] [address] [place], [address] Monocytes/100 WBC (Bld) 6.2 % Normal 0-[address] [facility] Comment on above: Performed By: #### L 501.9520, L100.0100, L506.0200, L500.4050, L503.0106 ####[facility] [address] [place], [address] Neutrophils/100 WBC (Bld) 78.0 % High 47-[address] [facility] Comment on above: Performed By: #### L 501.9520, L100.0100, L506.0200, L500.4050, L503.0106 ####[facility] [address] [place], [address] Nucleated RBC (Bld) [#/Vol] 0 10*3/uL Normal 0-[address] [facility] Comment on above: Performed By: #### L 501.9520, L100.0100, L506.0200, L500.4050, L503.0106 ####[facility] [address] [place], [address] Platelet mean volume (Bld) [Entitic vol] 11.4 fL Normal 6.2-12.[address] [facility] Comment on above: Performed By: #### L 501.9520, L100.0100, L506.0200, L500.4050, L503.0106 ####[facility] [address] [place], [address] Platelets (Bld) [#/Vol] 102 10*3/uL Low 150-[address] [facility] Comment on above: Performed By: #### L 501.9520, L100.0100, L506.0200, L500.4050, L503.0106 ####[facility] [address] [place], [address] RBC (Bld) [#/Vol] 4.49 10*6/uL Low 4.6-6.2 [facility] Comment on above: Performed By: #### L 501.9520, L100.0100, L506.0200, L500.4050, L503.0106 ####[facility] [address] [place], [address] RDW SD 44.6 fl High 35.1-43.[address] [facility] Comment on above: Performed By: #### L 501.9520, L100.0100, L506.0200, L500.4050, L503.0106 ####[facility] [address] [place], [address] WBC (Bld) [#/Vol] 10.4 10*3/uL Normal 4.4-11.0 [facility] Comment on above: Performed By: #### L 501.9520, L100.0100, L506.0200, L500.4050, L503.0106 ####[facility] [address] [place], [address] Carbon dioxide, total [Moles /volume] in Central venous bloodOrdered By: Nori Louis on 01-29-2025 CO2 [Moles/Vol] 22.2 mmol/L 21.0-32.[address] [facility] Chloride assayOrdered By: Jaimie Louis on 01-29-2025 Chloride [Moles/Vol] 107 mmol/L 98-108 [facility] Comprehensive Metabolic Prof ilon 01-29-2025 Albumin [Mass/Vol] 4.7 g/dL Normal 3.4-4.8 [facility] Comment on above: Performed By: #### L 501.9520, L100.0100, L506.0200, L500.4050, L503.0106 ####[facility] [address] [place], [address] Albumin/Globulin [Mass ratio] 1.9 {ratio} Normal 0.9-2.[address] [facility] Comment on above: Performed By: #### L 501.9520, L100.0100, L506.0200, L500.4050, L503.0106 ####[facility] [address] [place], [address] ALK PHOS 70 U/L Normal 40-[address] [facility] Comment on above: Performed By: #### L 501.9520, L100.0100, L506.0200, L500.4050, L503.0106 ####[facility] [address] [place], [address] ALT [Catalytic activity/Vol] 19 U/L Normal <=[address] [facility] Comment on above: Performed By: #### L 501.9520, L100.0100, L506.0200, L500.4050, L503.0106 ####[facility] [address] [place], [address] AST [Catalytic activity/Vol] 29 U/L Normal <=[address] [facility] Comment on above: Performed By: #### L 501.9520, L100.0100, L506.0200, L500.4050, L503.0106 ####[facility] [address] [place], [address] Bilirubin [Mass/Vol] 1.17 mg/dL Normal 0.00-1.30 [facility] Comment on above: Performed By: #### L 501.9520, L100.0100, L506.0200, L500.4050, L503.0106 ####[facility] [address] [place], [address] BUN/CRE 21.5 RATIO High 10-[address] [facility] Comment on above: Performed By: #### L 501.9520, L100.0100, L506.0200, L500.4050, L503.0106 ####[facility] [address] [place], [address] Calcium [Mass/Vol] 10.2 mg/dL Normal 7.6-11.0 [facility] Comment on above: Performed By: #### L 501.9520, L100.0100, L506.0200, L500.4050, L503.0106 ####[facility] [address] [place], [address] Chloride [Moles/Vol] 107 mmol/L Normal 98-108 [facility] Comment on above: Performed By: #### L 501.9520, L100.0100, L506.0200, L500.4050, L503.0106 ####[facility] [address] [place], [address] CO2 [Moles/Vol] 22.2 mmol/L Normal 21.0-32.[address] [facility] Comment on above: Performed By: #### L 501.9520, L100.0100, L506.0200, L500.4050, L503.0106 ####[facility] [address] [place], [address] Creatinine [Mass/Vol] 1.08 mg/dL Normal 0.70-1.20 [facility] Comment on above: Performed By: #### L 501.9520, L100.0100, L506.0200, L500.4050, L503.0106 ####[facility] [address] [place], [address] GAP 14 Normal 5-[address] [facility] Comment on above: Performed By: #### L 501.9520, L100.0100, L506.0200, L500.4050, L503.0106 ####[facility] [address] [place], [address] GFR/1.73 sq M.predicted among non-blacks MDRD (S/P/Bld) [Vol rate/Area] 70 mL/min/{1.73_m2} Normal >[address] [facility] Comment on above: Result Comment: mL/m in/1.73m2 CKD-EPI Creatinine Equation (2020) Performed By: #### L 501.9520, L100.0100, L506.0200, L500.4050, L503.0106 ####[facility] [address] [place], [address] Globulin (S) [Mass/Vol] 2.4 g/dL Normal 2.2-4.[address] [facility] Comment on above: Performed By: #### L 501.9520, L100.0100, L506.0200, L500.4050, L503.0106 ####[facility] [address] [place], [address] Glucose [Mass/Vol] 97 mg/dL Normal 70-99 [facility] Comment on above: Performed By: #### L 501.9520, L100.0100, L506.0200, L500.4050, L503.0106 ####[facility] [address] [place], [address] Potassium [Moles/Vol] 4.2 mmol/L Normal 3.3-5.1 [facility] Comment on above: Performed By: #### L 501.9520, L100.0100, L506.0200, L500.4050, L503.0106 ####[facility] [address] [place], [address] Sodium [Moles/Vol] 143 mmol/L Normal 133-145 [facility] Comment on above: Performed By: #### L 501.9520, L100.0100, L506.0200, L500.4050, L503.0106 ####[facility] [address] [place], [address] T PROT 7.2 g/dL Normal 5.9-8.[address] [facility] Comment on above: Performed By: #### L 501.9520, L100.0100, L506.0200, L500.4050, L503.0106 ####[facility] [address] [place], [address] Urea nitrogen [Mass/Vol] 23 mg/dL High 4-[address] [facility] Comment on above: Performed By: #### L 501.9520, L100.0100, L506.0200, L500.4050, L503.0106 ####[facility] [address] [place], [address] Eosinophil percentageOrdered By: Nori Louis on 01-29-2025 Eosinophils/100 WBC (Bld) 0.6 % 0-[address] [facility] Erythrocyte distribution wid th (RBC) [Ratio]Ordered By: Nori Louis on 01-29-2025 Erythrocyte distribution width (RBC) [Entitic vol] 44.6 fL High 35.1-43.[address] [facility] Erythrocyte distribution wid th ratioOrdered By: Nori Louis on 01-29-2025 Erythrocyte distribution width (RBC) [Ratio] 13.0 % 11.6-14.[address] [facility] Folate [Moles/Vol]Ordered By : Nori Louis on 01-29-2025 Serum Folate 16.30 ng/mL 4.60-34.[address] [facility] Comment on above: Hemolysis, Results w ill be affected, Requires Recollection. Folates,Serum (Folic Acid)on 01-29-2025 FOLATES,SERUM 16.30 ng/mL Normal 4.60-34.[address] [facility] Comment on above: Order Comment: N Result Comment: Hemo lysis, Results will be affected, Requires Recollection. Performed By: #### L 501.9520, L100.0100, L506.0200, L500.4050, L503.0106 ####[facility] [address] [place], [address] GFR/1.73 sq M.predicted madelyn g non-blacks MDRD (S/P/Bld) [Vol rate/Area]Ordered By: Nori Louis on 01-29-2025 Estimated GFR (MDRD) Non-Af Amer 70 >[address] [facility] Comment on above: mL/min/1.73m2 CKD-EP I Creatinine Equation (2020) Hematocrit Auto (Bld) [Volum e fraction]Ordered By: Nori Louis on 01-29-2025 Hematocrit (Bld) [Volume fraction] 42.3 % 40-[address] [facility] Hemoglobin measurementOrdere d By: Nori Louis on 01-29-2025 Hemoglobin (Bld) [Mass/Vol] 13.8 g/dL 13.0-16.[address] [facility] Immature granulocytes/100 WB C Auto (Bld)Ordered By: Nori Louis on 01-29-2025 Immature granulocytes/100 WBC (Bld) 0.200 % 0.0-0.[address] [facility] Comment on above: IG% - Immature Granu locytes (promyelocytes, myelocytes and metamyelocytes) > 1% indicates that a LEFT SHIFT is Present. Laboratory - Chemistry and C hemistry - challengeOrdered By: Nori Louis on 01-29-2025 AST [Catalytic activity/Vol] 29 U/L <[address] [facility] Lymphocytes Auto (Unsp spec) [#/Vol]Ordered By: Nori Louis on 01-29-2025 Lymphocytes (Bld) [#/Vol] 1.53 10*3/uL 0.83-4.[address] [facility] Lymphocytes/100 WBC Auto (Un sp spec)Ordered By: Nori Louis on 01-29-2025 Lymphocytes/100 WBC (Bld) 14.7 % Low 19-[address] [facility] MCV (mean corpuscular volume ) determinationOrdered By: Nori Louis on 01-29-2025 MCV (RBC) [Entitic vol] 94.2 fL High 80-[address] [facility] Mean corpuscular hemoglobin (MCH) determinationOrdered By: Nori Louis on 01-29-2025 MCH (RBC) [Entitic mass] 30.7 pg 27.0-32.[address] [facility] Mean corpuscular hemoglobin concentration (MCHC) determinationOrdered By: Nori Louis on 01-29-2025 MCHC (RBC) [Mass/Vol] 32.6 g/dL 32-36 [facility] Mean platelet volume determi nationOrdered By: Nori Louis on 01-29-2025 Platelet mean volume (Bld) [Entitic vol] 11.4 fL 6.2-12.[address] [facility] Monocyte percentageOrdered B y: Nori Louis on 01-29-2025 Monocytes/100 WBC (Bld) 6.2 % 0-[address] [facility] Neutrophil percentageOrdered By: Nori Louis on 01-29-2025 Neutrophils/100 WBC (Bld) 78.0 % High 47-[address] [facility] Nucleated red blood cell per centageOrdered By: Nori Louis on 01-29-2025 Nucleated RBC/100 WBC (Bld) [Ratio] 0 % 0-[address] [facility] Platelet countOrdered By: Jaimie Louis on 01-29-2025 Platelets (Bld) [#/Vol] 102 10*3/uL Low 150-[address] [facility] Potassium (Unsp spec) [Mass/ Vol]Ordered By: Nori Louis on 01-29-2025 Potassium [Moles/Vol] 4.2 mmol/L 3.3-5.1 [facility] RBC Auto (Bld) [#/Vol]Ordere d By: Nori Louis on 01-29-2025 RBC (Bld) [#/Vol] 4.49 10*6/uL Low 4.6-6.2 [facility] Serum creatinine measurement (mass/volume)Ordered By: Nori Louis on 01-29-2025 Creatinine [Mass/Vol] 1.08 mg/dL 0.70-1.20 [facility] Serum globulin measurementOr dered By: Nori Louis on 01-29-2025 Globulin (S) [Mass/Vol] 2.4 g/dL 2.2-4.[address] [facility] Serum glucose measurement (m ass/volume)Ordered By: Nori Louis on 01-29-2025 Glucose [Mass/Vol] 97 mg/dL 70-99 [facility] Serum or plasma alanine francis otransferase (ALT) measurementOrdered By: Nori Louis on 01-29-2025 ALT [Catalytic activity/Vol] 19 U/L <[address] [facility] Serum or plasma albumin pauline urement (mass/volume)Ordered By: Nori Louis on 01-29-2025 Albumin [Mass/Vol] 4.7 g/dL 3.4-4.8 [facility] Serum or plasma albumin/glob ulin mass ratioOrdered By: Nori Louis on 01-29-2025 Albumin/Globulin [Mass ratio] 1.9 {ratio} 0.9-2.[address] [facility] Serum or plasma alkaline marisel sphatase measurementOrdered By: Nori Louis on 01-29-2025 ALP [Catalytic activity/Vol] 70 U/L 40-[address] [facility] Serum or plasma calcium pauline urement (mass/volume)Ordered By: Nori Louis on 01-29-2025 Calcium [Mass/Vol] 10.2 mg/dL 7.6-11.0 [facility] Serum or plasma urea nitroge n measurement (mass/volume)Ordered By: Nori Louis on 01-29-2025 Urea nitrogen [Mass/Vol] 23 mg/dL High 4-[address] [facility] Sodium levelOrdered By: Nori Louis on 01-29-2025 Sodium [Moles/Vol] 143 mmol/L 133-145 [facility] TSH DL <= 0.005 mIU/L QnOrde red By: Nori Louis on 01-29-2025 Thyroid Stimulating Hormone (TSH) 1.080 uIU/mL 0.300-4.[address] [facility] Thyroid Stim Hormone (TSH)on 01-29-2025 TSH 1.080 uIU/mL Normal 0.300-4.[address] [facility] Comment on above: Performed By: #### L 501.9520, L100.0100, L506.0200, L500.4050, L503.0106 ####[facility] [address] [facility] [address] [place], [place], [id number] Total proteinOrdered By: Nori Louis on 01-29-2025 Protein [Mass/Vol] 7.2 g/dL 5.9-8.4 [facility] Vitamin B12on 01-29-2025 Cobalamin (Vitamin B12) [Mass/Vol] 238 pg/mL Normal 180-[address] [facility] Comment on above: Performed By: #### L 501.9520, L100.0100, L506.0200, L500.4050, L503.0106 ####[facility] [address] [place], [place], [id number] Vitamin B12 ser/plasOrdered By: Nori Louis on 01-29-2025 Cobalamin (Vitamin B12) [Mass/Vol] 238 pg/mL 180-[address] [facility] White blood cell (WBC) count Ordered By: Nori Heriberto on 01-29-2025 WBC (Bld) [#/Vol] 10.4 10*3/uL 4.4-11.0 [facility] Bilirubin directOrdered By: Denis Cameron on 12-01-2024 Bilirubin.direct [Mass/Vol] 0.16 mg/dL 0.00-0.[address] [facility] Bilirubin, totalOrdered By: Denis Cameron on 12-01-2024 Bilirubin [Mass/Vol] 0.80 mg/dL 0.20-1.00 [facility] Comment on above: For patients on eltr ombopag therapy, use of Dimension [place] TBIL is not recommended. Cardiology Visit Reporton Cardiology Visit Report [facility] [facility] [address] [place] [address] OFFICE VISIT Date of Service: 12/01/24 MR#: [id number] Acct: [id number] Name: LOPEZ NAJERA Jr. Rep #: [id number] : 1945 Provider: BREN rey Age/Sex: 79/M Location: [facility] Status: Signed HPI HPI History of Present Illness Details: LOPEZ NAJERA, is a 79 year old white male who presents to the office today for for a cardiovascular visit with a history of CAD, CABG, aortic valve stenosis status post TAVR/failed TAVR, hyperlipidemia, and a history of heparin-induced thrombocytopenia. He tells me that he has been doing quite well since his partially successful TAVR procedure in November 2021. He had a 23 mm Parsons KODAK 3 THV valve placed. They decided to observe it and not to go in and repeat his TAVR. He did have an echocardiogram performed in January 2022 demonstrating ejection fraction of 55 to 60% with a bioprosthetic valve with moderate mitral regurgitation as well as moderate paravalvular regurgitation. Right ventricular systolic pressure was estimated to be 35 mmHg. He states he fell on the ice and hit his head. He had A CT scan with PCP. He is stable to bike daily and denies any dizziness or chest pain or paroxysmal nocturnal dyspnea or pedal edema. He acknowledges daily chest discomfort. This is located midsternal and left arm. This is worse with activity and improves with rest. He describes this as a pressure sensation. He acknowledges palpitations described as a flutter. He acknowledges shortness of breath with activity. He denies shortness of breath at rest, orthopnea, cough, or PND. He acknowledges lightheadedness, dizziness, and near syncope that he attributes to daytime fatigue. He acknowledges fatigue that is improving. He notes taking naps. His exercise is improving upwards to 40 minutes. Intake Vital Signs 06/01/24 10:37 12/01/24 10:18 Height 5 ft 9 in 5 ft 9 in Weight: 156 lb BMI 23.0 BP 120/66 Blood Pressure Location Lt brachial Position Sitting Respiration 16 Pulse 71 Pulse Source NIBP Intake Visit Reasons: 6 M FU Dental Scheduler Required: No Is patient in pain?: No Allergies Opioids - Morphine Analogues Allergy (Verified 12/01/24 10:30) Nausea heparin Adverse Reaction (Verified 12/01/24 10:30) Thrombocytopenia Ejection fraction %: 60 Have you fallen in the past year?: Yes (bad fall that he can't remember, sustained a concu) [facility] Medical History Fall Paravalvular leak (prosthetic valve) ( 01/2022) History of transcatheter aortic valve replacement (TAVR) ( 11/2021) GERD (gastroesophageal reflux disease) Former smoker Irregular heart beat Hypertension Coronary artery disease Asthma Heart attack Atherosclerosis of coronary artery bypass graft without angina pectoris Essential hypertension Hyperlipidemia Hypertension Arteriosclerosis of coronary artery bypass graft 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) stenosis 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 Left carotid bruit Premature ventricular contractions Surgical History History of back surgery History of appendectomy S/P TAVR (transcatheter aortic valve replacement) History of right and left heart catheterization (LHC) ( 09/26/21) History of left heart catheterization (LHC) ( 11/26/20) Presence of aortocoronary bypass graft ( 01/11/93) Family History Father CAD (coronary artery disease) Cancer Bone cancer Myocardial infarction FH valvular heart dx FH: CABG (coronary artery bypass surgery) Mother Alzheimer disease Sister Hypertension Other Family history of hypertension Social History housing: house pets and animals: No Smoking Status: Former smoker how long ago did patient quit smokin alcohol intake: current alcohol intake frequency: a few times a week Alcohol type: wine substance use type: does not use caffeine: Yes Type: tea what type of physical activity do you participate in: bicycling and weight training frequency: daily duration: 60-90 minutes/day seatbelt use: always do you feel safe at home: Yes ROS Const Const: Positive for fatigue (Improved some from May); Negative for weakness Eyes Eyes: Positive for other (feels like vision is vibrating at times since concussion); Negative for change in vision ENT ENT: Negative for dizziness or balance problems Cardio Chest Pain: Yes Frequency: daily (In the mornings) Character: other (Pressure. Feels like you he has to burp but can't) Onset: other (Only with exertion) Location: mid sternal and left chest Duration: minutes Relieving: other (Slow down pace, rest) Palpitations: Ye (more content not included)... Normal [facility] High density lipoprotein (HD L) measurementOrdered By: Denis Cameron on 12-01-2024 Cholesterol in HDL [Mass/Vol] 63 mg/dL >[address] [facility] Comment on above: The drugs N-Acetylcy steine and Metamizole may falsely depress this assay. Reference Range HDL <40 mg/dL Low HDL Cholesterol HDL >or= 60 mg/dL High HDL Cholesterol Laboratory - Chemistry and C hemistry - challengeOrdered By: Denis Cameron on 12-01-2024 AST [Catalytic activity/Vol] 19 U/L 15-[address] [facility] Lipid Profileon 12-01-2024 Cholesterol [Mass/Vol] 217 mg/dL High [address] [facility] Comment on above: Result Comment: <200 mg/dL Desirable 200-240 mg/dL Borderline >240 mg/dL High Risk Performed By: #### L 500.4100, L500.3400 #### [facility] [address] [place], [address] Cholesterol in HDL [Mass/Vol] 63 mg/dL Normal [facility] Comment on above: Result Comment: The drugs N-Acetylcysteine and Metamizole may falsely depress this assay. Reference Range HDL <40 mg/dL Low HDL Cholesterol HDL >or= 60 mg/dL High HDL Cholesterol Performed By: #### L 500.4100, L500.3400 #### [facility] [address] [place], [address] Cholesterol in LDL [Mass/Vol] 140 mg/dL High 0-[address] [facility] Comment on above: Performed By: #### L 500.4100, L500.3400 #### [facility] [address] [place], [address] Cholesterol in VLDL [Mass/Vol] 14 mg/dL Normal 5-[address] [facility] Comment on above: Performed By: #### L 500.4100, L500.3400 #### [facility] [address] [place], [address] Triglyceride [Mass/Vol] 72 mg/dL Normal [facility] Comment on above: Result Comment: The drugs N-Acetylcysteine and Metamizole may falsely depress this assay. Serum Triglycerides Reference Interval Normal <150 mg/dL Borderline high 150 - 199 mg/dL High 200 - 499 mg/dL Very High > or = 500 mg/dL Performed By: #### L 500.4100, L500.3400 #### [facility] [address] [place], [address] Liver Profileon 12-01-2024 Albumin [Mass/Vol] 3.7 g/dL Normal 3.2-5.0 [facility] Comment on above: Performed By: #### L 500.4100, L500.3400 #### [facility] [address] [place], [address] ALK P 83 U/L Normal 45-[address] [facility] Comment on above: Performed By: #### L 500.4100, L500.3400 #### [facility] [address] [place], [address] ALT [Catalytic activity/Vol] 15 U/L Low 16-[address] [facility] Comment on above: Performed By: #### L 500.4100, L500.3400 #### [facility] [address] [place], [address] AST [Catalytic activity/Vol] 19 U/L Normal 15-[address] [facility] Comment on above: Performed By: #### L 500.4100, L500.3400 #### [facility] [address] [place], [address] Bilirubin [Mass/Vol] 0.80 mg/dL Normal 0.20-1.00 [facility] Comment on above: Result Comment: For patients on eltrombopag therapy, use of Dimension [place] TBIL is not recommended. Performed By: #### L 500.4100, L500.3400 #### [facility] [address] [place], [address] Bilirubin.direct [Mass/Vol] 0.16 mg/dL Normal 0.00-0.[address] [facility] Comment on above: Performed By: #### L 500.4100, L500.3400 #### [facility] [address] [place], [address] Globulin (S) [Mass/Vol] 2.9 g/dL Normal 2.2-4.2 [facility] [facility] Comment on above: Performed By: #### L 500.4100, L500.3400 #### [facility] [address] [place], [address] T PROT 6.6 g/dL Normal 6.4-8.[address] [facility] Comment on above: Performed By: #### L 500.4100, L500.3400 #### [facility] [address] [place], [address] Low density lipoprotein (LDL ) cholesterol measurementOrdered By: Denis Cameron on 12-01-2024 Cholesterol in LDL [Mass/Vol] 140 mg/dL High 0-[address] [facility] Serum globulin measurementOr dered By: Denis Cameron on 12-01-2024 Globulin (S) [Mass/Vol] 2.9 g/dL 2.2-4.[address] [facility] Serum or plasma alanine francis otransferase (ALT) measurementOrdered By: Denis Cameron on 12-01-2024 ALT [Catalytic activity/Vol] 15 U/L Low 16-[address] [facility] Serum or plasma albumin pauline urement (mass/volume)Ordered By: Denis Cameron on 12-01-2024 Albumin [Mass/Vol] 3.7 g/dL 3.2-5.0 [facility] Serum or plasma alkaline marisel sphatase measurementOrdered By: Denis Cameron on 12-01-2024 ALP [Catalytic activity/Vol] 83 U/L 45-[address] [facility] Serum or plasma cholesterol measurement (mass/volume)Ordered By: Denis Cameron on 12-01-2024 Cholesterol [Mass/Vol] 217 mg/dL High <[address] [facility] Comment on above: <200 mg/dL Desirable 200-240 mg/dL Borderline >240 mg/dL High Risk Total proteinOrdered By: Sam Cameron on 12-01-2024 Protein [Mass/Vol] 6.6 g/dL 6.4-8.2 [facility] Triglycerides measurementOrd ered By: Denis Cameron on 12-01-2024 Triglyceride [Mass/Vol] 72 mg/dL <[address] [facility] Comment on above: The drugs N-Acetylcy steine and Metamizole may falsely depress this assay.Serum Triglycerides Reference Interval Normal <150 mg/dL Borderline high 150 - 199 mg/dL High 200 - 499 mg/dL Very High > or = 500 mg/dL Very low density lipoprotein (VLDL) cholesterol measurementOrdered By: Denis Cameron on 12-01-2024 VLDL Cholesterol 14 mg/dL 5-[address] [facility] Brain/Head without Contrasto n 11-16-2024 Brain/Head without Contrast [facility] Imaging Services [address] [place] [address] Brain/Head without Contrast MR#: [id number] Acct: [id number] Name: LOPEZ NAJERA Jr. Rep #: [id number] : 1945 M 79 From: Giovany mixon MD PCP: Dr. Nori Louis MD Status: REG [facility] Study: Brain/Head without Contrast Date of Exam: 10/29 Exam# [id number] Ordering Dr: Nori Louis MD [id number] STUDY: CT BRAIN WITHOUT CONTRAST REASON FOR EXAM: Male, 79 years old. STAT, fall, LOC, amnesia RADIATION DOSAGE (If Supplied By Facility): CTDIvol = ( 44.99 ) mGy, DLP = ( 863.60 ) mGycm TECHNIQUE: Transaxial CT imaging of the brain was performed without administration of intravenous contrast material. Individualized dose optimization techniques were used for this CT. COMPARISON: No relevant priors. FINDINGS: Normal soft tissue structures. Normal calvarium. There is mild cerebral atrophy with widening of the extra-axial spaces and ventricular dilatation. 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 Normal basal ganglia and thalami. Normal brainstem. There is mild cerebellar atrophy. There is no intracranial hemorrhage. There are no findings of an acute ischemic infarction. Normal visualized paranasal sinuses. CT/Brain/Head without Contrast IMPRESSION: Chronic involutional changes of the brain. Prominent CSF space overlying the left cerebral hemisphere as described suggestive of chronic subdural hematoma. No midline shift is seen. Electronically Signed: Giovany Jorge MD at 12:37 EST , CC: Dr. 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 PSA,Total- Diagnosticon 10-3 PSA, DIAGNOSTIC 2.05 ng/mL Normal 0.0-4.[address] [facility] Comment on above: Result Comment: This test was performed using the TPSA assay method for the [employer] ([employer]) chemistry system. Values obtained with different assay methods cannot be used interchangably. When changing PSA assays in the course of monitoring a patient, additional sequential testing should be carried out to confirm baseline values. Performed By: #### L 501.9940 ####[facility] [id number] [place], [address] Absolute lymphocyte countOrd ered By: Wade Lopez on 01-27-2024 Lymphocytes Auto (Unsp spec) [#/Vol] 1.48 10*3/uL 0.83-4.[address] [facility] Automated lymphocyte count a s percentage of total leukocytesOrdered By: Wade Lopez on 01-27-2024 Lymphocytes/100 WBC Auto (Unsp spec) 32.0 % 19-[address] [facility] Basophil percentageOrdered B y: Denis Cameron on 01-27-2024 Cholesterol [Mass/Vol] 150 mg/dL <[address] [facility] Comment on above: <200 mg/dL Desirable 200-240 mg/dL Borderline >240 mg/dL High Risk Triglyceride [Mass/Vol] 49 mg/dL <[address] [facility] Comment on above: The drugs N-Acetylcy steine and Metamizole may falsely depress this assay.Serum Triglycerides Reference Interval Normal <150 mg/dL Borderline high 150 - 199 mg/dL High 200 - 499 mg/dL Very High > or = 500 mg/dL Basophil percentageOrdered B y: Wade Lopez on 01-27-2024 Basophils/100 WBC (Bld) 0.6 % 0-[address] [facility] Bilirubin [Mass/Vol] 1.00 mg/dL 0.20-1.00 [facility] Comment on above: For patients on eltr ombopag therapy, use of Dimension [place] TBIL is not recommended. Chloride [Moles/Vol] 111 mmol/L 98-107 [facility] Eosinophils/100 WBC (Bld) 3.0 % 0-[address] [facility] Glucose [Mass/Vol] 103 mg/dL 74-106 [facility] Comment on above: Fasting Glucose resu lt from 100 to 125 mg/dL suggests IMPAIRED HOMEOSTASIS per A.D.A. criteria. Hemoglobin (Bld) [Mass/Vol] 12.9 g/dL 13.0-16.[address] [facility] LDH [Catalytic activity/Vol] 441 U/L 87-[address] [facility] Monocytes/100 WBC (Bld) 8.4 % 0-[address] [facility] Neutrophils (Bld) [#/Vol] 2.6 10*3/uL 2.0-7.[address] [facility] Neutrophils/100 WBC (Bld) 55.8 % 47-[address] [facility] Potassium [Moles/Vol] 4.2 mmol/L 3.5-5.1 [facility] Protein [Mass/Vol] 7.0 g/dL 6.4-8.2 [facility] Sodium [Moles/Vol] 142 mmol/L 136-145 [facility] WBC (Bld) [#/Vol] 4.6 10*3/uL 4.4-11.0 [facility] Determination of erythrocyte mean corpuscular volume (MCV)Ordered By: Wade Lopez on 01-27-2024 MCV (RBC) [Entitic vol] 95.8 fL 80-[address] [facility] Erythrocyte distribution wid th ratioOrdered By: Wade Lopez on 01-27-2024 Erythrocyte distribution width (RBC) [Ratio] 13.3 % 11.6-14.[address] [facility] Erythrocyte distribution wid th standard deviationOrdered By: Wade Lopez on 01-27-2024 Erythrocyte distribution width (RBC) [Entitic vol] 47.0 fL 35.1-43.[address] [facility] Hematocrit Auto (Bld) [Volum e fraction]Ordered By: Wade Lopez on 01-27-2024 Hematocrit (Bld) [Volume fraction] 39.2 % 40-[address] [facility] Immature granulocytes/100 WB C Auto (Bld)Ordered By: Wade Lopez on 01-27-2024 Immature granulocytes/100 WBC (Bld) 0.200 % 0.0-0.[address] [facility] Comment on above: IG% - Immature Granu locytes (promyelocytes, myelocytes and metamyelocytes) > 1% indicates that a LEFT SHIFT is Present. Iron measurement (mass/mass) Ordered By: Wade Lopez on 01-27-2024 Iron (Unsp spec) [Mass/Mass] 82 ug/dL 65-[address] [facility] - Chemistry and C hemistry - challengeOrdered By: Denis Cameron on 01-27-2024 Cholesterol in HDL [Mass/Vol] 73 mg/dL >[address] [facility] Comment on above: The drugs N-Acetylcy steine and Metamizole may falsely depress this assay. Reference Range HDL <40 mg/dL Low HDL Cholesterol HDL >or= 60 mg/dL High HDL Cholesterol Cholesterol in LDL [Mass/Vol] 67 mg/dL 0-[address] [facility] - Chemistry and C hemistry - challengeOrdered By: Wade Lopez on 01-27-2024 Albumin/Globulin [Mass ratio] 1.3 {ratio} 0.9-2.[address] [facility] ALP [Catalytic activity/Vol] 67 U/L 45-[address] [facility] ALT [Catalytic activity/Vol] 25 U/L 16-[address] [facility] CO2 [Moles/Vol] 26.0 mmol/L 21.0-32.[address] [facility] Cobalamin (Vitamin B12) [Mass/Vol] 273 pg/mL 211-[address] [facility] Ferritin [Mass/Vol] 28 ng/mL 26-388 [facility] Globulin (S) [Mass/Vol] 3.0 g/dL 2.2-4.[address] [facility] Urea nitrogen/Creatinine [Mass ratio] 19.9 mg/mg 10-[address] [facility] - Hematology and Cell countsOrdered By: Wade Lopez on 01-27-2024 MCH (RBC) [Entitic mass] 31.5 pg 27.0-32.[address] [facility] MCHC (RBC) [Mass/Vol] 32.9 g/dL 32-36 [facility] Nucleated RBC/100 WBC (Bld) [Ratio] 0 % 0-[address] [facility] Platelet mean volume (Bld) [Entitic vol] 10.3 fL 6.2-12.[address] [facility] Platelets (Bld) [#/Vol] 110 10*3/uL 150-[address] [facility] No Panel InformationOrdered By: Denis Cameron on 01-27-2024 VLDL Cholesterol 10 mg/dL 5-[address] [facility] No Panel InformationOrdered By: Wade Lopez on 01-27-2024 Estimated GFR (MDRD) Amer 98 mL/min >[address] [facility] Comment on above: GFR Calc Estimated GFR (MDRD) Non-Af Amer 81 mL/min >[address] [facility] Comment on above: Non- GFR Calc Folate 16.70 ng/mL 3.1-55.[address] [facility] Total Iron Binding Capacity 343 ug/dL 250-[address] [facility] RBC Auto (Bld) [#/Vol]Ordere d By: Wade Lopez on 01-27-2024 RBC (Bld) [#/Vol] 4.09 10*6/uL 4.6-6.2 [facility] Serum or plasma calcium pauline urement (mass/volume)Ordered By: Wade Lopez on 01-27-2024 Calcium [Mass/Vol] 9.3 mg/dL 8.5-10.1 [facility] Serum or plasma creatinine m easurement (mass/volume)Ordered By: Wade Lopez on 01-27-2024 Creatinine [Mass/Vol] 0.95 mg/dL 0.70-1.30 [facility] Comment on above: The validity of the calculated GFR & GFRAA in patients over 70 years has not been determined. Clinical correlation is essential. Serum or plasma iron saturat ion measurement (mass fraction)Ordered By: Wade Lopez on 01-27-2024 Iron saturation [Mass fraction] 23.9 % 15.0-55.[address] [facility] Serum or plasma thyroid stim ulating hormone (TSH) measurement (units/volume)Ordered By: Devi Ramos on 01-27-2024 TSH Qn 0.84 uIU/mL 0.358-3.[address] [facility] Serum or plasma urea nitroge n measurement (mass/volume)Ordered By: Wade Lopez on 01-27-2024 Urea nitrogen [Mass/Vol] 19 mg/dL 7-[address] [facility] Thin prep Papanicolaou smear with manual screeningOrdered By: Wade Lopez on 01-27-2024 Thin prep Papanicolaou smear with manual screening 4.0 g/dL 3.2-5.[address] [facility] Thin prep Papanicolaou smear with manual screening 33 U/L 15-[address] [facility] Thin prep Papanicolaou smear with manual screening 5 5-[address] [facility] Absolute lymphocyte countOrd ered By: Wade Lopez on 08-06-2023 Lymphocytes Auto (Unsp spec) [#/Vol] 1.12 10*3/uL 0.83-4.[address] [facility] Basophil percentageOrdered B y: Wade Lopez on 08-06-2023 Basophils/100 WBC (Bld) 0.4 % 0-[address] [facility] Bilirubin [Mass/Vol] 0.90 mg/dL 0.20-1.00 [facility] Comment on above: For patients on eltr ombopag therapy, use of Dimension [place] TBIL is not recommended. Chloride [Moles/Vol] 111 mmol/L 98-107 [facility] Eosinophils/100 WBC (Bld) 2.8 % 0-[address] [facility] Glucose [Mass/Vol] 106 mg/dL 74-106 [facility] Comment on above: Fasting Glucose resu lt from 100 to 125 mg/dL suggests IMPAIRED HOMEOSTASIS per A.D.A. criteria. LDH [Catalytic activity/Vol] 571 U/L 87-[address] [facility] Neutrophils (Bld) [#/Vol] 5.1 10*3/uL 2.0-7.[address] [facility] Neutrophils/100 WBC (Bld) 73.3 % 47-[address] [facility] Potassium [Moles/Vol] 4.1 mmol/L 3.5-5.1 [facility] Protein [Mass/Vol] 7.2 g/dL 6.4-8.2 [facility] Sodium [Moles/Vol] 145 mmol/L 136-145 [facility] WBC (Bld) [#/Vol] 7.0 10*3/uL 4.4-11.0 [facility] Basophil percentageOrdered B y: Denis Cameron on 08-06-2023 Cholesterol [Mass/Vol] 150 mg/dL <[address] [facility] Comment on above: <200 mg/dL Desirable 200-240 mg/dL Borderline >240 mg/dL High Risk Triglyceride [Mass/Vol] 88 mg/dL <[address] [facility] Comment on above: The drugs N-Acetylcy steine and Metamizole may falsely depress this assay.Serum Triglycerides Reference Interval Normal <150 mg/dL Borderline high 150 - 199 mg/dL High 200 - 499 mg/dL Very High > or = 500 mg/dL Blood erythrocytes count (nu mber/volume)Ordered By: Wade Lopez on 08-06-2023 RBC (Bld) [#/Vol] 3.95 10*6/uL 4.6-6.2 [facility] Blood hemoglobin measurement (mass/volume)Ordered By: Wade Lopez on 08-06-2023 Hemoglobin (Bld) [Mass/Vol] 12.5 g/dL 13.0-16.[address] [facility] Blood lymphocytes/100 leukoc ytesOrdered By: Wade Lopez on 08-06-2023 Lymphocytes/100 WBC (Bld) 15.9 % 19-[address] [facility] Blood monocytes/100 leukocyt esOrdered By: Wade Lopez on 08-06-2023 Monocytes/100 WBC (Bld) 7.5 % 0-[address] [facility] Blood platelet mean volumeOr dered By: Wade Lopez on 08-06-2023 Platelet mean volume (Bld) [Entitic vol] 10.6 fL 6.2-12.[address] [facility] Determination of erythrocyte mean corpuscular volume (MCV)Ordered By: Wade Lopez on 08-06-2023 MCV (RBC) [Entitic vol] 98.2 fL 80-[address] [facility] Direct bilirubinOrdered By: Denis Cameron on 08-06-2023 Bilirubin.direct [Mass/Vol] 0.22 mg/dL 0.00-0.[address] [facility] Hematocrit Auto (Bld) [Volum e fraction]Ordered By: Wade Lopez on 08-06-2023 Hematocrit (Bld) [Volume fraction] 38.8 % 40-[address] [facility] - Chemistry and C hemistry - challengeOrdered By: Wade Lopez on 08-06-2023 ALP [Catalytic activity/Vol] 75 U/L 45-[address] [facility] ALT [Catalytic activity/Vol] 24 U/L 16-[address] [facility] Amylase [Catalytic activity/Vol] 23 U/L 15-[address] [facility] CO2 [Moles/Vol] 30.0 mmol/L 21.0-32.[address] [facility] Globulin (S) [Mass/Vol] 3.3 g/dL 2.2-4.[address] [facility] Urea nitrogen/Creatinine [Mass ratio] 22.5 mg/mg 10-[address] [facility] - Hematology and Cell countsOrdered By: Wade Lopez on 08-06-2023 Erythrocyte distribution width (RBC) [Entitic vol] 47.5 fL 35.1-43.[address] [facility] Erythrocyte distribution width (RBC) [Ratio] 13.2 % 11.6-14.[address] [facility] Immature granulocytes/100 WBC (Bld) 0.100 % 0.0-0.[address] [facility] Comment on above: IG% - Immature Granu locytes (promyelocytes, myelocytes and metamyelocytes) > 1% indicates that a LEFT SHIFT is Present. MCH (RBC) [Entitic mass] 31.6 pg 27.0-32.[address] [facility] Nucleated RBC/100 WBC (Bld) [Ratio] 0 % 0-[address] [facility] MCHC Auto (RBC) [Mass/Vol]Or dered By: Wade Lopez on 08-06-2023 MCHC (RBC) [Mass/Vol] 32.2 g/dL 32-36 [facility] No Panel InformationOrdered By: Wade Lopez on 08-06-2023 Estimated GFR (MDRD) Amer 96 mL/min >[address] [facility] Comment on above: GFR Calc Estimated GFR (MDRD) Non-Af Amer 79 mL/min >[address] [facility] Comment on above: Non- GFR Calc Platelets bldOrdered By: Aftab Lopez on 08-06-2023 Platelets (Bld) [#/Vol] 115 10*3/uL 150-[address] [facility] Serum or plasma albumin pauline urement (mass/volume)Ordered By: Wade Lopez on 08-06-2023 Albumin [Mass/Vol] 3.9 g/dL 3.2-5.0 [facility] Serum or plasma albumin/glob ulin mass ratioOrdered By: Wade Lopez on 08-06-2023 Albumin/Globulin [Mass ratio] 1.2 {ratio} 0.9-2.[address] [facility] Serum or plasma calcium pauline urement (mass/volume)Ordered By: Wade Lopez on 08-06-2023 Calcium [Mass/Vol] 9.3 mg/dL 8.5-10.1 [facility] Serum or plasma cholesterol in HDL measurement (mass/volume)Ordered By: Denis Cameron on 08-06-2023 Cholesterol in HDL [Mass/Vol] 67 mg/dL >[address] [facility] Comment on above: The drugs N-Acetylcy steine and Metamizole may falsely depress this assay. Reference Range HDL <40 mg/dL Low HDL Cholesterol HDL >or= 60 mg/dL High HDL Cholesterol Serum or plasma cholesterol in VLDL measurement (mass/volume)Ordered By: Denis Cameron on 08-06-2023 Cholesterol in VLDL [Mass/Vol] 18 mg/dL 5-[address] [facility] Serum or plasma creatinine m easurement (mass/volume)Ordered By: Wade Lopez on 08-06-2023 Creatinine [Mass/Vol] 0.98 mg/dL 0.70-1.30 [facility] Comment on above: The validity of the calculated GFR & GFRAA in patients over 70 years has not been determined. Clinical correlation is essential. Serum or plasma low density lipoprotein (LDL) cholesterol measurement (mass/volume)Ordered By: Denis Cameron on 08-06-2023 Cholesterol in LDL [Mass/Vol] 65 mg/dL 0-[address] [facility] Serum or plasma urea nitroge n measurement (mass/volume)Ordered By: Wade Lopez on 08-06-2023 Urea nitrogen [Mass/Vol] 22 mg/dL 7-[address] [facility] Thin prep Papanicolaou smear with manual screeningOrdered By: Wade Lopez on 08-06-2023 Thin prep Papanicolaou smear with manual screening 25 U/L 15-[address] [facility] Thin prep Papanicolaou smear with manual screening 4 5-[address] [facility] Absolute lymphocyte countOrd ered By: Dr. Lopez on 01-08-2023 Lymphocytes Auto (Unsp spec) [#/Vol] 1.20 10*3/uL 0.83-4.[address] [facility] Basophil percentageOrdered B y: Denis Cameron on 01-08-2023 Cholesterol [Mass/Vol] 130 mg/dL <[address] [facility] Comment on above: <200 mg/dL Desirable 200-240 mg/dL Borderline >240 mg/dL High Risk Triglyceride [Mass/Vol] 76 mg/dL <[address] [facility] Comment on above: The drugs N-Acetylcy steine and Metamizole may falsely depress this assay.Serum Triglycerides Reference Interval Normal <150 mg/dL Borderline high 150 - 199 mg/dL High 200 - 499 mg/dL Very High > or = 500 mg/dL Basophil percentageOrdered B y: Dr. Lopez on 01-08-2023 Basophils/100 WBC (Bld) 0.8 % 0-[address] [facility] Bilirubin [Mass/Vol] 1.10 mg/dL 0.20-1.00 [facility] Comment on above: For patients on eltr ombopag therapy, use of Dimension [place] TBIL is not recommended. Chloride [Moles/Vol] 113 mmol/L 98-107 [facility] Eosinophils/100 WBC (Bld) 3.5 % 0-[address] [facility] Glucose [Mass/Vol] 102 mg/dL 74-106 [facility] Comment on above: Fasting Glucose resu lt from 100 to 125 mg/dL suggests IMPAIRED HOMEOSTASIS per A.D.A. criteria. LDH [Catalytic activity/Vol] 345 U/L 87-[address] [facility] Neutrophils (Bld) [#/Vol] 3.4 10*3/uL 2.0-7.[address] [facility] Neutrophils/100 WBC (Bld) 64.9 % 47-[address] [facility] Potassium [Moles/Vol] 4.0 mmol/L 3.5-5.1 [facility] Protein [Mass/Vol] 6.6 g/dL 6.4-8.2 [facility] Sodium [Moles/Vol] 146 mmol/L 136-145 [facility] WBC (Bld) [#/Vol] 5.2 10*3/uL 4.4-11.0 [facility] Blood erythrocytes count (nu mber/volume)Ordered By: Dr. Lopez on 01-08-2023 RBC (Bld) [#/Vol] 4.31 10*6/uL 4.6-6.2 [facility] Blood hemoglobin measurement (mass/volume)Ordered By: Dr. Lopez on 01-08-2023 Hemoglobin (Bld) [Mass/Vol] 12.9 g/dL 13.0-16.[address] [facility] Blood lymphocytes/100 leukoc ytesOrdered By: Dr. Lopez on 01-08-2023 Lymphocytes/100 WBC (Bld) 23.1 % 19-[address] [facility] Blood monocytes/100 leukocyt esOrdered By: Dr. Lopez on 01-08-2023 Monocytes/100 WBC (Bld) 7.5 % 0-[address] [facility] Blood platelet mean volumeOr dered By: Dr. Lopez on 01-08-2023 Platelet mean volume (Bld) [Entitic vol] 11.4 fL 6.2-12.[address] [facility] Determination of erythrocyte mean corpuscular volume (MCV)Ordered By: Dr. Lopez on 01-08-2023 MCV (RBC) [Entitic vol] 95.1 fL 80-[address] [facility] Direct bilirubinOrdered By: Dr. Lopez on 01-08-2023 Bilirubin.direct [Mass/Vol] 0.26 mg/dL 0.00-0.[address] [facility] Hematocrit Auto (Bld) [Volum e fraction]Ordered By: Dr. Lopez on 01-08-2023 Hematocrit (Bld) [Volume fraction] 41.0 % 40-[address] [facility] Iron measurement (mass/mass) Ordered By: Dr. Lopez on 01-08-2023 Iron (Unsp spec) [Mass/Mass] 65 ug/dL 65-[address] [facility] - Chemistry and C hemistry - challengeOrdered By: Dr. Lopez on 01-08-2023 ALP [Catalytic activity/Vol] 59 U/L 45-[address] [facility] ALT [Catalytic activity/Vol] 23 U/L 16-[address] [facility] CO2 [Moles/Vol] 25.0 mmol/L 21.0-32.[address] [facility] Cobalamin (Vitamin B12) [Mass/Vol] 376 pg/mL 211-[address] [facility] Globulin (S) [Mass/Vol] 2.8 g/dL 2.2-4.[address] [facility] Urea nitrogen/Creatinine [Mass ratio] 23.0 mg/mg 10-[address] [facility] - Hematology and Cell countsOrdered By: Dr. Lopez on 01-08-2023 Erythrocyte distribution width (RBC) [Entitic vol] 45.9 fL 35.1-43.[address] [facility] Erythrocyte distribution width (RBC) [Ratio] 13.1 % 11.6-14.[address] [facility] Immature granulocytes/100 WBC (Bld) 0.200 % 0.0-0.[address] [facility] Comment on above: IG% - Immature Granu locytes (promyelocytes, myelocytes and metamyelocytes) > 1% indicates that a LEFT SHIFT is Present. MCH (RBC) [Entitic mass] 29.9 pg 27.0-32.[address] [facility] Nucleated RBC/100 WBC (Bld) [Ratio] 0 % 0-[address] [facility] MCHC Auto (RBC) [Mass/Vol]Or dered By: Dr. Lopez on 01-08-2023 MCHC (RBC) [Mass/Vol] 31.5 g/dL 32-36 [facility] No Panel InformationOrdered By: Dr. Lopez on 01-08-2023 Estimated GFR (MDRD) Amer 98 mL/min >[address] [facility] Comment on above: GFR Calc Estimated GFR (MDRD) Non-Af Amer 81 mL/min >[address] [facility] Comment on above: Non- GFR Calc Haptoglobin < 10 mg/dL 34-[address] [facility] Comment on above: Performed at: [address] Director: Brian Lechuga PhD, Phone: [phone] Total Iron Binding Capacity 351 ug/dL 250-[address] [facility] Platelets bldOrdered By: Dr. Lopez on 01-08-2023 Platelets (Bld) [#/Vol] 65 10*3/uL 150-[address] [facility] Serum or plasma albumin pauline urement (mass/volume)Ordered By: Dr. Lopez on 01-08-2023 Albumin [Mass/Vol] 3.8 g/dL 3.2-5.0 [facility] Serum or plasma albumin/glob ulin mass ratioOrdered By: Dr. Lopez on 01-08-2023 Albumin/Globulin [Mass ratio] 1.4 {ratio} 0.9-2.[address] [facility] Serum or plasma calcium pauline urement (mass/volume)Ordered By: Dr. Lopez on 01-08-2023 Calcium [Mass/Vol] 9.0 mg/dL 8.5-10.1 [facility] Serum or plasma cholesterol in HDL measurement (mass/volume)Ordered By: Denis Cameron on 01-08-2023 Cholesterol in HDL [Mass/Vol] 58 mg/dL >[address] [facility] Comment on above: The drugs N-Acetylcy steine and Metamizole may falsely depress this assay. Reference Range HDL <40 mg/dL Low HDL Cholesterol HDL >or= 60 mg/dL High HDL Cholesterol Serum or plasma cholesterol in VLDL measurement (mass/volume)Ordered By: Denis Cameron on 01-08-2023 Cholesterol in VLDL [Mass/Vol] 15 mg/dL 5-[address] [facility] Serum or plasma creatinine m easurement (mass/volume)Ordered By: Dr. Lopez on 01-08-2023 Creatinine [Mass/Vol] 0.96 mg/dL 0.70-1.30 [facility] Comment on above: The validity of the calculated GFR & GFRAA in patients over 70 years has not been determined. Clinical correlation is essential. Serum or plasma ferritin dax surement (mass/volume)Ordered By: Dr. Lopez on 01-08-2023 Ferritin [Mass/Vol] 10 ng/mL 26-388 [facility] Serum or plasma folate measu rement (mass/volume)Ordered By: Dr. Lopez on 01-08-2023 Folate [Mass/Vol] 13.10 ng/mL 3.1-55.4 [facility] Serum or plasma iron saturat ion measurement (mass fraction)Ordered By: Dr. Lopez on 01-08-2023 Iron saturation [Mass fraction] 18.5 % 15.0-55.[address] [facility] Serum or plasma low density lipoprotein (LDL) cholesterol measurement (mass/volume)Ordered By: Denis Cameron on 01-08-2023 Cholesterol in LDL [Mass/Vol] 57 mg/dL 0-[address] [facility] Serum or plasma urea nitroge n measurement (mass/volume)Ordered By: Dr. Lopez on 01-08-2023 Urea nitrogen [Mass/Vol] 22 mg/dL 7-[address] [facility] Thin prep Papanicolaou smear with manual screeningOrdered By: Dr. Lopez on 01-08-2023 Thin prep Papanicolaou smear with manual screening 22 U/L 15-[address] [facility] Thin prep Papanicolaou smear with manual screening 8 5-[address] [facility] Absolute lymphocyte counton 07-17-2022 Lymphocytes Auto (Unsp spec) [#/Vol] 1.21 10*3/uL 0.83-4.[address] [facility] Work Phone: Basophil percentageon 2021 Cholesterol [Mass/Vol] 145 mg/dL <[address] [facility] Work Phone: Comment on above: <200 mg/dL Desirable 200-240 mg/dL Borderline >240 mg/dL High Risk Triglyceride [Mass/Vol] 108 mg/dL <[address] [facility] Work Phone: Comment on above: The drugs N-Acetylcy steine and Metamizole may falsely depress this assay.Serum Triglycerides Reference Interval Normal <150 mg/dL Borderline high 150 - 199 mg/dL High 200 - 499 mg/dL Very High > or = 500 mg/dL Basophils/100 WBC (Bld) 0.8 % 0-[address] [facility] Work Phone: Bilirubin [Mass/Vol] 1.10 mg/dL 0.20-1.00 [facility] Work Phone: Comment on above: For patients on eltr ombopag therapy, use of Dimension [place] TBIL is not recommended. Chloride [Moles/Vol] 112 mmol/L 98-107 [facility] Work Phone: Eosinophils/100 WBC (Bld) 4.9 % 0-[address] [facility] Work Phone: Glucose [Mass/Vol] 110 mg/dL 74-106 [facility] Work Phone: Comment on above: Fasting Glucose resu lt from 100 to 125 mg/dL suggests IMPAIRED HOMEOSTASIS per A.D.A. criteria. Neutrophils (Bld) [#/Vol] 2.0 10*3/uL 2.0-7.[address] [facility] Work Phone: [phone] Neutrophils/100 WBC (Bld) 53.3 % 47-[address] [facility] Work Phone: [phone] Potassium [Moles/Vol] 4.0 mmol/L 3.5-5.1 [facility] Work Phone: [phone] Protein [Mass/Vol] 6.4 g/dL 6.4-8.2 [facility] Work Phone: [phone] Sodium [Moles/Vol] 144 mmol/L 136-145 [facility] Work Phone: [phone] WBC (Bld) [#/Vol] 3.7 10*3/uL 4.4-11.0 [facility] Work Phone: Blood erythrocytes count (nu mber/volume)on 07-17-2022 RBC (Bld) [#/Vol] 4.17 10*6/uL 4.6-6.2 [facility] Work Phone: Blood hemoglobin measurement (mass/volume)on 07-17-2022 Hemoglobin (Bld) [Mass/Vol] 12.6 g/dL 13.0-16.[address] [facility] Work Phone: Blood lymphocytes/100 leukoc yteson 07-17-2022 Lymphocytes/100 WBC (Bld) 32.6 % 19-[address] [facility] Work Phone: Blood monocytes/100 leukocyt eson 07-17-2022 Monocytes/100 WBC (Bld) 8.4 % 0-[address] [facility] Work Phone: Blood platelet adequacy dete ction by light microscopyon 07-17-2022 Platelets LM Ql (Bld) SLT DEC ADEQ [facility] Work Phone: Blood platelet mean volumeon 07-17-2022 Platelet mean volume (Bld) [Entitic vol] 10.5 fL 6.2-12.[address] [facility] Work Phone: Determination of erythrocyte mean corpuscular volume (MCV)on 07-17-2022 MCV (RBC) [Entitic vol] 93.0 fL 80-[address] [facility] Work Phone: Direct bilirubinon 2 Bilirubin.direct [Mass/Vol] 0.30 mg/dL 0.00-0.[address] [facility] Work Phone: Hematocrit Auto (Bld) [Volum e fraction]on 07-17-2022 Hematocrit (Bld) [Volume fraction] 38.8 % 40-[address] [facility] Work Phone: [phone] Iron measurement (mass/mass) on 07-17-2022 Iron (Unsp spec) [Mass/Mass] 72 ug/dL 65-[address] [facility] Work Phone: Laboratory - Chemistry and C hemistry - challengeon 07-17-2022 ALP [Catalytic activity/Vol] 60 U/L 45-[address] [facility] Work Phone: ALT [Catalytic activity/Vol] 27 U/L 16-[address] [facility] Work Phone: CO2 [Moles/Vol] 25.0 mmol/L 21.0-32.[address] [facility] Work Phone: Cobalamin (Vitamin B12) [Mass/Vol] 1497 pg/mL 211-[address] [facility] Work Phone: Globulin (S) [Mass/Vol] 2.8 g/dL 2.2-4.[address] [facility] Work Phone: Urea nitrogen/Creatinine [Mass ratio] 20.4 mg/mg 10-[address] [facility] Work Phone: Laboratory - Hematology and Cell countson 07-17-2022 Erythrocyte distribution width (RBC) [Entitic vol] 53.6 fL 35.1-43.[address] [facility] Work Phone: [phone] Erythrocyte distribution width (RBC) [Ratio] 15.7 % 11.6-14.[address] [facility] Work Phone: Immature granulocytes/100 WBC (Bld) 0.000 % 0.0-0.[address] [facility] Work Phone: Comment on above: IG% - Immature Granu locytes (promyelocytes, myelocytes and metamyelocytes) > 1% indicates that a LEFT SHIFT is Present. MCH (RBC) [Entitic mass] 30.2 pg 27.0-32.[address] [facility] Work Phone: Nucleated RBC/100 WBC (Bld) [Ratio] 0 % 0-[address] [facility] Work Phone: MCHC Auto (RBC) [Mass/Vol]on 07-17-2022 MCHC (RBC) [Mass/Vol] 32.5 g/dL 32-36 [facility] Work Phone: No Panel Informationon 07-17 Prostate Specific Antigen Screen 2.59 ng/mL 0.00-4.[address] [facility] Work Phone: Comment on above: This test was perfor med using the TPSA assay method for [employer] chemistry system. Values obtained with differentassay methods cannot be used interchangably.When changing PSA assays in the course of monitoring apatient, additional sequential testing should be carriedout to confirm baseline values. Estimated GFR (MDRD) Amer 86 mL/min >[address] [facility] Work Phone: Comment on above: GFR Calc Estimated GFR (MDRD) Non-Af Amer 71 mL/min >[address] [facility] Work Phone: Comment on above: Non- GFR Calc Total Iron Binding Capacity 347 ug/dL 250-[address] [facility] Work Phone: Platelets bldon 07-17-2022 Platelets (Bld) [#/Vol] 79 10*3/uL 150-[address] [facility] Work Phone: RBC morphologyon 07-17-2022 RBC morphology finding Nom (Bld) NORM C+C NORMAL NORM C&C [facility] Work Phone: Serum or plasma albumin pauline urement (mass/volume)on 07-17-2022 Albumin [Mass/Vol] 3.6 g/dL 3.2-5.0 [facility] Work Phone: Serum or plasma albumin/glob ulin mass ratioon 07-17-2022 Albumin/Globulin [Mass ratio] 1.3 {ratio} 0.9-2.[address] [facility] Work Phone: Serum or plasma calcium pauline urement (mass/volume)on 07-17-2022 Calcium [Mass/Vol] 9.1 mg/dL 8.5-10.1 [facility] Work Phone: Serum or plasma cholesterol in HDL measurement (mass/volume)on 07-17-2022 Cholesterol in HDL [Mass/Vol] 73 mg/dL >[address] [facility] Work Phone: Comment on above: The drugs N-Acetylcy steine and Metamizole may falsely depress this assay. Reference Range HDL <40 mg/dL Low HDL Cholesterol HDL >or= 60 mg/dL High HDL Cholesterol Serum or plasma cholesterol in VLDL measurement (mass/volume)on 07-17-2022 Cholesterol in VLDL [Mass/Vol] 22 mg/dL 5-[address] [facility] Work Phone: Serum or plasma creatinine m easurement (mass/volume)on 07-17-2022 Creatinine [Mass/Vol] 1.08 mg/dL 0.70-1.30 [facility] Work Phone: Comment on above: The validity of the calculated GFR & GFRAA in patients over 70 years has not been determined. Clinical correlation is essential. Serum or plasma ferritin dax surement (mass/volume)on 07-17-2022 Ferritin [Mass/Vol] 13 ng/mL 26-388 [facility] Work Phone: Serum or plasma iron saturat ion measurement (mass fraction)on 07-17-2022 Iron saturation [Mass fraction] 20.7 % 15.0-55.[address] [facility] Work Phone: Serum or plasma low density lipoprotein (LDL) cholesterol measurement (mass/volume)on 07-17-2022 Cholesterol in LDL [Mass/Vol] 50 mg/dL 0-[address] [facility] Work Phone: Serum or plasma urea nitroge n measurement (mass/volume)on 07-17-2022 Urea nitrogen [Mass/Vol] 22 mg/dL 7-[address] [facility] Work Phone: Thin prep Papanicolaou smear with manual screeningon 07-17-2022 Thin prep Papanicolaou smear with manual screening 22 U/L 15-[address] [facility] Work Phone: Thin prep Papanicolaou smear with manual screening 7 5-[address] [facility] Work Phone: Thin prep Papanicolaou smear with manual screening 368 U/L 87-[address] [facility] Work Phone: ABO/Rh (Gel)on 06-26-2022 ABO/Rh Interp Negative Invalid Interpretation Code [facility] ([place]) Comment on above: Performed By: #### G FR, BMP #### [address] [address] ABS (Gel)on 06-26-2022 ABSC Interp (Gel) Negative Normal [facility] ([place]) Comment on above: Performed By: #### G FR, BMP #### [address] [address] LABORATORYOrdered By: Alberta hawley on 06-26-2022 ABO and Rh group Nom (Bld) Blood group O Rh(D) negative Invalid Interpretation Code BB Auto SS Blood group antibody screen Ql NEG (06/26/22 5:54 AM) Invalid Interpretation Code BB Auto SS .Auto Diffon 06-19-2022 Basophil, Absolute 0.0 10 3/mcL Normal 0.0-0.2 [facility] ([place]) Comment on above: Performed By: #### A YOLI, BMP, ADIFF, GFR, CBC #### [facility] [address] [place] [id number] Basophils/100 WBC (Bld) 0.7 % Normal 0.0-2.5 [facility] ([place]) Comment on above: Performed By: #### A YOLI, BMP, ADIFF, GFR, CBC #### [address] [address] Eosinophil, Absolute 0.1 10 3/mcL Normal 0.0-0.4 [facility] ([place]) Comment on above: Performed By: #### A YOLI, BMP, ADIFF, GFR, CBC #### [address] [address] Eosinophils/100 WBC (Bld) 1.9 % Normal 0.0-7.0 [facility] ([place]) Comment on above: Performed By: #### A YOLI, BMP, ADIFF, GFR, CBC #### [address] [address] Lymphocyte, Absolute 0.8 10 3/mcL Normal 0.8-3.9 [facility] ([place]) Comment on above: Performed By: #### A YOLI, BMP, ADIFF, GFR, CBC #### [address] [address] Lymphocytes/100 WBC (Bld) 13.7 % Normal 10.0-50.0 [facility] ([place]) Comment on above: Performed By: #### A YOLI, BMP, ADIFF, GFR, CBC #### [address] [address] Monocyte, Absolute 0.4 10 3/mcL Normal 0.2-1.0 [facility] ([place]) Comment on above: Performed By: #### A YOLI, BMP, ADIFF, GFR, CBC #### [address] [address] Monocytes/100 WBC (Bld) 6.2 % Normal 1.7-13.0 [facility] ([place]) Comment on above: Performed By: #### A YOLI, BMP, ADIFF, GFR, CBC #### [address] [address] Neutrophils/100 WBC (Bld) 77.5 % Normal 37.0-80.0 [facility] ([place]) Comment on above: Performed By: #### A YOLI, BMP, ADIFF, GFR, CBC #### [address] [address] .GFRon 06-19-2022 GFR 69 ml/min/1.73sqm Normal [facility] ([place]) Comment on above: Result Comment: GFR Population mean for , Non- Americans Ages 20-29 = 116 mL/min/1.73 sq.m. Ages 30-39 = 107 mL/min/1.73 sq.m. Ages 40-49 = 99 mL/min/1.73 sq.m. Ages 50-59 = 93 mL/min/1.73 sq.m. Ages 60-69 = 85 mL/min/1.73 sq.m. Ages 70+ = 75 mL/min/1.73 sq.m. Chronic Kidney Disease: Less than 60 mL/min/1.73 square meters End Stage Renal Disease: Less than 15 mL/min/1.73 square meters Performed By: #### A YOLI, BMP, ADIFF, GFR, CBC #### [place] [address] GFR Non- 57 ml/min/1.73sqm Normal [facility] ([place]) Comment on above: Result Comment: GFR Population mean for , Non- Americans Ages 20-29 = 116 mL/min/1.73 sq.m. Ages 30-39 = 107 mL/min/1.73 sq.m. Ages 40-49 = 99 mL/min/1.73 sq.m. Ages 50-59 = 93 mL/min/1.73 sq.m. Ages 60-69 = 85 mL/min/1.73 sq.m. Ages 70+ = 75 mL/min/1.73 sq.m. Chronic Kidney Disease: Less than 60 mL/min/1.73 square meters End Stage Renal Disease: Less than 15 mL/min/1.73 square meters Performed By: #### A YOLI, BMP, ADIFF, GFR, CBC #### [address] [address] .NEUABSon 06-19-2022 Neutrophil, Absolute 4.4 10 3/mcL Normal 2.9-6.2 [facility] ([place]) Comment on above: Performed By: #### A YOLI, BMP, ADIFF, GFR, CBC #### [address] [address] BUN/Creatinine Ratio 22 ratio Normal 7-27 [facility] ([place]) Comment on above: Performed By: #### G FR, BMP #### [address] [address] Calcium [Mass/Vol] 9.3 mg/dL Normal 8.4-10.2 [facility] ([place]) Comment on above: Performed By: #### G FR, BMP #### [address] [address] Chloride [Moles/Vol] 106 mmol/L Normal 98-107 [facility] ([place]) Comment on above: Performed By: #### Celi FR, BMP #### [address] [address] CO2 [Moles/Vol] 28 mmol/L Normal 23-31 [facility] ([place]) Comment on above: Performed By: #### G FR, BMP #### [address] [address] Creatinine [Mass/Vol] 1.24 mg/dL Normal 0.70-1.30 [facility] ([place]) Comment on above: Performed By: #### Celi FR, BMP #### [address] [address] Electrolyte Balance 11.0 mEq/L Normal 4.0-15.0 [facility] ([place]) Comment on above: Performed By: #### G FR, BMP #### [address] [address] Glucose [Mass/Vol] 107 mg/dL Normal 83-110 [facility] ([place]) Comment on above: Performed By: #### G FR, BMP #### [address] [address] Potassium [Moles/Vol] 4.8 mmol/L Normal 3.5-5.1 [facility] ([place]) Comment on above: Performed By: #### G FR, BMP #### [address] [address] Sodium [Moles/Vol] 145 mmol/L Normal 136-145 [facility] ([place]) Comment on above: Performed By: #### G FR, BMP #### [address] [address] Urea nitrogen [Mass/Vol] 27 mg/dL High 7-18 [facility] ([place]) Comment on above: Performed By: #### G FR, BMP #### [address] [address] CBCon 06-19-2022 Erythrocyte distribution width (RBC) [Ratio] 16.0 % High 11.5-14.5 [facility] ([place]) Comment on above: Performed By: #### A YOLI, BMP, ADIFF, GFR, CBC #### [address] [address] Hematocrit (Bld) [Volume fraction] 38.9 % Low 42.0-52.0 [facility] ([place]) Comment on above: Performed By: #### A YOLI, BMP, ADIFF, GFR, CBC #### [address] [address] Hgb 12.9 G/dL Low 14.0-18.0 [facility] ([place]) Comment on above: Performed By: #### A YOLI, BMP, ADIFF, GFR, CBC #### [address] [address] MCH (RBC) [Entitic mass] 29.2 pg Normal 27.0-31.2 [facility] ([place]) Comment on above: Performed By: #### A YOLI, BMP, ADIFF, GFR, CBC #### [address] [address] MCHC 33.3 G/dL Normal 31.8-35.4 [facility] ([place]) Comment on above: Performed By: #### A YOLI, BMP, ADIFF, GFR, CBC #### [address] [address] MCV (RBC) [Entitic vol] 87.6 fL Normal 80.0-94.0 [facility] ([place]) Comment on above: Performed By: #### A YOLI, BMP, ADIFF, GFR, CBC #### [place] [address] Platelet 86 10 3/mcL Low 130-400 [facility] ([place]) Comment on above: Performed By: #### A YOLI, BMP, ADIFF, GFR, CBC #### [place] [address] Platelet mean volume (Bld) [Entitic vol] 9.0 fL Normal 7.4-10.4 [facility] ([place]) Comment on above: Performed By: #### A YOLI, BMP, ADIFF, GFR, CBC #### [place] [address] RBC 4.44 10 6/mcL Normal 4.04-6.13 [facility] ([place]) Comment on above: Performed By: #### A YOLI, BMP, ADIFF, GFR, CBC #### [place] [address] WBC 5.7 10 3/mcL Normal 4.6-10.8 [facility] ([place]) Comment on above: Performed By: #### A YOLI, BMP, ADIFF, GFR, CBC #### [place] [address] FIBon 06-19-2022 Fibrinogen 248 mg/dL Low 334-713 [facility] ([place]) Comment on above: Performed By: #### A YOLI, BMP, ADIFF, GFR, CBC #### [address] [address] LABORATORYOrdered By: Tiffanie Mendoza on 06-19-2022 Basophil, Absolute 0.0 103/mcL Invalid Interpretation Code 0.0 - 0.2 10^3/mcL AO Workflow SS Basophils/100 WBC (Bld) 0.7 % Invalid Interpretation Code 0.0 - 2.5 % AO Workflow SS Eosinophil, Absolute 0.1 103/mcL Invalid Interpretation Code 0.0 - 0.4 10^3/mcL AO Workflow SS Eosinophils/100 WBC (Bld) 1.9 % Invalid Interpretation Code 0.0 - 7.0 % AO Workflow SS Erythrocyte distribution width (RBC) [Ratio] 16.0 % Invalid Interpretation Code 11.5 - 14.5 % AO Workflow SS Hematocrit (Bld) [Volume fraction] 38.9 % Invalid Interpretation Code 42.0 - 52.0 % AO Workflow SS Hemoglobin (Bld) [Mass/Vol] 12.9 G/dL Invalid Interpretation Code 14.0 - 18.0 G/dL AO Workflow SS Lymphocyte, Absolute 0.8 103/mcL Invalid Interpretation Code 0.8 - 3.9 10^3/mcL AO Workflow SS Lymphocytes/100 WBC (Bld) 13.7 % Invalid Interpretation Code 10.0 - 50.0 % AO Workflow SS MCH (RBC) [Entitic mass] 29.2 pg Invalid Interpretation Code 27.0 - 31.2 pg AO Workflow SS MCHC 33.3 G/dL Invalid Interpretation Code 31.8 - 35.4 G/dL AO Workflow SS MCV (RBC) [Entitic vol] 87.6 fL Invalid Interpretation Code 80.0 - 94.0 fL AO Workflow SS Monocyte, Absolute 0.4 103/mcL Invalid Interpretation Code 0.2 - 1.0 10^3/mcL AO Workflow SS Monocytes/100 WBC (Bld) 6.2 % Invalid Interpretation Code 1.7 - 13.0 % AO Workflow SS Neutrophil, Absolute 4.4 103/mcL Invalid Interpretation Code 2.9 - 6.2 10^3/mcL AO Workflow SS Neutrophils/100 WBC (Bld) 77.5 % Invalid Interpretation Code 37.0 - 80.0 % AO Workflow SS Platelet mean volume (Bld) [Entitic vol] 9.0 fL Invalid Interpretation Code 7.4 - 10.4 fL AO Workflow SS Platelets (Bld) [#/Vol] 86 103/mcL Invalid Interpretation Code 130 - 400 10^3/mcL AO Workflow SS RBC (Bld) [#/Vol] 4.44 106/mcL Invalid Interpretation Code 4.04 - 6.13 10^6/mcL AO Workflow SS WBC 5.7 103/mcL Invalid Interpretation Code 4.6 - 10.8 10^3/mcL AO Workflow SS LABORATORYOrdered By: Jane Sharp on 06-19-2022 Calcium [Mass/Vol] 9.3 mg/dL Invalid Interpretation Code 8.4 - 10.2 mg/dL AO ADM SS Chloride [Moles/Vol] 106 mmol/L Invalid Interpretation Code 98 - 107 mmol/L AO ADM SS CO2 [Moles/Vol] 28 mmol/L Invalid Interpretation Code 23 - 31 mmol/L AO ADM SS Creatinine [Mass/Vol] 1.24 mg/dL Invalid Interpretation Code 0.70 - 1.30 mg/dL AO ADM SS Electrolyte Balance 11.0 mEq/L Invalid Interpretation Code 4.0 - 15.0 mEq/L AO ADM SS Glucose [Mass/Vol] 107 mg/dL Invalid Interpretation Code 83 - 110 mg/dL AO ADM SS Natriuretic peptide.B prohormone N-Terminal [Mass/Vol] 541 pg/mL Invalid Interpretation Code 0 - 450 pg/mL AO ADM SS Potassium [Moles/Vol] 4.8 mmol/L Invalid Interpretation Code 3.5 - 5.1 mmol/L AO ADM SS Sodium [Moles/Vol] 145 mmol/L Invalid Interpretation Code 136 - 145 mmol/L AO ADM SS Urea nitrogen [Mass/Vol] 27 mg/dL Invalid Interpretation Code 7 - 18 mg/dL AO ADM SS Urea nitrogen/Creatinine [Mass ratio] 22 ratio Invalid Interpretation Code 7 - 27 ratio AO ADM SS LABORATORYOrdered By: Juan Manuel Estrada on 06-19-2022 Fibrinogen Coag (PPP) [Mass/Vol] 248 mg/dL Invalid Interpretation Code 334 - 713 mg/dL AO Coag SS INR Coag (PPP) [Relative time] 0.9 {INR} Invalid Interpretation Code 0.9 - 1.2 ratio AO Coag SS PT Coag (PPP) [Time] 10.8 s Invalid Interpretation Code 9.7 - 14.3 seconds AO Coag SS LABORATORYOrdered By: SYSTEM SYSTEM on 06-19-2022 GFR 69 ml/min/1.73sqm Invalid Interpretation Code AO Chemistry S GFR Non- 57 ml/min/1.73sqm Invalid Interpretation Code AO Chemistry S PBNPon 06-19-2022 Natriuretic peptide B (Bld) [Mass/Vol] 541 pg/mL High 0-450 [facility] ([place]) Comment on above: Result Comment: NT-p roBNP results of less than 300 pg/mL effectively rules out acute congestive heart failure with 99% negative predictive value. Performed By: #### A YOLI, BMP, ADIFF, GFR, CBC #### [address] [address] PROon 06-19-2022 INR Coag (PPP) [Relative time] 0.9 {INR} Normal 0.9-1.2 [facility] ([place]) Comment on above: Result Comment: Shravan reedd Dose 2.0 - 3.0 High Dose 2.5 - 3.5 The recommended therapeutic range for oral anticoagulant therapy is: LOW RISK: Prophylaxis of venous thrombosis INR: 2.0 - 3.0 Treatment of pulmonary embolism 2.0 - 3.0 Prevention of systemic embolism 2.0 - 3.0 HIGH RISK: Mechanical prosthetic valves 2.5 - 3.5 Performed By: #### A YOLI, BMP, ADIFF, GFR, CBC #### [address] [address] PT Coag (PPP) [Time] 10.8 s Normal 9.7-14.3 [facility] ([place]) Comment on above: Performed By: #### A YOLI, BMP, ADIFF, GFR, CBC #### [address] [address] Absolute lymphocyte counton 04-18-2022 Lymphocytes Auto (Unsp spec) [#/Vol] 1.10 10*3/uL 0.83-4.[address] [facility] Work Phone: Basophil percentageon 2021 Basophils/100 WBC (Bld) 0.7 % 0-[address] [facility] Work Phone: Eosinophils/100 WBC (Bld) 2.0 % 0-[address] [facility] Work Phone: Neutrophils (Bld) [#/Vol] 3.9 10*3/uL 2.0-7.[address] [facility] Work Phone: Neutrophils/100 WBC (Bld) 69.8 % 47-[address] [facility] Work Phone: WBC (Bld) [#/Vol] 5.6 10*3/uL 4.4-11.0 [facility] Work Phone: Blood erythrocytes count (nu mber/volume)on 04-18-2022 RBC (Bld) [#/Vol] 4.30 10*6/uL 4.6-6.2 [facility] Work Phone: Blood hemoglobin measurement (mass/volume)on 04-18-2022 Hemoglobin (Bld) [Mass/Vol] 12.6 g/dL 13.0-16.[address] [facility] Work Phone: Blood lymphocytes/100 leukoc yteson 04-18-2022 Lymphocytes/100 WBC (Bld) 19.5 % 19-[address] [facility] Work Phone: Blood monocytes/100 leukocyt eson 04-18-2022 Monocytes/100 WBC (Bld) 7.8 % 0-[address] [facility] Work Phone: Blood platelet mean volumeon 04-18-2022 Platelet mean volume (Bld) [Entitic vol] 11.1 fL 6.2-12.[address] [facility] Work Phone: Determination of erythrocyte mean corpuscular volume (MCV)on 04-18-2022 MCV (RBC) [Entitic vol] 90.9 fL 80-[address] [facility] Work Phone: Hematocrit Auto (Bld) [Volum e fraction]on 04-18-2022 Hematocrit (Bld) [Volume fraction] 39.1 % 40-[address] [facility] Work Phone: INR in Blood by Coagulation assayon 04-18-2022 INR Coag (Bld) [Relative time] 1.0 {INR} [facility] Work Phone: Laboratory - Coagulationon 0 04-18-2022 aPTT Coag (Bld) [Time] 24.3 s 24.1-36.[address] [facility] Work Phone: PT Coag (PPP) [Time] 12.7 s 11.7-14.9 [facility] Work Phone: Laboratory - Hematology and Cell countson 04-18-2022 Erythrocyte distribution width (RBC) [Entitic vol] 41.0 fL 35.1-43.[address] [facility] Work Phone: Erythrocyte distribution width (RBC) [Ratio] 12.2 % 11.6-14.[address] [facility] Work Phone: Immature granulocytes/100 WBC (Bld) 0.200 % 0.0-0.[address] [facility] Work Phone: Comment on above: IG% - Immature Granu locytes (promyelocytes, myelocytes and metamyelocytes) > 1% indicates that a LEFT SHIFT is Present. MCH (RBC) [Entitic mass] 29.3 pg 27.0-32.[address] [facility] Work Phone: Nucleated RBC/100 WBC (Bld) [Ratio] 0 % 0-[address] [facility] Work Phone: MCHC Auto (RBC) [Mass/Vol]on 04-18-2022 MCHC (RBC) [Mass/Vol] 32.2 g/dL 32-36 [facility] Work Phone: Platelets bldon 04-18-2022 Platelets (Bld) [#/Vol] 70 10*3/uL 150-[address] [facility] Work Phone: Absolute lymphocyte counton 04-02-2022 Lymphocytes Auto (Unsp spec) [#/Vol] 0.88 10*3/uL 0.83-4.[address] [facility] Work Phone: Basophil percentageon 2021 Basophils/100 WBC (Bld) 0.6 % 0-[address] [facility] Work Phone: [phone] Bilirubin [Mass/Vol] 0.80 mg/dL 0.20-1.00 [facility] Work Phone: Comment on above: For patients on eltr ombopag therapy, use of Dimension [place] TBIL is not recommended. Chloride [Moles/Vol] 110 mmol/L 98-107 [facility] Work Phone: Eosinophils/100 WBC (Bld) 1.3 % 0-[address] [facility] Work Phone: Glucose [Mass/Vol] 123 mg/dL 74-106 [facility] Work Phone: Comment on above: Fasting Glucose resu lt from 100 to 125 mg/dL suggests IMPAIRED HOMEOSTASIS per A.D.A. criteria. Neutrophils (Bld) [#/Vol] 3.9 10*3/uL 2.0-7.[address] [facility] Work Phone: Neutrophils/100 WBC (Bld) 74.7 % 47-[address] [facility] Work Phone: Potassium [Moles/Vol] 4.4 mmol/L 3.5-5.1 [facility] Work Phone: [phone] Protein [Mass/Vol] 6.4 g/dL 6.4-8.2 [facility] Work Phone: Sodium [Moles/Vol] 141 mmol/L 136-145 [facility] Work Phone: WBC (Bld) [#/Vol] 5.3 10*3/uL 4.4-11.0 [facility] Work Phone: Blood erythrocytes count (nu mber/volume)on 04-02-2022 RBC (Bld) [#/Vol] 3.91 10*6/uL 4.6-6.2 [facility] Work Phone: Blood hemoglobin measurement (mass/volume)on 04-02-2022 Hemoglobin (Bld) [Mass/Vol] 11.7 g/dL 13.0-16.[address] [facility] Work Phone: Blood lymphocytes/100 leukoc yteson 04-02-2022 Lymphocytes/100 WBC (Bld) 16.7 % 19-[address] [facility] Work Phone: [phone] Blood monocytes/100 leukocyt eson 04-02-2022 Monocytes/100 WBC (Bld) 6.3 % 0-[address] [facility] Work Phone: Blood platelet adequacy dete ction by light microscopyon 04-02-2022 Platelets LM Ql (Bld) MOD [facility] Work [facility]: Blood platelet mean volumeon 04-02-2022 Platelet mean volume (Bld) [Entitic vol] 11.1 fL 6.2-12.[address] [facility] Work Phone: Determination of erythrocyte mean corpuscular volume (MCV)on 04-02-2022 MCV (RBC) [Entitic vol] 93.9 fL 80-[address] [facility] Work Phone: Hematocrit Auto (Bld) [Volum e fraction]on 04-02-2022 Hematocrit (Bld) [Volume fraction] 36.7 % 40-[address] [facility] Work Phone: Laboratory - Chemistry and C hemistry - challengeon 04-02-2022 ALP [Catalytic activity/Vol] 65 U/L 45-[address] [facility] Work Phone: ALT [Catalytic activity/Vol] 26 U/L 16-[address] [facility] Work Phone: CO2 [Moles/Vol] 29.0 mmol/L 21.0-32.[address] [facility] Work Phone: Globulin (S) [Mass/Vol] 2.6 g/dL 2.2-4.[address] [facility] Work Phone: Urea nitrogen/Creatinine [Mass ratio] 21.0 mg/mg 10-[address] [facility] Work Phone: Laboratory - Hematology and Cell countson 04-02-2022 Erythrocyte distribution width (RBC) [Entitic vol] 41.1 fL 35.1-43.[address] [facility] Work Phone: Erythrocyte distribution width (RBC) [Ratio] 12.0 % 11.6-14.[address] [facility] Work Phone: Immature granulocytes/100 WBC (Bld) 0.400 % 0.0-0.[address] [facility] Work Phone: Comment on above: IG% - Immature Granu locytes (promyelocytes, myelocytes and metamyelocytes) > 1% indicates that a LEFT SHIFT is Present. MCH (RBC) [Entitic mass] 29.9 pg 27.0-32.[address] [facility] Work Phone: Nucleated RBC/100 WBC (Bld) [Ratio] 0 % 0-[address] [facility] Work Phone: MCHC Auto (RBC) [Mass/Vol]on 04-02-2022 MCHC (RBC) [Mass/Vol] 31.9 g/dL 32-36 [facility] Work Phone: No Panel Informationon 04-02 Estimated GFR (MDRD) Amer 77 mL/min >[address] [facility] Comment on above: GFR Calc Estimated GFR (MDRD) Non-Af Amer 63 mL/min >[address] [facility] Work Phone: Comment on above: Non- GFR Calc Miscellaneous Test See comment [facility] Comment on above: TEST RESULT LIMITSPl atelet Antibody Profile HLA Class 1 Antibody Negative Negative IIb/IIIa Antibody Negative Negative Ib/IX Antibody Negative Negative Ia/IIa Antibody Negative Negative Glycoprotein IV Antibody Negative Negative _ TESTING PERFORMED AT [facility]. ORIGINAL REPORT ON FILE IN LAB CONTAINS ADDITIONAL TEST SITE INFORMATION. Platelets bldon 04-02-2022 Platelets (Bld) [#/Vol] 77 10*3/uL 150-[address] [facility] Work Phone: RBC morphologyon 04-02-2022 RBC morphology finding Nom (Bld) NORM C+C NORMAL NORM C&C [facility] Work Phone: RBC morphology finding Nom ( Bld)on 04-02-2022 Red Blood Cell Morphology NORM C+C NORMAL NORM C&C [facility] Serum or plasma albumin pauline urement (mass/volume)on 04-02-2022 Albumin [Mass/Vol] 3.8 g/dL 3.2-5.0 [facility] Work Phone: Serum or plasma albumin/glob ulin mass ratioon 04-02-2022 Albumin/Globulin [Mass ratio] 1.5 {ratio} 0.9-2.[address] [facility] Work Phone: Serum or plasma calcium pauline urement (mass/volume)on 04-02-2022 Calcium [Mass/Vol] 8.9 mg/dL 8.5-10.1 [facility] Work Phone: Serum or plasma creatinine m easurement (mass/volume)on 04-02-2022 Creatinine [Mass/Vol] 1.19 mg/dL 0.70-1.30 [facility] Work Phone: Comment on above: The validity of the calculated GFR & GFRAA in patients over 70 years has not been determined. Clinical correlation is essential. Serum or plasma urea nitroge n measurement (mass/volume)on 04-02-2022 Urea nitrogen [Mass/Vol] 25 mg/dL 7-[address] [facility] Work Phone: Thin prep Papanicolaou smear with manual screeningon 04-02-2022 Thin prep Papanicolaou smear with manual screening 24 U/L 15-[address] [facility] Work Phone: Thin prep Papanicolaou smear with manual screening 2 5-[address] [facility] Work Phone: Thin prep Papanicolaou smear with manual screening 345 U/L 87-[address] [facility] Work Phone: .GFRon 03-22-2022 GFR 66 ml/min/1.73sqm Normal [facility] ([place]) Comment on above: Result Comment: GFR Population mean for , Non- Americans Ages 20-29 = 116 mL/min/1.73 sq.m. Ages 30-39 = 107 mL/min/1.73 sq.m. Ages 40-49 = 99 mL/min/1.73 sq.m. Ages 50-59 = 93 mL/min/1.73 sq.m. Ages 60-69 = 85 mL/min/1.73 sq.m. Ages 70+ = 75 mL/min/1.73 sq.m. Chronic Kidney Disease: Less than 60 mL/min/1.73 square meters End Stage Renal Disease: Less than 15 mL/min/1.73 square meters Performed By: #### Celi SORENSEN, BMP #### [address] [address] GFR Non- 54 ml/min/1.73sqm Normal [facility] ([place]) Comment on above: Result Comment: GFR Population mean for , Non- Americans Ages 20-29 = 116 mL/min/1.73 sq.m. Ages 30-39 = 107 mL/min/1.73 sq.m. Ages 40-49 = 99 mL/min/1.73 sq.m. Ages 50-59 = 93 mL/min/1.73 sq.m. Ages 60-69 = 85 mL/min/1.73 sq.m. Ages 70+ = 75 mL/min/1.73 sq.m. Chronic Kidney Disease: Less than 60 mL/min/1.73 square meters End Stage Renal Disease: Less than 15 mL/min/1.73 square meters Performed By: #### Celi SORENSEN, BMP #### [address] [address] BMPon 03-22-2022 BUN/Creatinine Ratio 25 ratio Normal 7-27 [facility] ([place]) Comment on above: Performed By: #### Celi SORENSEN, BMP #### [address] [address] Calcium [Mass/Vol] 9.2 mg/dL Normal 8.4-10.2 [facility] ([place]) Comment on above: Performed By: #### Celi SORENSEN, BMP #### [address] [address] Chloride [Moles/Vol] 108 mmol/L High 98-107 [facility] ([place]) Comment on above: Performed By: #### Celi SORENSEN, BMP #### [address] [address] CO2 [Moles/Vol] 24 mmol/L Normal 23-31 [facility] ([place]) Comment on above: Performed By: #### Celi SORENSEN, BMP #### [address] [address] Creatinine [Mass/Vol] 1.29 mg/dL Normal 0.70-1.30 [facility] ([place]) Comment on above: Performed By: #### Celi SORENSEN, BMP #### [address] [address] Electrolyte Balance 10.0 mEq/L Normal 4.0-15.0 [facility] ([place]) Comment on above: Performed By: #### Celi SORENSEN, BMP #### [address] [address] Glucose [Mass/Vol] 103 mg/dL Normal 83-110 [facility] ([place]) Comment on above: Performed By: #### Celi SORENSEN, BMP #### [address] [address] Potassium [Moles/Vol] 4.5 mmol/L Normal 3.5-5.1 [facility] ([place]) Comment on above: Performed By: #### Celi SORENSEN, BMP #### [address] [address] Sodium [Moles/Vol] 142 mmol/L Normal 136-145 [facility] ([place]) Comment on above: Performed By: #### Celi SORENSEN, BMP #### [address] [address] Urea nitrogen [Mass/Vol] 32 mg/dL High 7-18 [facility] ([place]) Comment on above: Performed By: #### G , BMP #### [address] [address] LABORATORYOrdered By: Jane Sharp on 03-22-2022 Calcium [Mass/Vol] 9.2 mg/dL Invalid Interpretation Code 8.4 - 10.2 mg/dL AO ADM SS Chloride [Moles/Vol] 108 mmol/L Invalid Interpretation Code 98 - 107 mmol/L AO ADM SS CO2 [Moles/Vol] 24 mmol/L Invalid Interpretation Code 23 - 31 mmol/L AO ADM SS Creatinine [Mass/Vol] 1.29 mg/dL Invalid Interpretation Code 0.70 - 1.30 mg/dL AO ADM SS Electrolyte Balance 10.0 mEq/L Invalid Interpretation Code 4.0 - 15.0 mEq/L AO ADM SS Glucose [Mass/Vol] 103 mg/dL Invalid Interpretation Code 83 - 110 mg/dL AO ADM SS Potassium [Moles/Vol] 4.5 mmol/L Invalid Interpretation Code 3.5 - 5.1 mmol/L AO ADM SS Sodium [Moles/Vol] 142 mmol/L Invalid Interpretation Code 136 - 145 mmol/L AO ADM SS Urea nitrogen [Mass/Vol] 32 mg/dL Invalid Interpretation Code 7 - 18 mg/dL AO ADM SS Urea nitrogen/Creatinine [Mass ratio] 25 ratio Invalid Interpretation Code 7 - 27 ratio AO ADM SS LABORATORYOrdered By: SYSTEM SYSTEM on 03-22-2022 GFR 66 ml/min/1.73sqm Invalid Interpretation Code AO Chemistry S GFR Non- 54 ml/min/1.73sqm Invalid Interpretation Code AO Chemistry S .Auto Diffon 02-21-2022 Basophil, Absolute 0.00 10 3/mcL Normal 0.00-0.27 [facility] ([place]) Comment on above: Performed By: #### A YOLI, BMP, ADIFF, GFR, CBC #### [address] [address] Basophils/100 WBC (Bld) 0.4 % Normal 0.0-2.5 [facility] ([place]) Comment on above: Performed By: #### A YOLI, BMP, ADIFF, GFR, CBC #### [address] [address] Eosinophil, Absolute 0.10 10 3/mcL Normal 0.00-0.65 [facility] ([place]) Comment on above: Performed By: #### A YOLI, BMP, ADIFF, GFR, CBC #### [address] [address] Eosinophils/100 WBC (Bld) 2.3 % Normal 0.0-6.0 [facility] ([place]) Comment on above: Performed By: #### A YOLI, BMP, ADIFF, GFR, CBC #### [address] [address] Lymphocyte, Absolute 0.60 10 3/mcL Low 0.90-4.32 [facility] ([place]) Comment on above: Performed By: #### A YOLI, BMP, ADIFF, GFR, CBC #### [address] [address] Lymphocytes/100 WBC (Bld) 11.1 % Low 20.0-40.0 [facility] ([place]) Comment on above: Performed By: #### A YOLI, BMP, ADIFF, GFR, CBC #### [address] [address] Monocyte, Absolute 0.40 10 3/mcL Normal 0.09-1.40 [facility] ([place]) Comment on above: Performed By: #### A YOLI, BMP, ADIFF, GFR, CBC #### [address] [address] Monocytes/100 WBC (Bld) 8.0 % Normal 2.0-13.0 [facility] ([place]) Comment on above: Performed By: #### A YOLI, BMP, ADIFF, GFR, CBC #### [address] [address] Neutrophils/100 WBC (Bld) 78.2 % High 50.0-75.0 [facility] ([place]) Comment on above: Performed By: #### A YOLI, BMP, ADIFF, GFR, CBC #### [address] [address] .GFRon 02-21-2022 GFR >60 Normal [facility] ([place]) Comment on above: Result Comment: GFR Population mean for , Non- Americans Ages 20-29 = 116 mL/min/1.73 sq.m. Ages 30-39 = 107 mL/min/1.73 sq.m. Ages 40-49 = 99 mL/min/1.73 sq.m. Ages 50-59 = 93 mL/min/1.73 sq.m. Ages 60-69 = 85 mL/min/1.73 sq.m. Ages 70+ = 75 mL/min/1.73 sq.m. Chronic Kidney Disease: Less than 60 mL/min/1.73 square meters End Stage Renal Disease: Less than 15 mL/min/1.73 square meters Performed By: #### A YOLI, BMP, ADIFF, GFR, CBC #### [address] [address] GFR Non- >60 Normal [facility] ([place]) Comment on above: Result Comment: GFR Population mean for , Non- Americans Ages 20-29 = 116 mL/min/1.73 sq.m. Ages 30-39 = 107 mL/min/1.73 sq.m. Ages 40-49 = 99 mL/min/1.73 sq.m. Ages 50-59 = 93 mL/min/1.73 sq.m. Ages 60-69 = 85 mL/min/1.73 sq.m. Ages 70+ = 75 mL/min/1.73 sq.m. Chronic Kidney Disease: Less than 60 mL/min/1.73 square meters End Stage Renal Disease: Less than 15 mL/min/1.73 square meters Performed By: #### A YOLI, BMP, ADIFF, GFR, CBC #### [address] [address] .NEUABSon 02-21-2022 Neutrophil, Absolute 4.20 10 3/mcL Normal 2.25-8.10 [facility] ([place]) Comment on above: Performed By: #### A YOLI, BMP, ADIFF, GFR, CBC #### [address] [address] BMPon 02-21-2022 BUN/Creatinine Ratio 19.8 ratio Normal 10.0-22.0 [facility] ([place]) Comment on above: Performed By: #### A YOLI, BMP, ADIFF, GFR, CBC #### [address] [address] Calcium [Mass/Vol] 10.1 mg/dL Normal 8.7-10.4 [facility] ([place]) Comment on above: Result Comment: No te - New Reference Range in effect 20 Performed By: #### A YOLI, BMP, ADIFF, GFR, CBC #### [address] [address] Chloride [Moles/Vol] 111 mmol/L High 98-110 [facility] ([place]) Comment on above: Performed By: #### A YOLI, BMP, ADIFF, GFR, CBC #### [address] [address] CO2 [Moles/Vol] 26 mmol/L Normal 22-32 [facility] ([place]) Comment on above: Performed By: #### A YOLI, BMP, ADIFF, GFR, CBC #### [address] [address] Creatinine [Mass/Vol] 0.91 mg/dL Normal 0.60-1.40 [facility] ([place]) Comment on above: Performed By: #### A YOLI, BMP, ADIFF, GFR, CBC #### [address] [address] Electrolyte Balance 5.0 mEq/L Normal 4.0-15.0 [facility] ([place]) Comment on above: Performed By: #### A YOLI, BMP, ADIFF, GFR, CBC #### [address] [address] Glucose [Mass/Vol] 99 mg/dL Normal 82-115 [facility] ([place]) Comment on above: Performed By: #### A YOLI, BMP, ADIFF, GFR, CBC #### [address] [address] Potassium [Moles/Vol] 4.3 mmol/L Normal 3.5-5.0 [facility] ([place]) Comment on above: Performed By: #### A YOLI, BMP, ADIFF, GFR, CBC #### [address] [address] Sodium [Moles/Vol] 142 mmol/L Normal 136-145 [facility] ([place]) Comment on above: Performed By: #### A YOLI, BMP, ADIFF, GFR, CBC #### [address] [address] Urea nitrogen [Mass/Vol] 18.0 mg/dL Normal 8.0-22.0 [facility] ([place]) Comment on above: Performed By: #### A YOLI, BMP, ADIFF, GFR, CBC #### [place] [address] CBCon 02-21-2022 Erythrocyte distribution width (RBC) [Ratio] 14.2 % Normal 11.5-15.5 [facility] ([place]) Comment on above: Performed By: #### A YOLI, BMP, ADIFF, GFR, CBC #### [place] [address] Hematocrit (Bld) [Volume fraction] 31.8 % Low 40.0-52.0 [facility] ([place]) Comment on above: Performed By: #### A YOLI, BMP, ADIFF, GFR, CBC #### [place] [address] Hgb 10.9 G/dL Low 13.0-17.5 [facility] ([place]) Comment on above: Performed By: #### A YOLI, BMP, ADIFF, GFR, CBC #### [place] [id number] MCH (RBC) [Entitic mass] 32.2 pg Normal 27.0-33.0 [facility] ([place]) Comment on above: Performed By: #### A YOLI, BMP, ADIFF, GFR, CBC #### [place] [id number] MCHC 34.4 G/dL Normal 32.0-36.0 [facility] ([place]) Comment on above: Performed By: #### A YOLI, BMP, ADIFF, GFR, CBC #### [place] [address] MCV (RBC) [Entitic vol] 93.4 fL Normal 81.0-100.0 [facility] ([place]) Comment on above: Performed By: #### A YOLI, BMP, ADIFF, GFR, CBC #### [place] [address] Platelet 61 10 3/mcL Low 150-450 [facility] ([place]) Comment on above: Performed By: #### A YOLI, BMP, ADIFF, GFR, CBC #### [place] [address] Platelet mean volume (Bld) [Entitic vol] 9.7 fL Normal 6.4-10.5 [facility] ([place]) Comment on above: Performed By: #### A YOLI, BMP, ADIFF, GFR, CBC #### [place] [address] RBC 3.40 10 6/mcL Low 4.50-6.00 [facility] ([place]) Comment on above: Performed By: #### A YOLI, BMP, ADIFF, GFR, CBC #### [place] [address] WBC 5.40 10 3/mcL Normal 4.50-10.80 [facility] ([place]) Comment on above: Performed By: #### A YOLI, BMP, ADIFF, GFR, CBC #### [place] [address] LABORATORYOrdered By: SYSTEM SYSTEM on 02-21-2022 Basophils (Bld) [#/Vol] 0.00 103/mcL Invalid Interpretation Code 0.00 - 0.27 10^3/mcL AH Remisol SS Basophils/100 WBC (Bld) 0.4 % Invalid Interpretation Code 0.0 - 2.5 % AH Remisol SS Calcium [Mass/Vol] 10.1 mg/dL Invalid Interpretation Code 8.7 - 10.4 mg/dL AH ADM SS Chloride [Moles/Vol] 111 mmol/L Invalid Interpretation Code 98 - 110 mEq/L AH ADM SS CO2 [Moles/Vol] 26 mmol/L Invalid Interpretation Code 22 - 32 mEq/L AH ADM SS Creatinine [Mass/Vol] 0.91 mg/dL Invalid Interpretation Code 0.60 - 1.40 mg/dL ADM SS Electrolyte Balance 5.0 mEq/L Invalid Interpretation Code 4.0 - 15.0 mEq/L AH ADM SS Eosinophils (Bld) [#/Vol] 0.10 103/mcL Invalid Interpretation Code 0.00 - 0.65 10^3/mcL AH Remisol SS Eosinophils/100 WBC (Bld) 2.3 % Invalid Interpretation Code 0.0 - 6.0 % AH Remisol SS Erythrocyte distribution width (RBC) [Ratio] 14.2 % Invalid Interpretation Code 11.5 - 15.5 % AH Remisol SS GFR/1.73 sq M.predicted among blacks MDRD (S/P/Bld) [Vol rate/Area] ml/min/1.73sqm Invalid Interpretation Code AH ADM SS GFR/1.73 sq M.predicted among non-blacks MDRD (S/P/Bld) [Vol rate/Area] ml/min/1.73sqm Invalid Interpretation Code AH ADM SS Glucose [Mass/Vol] 99 mg/dL Invalid Interpretation Code 82 - 115 mg/dL AH ADM SS Hematocrit (Bld) [Volume fraction] 31.8 % Invalid Interpretation Code 40.0 - 52.0 % AH Remisol SS Hemoglobin (Bld) [Mass/Vol] 10.9 G/dL Invalid Interpretation Code 13.0 - 17.5 G/dL AH Remisol SS Lymphocytes (Bld) [#/Vol] 0.60 103/mcL Invalid Interpretation Code 0.90 - 4.32 10^3/mcL AH Remisol SS Lymphocytes/100 WBC (Bld) 11.1 % Invalid Interpretation Code 20.0 - 40.0 % AH Remisol SS MCH (RBC) [Entitic mass] 32.2 pg Invalid Interpretation Code 27.0 - 33.0 pg AH Remisol SS MCHC (RBC) [Mass/Vol] 34.4 G/dL Invalid Interpretation Code 32.0 - 36.0 G/dL AH Remisol SS MCV (RBC) [Entitic vol] 93.4 fL Invalid Interpretation Code 81.0 - 100.0 fL AH Remisol SS Monocytes (Bld) [#/Vol] 0.40 103/mcL Invalid Interpretation Code 0.09 - 1.40 10^3/mcL AH Remisol SS Monocytes/100 WBC (Bld) 8.0 % Invalid Interpretation Code 2.0 - 13.0 % AH Remisol SS Neutrophils (Bld) [#/Vol] 4.20 103/mcL Invalid Interpretation Code 2.25 - 8.10 10^3/mcL AH Remisol SS Neutrophils/100 WBC (Bld) 78.2 % Invalid Interpretation Code 50.0 - 75.0 % AH Remisol SS Platelet mean volume (Bld) [Entitic vol] 9.7 fL Invalid Interpretation Code 6.4 - 10.5 fL AH Remisol SS Platelets (Bld) [#/Vol] 61 103/mcL Invalid Interpretation Code 150 - 450 10^3/mcL AH Remisol SS Potassium [Moles/Vol] 4.3 mmol/L Invalid Interpretation Code 3.5 - 5.0 mEq/L AH ADM SS RBC (Bld) [#/Vol] 3.40 106/mcL Invalid Interpretation Code 4.50 - 6.00 10^6/mcL AH Remisol SS Sodium [Moles/Vol] 142 mmol/L Invalid Interpretation Code 136 - 145 mEq/L AH ADM SS Urea nitrogen [Mass/Vol] 18.0 mg/dL Invalid Interpretation Code 8.0 - 22.0 mg/dL AH ADM SS Urea nitrogen/Creatinine [Mass ratio] 19.8 ratio Invalid Interpretation Code 10.0 - 22.0 ratio AH ADM SS WBC (Bld) [#/Vol] 5.40 103/mcL Invalid Interpretation Code 4.50 - 10.80 10^3/mcL AH Remisol SS LABORATORYOrdered By: Georgina Rodriguez on 02-21-2022 INR Coag (PPP) [Relative time] 1.0 {INR} Invalid Interpretation Code AH Auto Coag SS PT Coag (PPP) [Time] 12.3 s Invalid Interpretation Code 9.0 - 14.9 seconds AH Auto Coag SS PROon 02-21-2022 INR Coag (PPP) [Relative time] 1.0 {INR} Normal [facility] ([place]) Comment on above: Result Comment: The [employer] (CHEST, 1992, [id number]) recommended therapeutic range for oral anticoagulant therapy is: LOW RISK: Prophylaxis of venous thrombosis INR: 2.0-3.0 Treatment of pulmonary embolism 2.0-3.0 Prevention of systemic embolism 2.0-3.0 HIGH RISK: Mechanical prosthetic valves 2.5-3.5 Performed By: #### A YOLI, BMP, ADIFF, GFR, CBC #### [address] [address] PT Coag (PPP) [Time] 12.3 s Normal 9.0-14.9 [facility] ([place]) Comment on above: Result Comment: Effe ctive 05/11/08, Protime results may be affected by some antibiotics (i.e. Ciprofloxacin, Azithromycin, Bactrim) which may potentiate the action of oral anticoagulants, with further increases in Protime/INR. Performed By: #### A YOLI, BMP, ADIFF, GFR, CBC #### [address] [address] .Auto Diffon 02-20-2022 Basophil, Absolute 0.00 10 3/mcL Normal 0.00-0.27 [facility] ([place]) Comment on above: Performed By: #### A YOLI, BMP, ADIFF, GFR, CBC #### [place] [address] Basophils/100 WBC (Bld) 0.5 % Normal 0.0-2.5 [facility] ([place]) Comment on above: Performed By: #### A YOLI, BMP, ADIFF, GFR, CBC #### [place] [address] Eosinophil, Absolute 0.10 10 3/mcL Normal 0.00-0.65 [facility] ([place]) Comment on above: Performed By: #### A YOLI, BMP, ADIFF, GFR, CBC #### [address] [address] Eosinophils/100 WBC (Bld) 2.0 % Normal 0.0-6.0 [facility] ([place]) Comment on above: Performed By: #### A YOLI, BMP, ADIFF, GFR, CBC #### [place] [id number] Lymphocyte, Absolute 0.40 10 3/mcL Low 0.90-4.32 [facility] ([place]) Comment on above: Performed By: #### A YOLI, BMP, ADIFF, GFR, CBC #### [place] [id number] Lymphocytes/100 WBC (Bld) 6.8 % Low 20.0-40.0 [facility] ([place]) Comment on above: Performed By: #### A YOLI, BMP, ADIFF, GFR, CBC #### [address] [address] Monocyte, Absolute 0.10 10 3/mcL Normal 0.09-1.40 [facility] ([place]) Comment on above: Performed By: #### A YOLI, BMP, ADIFF, GFR, CBC #### [address] [address] Monocytes/100 WBC (Bld) 2.7 % Normal 2.0-13.0 [facility] ([place]) Comment on above: Performed By: #### A YOLI, BMP, ADIFF, GFR, CBC #### [address] [address] Neutrophils/100 WBC (Bld) 88.0 % High 50.0-75.0 [facility] ([place]) Comment on above: Performed By: #### A YOLI, BMP, ADIFF, GFR, CBC #### [address] [address] Basophil, Absolute 0.00 10 3/mcL Normal 0.00-0.27 [facility] ([place]) Comment on above: Performed By: #### A BSGEL, ABOGEL #### [address] [address] Basophils/100 WBC (Bld) 1.0 % Normal 0.0-2.5 [facility] ([place]) Comment on above: Performed By: #### A BSCHAPINCITO ABOGEL #### [address] [address] Eosinophil, Absolute 0.20 10 3/mcL Normal 0.00-0.65 A [facility] ([place]) Comment on above: Performed By: #### A BSGEL, ABOGEL #### [address] [address] Eosinophils/100 WBC (Bld) 4.6 % Normal 0.0-6.0 [facility] ([place]) Comment on above: Performed By: #### A BSGEL, ABOGEL #### [address] [address] Lymphocyte, Absolute 0.80 10 3/mcL Low 0.90-4.32 A [facility] ([place]) Comment on above: Performed By: #### A BSGEL, ABOGEL #### [address] [address] Lymphocytes/100 WBC (Bld) 19.3 % Low 20.0-40.0 [facility] ([place]) Comment on above: Performed By: #### A BSGEL, ABOGEL #### [address] [address] Monocyte, Absolute 0.40 10 3/mcL Normal 0.09-1.40 [facility]ly [facility], later [facility] ([place]) Comment on above: Performed By: #### A BSGEL, ABOGEL #### [address] [address] Monocytes/100 WBC (Bld) 8.9 % Normal 2.0-13.0 [facility] ([place]) Comment on above: Performed By: #### A BSGEL, ABOGEL #### [address] [address] Neutrophils/100 WBC (Bld) 66.2 % Normal 50.0-75.0 [facility] ([place]) Comment on above: Performed By: #### A BSGEL, ABOGEL #### [address] [address] .GFRon 02-20-2022 GFR Non- >60 Normal [facility] ([place]) Comment on above: Result Comment: GFR Population mean for , Non- Americans Ages 20-29 = 116 mL/min/1.73 sq.m. Ages 30-39 = 107 mL/min/1.73 sq.m. Ages 40-49 = 99 mL/min/1.73 sq.m. Ages 50-59 = 93 mL/min/1.73 sq.m. Ages 60-69 = 85 mL/min/1.73 sq.m. Ages 70+ = 75 mL/min/1.73 sq.m. Chronic Kidney Disease: Less than 60 mL/min/1.73 square meters End Stage Renal Disease: Less than 15 mL/min/1.73 square meters Performed By: #### A YOLI, BMP, ADIFF, GFR, CBC #### [address] [address] GFR >60 Normal [facility] ([place]) Comment on above: Result Comment: GFR Population mean for , Non- Americans Ages 20-29 = 116 mL/min/1.73 sq.m. Ages 30-39 = 107 mL/min/1.73 sq.m. Ages 40-49 = 99 mL/min/1.73 sq.m. Ages 50-59 = 93 mL/min/1.73 sq.m. Ages 60-69 = 85 mL/min/1.73 sq.m. Ages 70+ = 75 mL/min/1.73 sq.m. Chronic Kidney Disease: Less than 60 mL/min/1.73 square meters End Stage Renal Disease: Less than 15 mL/min/1.73 square meters Performed By: #### A YOLI, BMP, ADIFF, GFR, CBC #### [address] [address] GFR Non- >60 Normal [facility] ([place]) Comment on above: Result Comment: GFR Population mean for , Non- Americans Ages 20-29 = 116 mL/min/1.73 sq.m. Ages 30-39 = 107 mL/min/1.73 sq.m. Ages 40-49 = 99 mL/min/1.73 sq.m. Ages 50-59 = 93 mL/min/1.73 sq.m. Ages 60-69 = 85 mL/min/1.73 sq.m. Ages 70+ = 75 mL/min/1.73 sq.m. Chronic Kidney Disease: Less than 60 mL/min/1.73 square meters End Stage Renal Disease: Less than 15 mL/min/1.73 square meters Performed By: #### A BSGEL, ABOGEL #### [address] [address] GFR >60 Normal [facility] ([place]) Comment on above: Result Comment: GFR Population mean for , Non- Americans Ages 20-29 = 116 mL/min/1.73 sq.m. Ages 30-39 = 107 mL/min/1.73 sq.m. Ages 40-49 = 99 mL/min/1.73 sq.m. Ages 50-59 = 93 mL/min/1.73 sq.m. Ages 60-69 = 85 mL/min/1.73 sq.m. Ages 70+ = 75 mL/min/1.73 sq.m. Chronic Kidney Disease: Less than 60 mL/min/1.73 square meters End Stage Renal Disease: Less than 15 mL/min/1.73 square meters Performed By: #### A IBAN CASTRO #### [place] [address] .NEUABSon 02-20-2022 Neutrophil, Absolute 4.70 10 3/mcL Normal 2.25-8.10 A [facility] ([place]) Comment on above: Performed By: #### A YOLI, BMP, ADIFF, GFR, CBC #### [place] [address] Neutrophil, Absolute 2.80 10 3/mcL Normal 2.25-8.10 A [facility] ([place]) Comment on above: Performed By: #### A IBAN CASTRO #### [address] 02-20-2022 BUN/Creatinine Ratio 23.4 ratio High 10.0-22.0 [facility] ([place] Comment on above: Order Comment: withi n 1/2 hour of admission to CVSICU Performed By: #### A YOLI, BMP, ADIFF, GFR, CBC #### [place] [address] Creatinine [Mass/Vol] 0.94 mg/dL Normal 0.60-1.40 [facility], [facility] ([place]) Comment on above: Order Comment: withi n 1/2 hour of admission to CVSICU Performed By: #### A YOLI, BMP, ADIFF, GFR, CBC #### [place] [address] Electrolyte Balance 2.0 mEq/L Low 4.0-15.0 [facility] ([place] Comment on above: Order Comment: withi n 1/2 hour of admission to CVSICU Performed By: #### A YOLI, BMP, ADIFF, GFR, CBC #### [address] [address] Glucose [Mass/Vol] 117 mg/dL High 82-115 [facility] ([place]) Comment on above: Order Comment: withi n 1/2 hour of admission to CVSICU Performed By: #### A YOLI, BMP, ADIFF, GFR, CBC #### [address] [address] Potassium [Moles/Vol] 4.6 mmol/L Normal 3.5-5.0 [facility] ([place]) Comment on above: Order Comment: withi n 1/2 hour of admission to CVSICU Performed By: #### A YOLI, BMP, ADIFF, GFR, CBC #### [address] [address] Sodium [Moles/Vol] 141 mmol/L Normal 136-145 [facility] ([place] Comment on above: Order Comment: withi n 1/2 hour of admission to CVSICU Performed By: #### A YOLI, BMP, ADIFF, GFR, CBC #### [address] [address] Urea nitrogen [Mass/Vol] 22.0 mg/dL Normal 8.0-22.0 [facility] ([place]) Comment on above: Order Comment: withi n 1/2 hour of admission to CVSICU Performed By: #### A YOLI, BMP, ADIFF, GFR, CBC #### [address] [address] Calcium [Mass/Vol] 8.9 mg/dL Normal 8.7-10.4 [facility] ([place] Comment on above: Order Comment: withi n 1/2 hour of admission to CVSICU Result Comment: No te - New Reference Range in effect 20 Performed By: #### A YOLI, BMP, ADIFF, GFR, CBC #### [address] [address] CO2 [Moles/Vol] 25 mmol/L Normal 22-32 [facility] ([place]) Comment on above: Order Comment: withi n 1/2 hour of admission to CVSICU Performed By: #### A YOLI, BMP, ADIFF, GFR, CBC #### [address] [address] Chloride [Moles/Vol] 114 mmol/L High 98-110 [facility] ([place] Comment on above: Order Comment: withi n 1/2 hour of admission to CVSICU Performed By: #### A YOLI, BMP, ADIFF, GFR, CBC #### [address] [address] BUN/Creatinine Ratio 24.0 ratio High 10.0-22.0 [facility] ([place] Comment on above: Performed By: #### A IBAN CASTRO #### [address] [address] Calcium [Mass/Vol] 9.8 mg/dL Normal 8.7-10.4 [facility] ([place]) Comment on above: Result Comment: No te - New Reference Range in effect 20 Performed By: #### A IBAN CASTRO #### [address] [address] Chloride [Moles/Vol] 111 mmol/L High 98-110 [facility] ([place] Comment on above: Performed By: #### A IBAN CASTRO #### [address] [address] CO2 [Moles/Vol] 26 mmol/L Normal 22-32 [facility] ([place]) Comment on above: Performed By: #### A IBAN CASTRO #### [address] [address] Creatinine [Mass/Vol] 1.04 mg/dL Normal 0.60-1.40 [facility], [facility] ([place]) Comment on above: Performed By: #### A IBAN CASTRO #### [address] [address] Electrolyte Balance 5.0 mEq/L Normal 4.0-15.0 [facility] ([place]) Comment on above: Performed By: #### A IBAN CASTRO #### [place] [id number] Glucose [Mass/Vol] 104 mg/dL Normal 82-115 [facility] ([place] Comment on above: Performed By: #### A IBAN CASTRO #### [place] [id number] Potassium [Moles/Vol] 4.6 mmol/L Normal 3.5-5.0 [facility] ([place]) Comment on above: Result Comment: Spec imen slightly hemolyzed. Performed By: #### A IBAN CASTRO #### [place] [id number] Sodium [Moles/Vol] 142 mmol/L Normal 136-145 [facility] ([place]) Comment on above: Performed By: #### A IBAN CASTRO #### [place] [id number] Urea nitrogen [Mass/Vol] 25.0 mg/dL High 8.0-22.0 [facility] ([place]) Comment on above: Performed By: #### A IBAN CASTRO #### [place] [id number] CBCon 02-20-2022 Erythrocyte distribution width (RBC) [Ratio] 14.0 % Normal 11.5-15.5 [facility] ([place]) Comment on above: Order Comment: withi n 1/2 hour of admission to CVSICU Performed By: #### A YOLI, BMP, ADIFF, GFR, CBC #### [address] [address] Hematocrit (Bld) [Volume fraction] 28.7 % Low 40.0-52.0 [facility] ([place]) Comment on above: Order Comment: withi n 1/2 hour of admission to CVSICU Performed By: #### A YOLI, BMP, ADIFF, GFR, CBC #### [place] [id number] Hgb 9.8 G/dL Low 13.0-17.5 [facility] ([place] Comment on above: Order Comment: withi n 1/2 hour of admission to CVSICU Performed By: #### A YOLI, BMP, ADIFF, GFR, CBC #### [place] [address] MCH (RBC) [Entitic mass] 32.1 pg Normal 27.0-33.0 [facility] ([place] Comment on above: Order Comment: withi n 1/2 hour of admission to CVSICU Performed By: #### A YOLI, BMP, ADIFF, GFR, CBC #### [place] [address] MCHC 34.0 G/dL Normal 32.0-36.0 [facility] ([place] Comment on above: Order Comment: withi n 1/2 hour of admission to CVSICU Performed By: #### A YOLI, BMP, ADIFF, GFR, CBC #### [place] [address] MCV (RBC) [Entitic vol] 94.4 fL Normal 81.0-100.0 [facility] ([place] Comment on above: Order Comment: withi n 1/2 hour of admission to CVSICU Performed By: #### A YOLI, BMP, ADIFF, GFR, CBC #### [place] [address] Platelet 54 10 3/mcL Low 150-450 [facility] ([place] Comment on above: Order Comment: withi n 1/2 hour of admission to CVSICU Performed By: #### A YOLI, BMP, ADIFF, GFR, CBC #### [place] [address] Platelet mean volume (Bld) [Entitic vol] 8.4 fL Normal 6.4-10.5 [facility] ([place] Comment on above: Order Comment: withi n 1/2 hour of admission to CVSICU Performed By: #### A YOLI, BMP, ADIFF, GFR, CBC #### [place] [address] RBC 3.04 10 6/mcL Low 4.50-6.00 [facility] ([place] Comment on above: Order Comment: withi n 1/2 hour of admission to CVSICU Performed By: #### A YOLI, BMP, ADIFF, GFR, CBC #### [address] [address] WBC 5.30 10 3/mcL Normal 4.50-10.80 [facility] ([place] Comment on above: Order Comment: withi n 1/2 hour of admission to CVSICU Performed By: #### A YOLI, BMP, ADIFF, GFR, CBC #### [address] [address] Erythrocyte distribution width (RBC) [Ratio] 14.3 % Normal 11.5-15.5 [facility] ([place]) Comment on above: Performed By: #### A BSCHAPINCITO, ABOGEL #### [place] [id number] Hematocrit (Bld) [Volume fraction] 32.9 % Low 40.0-52.0 [facility] ([place]) Comment on above: Performed By: #### A BSGEL ABOGEL #### [place] [id number] Hgb 11.1 G/dL Low 13.0-17.5 [facility] ([place] Comment on above: Performed By: #### A BSGEL, ABOGEL #### [address] [address] MCH (RBC) [Entitic mass] 31.9 pg Normal 27.0-33.0 [facility] ([place]) Comment on above: Performed By: #### A BSGEL, ABOGEL #### [address] [address] MCHC 33.7 G/dL Normal 32.0-36.0 [facility] ([place] Comment on above: Performed By: #### A BSGEL, ABOGEL #### [place] [id number] MCV (RBC) [Entitic vol] 94.7 fL Normal 81.0-100.0 [facility] ([place] Comment on above: Performed By: #### A BSCHAPINCITO, ABOGEL #### [address] [address] Platelet 75 10 3/mcL Low 150-450 [facility] ([place]) Comment on above: Performed By: #### A BSCHAPINCITO, ABOGEL #### [address] [address] Platelet mean volume (Bld) [Entitic vol] 9.1 fL Normal 6.4-10.5 [facility] ([place]) Comment on above: Performed By: #### A MATTHEW, ABOGEL #### [address] [address] RBC 3.48 10 6/mcL Low 4.50-6.00 [facility] ([place]) Comment on above: Performed By: #### A MATTHEW, ABOGEL #### [address] [address] WBC 4.20 10 3/mcL Low 4.50-10.80 [facility] ([place]) Comment on above: Performed By: #### A MATTHEW, ABOGEL #### [address] [address] LABORATORYOrdered By: SYSTEM SYSTEM on 02-20-2022 Basophils (Bld) [#/Vol] 0.00 103/mcL Invalid Interpretation Code 0.00 - 0.27 10^3/mcL AH Remisol SS Basophils/100 WBC (Bld) 0.5 % Invalid Interpretation Code 0.0 - 2.5 % AH Remisol SS Calcium [Mass/Vol] 8.9 mg/dL Invalid Interpretation Code 8.7 - 10.4 mg/dL AH ADM SS Chloride [Moles/Vol] 114 mmol/L Invalid Interpretation Code 98 - 110 mEq/L AH ADM SS CO2 [Moles/Vol] 25 mmol/L Invalid Interpretation Code 22 - 32 mEq/L AH ADM SS Eosinophils (Bld) [#/Vol] 0.10 103/mcL Invalid Interpretation Code 0.00 - 0.65 10^3/mcL AH Remisol SS Eosinophils/100 WBC (Bld) 2.0 % Invalid Interpretation Code 0.0 - 6.0 % AH Remisol SS Erythrocyte distribution width (RBC) [Ratio] 14.0 % Invalid Interpretation Code 11.5 - 15.5 % AH Remisol SS GFR/1.73 sq M.predicted among blacks MDRD (S/P/Bld) [Vol rate/Area] ml/min/1.73sqm Invalid Interpretation Code AH ADM SS GFR/1.73 sq M.predicted among non-blacks MDRD (S/P/Bld) [Vol rate/Area] ml/min/1.73sqm Invalid Interpretation Code AH ADM SS Hematocrit (Bld) [Volume fraction] 28.7 % Invalid Interpretation Code 40.0 - 52.0 % AH Remisol SS Hemoglobin (Bld) [Mass/Vol] 9.8 G/dL Invalid Interpretation Code 13.0 - 17.5 G/dL AH Remisol SS Lymphocytes (Bld) [#/Vol] 0.40 103/mcL Invalid Interpretation Code 0.90 - 4.32 10^3/mcL AH Remisol SS Lymphocytes/100 WBC (Bld) 6.8 % Invalid Interpretation Code 20.0 - 40.0 % AH Remisol SS MCH (RBC) [Entitic mass] 32.1 pg Invalid Interpretation Code 27.0 - 33.0 pg AH Remisol SS MCHC (RBC) [Mass/Vol] 34.0 G/dL Invalid Interpretation Code 32.0 - 36.0 G/dL AH Remisol SS MCV (RBC) [Entitic vol] 94.4 fL Invalid Interpretation Code 81.0 - 100.0 fL AH Remisol SS Monocytes (Bld) [#/Vol] 0.10 103/mcL Invalid Interpretation Code 0.09 - 1.40 10^3/mcL AH Remisol SS Monocytes/100 WBC (Bld) 2.7 % Invalid Interpretation Code 2.0 - 13.0 % AH Remisol SS Neutrophils (Bld) [#/Vol] 4.70 103/mcL Invalid Interpretation Code 2.25 - 8.10 10^3/mcL AH Remisol SS Neutrophils/100 WBC (Bld) 88.0 % Invalid Interpretation Code 50.0 - 75.0 % AH Remisol SS Platelet mean volume (Bld) [Entitic vol] 8.4 fL Invalid Interpretation Code 6.4 - 10.5 fL AH Remisol SS Platelets (Bld) [#/Vol] 54 103/mcL Invalid Interpretation Code 150 - 450 10^3/mcL AH Remisol SS RBC (Bld) [#/Vol] 3.04 106/mcL Invalid Interpretation Code 4.50 - 6.00 10^6/mcL AH Remisol SS Urea nitrogen [Mass/Vol] 22.0 mg/dL Invalid Interpretation Code 8.0 - 22.0 mg/dL AH ADM SS WBC (Bld) [#/Vol] 5.30 103/mcL Invalid Interpretation Code 4.50 - 10.80 10^3/mcL AH Remisol SS Basophils (Bld) [#/Vol] 0.00 103/mcL Invalid Interpretation Code 0.00 - 0.27 10^3/mcL AH Remisol SS Basophils/100 WBC (Bld) 1.0 % Invalid Interpretation Code 0.0 - 2.5 % AH Remisol SS Calcium [Mass/Vol] 9.8 mg/dL Invalid Interpretation Code 8.7 - 10.4 mg/dL AH ADM SS Chloride [Moles/Vol] 111 mmol/L Invalid Interpretation Code 98 - 110 mEq/L AH ADM SS CO2 [Moles/Vol] 26 mmol/L Invalid Interpretation Code 22 - 32 mEq/L AH ADM SS Creatinine [Mass/Vol] 1.04 mg/dL Invalid Interpretation Code 0.60 - 1.40 mg/dL AH ADM SS Electrolyte Balance 5.0 mEq/L Invalid Interpretation Code 4.0 - 15.0 mEq/L AH ADM SS Eosinophils (Bld) [#/Vol] 0.20 103/mcL Invalid Interpretation Code 0.00 - 0.65 10^3/mcL AH Remisol SS Eosinophils/100 WBC (Bld) 4.6 % Invalid Interpretation Code 0.0 - 6.0 % AH Remisol SS Erythrocyte distribution width (RBC) [Ratio] 14.3 % Invalid Interpretation Code 11.5 - 15.5 % AH Remisol SS GFR/1.73 sq M.predicted among blacks MDRD (S/P/Bld) [Vol rate/Area] ml/min/1.73sqm Invalid Interpretation Code AH Chemistry S GFR/1.73 sq M.predicted among non-blacks MDRD (S/P/Bld) [Vol rate/Area] ml/min/1.73sqm Invalid Interpretation Code Chemistry S Glucose [Mass/Vol] 104 mg/dL Invalid Interpretation Code 82 - 115 mg/dL AH ADM SS Hematocrit (Bld) [Volume fraction] 32.9 % Invalid Interpretation Code 40.0 - 52.0 % AH Remisol SS Hemoglobin (Bld) [Mass/Vol] 11.1 G/dL Invalid Interpretation Code 13.0 - 17.5 G/dL AH Remisol SS Lymphocytes (Bld) [#/Vol] 0.80 103/mcL Invalid Interpretation Code 0.90 - 4.32 10^3/mcL AH Remisol SS Lymphocytes/100 WBC (Bld) 19.3 % Invalid Interpretation Code 20.0 - 40.0 % AH Remisol SS MCH (RBC) [Entitic mass] 31.9 pg Invalid Interpretation Code 27.0 - 33.0 pg AH Remisol SS MCHC (RBC) [Mass/Vol] 33.7 G/dL Invalid Interpretation Code 32.0 - 36.0 G/dL AH Remisol SS MCV (RBC) [Entitic vol] 94.7 fL Invalid Interpretation Code 81.0 - 100.0 fL AH Remisol SS Monocytes (Bld) [#/Vol] 0.40 103/mcL Invalid Interpretation Code 0.09 - 1.40 10^3/mcL AH Remisol SS Monocytes/100 WBC (Bld) 8.9 % Invalid Interpretation Code 2.0 - 13.0 % AH Remisol SS Neutrophils (Bld) [#/Vol] 2.80 103/mcL Invalid Interpretation Code 2.25 - 8.10 10^3/mcL AH Remisol SS Neutrophils/100 WBC (Bld) 66.2 % Invalid Interpretation Code 50.0 - 75.0 % AH Remisol SS Platelet mean volume (Bld) [Entitic vol] 9.1 fL Invalid Interpretation Code 6.4 - 10.5 fL AH Remisol SS Platelets (Bld) [#/Vol] 75 103/mcL Invalid Interpretation Code 150 - 450 10^3/mcL AH Remisol SS Potassium [Moles/Vol] 4.6 mmol/L Invalid Interpretation Code 3.5 - 5.0 mEq/L AH ADM SS Comment on above: Result Comment: Spec imen slightly hemolyzed. RBC (Bld) [#/Vol] 3.48 106/mcL Invalid Interpretation Code 4.50 - 6.00 10^6/mcL AH Remisol SS Sodium [Moles/Vol] 142 mmol/L Invalid Interpretation Code 136 - 145 mEq/L AH ADM SS Urea nitrogen [Mass/Vol] 25.0 mg/dL Invalid Interpretation Code 8.0 - 22.0 mg/dL AH ADM SS Urea nitrogen/Creatinine [Mass ratio] 24.0 ratio Invalid Interpretation Code 10.0 - 22.0 ratio AH ADM SS WBC (Bld) [#/Vol] 4.20 103/mcL Invalid Interpretation Code 4.50 - 10.80 10^3/mcL Remisol SS LABORATORYOrdered By: Aster Green on 02-20-2022 Creatinine [Mass/Vol] 0.94 mg/dL Invalid Interpretation Code 0.60 - 1.40 mg/dL AH ADM SS Electrolyte Balance 2.0 mEq/L Invalid Interpretation Code 4.0 - 15.0 mEq/L AH ADM SS Glucose [Mass/Vol] 117 mg/dL Invalid Interpretation Code 82 - 115 mg/dL AH ADM SS Potassium [Moles/Vol] 4.6 mmol/L Invalid Interpretation Code 3.5 - 5.0 mEq/L ADM SS Sodium [Moles/Vol] 141 mmol/L Invalid Interpretation Code 136 - 145 mEq/L AH ADM SS Urea nitrogen/Creatinine [Mass ratio] 23.4 ratio Invalid Interpretation Code 10.0 - 22.0 ratio AH ADM SS .Auto Diffon 02-19-2022 Basophil, Absolute 0.00 10 3/mcL Normal 0.00-0.27 [facility] ([place]) Comment on above: Performed By: #### A YOLI, BMP, ADIFF, GFR, CBC #### [address] [address] Basophils/100 WBC (Bld) 0.7 % Normal 0.0-2.5 [facility] ([place]) Comment on above: Performed By: #### A YOLI, BMP, ADIFF, GFR, CBC #### [address] [address] Eosinophil, Absolute 0.10 10 3/mcL Normal 0.00-0.65 A [facility] ([place]) Comment on above: Performed By: #### A YOLI, BMP, ADIFF, GFR, CBC #### [address] [address] Eosinophils/100 WBC (Bld) 2.0 % Normal 0.0-6.0 [facility] ([place]) Comment on above: Performed By: #### A YOLI, BMP, ADIFF, GFR, CBC #### [address] [address] Lymphocyte, Absolute 0.90 10 3/mcL Normal 0.90-4.32 A [facility] ([place]) Comment on above: Performed By: #### A YOLI, BMP, ADIFF, GFR, CBC #### [address] [address] Lymphocytes/100 WBC (Bld) 18.5 % Low 20.0-40.0 [facility] ([place]) Comment on above: Performed By: #### A YOLI, BMP, ADIFF, GFR, CBC #### [address] [address] Monocyte, Absolute 0.40 10 3/mcL Normal 0.09-1.40 [facility] ([place]) Comment on above: Performed By: #### A YOLI, BMP, ADIFF, GFR, CBC #### [address] [address] Monocytes/100 WBC (Bld) 7.7 % Normal 2.0-13.0 [facility] ([place]) Comment on above: Performed By: #### A YOLI, BMP, ADIFF, GFR, CBC #### [address] [address] Neutrophils/100 WBC (Bld) 71.1 % Normal 50.0-75.0 [facility] ([place]) Comment on above: Performed By: #### A YOLI, BMP, ADIFF, GFR, CBC #### [address] [address] .GFRon 02-19-2022 GFR >60 Normal [facility] ([place]) Comment on above: Result Comment: GFR Population mean for , Non- Americans Ages 20-29 = 116 mL/min/1.73 sq.m. Ages 30-39 = 107 mL/min/1.73 sq.m. Ages 40-49 = 99 mL/min/1.73 sq.m. Ages 50-59 = 93 mL/min/1.73 sq.m. Ages 60-69 = 85 mL/min/1.73 sq.m. Ages 70+ = 75 mL/min/1.73 sq.m. Chronic Kidney Disease: Less than 60 mL/min/1.73 square meters End Stage Renal Disease: Less than 15 mL/min/1.73 square meters Performed By: #### A YOLI, BMP, ADIFF, GFR, CBC #### [address] [address] GFR Non- >60 Normal [facility] ([place]) Comment on above: Result Comment: GFR Population mean for , Non- Americans Ages 20-29 = 116 mL/min/1.73 sq.m. Ages 30-39 = 107 mL/min/1.73 sq.m. Ages 40-49 = 99 mL/min/1.73 sq.m. Ages 50-59 = 93 mL/min/1.73 sq.m. Ages 60-69 = 85 mL/min/1.73 sq.m. Ages 70+ = 75 mL/min/1.73 sq.m. Chronic Kidney Disease: Less than 60 mL/min/1.73 square meters End Stage Renal Disease: Less than 15 mL/min/1.73 square meters Performed By: #### A YOLI, BMP, ADIFF, GFR, CBC #### [address] [address] .NEUABSon 02-19-2022 Neutrophil, Absolute 3.50 10 3/mcL Normal 2.25-8.10 A [facility] ([place]) Comment on above: Performed By: #### A YOLI, BMP, ADIFF, GFR, CBC #### [address] [address] ABO/Rh (Gel)on 02-19-2022 ABO/Rh Interp Negative Invalid Interpretation Code [facility] ([place]) Comment on above: Performed By: #### A BSGEL, ABOGEL #### [address] [address] ABS (Gel)on 02-19-2022 ABSC Interp (Gel) Negative Normal [facility] ([place]) Comment on above: Performed By: #### A IBAN CASTRO #### [place] [address] APTTon 02-19-2022 aPTT Coag (Bld) [Time] 28.0 s Normal 25.0-35.0 [facility] ([place]) Comment on above: Result Comment: For Heparin anticoagulation therapy, the recommended therapeutic range is: 54-77 seconds (APTT Correlation with Anti-Xa therapeutic range of 0.3-0.7 units/ml). PLEASE REFERENCE THE PHARMACY PROTOCOL FOR DOSING. Performed By: #### A YOLI, BMP, ADIFF, GFR, CBC #### [place] [address] Heparin dose (APTT) None Normal [facility] ([place]) Comment on above: Performed By: #### A YOLI, BMP, ADIFF, GFR, CBC #### [place] [address] CBCon 02-19-2022 Erythrocyte distribution width (RBC) [Ratio] 14.4 % Normal 11.5-15.5 [facility] ([place]) Comment on above: Performed By: #### A YOLI, BMP, ADIFF, GFR, CBC #### [place] [address] Hematocrit (Bld) [Volume fraction] 32.2 % Low 40.0-52.0 [facility] ([place]) Comment on above: Performed By: #### A YOLI, BMP, ADIFF, GFR, CBC #### [place] [address] Hgb 10.8 G/dL Low 13.0-17.5 [facility] ([place]) Comment on above: Performed By: #### A YOLI, BMP, ADIFF, GFR, CBC #### [place] [address] MCH (RBC) [Entitic mass] 32.0 pg Normal 27.0-33.0 [facility] ([place]) Comment on above: Performed By: #### A YOLI, BMP, ADIFF, GFR, CBC #### [address] [address] MCHC 33.7 G/dL Normal 32.0-36.0 [facility] ([place]) Comment on above: Performed By: #### A YOLI, BMP, ADIFF, GFR, CBC #### [place] [address] MCV (RBC) [Entitic vol] 95.1 fL Normal 81.0-100.0 [facility] ([place]) Comment on above: Performed By: #### A YOLI, BMP, ADIFF, GFR, CBC #### [place] [address] Platelet 68 10 3/mcL Low 150-450 [facility] ([place]) Comment on above: Performed By: #### A YOLI, BMP, ADIFF, GFR, CBC #### [place] [address] Platelet mean volume (Bld) [Entitic vol] 9.4 fL Normal 6.4-10.5 [facility] ([place]) Comment on above: Performed By: #### A YOLI, BMP, ADIFF, GFR, CBC #### [place] [address] RBC 3.38 10 6/mcL Low 4.50-6.00 [facility] ([place]) Comment on above: Performed By: #### A YOLI, BMP, ADIFF, GFR, CBC #### [place] [address] WBC 4.90 10 3/mcL Normal 4.50-10.80 [facility] ([place]) Comment on above: Performed By: #### A YOLI, BMP, ADIFF, GFR, CBC #### [place] [address] CMPon 02-19-2022 Albumin Level 4.1 G/dL Normal 3.2-4.8 [facility] ([place]) Comment on above: Performed By: #### A YOLI, BMP, ADIFF, GFR, CBC #### [place] [address] Albumin/Globulin [Mass ratio] 2.0 {ratio} High 0.9-1.6 [facility] ([place]) Comment on above: Performed By: #### A YOLI, BMP, ADIFF, GFR, CBC #### [address] [address] ALP [Catalytic activity/Vol] 57 U/L Normal 38-126 [facility] ([place] Comment on above: Performed By: #### A YOLI, BMP, ADIFF, GFR, CBC #### [address] [address] ALT [Catalytic activity/Vol] 18 U/L Normal 12-55 [facility] ([place] Comment on above: Performed By: #### A YOLI, BMP, ADIFF, GFR, CBC #### [address] [address] AST [Catalytic activity/Vol] 45 U/L High 8-34 [facility] ([place] Comment on above: Performed By: #### A YOLI, BMP, ADIFF, GFR, CBC #### [address] [address] BUN/Creatinine Ratio 22.4 ratio High 10.0-22.0 [facility] ([place]) Comment on above: Performed By: #### A YOLI, BMP, ADIFF, GFR, CBC #### [address] [address] Calcium [Mass/Vol] 9.6 mg/dL Normal 8.7-10.4 [facility] ([place]) Comment on above: Result Comment: No te - New Reference Range in effect 20 Performed By: #### A YOLI, BMP, ADIFF, GFR, CBC #### [address] [address] Chloride [Moles/Vol] 111 mmol/L High 98-110 [facility] ([place] Comment on above: Performed By: #### A YOLI, BMP, ADIFF, GFR, CBC #### [address] [address] CO2 [Moles/Vol] 25 mmol/L Normal 22-32 [facility] ([place] Comment on above: Performed By: #### A YOLI, BMP, ADIFF, GFR, CBC #### [address] [address] Creatinine [Mass/Vol] 0.98 mg/dL Normal 0.60-1.40 [facility] ([place]) Comment on above: Performed By: #### A YOLI, BMP, ADIFF, GFR, CBC #### [address] [address] Electrolyte Balance 6.0 mEq/L Normal 4.0-15.0 [facility] ([place] Comment on above: Performed By: #### A YOLI, BMP, ADIFF, GFR, CBC #### [address] [address] Globulin 2.1 G/dL Normal 1.5-3.8 [facility] ([place] Comment on above: Performed By: #### A YOLI, BMP, ADIFF, GFR, CBC #### [place] [id number] Glucose [Mass/Vol] 92 mg/dL Normal 82-115 [facility] ([place]) Comment on above: Performed By: #### A YOLI, BMP, ADIFF, GFR, CBC #### [place] [id number] Potassium [Moles/Vol] 4.0 mmol/L Normal 3.5-5.0 [facility] ([place]) Comment on above: Result Comment: Spec imen slightly hemolyzed. Performed By: #### A YOLI, BMP, ADIFF, GFR, CBC #### [place] [id number] Sodium [Moles/Vol] 142 mmol/L Normal 136-145 [facility] ([place]) Comment on above: Performed By: #### A YOLI, BMP, ADIFF, GFR, CBC #### [address] [address] Total Protein 6.2 G/dL Normal 5.7-8.2 [facility] ([place]) Comment on above: Result Comment: No te - New Reference Range in effect 20 Performed By: #### A YOLI, BMP, ADIFF, GFR, CBC #### [facility] [address] [place], [place] [address] Urea nitrogen [Mass/Vol] 22.0 mg/dL Normal 8.0-22.0 [facility] ([place] Comment on above: Performed By: #### A YOLI, BMP, ADIFF, GFR, CBC #### [place] [address] Bili Total 1.70 mg/dL High 0.20-1.20 [facility] ([place]) Comment on above: Result Comment: Use of this assay is not recommended for patients undergoing treatment with eltrombopag due to the potential for falsely elevated results. Performed By: #### A YOLI, BMP, ADIFF, GFR, CBC #### [place] [address] FIBon 02-19-2022 Fibrinogen 362 mg/dL Normal 250-560 [facility] ([place]) Comment on above: Performed By: #### A YOLI, BMP, ADIFF, GFR, CBC #### [place] [address] LABORATORYOrdered By: Teresita Molina on 02-19-2022 ABO and Rh group Nom (Bld) Blood group O Rh(D) negative Invalid Interpretation Code AH BB Auto SS Blood group antibody screen Ql NEG (02/19/22 1:58 PM) Invalid Interpretation Code AH BB Auto SS LABORATORYOrdered By: SYSTEM SYSTEM on 02-19-2022 Albumin BCP dye [Mass/Vol] 4.1 G/dL Invalid Interpretation Code 3.2 - 4.8 G/dL AH ADM SS Albumin/Globulin [Mass ratio] 2.0 {ratio} Invalid Interpretation Code 0.9 - 1.6 ratio AH ADM SS ALP [Catalytic activity/Vol] 57 U/L Invalid Interpretation Code 38 - 126 U/L AH ADM SS ALT No additional P-5'-P [Catalytic activity/Vol] 18 U/L Invalid Interpretation Code 12 - 55 U/L AH ADM SS AST [Catalytic activity/Vol] 45 U/L Invalid Interpretation Code 8 - 34 U/L AH ADM SS Basophils (Bld) [#/Vol] 0.00 103/mcL Invalid Interpretation Code 0.00 - 0.27 10^3/mcL AH Remisol SS Basophils/100 WBC (Bld) 0.7 % Invalid Interpretation Code 0.0 - 2.5 % AH Remisol SS Bilirubin [Mass/Vol] 1.70 mg/dL Invalid Interpretation Code 0.20 - 1.20 mg/dL AH ADM SS Calcium [Mass/Vol] 9.6 mg/dL Invalid Interpretation Code 8.7 - 10.4 mg/dL AH ADM SS Chloride [Moles/Vol] 111 mmol/L Invalid Interpretation Code 98 - 110 mEq/L ADM SS CO2 [Moles/Vol] 25 mmol/L Invalid Interpretation Code 22 - 32 mEq/L AH ADM SS Creatinine [Mass/Vol] 0.98 mg/dL Invalid Interpretation Code 0.60 - 1.40 mg/dL AH ADM SS Electrolyte Balance 6.0 mEq/L Invalid Interpretation Code 4.0 - 15.0 mEq/L AH ADM SS Eosinophils (Bld) [#/Vol] 0.10 103/mcL Invalid Interpretation Code 0.00 - 0.65 10^3/mcL AH Remisol SS Eosinophils/100 WBC (Bld) 2.0 % Invalid Interpretation Code 0.0 - 6.0 % AH Remisol SS Erythrocyte distribution width (RBC) [Ratio] 14.4 % Invalid Interpretation Code 11.5 - 15.5 % AH Remisol SS GFR/1.73 sq M.predicted among blacks MDRD (S/P/Bld) [Vol rate/Area] ml/min/1.73sqm Invalid Interpretation Code AH Chemistry S GFR/1.73 sq M.predicted among non-blacks MDRD (S/P/Bld) [Vol rate/Area] ml/min/1.73sqm Invalid Interpretation Code Chemistry S Globulin 2.1 G/dL Invalid Interpretation Code 1.5 - 3.8 G/dL ADM SS Glucose [Mass/Vol] 92 mg/dL Invalid Interpretation Code 82 - 115 mg/dL AH ADM SS Hematocrit (Bld) [Volume fraction] 32.2 % Invalid Interpretation Code 40.0 - 52.0 % AH Remisol SS Hemoglobin (Bld) [Mass/Vol] 10.8 G/dL Invalid Interpretation Code 13.0 - 17.5 G/dL AH Remisol SS Lymphocytes (Bld) [#/Vol] 0.90 103/mcL Invalid Interpretation Code 0.90 - 4.32 10^3/mcL AH Remisol SS Lymphocytes/100 WBC (Bld) 18.5 % Invalid Interpretation Code 20.0 - 40.0 % AH Remisol SS MCH (RBC) [Entitic mass] 32.0 pg Invalid Interpretation Code 27.0 - 33.0 pg AH Remisol SS MCHC (RBC) [Mass/Vol] 33.7 G/dL Invalid Interpretation Code 32.0 - 36.0 G/dL AH Remisol SS MCV (RBC) [Entitic vol] 95.1 fL Invalid Interpretation Code 81.0 - 100.0 fL AH Remisol SS Monocytes (Bld) [#/Vol] 0.40 103/mcL Invalid Interpretation Code 0.09 - 1.40 10^3/mcL AH Remisol SS Monocytes/100 WBC (Bld) 7.7 % Invalid Interpretation Code 2.0 - 13.0 % AH Remisol SS Neutrophils (Bld) [#/Vol] 3.50 103/mcL Invalid Interpretation Code 2.25 - 8.10 10^3/mcL AH Remisol SS Neutrophils/100 WBC (Bld) 71.1 % Invalid Interpretation Code 50.0 - 75.0 % AH Remisol SS Platelet mean volume (Bld) [Entitic vol] 9.4 fL Invalid Interpretation Code 6.4 - 10.5 fL AH Remisol SS Platelets (Bld) [#/Vol] 68 103/mcL Invalid Interpretation Code 150 - 450 10^3/mcL AH Remisol SS Potassium [Moles/Vol] 4.0 mmol/L Invalid Interpretation Code 3.5 - 5.0 mEq/L AH ADM SS Comment on above: Result Comment: Spec imen slightly hemolyzed. Protein [Mass/Vol] 6.2 G/dL Invalid Interpretation Code 5.7 - 8.2 G/dL AH ADM SS RBC (Bld) [#/Vol] 3.38 106/mcL Invalid Interpretation Code 4.50 - 6.00 10^6/mcL AH Remisol SS Sodium [Moles/Vol] 142 mmol/L Invalid Interpretation Code 136 - 145 mEq/L AH ADM SS Urea nitrogen [Mass/Vol] 22.0 mg/dL Invalid Interpretation Code 8.0 - 22.0 mg/dL AH ADM SS Urea nitrogen/Creatinine [Mass ratio] 22.4 ratio Invalid Interpretation Code 10.0 - 22.0 ratio AH ADM SS WBC (Bld) [#/Vol] 4.90 103/mcL Invalid Interpretation Code 4.50 - 10.80 10^3/mcL AH Remisol SS LABORATORYOrdered By: Nils Singh on 02-19-2022 aPTT Coag (PPP) [Time] 28.0 s Invalid Interpretation Code 25.0 - 35.0 seconds AH Auto Coag SS Fibrinogen Coag (PPP) [Mass/Vol] 362 mg/dL Invalid Interpretation Code 250 - 560 mg/dL AH Auto Coag SS Heparin dose (APTT) None Invalid Interpretation Code AH Auto Coag SS INR Coag (PPP) [Relative time] 1.0 {INR} Invalid Interpretation Code AH Auto Coag SS PT Coag (PPP) [Time] 11.9 s Invalid Interpretation Code 9.0 - 14.9 seconds AH Auto Coag SS LABORATORYOrdered By: Fara Natarajan on 02-19-2022 Natriuretic peptide.B prohormone N-Terminal [Mass/Vol] 1499 pg/mL Invalid Interpretation Code 15 - [address] pg/mL AH Auto Chem SS PBNPon 02-19-2022 Natriuretic peptide B (Bld) [Mass/Vol] 1499 pg/mL Normal 15-[address] [facility] ([place]) Comment on above: Performed By: #### A YOLI, BMP, ADIFF, GFR, CBC #### [address] [address] PROon 02-19-2022 INR Coag (PPP) [Relative time] 1.0 {INR} Normal [facility] ([place]) Comment on above: Result Comment: The [employer] (CHEST, 1992, 102:312S-25S) recommended therapeutic range for oral anticoagulant therapy is: LOW RISK: Prophylaxis of venous thrombosis INR: 2.0-3.0 Treatment of pulmonary embolism 2.0-3.0 Prevention of systemic embolism 2.0-3.0 HIGH RISK: Mechanical prosthetic valves 2.5-3.5 Performed By: #### A YOLI, BMP, ADIFF, GFR, CBC #### [address] [address] PT Coag (PPP) [Time] 11.9 s Normal 9.0-14.9 [facility] ([place]) Comment on above: Result Comment: Effe ctive 05/11/08, Protime results may be affected by some antibiotics (i.e. Ciprofloxacin, Azithromycin, Bactrim) which may potentiate the action of oral anticoagulants, with further increases in Protime/INR. Performed By: #### A YOLI, BMP, ADIFF, GFR, CBC #### [address] [address] .Auto Diffon 01-11-2022 Basophil, Absolute 0.00 10 3/mcL Normal 0.00-0.19 [facility] ([place]) Comment on above: Performed By: #### A YOLI, BMP, ADIFF, GFR, CBC #### [address] [address] Basophils/100 WBC (Bld) 0.6 % Normal 0.0-2.5 [facility] ([place]) Comment on above: Performed By: #### A YOLI, BMP, ADIFF, GFR, CBC #### [address] [address] Eosinophil, Absolute 0.10 10 3/mcL Normal 0.00-0.40 [facility] ([place]) Comment on above: Performed By: #### A YOLI, BMP, ADIFF, GFR, CBC #### [address] [address] Eosinophils/100 WBC (Bld) 1.8 % Normal 0.0-7.0 [facility] ([place] Comment on above: Performed By: #### A YOLI, BMP, ADIFF, GFR, CBC #### [address] [address] Lymphocyte, Absolute 1.00 10 3/mcL Normal 0.77-3.85 [facility] ([place]) Comment on above: Performed By: #### A YOLI, BMP, ADIFF, GFR, CBC #### [address] [address] Lymphocytes/100 WBC (Bld) 16.1 % Normal 10.0-50.0 [facility] ([place]) Comment on above: Performed By: #### A YOLI, BMP, ADIFF, GFR, CBC #### [address] [address] Monocyte, Absolute 0.50 10 3/mcL Normal 0.15-1.00 [facility] ([place]) Comment on above: Performed By: #### A YOLI, BMP, ADIFF, GFR, CBC #### [address] [address] Monocytes/100 WBC (Bld) 7.5 % Normal 1.7-13.0 [facility] ([place]) Comment on above: Performed By: #### A YOLI, BMP, ADIFF, GFR, CBC #### [address] [address] Neutrophils/100 WBC (Bld) 74.0 % Normal 37.0-80.0 [facility] ([place]) Comment on above: Performed By: #### A YOLI, BMP, ADIFF, GFR, CBC #### [address] [address] .GFRon 01-11-2022 GFR 86 ml/min/1.73sqm Normal [facility] ([place]) Comment on above: Result Comment: GFR Population mean for , Non- Americans Ages 20-29 = 116 mL/min/1.73 sq.m. Ages 30-39 = 107 mL/min/1.73 sq.m. Ages 40-49 = 99 mL/min/1.73 sq.m. Ages 50-59 = 93 mL/min/1.73 sq.m. Ages 60-69 = 85 mL/min/1.73 sq.m. Ages 70+ = 75 mL/min/1.73 sq.m. Chronic Kidney Disease: Less than 60 mL/min/1.73 square meters End Stage Renal Disease: Less than 15 mL/min/1.73 square meters Performed By: #### A YOLI, BMP, ADIFF, GFR, CBC #### [address] [address] GFR Non- 71 ml/min/1.73sqm Normal [facility] ([place]) Comment on above: Result Comment: GFR Population mean for , Non- Americans Ages 20-29 = 116 mL/min/1.73 sq.m. Ages 30-39 = 107 mL/min/1.73 sq.m. Ages 40-49 = 99 mL/min/1.73 sq.m. Ages 50-59 = 93 mL/min/1.73 sq.m. Ages 60-69 = 85 mL/min/1.73 sq.m. Ages 70+ = 75 mL/min/1.73 sq.m. Chronic Kidney Disease: Less than 60 mL/min/1.73 square meters End Stage Renal Disease: Less than 15 mL/min/1.73 square meters Performed By: #### A YOLI, BMP, ADIFF, GFR, CBC #### [address] [address] .Morphon 01-11-2022 Platelet Estimate Grt Decreased Normal [facility] ([place] Comment on above: Performed By: #### A YOLI, BMP, ADIFF, GFR, CBC #### [address] [address] .NEUABSon 01-11-2022 Neutrophil, Absolute 4.80 10 3/mcL Normal 2.85-6.16 [facility] ([place]) Comment on above: Performed By: #### A YOLI, BMP, ADIFF, GFR, CBC #### [address] JOSEPH[address] 01-11-2022 BUN/Creatinine Ratio 22 ratio Normal 7-27 [facility] ([place] Comment on above: Order Comment: LABS CAN BE COMPLETED ANYTIME AROUND ECHO AND OFFICE VISIT Performed By: #### A YOLI, BMP, ADIFF, GFR, CBC #### [address] [address] Calcium [Mass/Vol] 9.4 mg/dL Normal 8.4-10.2 [facility] ([place]) Comment on above: Order Comment: LABS CAN BE COMPLETED ANYTIME AROUND ECHO AND OFFICE VISIT Performed By: #### A YOLI, BMP, ADIFF, GFR, CBC #### [address] [address] Chloride [Moles/Vol] 107 mmol/L Normal 98-107 [facility] ([place] Comment on above: Order Comment: LABS CAN BE COMPLETED ANYTIME AROUND ECHO AND OFFICE VISIT Performed By: #### A YOLI, BMP, ADIFF, GFR, CBC #### [address] [address] CO2 [Moles/Vol] 24 mmol/L Normal 23-31 [facility] ([place] Comment on above: Order Comment: LABS CAN BE COMPLETED ANYTIME AROUND ECHO AND OFFICE VISIT Performed By: #### A YOLI, BMP, ADIFF, GFR, CBC #### [address] [address] Creatinine [Mass/Vol] 1.02 mg/dL Normal 0.70-1.30 [facility] ([place] Comment on above: Order Comment: LABS CAN BE COMPLETED ANYTIME AROUND ECHO AND OFFICE VISIT Performed By: #### A YOLI, BMP, ADIFF, GFR, CBC #### [address] [address] Electrolyte Balance 11.0 mEq/L Normal 4.0-15.0 [facility] ([place] Comment on above: Order Comment: LABS CAN BE COMPLETED ANYTIME AROUND ECHO AND OFFICE VISIT Performed By: #### A YOLI, BMP, ADIFF, GFR, CBC #### [address] [address] Glucose [Mass/Vol] 105 mg/dL Normal 83-110 [facility] ([place] Comment on above: Order Comment: LABS CAN BE COMPLETED ANYTIME AROUND ECHO AND OFFICE VISIT Performed By: #### A YOLI, BMP, ADIFF, GFR, CBC #### [address] [address] Potassium [Moles/Vol] 4.2 mmol/L Normal 3.5-5.1 [facility] ([place] Comment on above: Order Comment: LABS CAN BE COMPLETED ANYTIME AROUND ECHO AND OFFICE VISIT Performed By: #### A YOLI, BMP, ADIFF, GFR, CBC #### [address] [address] Sodium [Moles/Vol] 142 mmol/L Normal 136-145 [facility] ([place] Comment on above: Order Comment: LABS CAN BE COMPLETED ANYTIME AROUND ECHO AND OFFICE VISIT Performed By: #### A YOLI, BMP, ADIFF, GFR, CBC #### [address] [address] Urea nitrogen [Mass/Vol] 22 mg/dL High 7-18 [facility] ([place]) Comment on above: Order Comment: LABS CAN BE COMPLETED ANYTIME AROUND ECHO AND OFFICE VISIT Performed By: #### A YOLI, BMP, ADIFF, GFR, CBC #### [address] [address] CBCon 01-11-2022 Erythrocyte distribution width (RBC) [Ratio] 14.6 % High 11.5-14.5 [facility] ([place]) Comment on above: Order Comment: LABS CAN BE COMPLETED ANYTIME AROUND ECHO AND OFFICE VISIT Performed By: #### A YOLI, BMP, ADIFF, GFR, CBC #### [place] [address] Hematocrit (Bld) [Volume fraction] 35.4 % Low 42.0-52.0 [facility] ([place] Comment on above: Order Comment: LABS CAN BE COMPLETED ANYTIME AROUND ECHO AND OFFICE VISIT Performed By: #### A YOLI, BMP, ADIFF, GFR, CBC #### [place] [address] Hgb 12.1 G/dL Low 14.0-18.0 [facility] ([place]) Comment on above: Order Comment: LABS CAN BE COMPLETED ANYTIME AROUND ECHO AND OFFICE VISIT Performed By: #### A YOLI, BMP, ADIFF, GFR, CBC #### [place] [id number] MCH (RBC) [Entitic mass] 31.7 pg High 27.0-31.2 [facility] ([place]) Comment on above: Order Comment: LABS CAN BE COMPLETED ANYTIME AROUND ECHO AND OFFICE VISIT Performed By: #### A YOLI, BMP, ADIFF, GFR, CBC #### [place] [id number] MCHC 34.1 G/dL Normal 31.8-35.4 [facility] ([place]) Comment on above: Order Comment: LABS CAN BE COMPLETED ANYTIME AROUND ECHO AND OFFICE VISIT Performed By: #### A YOLI, BMP, ADIFF, GFR, CBC #### [place] [address] MCV (RBC) [Entitic vol] 93.1 fL Normal 80.0-94.0 [facility] ([place] Comment on above: Order Comment: LABS CAN BE COMPLETED ANYTIME AROUND ECHO AND OFFICE VISIT Performed By: #### A YOLI, BMP, ADIFF, GFR, CBC #### [place] [address] Platelet 73 10 3/mcL Low 130-400 [facility] ([place] Comment on above: Order Comment: LABS CAN BE COMPLETED ANYTIME AROUND ECHO AND OFFICE VISIT Performed By: #### A YOLI, BMP, ADIFF, GFR, CBC #### [place] [address] Platelet mean volume (Bld) [Entitic vol] 11.4 fL High 7.4-10.4 [facility] ([place] Comment on above: Order Comment: LABS CAN BE COMPLETED ANYTIME AROUND ECHO AND OFFICE VISIT Performed By: #### A YOLI, BMP, ADIFF, GFR, CBC #### [place] [address] RBC 3.80 10 6/mcL Low 4.04-6.13 [facility] ([place] Comment on above: Order Comment: LABS CAN BE COMPLETED ANYTIME AROUND ECHO AND OFFICE VISIT Performed By: #### A YOLI, BMP, ADIFF, GFR, CBC #### [place] [address] WBC 6.50 10 3/mcL Normal 4.60-10.80 [facility] ([place] Comment on above: Order Comment: LABS CAN BE COMPLETED ANYTIME AROUND ECHO AND OFFICE VISIT Performed By: #### A YOLI, BMP, ADIFF, GFR, CBC #### [place] [address] LABORATORYOrdered By: Jane Sharp on 01-11-2022 Basophil, Absolute 0.00 103/mcL Invalid Interpretation Code 0.00 - 0.19 10^3/mcL AO Auto Heme SS Basophils/100 WBC (Bld) 0.6 % Invalid Interpretation Code 0.0 - 2.5 % AO Auto Heme SS Eosinophil, Absolute 0.10 103/mcL Invalid Interpretation Code 0.00 - 0.40 10^3/mcL AO Auto Heme SS Eosinophils/100 WBC (Bld) 1.8 % Invalid Interpretation Code 0.0 - 7.0 % AO Auto Heme SS Erythrocyte distribution width (RBC) [Ratio] 14.6 % Invalid Interpretation Code 11.5 - 14.5 % AO Auto Heme SS Hematocrit (Bld) [Volume fraction] 35.4 % Invalid Interpretation Code 42.0 - 52.0 % AO Auto Heme SS Hemoglobin (Bld) [Mass/Vol] 12.1 G/dL Invalid Interpretation Code 14.0 - 18.0 G/dL AO Auto Heme SS Lymphocyte, Absolute 1.00 103/mcL Invalid Interpretation Code 0.77 - 3.85 10^3/mcL AO Auto Heme SS Lymphocytes/100 WBC (Bld) 16.1 % Invalid Interpretation Code 10.0 - 50.0 % AO Auto Heme SS MCH (RBC) [Entitic mass] 31.7 pg Invalid Interpretation Code 27.0 - 31.2 pg AO Auto Heme SS MCHC (RBC) [Mass/Vol] 34.1 G/dL Invalid Interpretation Code 31.8 - 35.4 G/dL AO Auto Heme SS MCV (RBC) [Entitic vol] 93.1 fL Invalid Interpretation Code 80.0 - 94.0 fL AO Auto Heme SS Monocyte, Absolute 0.50 103/mcL Invalid Interpretation Code 0.15 - 1.00 10^3/mcL AO Auto Heme SS Monocytes/100 WBC (Bld) 7.5 % Invalid Interpretation Code 1.7 - 13.0 % AO Auto Heme SS Neutrophil, Absolute 4.80 103/mcL Invalid Interpretation Code 2.85 - 6.16 10^3/mcL AO Auto Heme SS Neutrophils/100 WBC (Bld) 74.0 % Invalid Interpretation Code 37.0 - 80.0 % AO Auto Heme SS Platelet Estimate Grt Decreased (01/11/22 1:34 PM) Invalid Interpretation Code AO Auto Heme SS Platelet mean volume (Bld) [Entitic vol] 11.4 fL Invalid Interpretation Code 7.4 - 10.4 fL AO Auto Heme SS Platelets (Bld) [#/Vol] 73 103/mcL Invalid Interpretation Code 130 - 400 10^3/mcL AO Auto Heme SS RBC (Bld) [#/Vol] 3.80 106/mcL Invalid Interpretation Code 4.04 - 6.13 10^6/mcL AO Auto Heme SS WBC (Bld) [#/Vol] 6.50 103/mcL Invalid Interpretation Code 4.60 - 10.80 10^3/mcL AO Auto Heme SS LABORATORYOrdered By: Jane Ibrahim on 01-11-2022 Calcium [Mass/Vol] 9.4 mg/dL Invalid Interpretation Code 8.4 - 10.2 mg/dL AO ADM SS Chloride [Moles/Vol] 107 mmol/L Invalid Interpretation Code 98 - 107 mmol/L AO ADM SS CO2 [Moles/Vol] 24 mmol/L Invalid Interpretation Code 23 - 31 mmol/L AO ADM SS Creatinine [Mass/Vol] 1.02 mg/dL Invalid Interpretation Code 0.70 - 1.30 mg/dL AO ADM SS Electrolyte Balance 11.0 mEq/L Invalid Interpretation Code 4.0 - 15.0 mEq/L AO ADM SS Glucose [Mass/Vol] 105 mg/dL Invalid Interpretation Code 83 - 110 mg/dL AO ADM SS Potassium [Moles/Vol] 4.2 mmol/L Invalid Interpretation Code 3.5 - 5.1 mmol/L AO ADM SS Sodium [Moles/Vol] 142 mmol/L Invalid Interpretation Code 136 - 145 mmol/L AO ADM SS Urea nitrogen [Mass/Vol] 22 mg/dL Invalid Interpretation Code 7 - 18 mg/dL AO ADM SS Urea nitrogen/Creatinine [Mass ratio] 22 ratio Invalid Interpretation Code 7 - 27 ratio AO ADM SS LABORATORYOrdered By: SYSTEM SYSTEM on 01-11-2022 GFR 86 ml/min/1.73sqm Invalid Interpretation Code AO Chemistry S GFR Non- 71 ml/min/1.73sqm Invalid Interpretation Code AO Chemistry S Blood manual differential co mment interpretation (narrative result)on 12-21-2021 Manual differential comment Darin (Bld) [Interp] COMMENT [facility] Work Phone: Comment on above: THROMBOCYTOPENIA. Manual differential comment Darin (Bld) [Interp]on 12-21-2021 Differential Comment COMMENT [facility] Comment on above: THROMBOCYTOPENIA. Pathologist review Darin (Unsp spec) [Interp]on 12-21-2021 Differential Pathologist's Review Reviewed [facility] Comment on above: Previous reported re sult: Ingrid jorgensen Edited by: RGOOD on 12/22/21:1240Macrocytic anemia.Marked Thrombocytopenia.Clinical correlation necessary.Justin Berg D.O. 12/22/21 AMENDED REPORT 12/22/211239 PATH REV previously reported as: Ingrid jorgensen Review by marilee 11-29 Pathologist review Darin (Unsp spec) [Interp] Reviewed [facility] Work Phone: Comment on above: Previous reported re sult: Ingrid jorgensen Edited by: LIBRA on 12/22/21:1240Macrocytic anemia.Marked Thrombocytopenia.Clinical correlation necessary.Justin Berg D.O. 12/22/21 AMENDED REPORT 12/22/211239 PATH REV previously reported as: Ingrid Kang 12-18-2021 CNPN Telephone (HEMAWS) -- LOPEZ NAJERA ([id number]) 1945 M Date Time Provider Department 12/18/21 LOPEZ BAUER During your visit today, we recorded the following information about you: Susy Sarmiento 12/18/2021 11:39 AM Signed Bertrand from Dr. Victor's office called as Dr. Victor's wants to speak with Dr. Bauer re: this patient. Per Bertrand, Dr. Bauer already reviewed some labs for the patient earlier today. Patient is presently in office w/ Dr. Victor. Susy العراقي 12/18/2021 11:44 AM Signed Bertrand returned call and stated patient provided them the wrong providers name and please disregard this message they need to call Dr Yadav office not ours. Lindsay Portillo LPN 12/18/2021 11:46 AM Signed Disregard this phone note. Lindsay Portillo LPN Allergies As of Date: 12/18/2021 Noted Allergy Reaction OPIOIDS - MORPHINE ANALOGUES 01/05/2019 5 - Intolerance Date Reviewed: 01/05/2019 Reviewed by: Patito Haines - Fully Assessed Reason for Visit: Question [1327] Prescriptions as of 12/18/2021 - tamsulosin ER (FLOMAX) 0.4 mg cap Take 0.4 mg by mouth. - esomeprazole (NEXIUM) 40 mg ORAL capsule Take 40 mg by mouth once daily. - rosuvastatin calcium(CRESTOR 40 MG TAB) Take one(1) tablet daily. - aspirin(ADULT ASPIRIN EC LOW STRENGTH 81 MG TAB, DELAYED RELEASE) Take one(1) tablet daily. - etodolac(LODINE 400 MG TAB) Take one(1) tablet two(2) times daily. - niacin(NIASPAN 500 MG TAB) Take one(1) tablet daily. - ATENOLOL 50 MG TAB Take one(1) tablet daily. - LISINOPRIL 10 MG TAB Take one(1) tablet daily. Problem List As Of Date 12/18/2021 Noted Resolved UNILAT INGUINAL HERNIA [K40.90] 06/22/2008 INCISIONAL HERNIA [K43.2] 06/22/2008 Abdominal or pelvic swelling, mass, or lump, ge*06/22/2008 07/03/2018 Abdominal or pelvic swelling, mass, or lump, ri*06/22/2008 07/03/2018 Duodenal diverticulum [K57.10] 09/27/2011 Acute appendicitis without mention of peritonit*01/16/2012 07/03/2018 Encounter Status:Closed by LINDSAY PORTILLO LPN on 12/18/21 Normal [facility] .Auto Diffon 12-14-2021 Basophil, Absolute 0.00 10 3/mcL Normal 0.00-0.27 [facility], later [facility] ([place]) Comment on above: Performed By: #### A YOLI, BMP, ADIFF, GFR, CBC #### [address] [address] Basophils/100 WBC (Bld) 0.2 % Normal 0.0-2.5 [facility] ([place]) Comment on above: Performed By: #### A YOLI, BMP, ADIFF, GFR, CBC #### [address] [address] Eosinophil, Absolute 0.10 10 3/mcL Normal 0.00-0.65 A [facility] ([place]) Comment on above: Performed By: #### A YOLI, BMP, ADIFF, GFR, CBC #### [address] [address] Eosinophils/100 WBC (Bld) 1.4 % Normal 0.0-6.0 [facility] ([place]) Comment on above: Performed By: #### A YOLI, BMP, ADIFF, GFR, CBC #### [address] [address] Lymphocyte, Absolute 0.60 10 3/mcL Low 0.90-4.32 A [facility] ([place]) Comment on above: Performed By: #### A YOLI, BMP, ADIFF, GFR, CBC #### [address] [address] Lymphocytes/100 WBC (Bld) 11.0 % Low 20.0-40.0 [facility] ([place]) Comment on above: Performed By: #### A YOLI, BMP, ADIFF, GFR, CBC #### [address] [address] Monocyte, Absolute 0.60 10 3/mcL Normal 0.09-1.40 [facility], [facility] ([place]) Comment on above: Performed By: #### A YOLI, BMP, ADIFF, GFR, CBC #### [address] [address] Monocytes/100 WBC (Bld) 10.5 % Normal 2.0-13.0 [facility] ([place]) Comment on above: Performed By: #### A YOLI, BMP, ADIFF, GFR, CBC #### [address] [address] Neutrophils/100 WBC (Bld) 76.9 % High 50.0-75.0 [facility] ([place]) Comment on above: Performed By: #### A YOLI, BMP, ADIFF, GFR, CBC #### [address] [address] .GFRon 12-14-2021 GFR >60 Normal [facility] ([place]) Comment on above: Result Comment: GFR Population mean for , Non- Americans Ages 20-29 = 116 mL/min/1.73 sq.m. Ages 30-39 = 107 mL/min/1.73 sq.m. Ages 40-49 = 99 mL/min/1.73 sq.m. Ages 50-59 = 93 mL/min/1.73 sq.m. Ages 60-69 = 85 mL/min/1.73 sq.m. Ages 70+ = 75 mL/min/1.73 sq.m. Chronic Kidney Disease: Less than 60 mL/min/1.73 square meters End Stage Renal Disease: Less than 15 mL/min/1.73 square meters Performed By: #### A YOLI, BMP, ADIFF, GFR, CBC #### [address] [address] GFR Non- >60 Normal [facility] ([place]) Comment on above: Result Comment: GFR Population mean for , Non- Americans Ages 20-29 = 116 mL/min/1.73 sq.m. Ages 30-39 = 107 mL/min/1.73 sq.m. Ages 40-49 = 99 mL/min/1.73 sq.m. Ages 50-59 = 93 mL/min/1.73 sq.m. Ages 60-69 = 85 mL/min/1.73 sq.m. Ages 70+ = 75 mL/min/1.73 sq.m. Chronic Kidney Disease: Less than 60 mL/min/1.73 square meters End Stage Renal Disease: Less than 15 mL/min/1.73 square meters Performed By: #### A YOLI, BMP, ADIFF, GFR, CBC #### [address] [address] .NEUABSon 12-14-2021 Neutrophil, Absolute 4.60 10 3/mcL Normal 2.25-8.10 A [facility] ([place]) Comment on above: Performed By: #### A YOLI, BMP, ADIFF, GFR, CBC #### [address] [address] BMPon 12-14-2021 BUN/Creatinine Ratio 15.8 ratio Normal 10.0-22.0 [facility] ([place]) Comment on above: Performed By: #### A YOLI, BMP, ADIFF, GFR, CBC #### [address] [address] Calcium [Mass/Vol] 9.6 mg/dL Normal 8.4-10.1 [facility] ([place]) Comment on above: Result Comment: No te - New Reference Range in effect 20 Performed By: #### A YOLI, BMP, ADIFF, GFR, CBC #### [address] [address] Chloride [Moles/Vol] 109 mmol/L Normal 98-110 [facility] ([place]) Comment on above: Performed By: #### A YOLI, BMP, ADIFF, GFR, CBC #### [address] [address] CO2 [Moles/Vol] 27 mmol/L Normal 22-32 [facility] ([place]) Comment on above: Performed By: #### A YOLI, BMP, ADIFF, GFR, CBC #### [address] [address] Creatinine [Mass/Vol] 1.01 mg/dL Normal 0.60-1.40 [facility] ([place]) Comment on above: Performed By: #### A YOLI, BMP, ADIFF, GFR, CBC #### [address] [address] Electrolyte Balance 4.0 mEq/L Normal 4.0-15.0 [facility] ([place]) Comment on above: Performed By: #### A YOLI, BMP, ADIFF, GFR, CBC #### [address] [address] Glucose [Mass/Vol] 106 mg/dL Normal 82-115 [facility] ([place]) Comment on above: Performed By: #### A YOLI, BMP, ADIFF, GFR, CBC #### [address] [address] Potassium [Moles/Vol] 4.3 mmol/L Normal 3.5-5.0 [facility] ([place]) Comment on above: Performed By: #### A YOLI, BMP, ADIFF, GFR, CBC #### [place] [address] Sodium [Moles/Vol] 140 mmol/L Normal 136-145 [facility] ([place]) Comment on above: Performed By: #### A YOLI, BMP, ADIFF, GFR, CBC #### [place] [address] Urea nitrogen [Mass/Vol] 16.0 mg/dL Normal 8.0-22.0 [facility] ([place]) Comment on above: Performed By: #### A YOLI, BMP, ADIFF, GFR, CBC #### [place] [address] CBCon 12-14-2021 Erythrocyte distribution width (RBC) [Ratio] 13.0 % Normal 11.5-15.5 [facility] ([place]) Comment on above: Performed By: #### A YOLI, BMP, ADIFF, GFR, CBC #### [place] [address] Hematocrit (Bld) [Volume fraction] 38.6 % Low 40.0-52.0 [facility] ([place]) Comment on above: Performed By: #### A YOLI, BMP, ADIFF, GFR, CBC #### [place] [address] Hgb 13.1 G/dL Normal 13.0-17.5 [facility] ([place] Comment on above: Performed By: #### A YOLI, BMP, ADIFF, GFR, CBC #### [place] [address] MCH (RBC) [Entitic mass] 31.8 pg Normal 27.0-33.0 [facility] ([place] Comment on above: Performed By: #### A YOLI, BMP, ADIFF, GFR, CBC #### [place] [address] MCHC 33.9 G/dL Normal 32.0-36.0 [facility] ([place]) Comment on above: Performed By: #### A YOLI, BMP, ADIFF, GFR, CBC #### [facility] [address] [place], [place] [address] MCV (RBC) [Entitic vol] 93.7 fL Normal 81.0-100.0 [facility] ([place] Comment on above: Performed By: #### A YOLI, BMP, ADIFF, GFR, CBC #### [place] [address] Platelet 69 10 3/mcL Low 150-450 [facility] ([place] Comment on above: Performed By: #### A YOLI, BMP, ADIFF, GFR, CBC #### [place] [address] Platelet mean volume (Bld) [Entitic vol] 8.2 fL Normal 6.4-10.5 [facility] ([place]) Comment on above: Performed By: #### A YOLI, BMP, ADIFF, GFR, CBC #### [place] [address] RBC 4.12 10 6/mcL Low 4.50-6.00 [facility] ([place] Comment on above: Performed By: #### A YOLI, BMP, ADIFF, GFR, CBC #### [place] [address] WBC 5.90 10 3/mcL Normal 4.50-10.80 [facility] ([place]) Comment on above: Performed By: #### A YOLI, BMP, ADIFF, GFR, CBC #### [place] [address] LABORATORYOrdered By: SYSTEM SYSTEM on 12-14-2021 Base excess Calc (BldMV) [Moles/Vol] 4.0 mEq/L Invalid Interpretation Code 4.0 - 15.0 mEq/L AH ADM SS Basophils (Bld) [#/Vol] 0.00 103/mcL Invalid Interpretation Code 0.00 - 0.27 10^3/mcL AH Remisol SS Basophils/100 WBC (Bld) 0.2 % Invalid Interpretation Code 0.0 - 2.5 % AH Remisol SS Calcium [Mass/Vol] 9.6 mg/dL Invalid Interpretation Code 8.4 - 10.1 mg/dL AH ADM SS Chloride [Moles/Vol] 109 mmol/L Invalid Interpretation Code 98 - 110 mEq/L AH ADM SS CO2 [Moles/Vol] 27 mmol/L Invalid Interpretation Code 22 - 32 mEq/L AH ADM SS Creatinine [Mass/Vol] 1.01 mg/dL Invalid Interpretation Code 0.60 - 1.40 mg/dL AH ADM SS Eosinophils (Bld) [#/Vol] 0.10 103/mcL Invalid Interpretation Code 0.00 - 0.65 10^3/mcL AH Remisol SS Eosinophils/100 WBC (Bld) 1.4 % Invalid Interpretation Code 0.0 - 6.0 % AH Remisol SS Erythrocyte distribution width (RBC) [Ratio] 13.0 % Invalid Interpretation Code 11.5 - 15.5 % AH Remisol SS GFR/1.73 sq M.predicted among blacks MDRD (S/P/Bld) [Vol rate/Area] ml/min/1.73sqm Invalid Interpretation Code AH ADM SS GFR/1.73 sq M.predicted among non-blacks MDRD (S/P/Bld) [Vol rate/Area] ml/min/1.73sqm Invalid Interpretation Code AH ADM SS Glucose [Mass/Vol] 106 mg/dL Invalid Interpretation Code 82 - 115 mg/dL AH ADM SS Hematocrit (Bld) [Volume fraction] 38.6 % Invalid Interpretation Code 40.0 - 52.0 % AH Remisol SS Hemoglobin (Bld) [Mass/Vol] 13.1 G/dL Invalid Interpretation Code 13.0 - 17.5 G/dL AH Remisol SS Lymphocytes (Bld) [#/Vol] 0.60 103/mcL Invalid Interpretation Code 0.90 - 4.32 10^3/mcL AH Remisol SS Lymphocytes/100 WBC (Bld) 11.0 % Invalid Interpretation Code 20.0 - 40.0 % AH Remisol SS MCH (RBC) [Entitic mass] 31.8 pg Invalid Interpretation Code 27.0 - 33.0 pg AH Remisol SS MCHC (RBC) [Mass/Vol] 33.9 G/dL Invalid Interpretation Code 32.0 - 36.0 G/dL AH Remisol SS MCV (RBC) [Entitic vol] 93.7 fL Invalid Interpretation Code 81.0 - 100.0 fL AH Remisol SS Monocytes (Bld) [#/Vol] 0.60 103/mcL Invalid Interpretation Code 0.09 - 1.40 10^3/mcL AH Remisol SS Monocytes/100 WBC (Bld) 10.5 % Invalid Interpretation Code 2.0 - 13.0 % AH Remisol SS Neutrophils (Bld) [#/Vol] 4.60 103/mcL Invalid Interpretation Code 2.25 - 8.10 10^3/mcL AH Remisol SS Neutrophils/100 WBC (Bld) 76.9 % Invalid Interpretation Code 50.0 - 75.0 % AH Remisol SS Platelet mean volume (Bld) [Entitic vol] 8.2 fL Invalid Interpretation Code 6.4 - 10.5 fL AH Remisol SS Platelets (Bld) [#/Vol] 69 103/mcL Invalid Interpretation Code 150 - 450 10^3/mcL AH Remisol SS Potassium [Moles/Vol] 4.3 mmol/L Invalid Interpretation Code 3.5 - 5.0 mEq/L AH ADM SS RBC (Bld) [#/Vol] 4.12 106/mcL Invalid Interpretation Code 4.50 - 6.00 10^6/mcL AH Remisol SS Sodium [Moles/Vol] 140 mmol/L Invalid Interpretation Code 136 - 145 mEq/L AH ADM SS Urea nitrogen [Mass/Vol] 16.0 mg/dL Invalid Interpretation Code 8.0 - 22.0 mg/dL AH ADM SS Urea nitrogen/Creatinine [Mass ratio] 15.8 ratio Invalid Interpretation Code 10.0 - 22.0 ratio AH ADM SS WBC (Bld) [#/Vol] 5.90 103/mcL Invalid Interpretation Code 4.50 - 10.80 10^3/mcL AH Remisol SS LABORATORYOrdered By: Anju Degroot on 12-14-2021 INR Coag (PPP) [Relative time] 0.9 {INR} Invalid Interpretation Code AH Auto Coag SS PT Coag (PPP) [Time] 11.1 s Invalid Interpretation Code 9.0 - 14.9 seconds AH Auto Coag SS PROon 12-14-2021 INR Coag (PPP) [Relative time] 0.9 {INR} Normal [facility] ([place]) Comment on above: Result Comment: The [employer] (CHEST, 1992, 102:312S-[id number]) recommended therapeutic range for oral anticoagulant therapy is: LOW RISK: Prophylaxis of venous thrombosis INR: 2.0-3.0 Treatment of pulmonary embolism 2.0-3.0 Prevention of systemic embolism 2.0-3.0 HIGH RISK: Mechanical prosthetic valves 2.5-3.5 Performed By: #### CHRIS ASH #### [address] [place] [place] [id number] [place], [place] [address] PT Coag (PPP) [Time] 11.1 s Normal 9.0-14.9 [facility] ([place]) Comment on above: Result Comment: Effe ctive 05/11/08, Protime results may be affected by some antibiotics (i.e. Ciprofloxacin, Azithromycin, Bactrim) which may potentiate the action of oral anticoagulants, with further increases in Protime/INR. Performed By: #### CHRIS ASH #### [address] [place] [id number] [place], [place] [address] .Auto Diffon 12-13-2021 Basophil, Absolute 0.00 10 3/mcL Normal 0.00-0.27 [facility] ([place]) Comment on above: Performed By: #### A YOLI, BMP, ADIFF, GFR, CBC #### [address] [address] Basophils/100 WBC (Bld) 0.5 % Normal 0.0-2.5 [facility] ([place]) Comment on above: Performed By: #### A YOLI, BMP, ADIFF, GFR, CBC #### [address] [address] Eosinophil, Absolute 0.10 10 3/mcL Normal 0.00-0.65 A [facility] ([place]) Comment on above: Performed By: #### A YOLI, BMP, ADIFF, GFR, CBC #### [address] [address] Eosinophils/100 WBC (Bld) 2.0 % Normal 0.0-6.0 [facility] ([place]) Comment on above: Performed By: #### A YOLI, BMP, ADIFF, GFR, CBC #### [address] [address] Lymphocyte, Absolute 1.00 10 3/mcL Normal 0.90-4.32 A [facility] ([place]) Comment on above: Performed By: #### A YOLI, BMP, ADIFF, GFR, CBC #### [address] [address] Lymphocytes/100 WBC (Bld) 23.3 % Normal 20.0-40.0 [facility] ([place]) Comment on above: Performed By: #### A YOLI, BMP, ADIFF, GFR, CBC #### [address] [address] Monocyte, Absolute 0.30 10 3/mcL Normal 0.09-1.40 [facility], [facility] ([place]) Comment on above: Performed By: #### A YOLI, BMP, ADIFF, GFR, CBC #### [address] [address] Monocytes/100 WBC (Bld) 7.2 % Normal 2.0-13.0 [facility] ([place]) Comment on above: Performed By: #### A YOLI, BMP, ADIFF, GFR, CBC #### [address] [address] Neutrophils/100 WBC (Bld) 67.0 % Normal 50.0-75.0 [facility] ([place]) Comment on above: Performed By: #### A YOLI, BMP, ADIFF, GFR, CBC #### [address] [address] .GFRon 12-13-2021 GFR >60 Normal [facility] ([place]) Comment on above: Result Comment: GFR Population mean for , Non- Americans Ages 20-29 = 116 mL/min/1.73 sq.m. Ages 30-39 = 107 mL/min/1.73 sq.m. Ages 40-49 = 99 mL/min/1.73 sq.m. Ages 50-59 = 93 mL/min/1.73 sq.m. Ages 60-69 = 85 mL/min/1.73 sq.m. Ages 70+ = 75 mL/min/1.73 sq.m. Chronic Kidney Disease: Less than 60 mL/min/1.73 square meters End Stage Renal Disease: Less than 15 mL/min/1.73 square meters Performed By: #### A OLENA CASTROGEL #### [address] [address] GFR Non- >60 Normal [facility] ([place]) Comment on above: Result Comment: GFR Population mean for , Non- Americans Ages 20-29 = 116 mL/min/1.73 sq.m. Ages 30-39 = 107 mL/min/1.73 sq.m. Ages 40-49 = 99 mL/min/1.73 sq.m. Ages 50-59 = 93 mL/min/1.73 sq.m. Ages 60-69 = 85 mL/min/1.73 sq.m. Ages 70+ = 75 mL/min/1.73 sq.m. Chronic Kidney Disease: Less than 60 mL/min/1.73 square meters End Stage Renal Disease: Less than 15 mL/min/1.73 square meters Performed By: #### A IBAN CASTRO #### [place] [address] .NEUABSon 12-13-2021 Neutrophil, Absolute 2.90 10 3/mcL Normal 2.25-8.10 A [facility] ([place]) Comment on above: Performed By: #### A IBAN CASTRO #### [address] [address] ABO/Rh (Gel)on 12-13-2021 ABO/Rh Interp Negative Invalid Interpretation Code [facility] ([place]) Comment on above: Performed By: #### A KRISTA HARRISON ABSGEL #### [address] [address] ABS (Gel)on 12-13-2021 ABSC Interp (Gel) Negative Normal [facility] ([place]) Comment on above: Performed By: #### CHRIS ASH #### [address] [address] APTTon 12-13-2021 aPTT Coag (Bld) [Time] 28.1 s Normal 25.0-35.0 [facility] ([place]) Comment on above: Result Comment: For Heparin anticoagulation therapy, the recommended therapeutic range is: 54-77 seconds (APTT Correlation with Anti-Xa therapeutic range of 0.3-0.7 units/ml). PLEASE REFERENCE THE PHARMACY PROTOCOL FOR DOSING. Performed By: #### A YOLI, BMP, ADIFF, GFR, CBC #### [address] [address] Heparin dose (APTT) Unknown Normal [facility] ([place]) Comment on above: Performed By: #### A YOLI, BMP, ADIFF, GFR, CBC #### [address] [address] BMPon 12-13-2021 BUN/Creatinine Ratio 16.0 ratio Normal 10.0-22.0 [facility] ([place]) Comment on above: Order Comment: withi n 1/2 hour of admission to CVSICU Performed By: #### A IBAN CASTRO #### [address] [address] Calcium [Mass/Vol] 9.3 mg/dL Normal 8.4-10.1 [facility] ([place]) Comment on above: Order Comment: withi n 1/2 hour of admission to CVSICU Result Comment: No te - New Reference Range in effect 20 Performed By: #### A IBAN CASTRO #### [address] [address] Chloride [Moles/Vol] 112 mmol/L High 98-110 [facility] ([place] Comment on above: Order Comment: withi n 1/2 hour of admission to CVSICU Performed By: #### A IBAN CASTRO #### [address] [address] CO2 [Moles/Vol] 29 mmol/L Normal 22-32 [facility] ([place]) Comment on above: Order Comment: withi n 1/2 hour of admission to CVSICU Performed By: #### A IBAN CASTRO #### [address] [address] Creatinine [Mass/Vol] 0.94 mg/dL Normal 0.60-1.40 [facility] ([place]) Comment on above: Order Comment: withi n 1/2 hour of admission to CVSICU Performed By: #### A OLENA CASTROGEL #### [place] [address] Electrolyte Balance 1.0 mEq/L Low 4.0-15.0 [facility] ([place] Comment on above: Order Comment: withi n 1/2 hour of admission to CVSICU Performed By: #### A OLENA CASTROGEL #### [place] [id number] Glucose [Mass/Vol] 102 mg/dL Normal 82-115 [facility] ([place] Comment on above: Order Comment: withi n 1/2 hour of admission to CVSICU Performed By: #### A IBAN CASTRO #### [place] [address] Potassium [Moles/Vol] 4.5 mmol/L Normal 3.5-5.0 [facility] ([place]) Comment on above: Order Comment: withi n 1/2 hour of admission to CVSICU Performed By: #### A OLENA CASTROGEL #### [place] [address] Sodium [Moles/Vol] 142 mmol/L Normal 136-145 [facility] ([place] Comment on above: Order Comment: withi n 1/2 hour of admission to CVSICU Performed By: #### A OLENA CASTROGEL #### [place] [address] Urea nitrogen [Mass/Vol] 15.0 mg/dL Normal 8.0-22.0 [facility] ([place] Comment on above: Order Comment: withi n 1/2 hour of admission to CVSICU Performed By: #### A BSCHAPINCITO ABOGEL #### [place] [id number] CBCon 12-13-2021 Erythrocyte distribution width (RBC) [Ratio] 13.0 % Normal 11.5-15.5 [facility] ([place] Comment on above: Order Comment: withi n 1/2 hour of admission to CVSICU Performed By: #### A YOLI, BMP, ADIFF, GFR, CBC #### [place] [address] Hematocrit (Bld) [Volume fraction] 38.1 % Low 40.0-52.0 [facility] ([place]) Comment on above: Order Comment: withi n 1/2 hour of admission to CVSICU Performed By: #### A YOLI, BMP, ADIFF, GFR, CBC #### [place] [address] Hgb 12.8 G/dL Low 13.0-17.5 [facility] ([place] Comment on above: Order Comment: withi n 1/2 hour of admission to CVSICU Performed By: #### A YOLI, BMP, ADIFF, GFR, CBC #### [place] [address] MCH (RBC) [Entitic mass] 31.5 pg Normal 27.0-33.0 [facility] ([place] Comment on above: Order Comment: withi n 1/2 hour of admission to CVSICU Performed By: #### A YOLI, BMP, ADIFF, GFR, CBC #### [place] [address] MCHC 33.5 G/dL Normal 32.0-36.0 [facility] ([place] Comment on above: Order Comment: withi n 1/2 hour of admission to CVSICU Performed By: #### A YOLI, BMP, ADIFF, GFR, CBC #### [place] [id number] MCV (RBC) [Entitic vol] 94.0 fL Normal 81.0-100.0 [facility] ([place] Comment on above: Order Comment: withi n 1/2 hour of admission to CVSICU Performed By: #### A YOLI, BMP, ADIFF, GFR, CBC #### [place] [address] Platelet 94 10 3/mcL Low 150-450 [facility] ([place] Comment on above: Order Comment: withi n 1/2 hour of admission to CVSICU Performed By: #### A YOLI, BMP, ADIFF, GFR, CBC #### [place] [address] Platelet mean volume (Bld) [Entitic vol] 8.0 fL Normal 6.4-10.5 [facility] ([place]) Comment on above: Order Comment: withi n 1/2 hour of admission to CVSICU Performed By: #### A YOLI, BMP, ADIFF, GFR, CBC #### [place] [address] RBC 4.05 10 6/mcL Low 4.50-6.00 [facility] ([place] Comment on above: Order Comment: withi n 1/2 hour of admission to CVSICU Performed By: #### A YOLI, BMP, ADIFF, GFR, CBC #### [place] [address] WBC 4.40 10 3/mcL Low 4.50-10.80 [facility] ([place] Comment on above: Order Comment: withi n 1/2 hour of admission to CVSICU Performed By: #### A YOLI, BMP, ADIFF, GFR, CBC #### [place] [address] DATIGGon 12-13-2021 VERA IgG Interp (Gel) Negative Normal [facility] ([place] Comment on above: Order Comment: Order ed by Discern Performed By: #### G FR, BMP #### [address] [address] FIBon 12-13-2021 Fibrinogen 374 mg/dL Normal 250-560 [facility] ([place]) Comment on above: Performed By: #### A YOLI, BMP, ADIFF, GFR, CBC #### [place] [address] LABORATORYOrdered By: SYSTEM SYSTEM on 12-13-2021 Base excess Calc (BldMV) [Moles/Vol] 1.0 mEq/L Invalid Interpretation Code 4.0 - 15.0 mEq/L AH ADM SS Basophils (Bld) [#/Vol] 0.00 103/mcL Invalid Interpretation Code 0.00 - 0.27 10^3/mcL AH Remisol SS Basophils/100 WBC (Bld) 0.5 % Invalid Interpretation Code 0.0 - 2.5 % AH Remisol SS Calcium [Mass/Vol] 9.3 mg/dL Invalid Interpretation Code 8.4 - 10.1 mg/dL AH ADM SS Chloride [Moles/Vol] 112 mmol/L Invalid Interpretation Code 98 - 110 mEq/L AH ADM SS CO2 [Moles/Vol] 29 mmol/L Invalid Interpretation Code 22 - 32 mEq/L AH ADM SS Creatinine [Mass/Vol] 0.94 mg/dL Invalid Interpretation Code 0.60 - 1.40 mg/dL AH ADM SS Eosinophils (Bld) [#/Vol] 0.10 103/mcL Invalid Interpretation Code 0.00 - 0.65 10^3/mcL AH Remisol SS Eosinophils/100 WBC (Bld) 2.0 % Invalid Interpretation Code 0.0 - 6.0 % AH Remisol SS Erythrocyte distribution width (RBC) [Ratio] 13.0 % Invalid Interpretation Code 11.5 - 15.5 % AH Remisol SS GFR/1.73 sq M.predicted among blacks MDRD (S/P/Bld) [Vol rate/Area] ml/min/1.73sqm Invalid Interpretation Code AH ADM SS GFR/1.73 sq M.predicted among non-blacks MDRD (S/P/Bld) [Vol rate/Area] ml/min/1.73sqm Invalid Interpretation Code AH ADM SS Glucose [Mass/Vol] 102 mg/dL Invalid Interpretation Code 82 - 115 mg/dL AH ADM SS Hematocrit (Bld) [Volume fraction] 38.1 % Invalid Interpretation Code 40.0 - 52.0 % AH Remisol SS Hemoglobin (Bld) [Mass/Vol] 12.8 G/dL Invalid Interpretation Code 13.0 - 17.5 G/dL AH Remisol SS Lymphocytes (Bld) [#/Vol] 1.00 103/mcL Invalid Interpretation Code 0.90 - 4.32 10^3/mcL AH Remisol SS Lymphocytes/100 WBC (Bld) 23.3 % Invalid Interpretation Code 20.0 - 40.0 % AH Remisol SS MCH (RBC) [Entitic mass] 31.5 pg Invalid Interpretation Code 27.0 - 33.0 pg AH Remisol SS MCHC (RBC) [Mass/Vol] 33.5 G/dL Invalid Interpretation Code 32.0 - 36.0 G/dL AH Remisol SS MCV (RBC) [Entitic vol] 94.0 fL Invalid Interpretation Code 81.0 - 100.0 fL AH Remisol SS Monocytes (Bld) [#/Vol] 0.30 103/mcL Invalid Interpretation Code 0.09 - 1.40 10^3/mcL AH Remisol SS Monocytes/100 WBC (Bld) 7.2 % Invalid Interpretation Code 2.0 - 13.0 % AH Remisol SS Neutrophils (Bld) [#/Vol] 2.90 103/mcL Invalid Interpretation Code 2.25 - 8.10 10^3/mcL AH Remisol SS Neutrophils/100 WBC (Bld) 67.0 % Invalid Interpretation Code 50.0 - 75.0 % AH Remisol SS Platelet mean volume (Bld) [Entitic vol] 8.0 fL Invalid Interpretation Code 6.4 - 10.5 fL AH Remisol SS Platelets (Bld) [#/Vol] 94 103/mcL Invalid Interpretation Code 150 - 450 10^3/mcL AH Remisol SS Potassium [Moles/Vol] 4.5 mmol/L Invalid Interpretation Code 3.5 - 5.0 mEq/L AH ADM SS RBC (Bld) [#/Vol] 4.05 106/mcL Invalid Interpretation Code 4.50 - 6.00 10^6/mcL AH Remisol SS Sodium [Moles/Vol] 142 mmol/L Invalid Interpretation Code 136 - 145 mEq/L AH ADM SS Urea nitrogen [Mass/Vol] 15.0 mg/dL Invalid Interpretation Code 8.0 - 22.0 mg/dL AH ADM SS Urea nitrogen/Creatinine [Mass ratio] 16.0 ratio Invalid Interpretation Code 10.0 - 22.0 ratio AH ADM SS WBC (Bld) [#/Vol] 4.40 103/mcL Invalid Interpretation Code 4.50 - 10.80 10^3/mcL AH Remisol SS Platelets (Bld) [#/Vol] 121 103/mcL Invalid Interpretation Code 150 - 450 10^3/mcL AH Remisol SS LABORATORYOrdered By: Amy Melendez on 12-13-2021 ABO and Rh group Nom (Bld) Blood group O Rh(D) negative Invalid Interpretation Code BB Auto SS Blood group antibody screen Ql NEG (12/13/21 6:06 AM) Invalid Interpretation Code AH BB Auto SS Direct antiglobulin test.IgG specific reagent Ql (RBC) NEG (12/13/21 6:06 AM) Invalid Interpretation Code AH BB Auto SS LABORATORYOrdered By: Nils Singh on 12-13-2021 aPTT Coag (PPP) [Time] 28.1 s Invalid Interpretation Code 25.0 - 35.0 seconds AH Auto Coag SS Fibrinogen Coag (PPP) [Mass/Vol] 374 mg/dL Invalid Interpretation Code 250 - 560 mg/dL AH Auto Coag SS Heparin dose (APTT) Unknown (12/13/21 6:06 AM) Invalid Interpretation Code AH Auto Coag SS INR Coag (PPP) [Relative time] 0.9 {INR} Invalid Interpretation Code AH Auto Coag SS PT Coag (PPP) [Time] 10.8 s Invalid Interpretation Code 9.0 - 14.9 seconds AH Auto Coag SS PLTon 12-13-2021 Platelet 121 10 3/mcL Low 150-450 [facility] ([place]) Comment on above: Performed By: #### A YOLI, BMP, ADIFF, GFR, CBC #### [address] [address] PROon 12-13-2021 INR Coag (PPP) [Relative time] 0.9 {INR} Normal [facility] ([place]) Comment on above: Result Comment: [employer] (CHEST, 1992, 102:[id number]) recommended therapeutic range for oral anticoagulant therapy is: LOW RISK: Prophylaxis of venous thrombosis INR: 2.0-3.0 Treatment of pulmonary embolism 2.0-3.0 Prevention of systemic embolism 2.0-3.0 HIGH RISK: Mechanical prosthetic valves 2.5-3.5 Performed By: #### A YOLI, BMP, ADIFF, GFR, CBC #### [address] [address] PT Coag (PPP) [Time] 10.8 s Normal 9.0-14.9 [facility] ([place]) Comment on above: Result Comment: Effe ctive 05/11/08, Protime results may be affected by some antibiotics (i.e. Ciprofloxacin, Azithromycin, Bactrim) which may potentiate the action of oral anticoagulants, with further increases in Protime/INR. Performed By: #### A YOLI, BMP, ADIFF, GFR, CBC #### [place] [address] CT ANGIOGRAPHY TAVR PLANNING on 12-05-2021 CT ANGIOGRAPHY TAVR PLANNING ORIGINAL EXAMINATION: 1. CTA HEART WITH IV CONTRAST 2. CTA CHEST WITH IV CONTRAST 3. CTA ABDOMEN & PELVIS WITH IV CONTRAST [id number] TECHNIQUE: 1. Noncontrast CT of the heart was obtained for calcium scoring (if performed). 2. CTA heart with IV contrast performed using retrospective ECG gating about 1 cm above the AV to the diaphragm. 3. CTA chest/abdomen/pelvis performed. 4. Multiplanar and 3D reconstructions were created and reviewed on a separate workstation. 5. CTA of the chest, abdomen and pelvis was performed before and after the administration of intravenous contrast. Multiplanar reformatted images are provided for review. MIP images are provided for review. Dose modulation, iterative reconstruction, and/or weight based adjustment of the mA/kV was utilized to reduce the radiation dose to as low as reasonably achievable. 6. Aortic root measurements performed at 35% RR interval. COMPLICATIONS: None ACQUISITION HR (bpm): 52, irregularly regular TECHNICAL QUALITY: Good LIMITATIONS: None Lumen diameter measured as the narrowest point of the artery. STENOSIS: Normal: 0% stenosis Minimal: <25% stenosis Mild: 25-49% Moderate: 50-69% Severe: >=70% Abbreviations: LM: left main, RCA: right coronary artery, HR: heart rate, PA: pulmonary artery, Asc: ascending, Ao: Aorta, STJ: sinotubular junction, SoV: sinuses of Valsalva, LVOT: left ventricular outflow tract; Arabella: diameter; Ht: height; NC: non-coronary; ABD: abdominal; AV: aortic valve; MV: mitral valve; CM: common iliac artery; EIA: external iliac artery; PRODUCTION POTTER: common femoral artery COMPARISON: None HISTORY: ORDERING SYSTEM PROVIDED HISTORY: Reason for Exam: aortic stenosis, former smoker quit 43 years ago, shortness of breath, CABG x4 in 1992 FINDINGS: PRE-TAVR VASCULAR: Unless specified, all measurements are in mm. Asc Ao Arabella: 34 (@ 4 cm distal to annulus) STJ Arabella: 29 SoV Ht: 26 LVOT Arabella: 22 ANNULUS Diameter: 27 x 20 Area (mm^2): 429 Perimeter: 76 Height RCA: 23 Height LM: 17 SoV Diameters RT: 34 NC: 35 LT: 34 3-cusp angulation (degrees): HEBREW 1, CAU 1 ABD Ao Dmin: 20 RIGHT Dmin: CM: 11 EIA: 9.7 PRODUCTION POTTER: 11 LEFT Dmin: CM: 13 EIA: 9.3 PRODUCTION POTTER: 8.7 AORTIC VALVE Calcium Score: 2377 Calcium Vol (mm^3): 2030 Cusp #: Tricuspid Cusp thickening: Mild thickening. CALCIUM Cusp: Moderate. No severely calcified cusp which may obstruct coronary ostia. Annulus: None Distribution: Asymmetric without extension to LVOT CORONARY Prior CABG. DOMINANCE: Right ANOMALIES: None. LM gives rise to the LAD and LCx. CALCIUM: Severe GRAFTS: Patent DELANEY-LAD, essentially occluded saphenous to LAD, patent THIAGO-LCx, mildly stenotic saphenous to RCA/PDA NON-CORONARY HEART: Not enlarged. MITRAL VALVE THICKENING: Mild thickening. CALCIFICATION: Mild PERICARDIUM: Contour preserved. EFFUSION: None THICKENING: None. CALCIFICATION: None MAIN PA: Non-dilated. No embolus centrally. THORACIC Ao ASCENDING: Diameter: Non-aneurysmal Calcified plaque: Mild Tortuosity: Minimal ARCH: Branches: 3-vessel Diameter: Non-aneurysmal Calcified plaque: Mild Tortuosity: Minimal DESCENDING: Diameter: Non-aneurysmal Calcified plaque: Minimal Tortuosity: Minimal ABD Ao SUPRARENAL Diameter: Non-aneurysmal Calcified plaque: Moderate Tortuosity: Minimal INFRARENAL Diameter: Dilated at 2.8 cm Calcified plaque: Moderate. Ulcerated plaque at the level of the kidneys at about L1-2. Tortuosity: None Celiac: No severe stenosis. SMA: No severe stenosis. JOSE: No severe stenosis. RIGHT Renal: No severe stenosis. Single renal artery. LEFT Renal: No severe stenosis. Single renal artery. RIGHT CM Diameter: Non-aneurysmal Calcified plaque: Moderate Tortuosity: Mild EIA Diameter: Non-aneurysmal Calcified plaque: Mild Tortuosity: Mild PRODUCTION POTTER Diameter: Non-aneurysmal Calcified plaque: Moderate. Anterior calcs just above the bifurcation. Bifurcation: Below femoral head LEFT CM Diameter: Non-aneurysmal Calcified plaque: Moderate Tortuosity: Minimal EIA Diameter: Non-aneurysmal Calcified plaque: Minimal Tortuosity: Moderate PRODUCTION POTTER Diameter: Non-aneurysmal Calcified plaque: Moderate. Anteromedial calcs just above the bifurcation. Bifurcation: Below femoral head NONVASCULAR: CHEST LUNGS: No consolidation. AIRWAYS: Trachea and mainstem bronchi are patent. PLEURA: No effusion. No pneumothorax. LYMPHATIC: No hilar, mediastinal, or axillary adenopathy. BONES: No suspicious osseous lesion. ABD/PELVIS LIVER:Multiple hepatic cysts. BILIARY: No extra or intrahepatic duct dilatation. (more content not included)... Normal [facility] ([place]) .Auto Diffon 12-04-2021 Basophil, Absolute 0.00 10 3/mcL Normal 0.00-0.19 [facility], [facility] ([place]) Comment on above: Performed By: #### A YOLI, BMP, ADIFF, GFR, CBC #### [address] [address] Basophils/100 WBC (Bld) 0.5 % Normal 0.0-2.5 [facility] ([place]) Comment on above: Performed By: #### A YOLI, BMP, ADIFF, GFR, CBC #### [address] [address] Eosinophil, Absolute 0.10 10 3/mcL Normal 0.00-0.40 [facility] ([place]) Comment on above: Performed By: #### A YOLI, BMP, ADIFF, GFR, CBC #### [address] [address] Eosinophils/100 WBC (Bld) 3.1 % Normal 0.0-7.0 [facility] ([place]) Comment on above: Performed By: #### A YOLI, BMP, ADIFF, GFR, CBC #### [address] [address] Lymphocyte, Absolute 1.20 10 3/mcL Normal 0.77-3.85 [facility] ([place]) Comment on above: Performed By: #### A YOLI, BMP, ADIFF, GFR, CBC #### [address] [address] Lymphocytes/100 WBC (Bld) 25.7 % Normal 10.0-50.0 [facility] ([place]) Comment on above: Performed By: #### A YOLI, BMP, ADIFF, GFR, CBC #### [address] [address] Monocyte, Absolute 0.40 10 3/mcL Normal 0.15-1.00 [facility] ([place]) Comment on above: Performed By: #### A YOLI, BMP, ADIFF, GFR, CBC #### [address] [address] Monocytes/100 WBC (Bld) 9.4 % Normal 1.7-13.0 [facility] ([place]) Comment on above: Performed By: #### A YOLI, BMP, ADIFF, GFR, CBC #### [address] [address] Neutrophils/100 WBC (Bld) 61.3 % Normal 37.0-80.0 [facility] ([place]) Comment on above: Performed By: #### A YOLI, BMP, ADIFF, GFR, CBC #### [address] [address] .GFRon 12-04-2021 GFR Non- 71 ml/min/1.73sqm Normal [facility] ([place]) Comment on above: Result Comment: GFR Population mean for , Non- Americans Ages 20-29 = 116 mL/min/1.73 sq.m. Ages 30-39 = 107 mL/min/1.73 sq.m. Ages 40-49 = 99 mL/min/1.73 sq.m. Ages 50-59 = 93 mL/min/1.73 sq.m. Ages 60-69 = 85 mL/min/1.73 sq.m. Ages 70+ = 75 mL/min/1.73 sq.m. Chronic Kidney Disease: Less than 60 mL/min/1.73 square meters End Stage Renal Disease: Less than 15 mL/min/1.73 square meters Performed By: #### A YOLI, BMP, ADIFF, GFR, CBC #### [address] [address] GFR 86 ml/min/1.73sqm Normal [facility] ([place]) Comment on above: Result Comment: GFR Population mean for , Non- Americans Ages 20-29 = 116 mL/min/1.73 sq.m. Ages 30-39 = 107 mL/min/1.73 sq.m. Ages 40-49 = 99 mL/min/1.73 sq.m. Ages 50-59 = 93 mL/min/1.73 sq.m. Ages 60-69 = 85 mL/min/1.73 sq.m. Ages 70+ = 75 mL/min/1.73 sq.m. Chronic Kidney Disease: Less than 60 mL/min/1.73 square meters End Stage Renal Disease: Less than 15 mL/min/1.73 square meters Performed By: #### A YOLI, BMP, ADIFF, GFR, CBC #### [address] [address] .NEUABSon 12-04-2021 Neutrophil, Absolute 2.90 10 3/mcL Normal 2.85-6.16 A [facility] ([place]) Comment on above: Performed By: #### A YOLI, BMP, ADIFF, GFR, CBC #### [address] [address] APTTon 12-04-2021 aPTT Coag (Bld) [Time] 25.7 s Normal 24.8-33.3 [facility] ([place]) Comment on above: Result Comment: For Heparin anticoagulation therapy, the recommended therapeutic range is: 53.6-87.4 seconds (1.5 - 2.5 the normal plasma mean). Patients on heparin therapy may have an extreme result. Performed By: #### A YOLI, BMP, ADIFF, GFR, CBC #### [address] [address] Heparin dose (APTT) None Normal [facility] ([place]) Comment on above: Performed By: #### A YOLI, BMP, ADIFF, GFR, CBC #### [address] [address] CBCon 12-04-2021 Erythrocyte distribution width (RBC) [Ratio] 13.3 % Normal 11.5-14.5 [facility] ([place]) Comment on above: Performed By: #### A YOLI, BMP, ADIFF, GFR, CBC #### [place] [address] Hematocrit (Bld) [Volume fraction] 44.3 % Normal 42.0-52.0 [facility] ([place]) Comment on above: Performed By: #### A YOLI, BMP, ADIFF, GFR, CBC #### [place] [address] Hgb 14.9 G/dL Normal 14.0-18.0 [facility] ([place]) Comment on above: Performed By: #### A YOLI, BMP, ADIFF, GFR, CBC #### [place] [address] MCH (RBC) [Entitic mass] 31.1 pg Normal 27.0-31.2 [facility] ([place]) Comment on above: Performed By: #### A YOLI, BMP, ADIFF, GFR, CBC #### [place] [address] MCHC 33.5 G/dL Normal 31.8-35.4 [facility] ([place]) Comment on above: Performed By: #### A YOLI, BMP, ADIFF, GFR, CBC #### [place] [address] MCV (RBC) [Entitic vol] 92.6 fL Normal 80.0-94.0 [facility] ([place]) Comment on above: Performed By: #### A YOLI, BMP, ADIFF, GFR, CBC #### [place] [address] Platelet 140 10 3/mcL Normal 130-400 [facility] ([place]) Comment on above: Performed By: #### A YOLI, BMP, ADIFF, GFR, CBC #### [place] [address] Platelet mean volume (Bld) [Entitic vol] 7.9 fL Normal 7.4-10.4 [facility] ([place]) Comment on above: Performed By: #### A YOLI, BMP, ADIFF, GFR, CBC #### [place] [address] RBC 4.78 10 6/mcL Normal 4.04-6.13 [facility] ([place]) Comment on above: Performed By: #### A YOLI, BMP, ADIFF, GFR, CBC #### [address] [address] WBC 4.70 10 3/mcL Normal 4.60-10.80 [facility] ([place]) Comment on above: Performed By: #### A YOLI, BMP, ADIFF, GFR, CBC #### [address] [address] CMPon 12-04-2021 Albumin Level 4.3 G/dL Normal 3.4-4.8 [facility] ([place]) Comment on above: Performed By: #### A YOLI, BMP, ADIFF, GFR, CBC #### [place] [id number] Albumin/Globulin [Mass ratio] 1.6 {ratio} Normal 1.1-2.5 [facility] ([place]) Comment on above: Performed By: #### A YOLI, BMP, ADIFF, GFR, CBC #### [place] [address] ALP [Catalytic activity/Vol] 68 U/L Normal 40-135 [facility] ([place]) Comment on above: Performed By: #### A YOLI, BMP, ADIFF, GFR, CBC #### [place] [id number] ALT [Catalytic activity/Vol] 23 U/L Normal 16-63 [facility] ([place]) Comment on above: Performed By: #### A YOLI, BMP, ADIFF, GFR, CBC #### [place] [id number] AST [Catalytic activity/Vol] 22 U/L Normal 10-40 [facility] ([place]) Comment on above: Performed By: #### A YOLI, BMP, ADIFF, GFR, CBC #### [place] [id number] Bili Total 1.2 mg/dL High 0.2-1.0 [facility] ([place]) Comment on above: Result Comment: Use of this assay is not recommended for patients undergoing treatment with eltrombopag due to the potential for falsely elevated results. Performed By: #### A YOLI, BMP, ADIFF, GFR, CBC #### [address] [address] BUN/Creatinine Ratio 25 ratio Normal 7-27 [facility] ([place]) Comment on above: Performed By: #### A YOLI, BMP, ADIFF, GFR, CBC #### [address] [address] Calcium [Mass/Vol] 9.5 mg/dL Normal 8.4-10.2 [facility] ([place]) Comment on above: Performed By: #### A YOLI, BMP, ADIFF, GFR, CBC #### [address] [address] Chloride [Moles/Vol] 105 mmol/L Normal 98-107 [facility] ([place]) Comment on above: Performed By: #### A YOLI, BMP, ADIFF, GFR, CBC #### [place] [id number] CO2 [Moles/Vol] 28 mmol/L Normal 23-31 [facility] ([place]) Comment on above: Performed By: #### A YOLI, BMP, ADIFF, GFR, CBC #### [place] [address] Creatinine [Mass/Vol] 1.02 mg/dL Normal 0.70-1.30 [facility] ([place]) Comment on above: Performed By: #### A YOLI, BMP, ADIFF, GFR, CBC #### [place] [id number] Electrolyte Balance 9.0 mEq/L Normal 4.0-15.0 [facility] ([place]) Comment on above: Performed By: #### A YOLI, BMP, ADIFF, GFR, CBC #### [address] [address] Globulin 2.7 G/dL Normal [facility] ([place]) Comment on above: Performed By: #### A YOLI, BMP, ADIFF, GFR, CBC #### [place] [id number] Glucose [Mass/Vol] 100 mg/dL Normal 83-110 [facility] ([place]) Comment on above: Performed By: #### A YOLI, BMP, ADIFF, GFR, CBC #### [address] [address] Potassium [Moles/Vol] 4.7 mmol/L Normal 3.5-5.1 [facility] ([place]) Comment on above: Performed By: #### A YOLI, BMP, ADIFF, GFR, CBC #### [address] [address] Sodium [Moles/Vol] 142 mmol/L Normal 136-145 [facility] ([place]) Comment on above: Performed By: #### A YOLI, BMP, ADIFF, GFR, CBC #### [address] [address] Total Protein 7.0 G/dL Normal 6.4-8.2 [facility] ([place]) Comment on above: Performed By: #### A YOLI, BMP, ADIFF, GFR, CBC #### [address] [address] Urea nitrogen [Mass/Vol] 25 mg/dL High 7-18 [facility] ([place]) Comment on above: Performed By: #### A YOLI, BMP, ADIFF, GFR, CBC #### [address] [address] FIBon 12-04-2021 Fibrinogen 314 mg/dL Low 334-713 [facility] ([place]) Comment on above: Performed By: #### A YOLI, BMP, ADIFF, GFR, CBC #### [address] [address] Gel ABOon 12-04-2021 ABO/Rh Interp Negative Invalid Interpretation Code [facility] ([place]) Comment on above: Performed By: #### Celi FR, BMP #### M[address] [address] Gel ABSon 12-04-2021 Antibody Screen Gel Negative Normal [facility] ([place]) Comment on above: Performed By: #### Celi FR, BMP #### [address] [address] LABORATORYOrdered By: Addie Copeland on 12-04-2021 ABO/Rh Interp Negative Invalid Interpretation Code AO BB SS Antibody Screen Gel Negative ABSC (12/04/21 7:26 AM) Invalid Interpretation Code AO BB SS Albumin BCP dye [Mass/Vol] 4.3 G/dL Invalid Interpretation Code 3.4 - 4.8 G/dL AO ADM SS Albumin/Globulin [Mass ratio] 1.6 {ratio} Invalid Interpretation Code 1.1 - 2.5 ratio AO ADM SS ALP [Catalytic activity/Vol] 68 U/L Invalid Interpretation Code 40 - 135 U/L AO ADM SS ALT With P-5'-P [Catalytic activity/Vol] 23 U/L Invalid Interpretation Code 16 - 63 U/L AO ADM SS Appearance (U) Clear (12/04/21 7:24 AM) Invalid Interpretation Code Clear AO Auto Urine SS AST With P-5'-P [Catalytic activity/Vol] 22 U/L Invalid Interpretation Code 10 - 40 U/L AO ADM SS Basophil, Absolute 0.00 103/mcL Invalid Interpretation Code 0.00 - 0.19 10^3/mcL AO Auto Heme SS Basophils/100 WBC (Bld) 0.5 % Invalid Interpretation Code 0.0 - 2.5 % AO Auto Heme SS Bilirubin [Mass/Vol] 1.2 mg/dL Invalid Interpretation Code 0.2 - 1.0 mg/dL AO ADM SS Bilirubin Ql (U) Negative (12/04/21 7:24 AM) Invalid Interpretation Code Negative AO Auto Urine SS Calcium [Mass/Vol] 9.5 mg/dL Invalid Interpretation Code 8.4 - 10.2 mg/dL AO ADM SS Chloride [Moles/Vol] 105 mmol/L Invalid Interpretation Code 98 - 107 mmol/L AO ADM SS CO2 [Moles/Vol] 28 mmol/L Invalid Interpretation Code 23 - 31 mmol/L AO ADM SS Color (U) Yellow (12/04/21 7:24 AM) Invalid Interpretation Code AO Auto Urine SS Creatinine [Mass/Vol] 1.02 mg/dL Invalid Interpretation Code 0.70 - 1.30 mg/dL AO ADM SS Electrolyte Balance 9.0 mEq/L Invalid Interpretation Code 4.0 - 15.0 mEq/L AO ADM SS Eosinophil, Absolute 0.10 103/mcL Invalid Interpretation Code 0.00 - 0.40 10^3/mcL AO Auto Heme SS Eosinophils/100 WBC (Bld) 3.1 % Invalid Interpretation Code 0.0 - 7.0 % AO Auto Heme SS Erythrocyte distribution width (RBC) [Ratio] 13.3 % Invalid Interpretation Code 11.5 - 14.5 % AO Auto Heme SS Fibrinogen Coag (PPP) [Mass/Vol] 314 mg/dL Invalid Interpretation Code 334 - 713 mg/dL AO Coag SS Globulin 2.7 G/dL Invalid Interpretation Code AO ADM SS Glucose [Mass/Vol] 100 mg/dL Invalid Interpretation Code 83 - 110 mg/dL AO ADM SS Glucose Test strip (U) [Mass/Vol] Negative Invalid Interpretation Code Negativemg /dL AO Auto Urine SS Hematocrit (Bld) [Volume fraction] 44.3 % Invalid Interpretation Code 42.0 - 52.0 % AO Auto Heme SS Hemoglobin (Bld) [Mass/Vol] 14.9 G/dL Invalid Interpretation Code 14.0 - 18.0 G/dL AO Auto Heme SS Hemoglobin Auto test strip (U) [Mass/Vol] Trace *ABN* (12/04/21 7:24 AM) Invalid Interpretation Code Negative AO Auto Urine SS Heparin dose (APTT) None Invalid Interpretation Code AO Coag SS INR Coag (PPP) [Relative time] 0.9 {INR} Invalid Interpretation Code 0.9 - 1.2 ratio AO Coag SS Ketones Ql (U) Negative Invalid Interpretation Code Negativemg /dL AO Auto Urine SS Lymphocyte, Absolute 1.20 103/mcL Invalid Interpretation Code 0.77 - 3.85 10^3/mcL AO Auto Heme SS Lymphocytes/100 WBC (Bld) 25.7 % Invalid Interpretation Code 10.0 - 50.0 % AO Auto Heme SS MCH (RBC) [Entitic mass] 31.1 pg Invalid Interpretation Code 27.0 - 31.2 pg AO Auto Heme SS MCHC (RBC) [Mass/Vol] 33.5 G/dL Invalid Interpretation Code 31.8 - 35.4 G/dL AO Auto Heme SS MCV (RBC) [Entitic vol] 92.6 fL Invalid Interpretation Code 80.0 - 94.0 fL AO Auto Heme SS Monocyte, Absolute 0.40 103/mcL Invalid Interpretation Code 0.15 - 1.00 10^3/mcL AO Auto Heme SS Monocytes/100 WBC (Bld) 9.4 % Invalid Interpretation Code 1.7 - 13.0 % AO Auto Heme SS Natriuretic peptide.B prohormone N-Terminal [Mass/Vol] 144 pg/mL Invalid Interpretation Code 0 - 450 pg/mL AO ADM SS Neutrophil, Absolute 2.90 103/mcL Invalid Interpretation Code 2.85 - 6.16 10^3/mcL AO Auto Heme SS Neutrophils/100 WBC (Bld) 61.3 % Invalid Interpretation Code 37.0 - 80.0 % AO Auto Heme SS Platelet mean volume (Bld) [Entitic vol] 7.9 fL Invalid Interpretation Code 7.4 - 10.4 fL AO Auto Heme SS Platelets (Bld) [#/Vol] 140 103/mcL Invalid Interpretation Code 130 - 400 10^3/mcL AO Auto Heme SS Potassium [Moles/Vol] 4.7 mmol/L Invalid Interpretation Code 3.5 - 5.1 mmol/L AO ADM SS Protein [Mass/Vol] 7.0 G/dL Invalid Interpretation Code 6.4 - 8.2 G/dL AO ADM SS PT Coag (PPP) [Time] 10.7 s Invalid Interpretation Code 9.7 - 14.3 seconds AO Coag SS RBC (Bld) [#/Vol] 4.78 106/mcL Invalid Interpretation Code 4.04 - 6.13 10^6/mcL AO Auto Heme SS Sodium [Moles/Vol] 142 mmol/L Invalid Interpretation Code 136 - 145 mmol/L AO ADM SS UA Leuk Est Negative (12/04/21 7:24 AM) Invalid Interpretation Code Negative AO Auto Urine SS UA Nitrite Negative (12/04/21 7:24 AM) Invalid Interpretation Code Negative AO Auto Urine SS UA pH 5.0 (12/04/21 7:24 AM) Invalid Interpretation Code 5.0 - 8.0 AO Auto Urine SS UA Protein Negative Invalid Interpretation Code Negativemg /dL AO Auto Urine SS UA Spec Grav 1.020 (12/04/21 7:24 AM) Invalid Interpretation Code 1.015-1.02 5 AO Auto Urine SS UA Specimen Type Clean Catch (12/04/21 7:24 AM) Invalid Interpretation Code AO Auto Urine SS UA Urobilinogen 0.2 E.U./dL Invalid Interpretation Code 0.2-1.0E.U ./dL AO Auto Urine SS Urea nitrogen [Mass/Vol] 25 mg/dL Invalid Interpretation Code 7 - 18 mg/dL AO ADM SS Urea nitrogen/Creatinine [Mass ratio] 25 ratio Invalid Interpretation Code 7 - 27 ratio AO ADM SS WBC (Bld) [#/Vol] 4.70 103/mcL Invalid Interpretation Code 4.60 - 10.80 10^3/mcL AO Auto Heme SS LABORATORYOrdered By: Juan Manuel Estrada on 12-04-2021 aPTT Coag (Bld) [Time] 25.7 s Invalid Interpretation Code 24.8 - 33.3 seconds AO Coag SS LABORATORYOrdered By: SYSTEM SYSTEM on 12-04-2021 GFR 86 ml/min/1.73sqm Invalid Interpretation Code AO Chemistry S GFR Non- 71 ml/min/1.73sqm Invalid Interpretation Code AO Chemistry S PBNPon 12-04-2021 Natriuretic peptide B (Bld) [Mass/Vol] 144 pg/mL Normal 0-450 [facility] ([place]) Comment on above: Result Comment: NT-p roBNP results of less than 300 pg/mL effectively rules out acute congestive heart failure with 99% negative predictive value. Performed By: #### A YOLI, BMP, ADIFF, GFR, CBC #### [place] [address] PROon 12-04-2021 INR Coag (PPP) [Relative time] 0.9 {INR} Normal 0.9-1.2 [facility] ([place]) Comment on above: Result Comment: Shravan dard Dose 2.0 - 3.0 High Dose 2.5 - 3.5 The recommended therapeutic range for oral anticoagulant therapy is: LOW RISK: Prophylaxis of venous thrombosis INR: 2.0 - 3.0 Treatment of pulmonary embolism 2.0 - 3.0 Prevention of systemic embolism 2.0 - 3.0 HIGH RISK: Mechanical prosthetic valves 2.5 - 3.5 Performed By: #### A YOLI, BMP, ADIFF, GFR, CBC #### [address] [address] PT Coag (PPP) [Time] 10.7 s Normal 9.7-14.3 [facility] ([place]) Comment on above: Performed By: #### A YOLI, BMP, ADIFF, GFR, CBC #### [place] [id number] UAon 12-04-2021 Color (U) Yellow Normal [facility] ([place]) Comment on above: Performed By: #### Celi SORENSEN, BMP #### Masha [address] [address] Glucose (U) [Mass/Vol] Negative Normal Negative [facility] ([place]) Comment on above: Performed By: #### Celi FR, BMP #### Masha [address] [address] Ketones Ql (U) Negative Normal Negative [facility] ([place] Comment on above: Performed By: #### Celi SORENSEN, BMP #### Masha [address] [address] UA Appear Clear Normal Clear [facility] ([place] Comment on above: Performed By: #### Celi FR, BMP #### Masha [address] [address] UA Blood Trace Abnormal Negative [facility] ([place] Comment on above: Performed By: #### Celi FR, BMP #### Masha [address] [address] UA Leuk Est Negative Normal Negative [facility] ([place] Comment on above: Performed By: #### Celi FR, BMP #### Masha [address] [address] UA Nitrite Negative Normal Negative [facility] ([place] Comment on above: Performed By: #### Celi FR, BMP #### Masha [address] [address] UA pH 5.0 Normal 5.0 - 8.0 [facility] ([place]) Comment on above: Performed By: #### Celi FR, BMP #### Masha [address] [address] UA Protein Negative Normal Negative [facility] ([place] Comment on above: Performed By: #### Celi FR, BMP #### M[place] [address] [address] UA Spec Grav 1.020 Normal 1.015-1.02 5 [facility] ([place]) Comment on above: Performed By: #### G FR, BMP #### [address] [address] UA Specimen Type Clean Catch Normal [facility] ([place] Comment on above: Performed By: #### G FR, BMP #### [address] [address] UA Urobilinogen 0.2 E.U./dL Normal 0.2-1.0 [facility] ([place]) Comment on above: Performed By: #### G FR, BMP #### [address] [address] Urobilinogen (U) [Mass/Vol] Negative Normal Negative [facility] ([place] Comment on above: Performed By: #### G FR, BMP #### [address] [address] .GFRon 11-07-2021 GFR Non- 75 ml/min/1.73sqm Normal [facility] ([place]) Comment on above: Result Comment: GFR Population mean for , Non- Americans Ages 20-29 = 116 mL/min/1.73 sq.m. Ages 30-39 = 107 mL/min/1.73 sq.m. Ages 40-49 = 99 mL/min/1.73 sq.m. Ages 50-59 = 93 mL/min/1.73 sq.m. Ages 60-69 = 85 mL/min/1.73 sq.m. Ages 70+ = 75 mL/min/1.73 sq.m. Chronic Kidney Disease: Less than 60 mL/min/1.73 square meters End Stage Renal Disease: Less than 15 mL/min/1.73 square meters Performed By: #### A YOLI, BMP, ADIFF, GFR, CBC #### [address] [address] GFR 90 ml/min/1.73sqm Normal [facility] ([place]) Comment on above: Result Comment: GFR Population mean for , Non- Americans Ages 20-29 = 116 mL/min/1.73 sq.m. Ages 30-39 = 107 mL/min/1.73 sq.m. Ages 40-49 = 99 mL/min/1.73 sq.m. Ages 50-59 = 93 mL/min/1.73 sq.m. Ages 60-69 = 85 mL/min/1.73 sq.m. Ages 70+ = 75 mL/min/1.73 sq.m. Chronic Kidney Disease: Less than 60 mL/min/1.73 square meters End Stage Renal Disease: Less than 15 mL/min/1.73 square meters Performed By: #### A YOLI, BMP, ADIFF, GFR, CBC #### [address] [address] BMPon 11-07-2021 BUN/Creatinine Ratio 22 ratio Normal 7-27 [facility] ([place]) Comment on above: Performed By: #### A YOLI, BMP, ADIFF, GFR, CBC #### [address] [address] Calcium [Mass/Vol] 9.2 mg/dL Normal 8.4-10.2 [facility] ([place]) Comment on above: Performed By: #### A YOLI, BMP, ADIFF, GFR, CBC #### [address] [address] Chloride [Moles/Vol] 107 mmol/L Normal 98-107 [facility] ([place]) Comment on above: Performed By: #### A YOLI, BMP, ADIFF, GFR, CBC #### [address] [address] CO2 [Moles/Vol] 26 mmol/L Normal 23-31 [facility] ([place]) Comment on above: Performed By: #### A YOLI, BMP, ADIFF, GFR, CBC #### [address] [address] Creatinine [Mass/Vol] 0.98 mg/dL Normal 0.70-1.30 [facility] ([place]) Comment on above: Performed By: #### A YOLI, BMP, ADIFF, GFR, CBC #### [address] [address] Electrolyte Balance 11.0 mEq/L Normal [facility] ([place]) Comment on above: Performed By: #### A YOLI, BMP, ADIFF, GFR, CBC #### [address] [address] Glucose [Mass/Vol] 132 mg/dL High 83-110 [facility] ([place]) Comment on above: Performed By: #### A YOLI, BMP, ADIFF, GFR, CBC #### [address] [address] Potassium [Moles/Vol] 4.0 mmol/L Normal 3.5-5.1 [facility] ([place]) Comment on above: Performed By: #### A YOLI, BMP, ADIFF, GFR, CBC #### [address] [address] Sodium [Moles/Vol] 144 mmol/L Normal 136-145 [facility] ([place]) Comment on above: Performed By: #### A YOLI, BMP, ADIFF, GFR, CBC #### [address] [address] Urea nitrogen [Mass/Vol] 22 mg/dL High 7-18 [facility] ([place]) Comment on above: Performed By: #### A YOLI, BMP, ADIFF, GFR, CBC #### [address] [address] Replaced Document: Lipid Pro fileon 12-20-2017 Cholesterol 108 mg/dL Invalid Interpretation Code 200 [employer] Work Phone: [phone] HDL Cholesterol 47 mg/dL Invalid Interpretation Code [employer] Work Phone: [phone] LDL Cholesterol 47 mg/dL Invalid Interpretation Code 0-130 [employer] Work Phone: [phone] Triglyceride 70 mg/dL Invalid Interpretation Code [employer] Work Phone: [phone] very low density lipoproteins 14 mg/dL Invalid Interpretation Code 5-40 [employer] Work Phone: [phone] Replaced Document: Liver Pro fileon 12-20-2017 Alanine aminotransferase (ALT) 26 U/L Invalid Interpretation Code 16-61 [employer] Work Phone: [phone] Albumin 3.8 g/dL Invalid Interpretation Code 3.2-5.0 [employer] Work Phone: [phone] Alkaline phosphatase (ALP) 68 U/L Invalid Interpretation Code 45-117 [employer] Work Phone: [phone] Aspartate aminotransferase (AST) 19 U/L Invalid Interpretation Code 15-37 [employer] Work Phone: [phone] Bilirubin (direct) 0.27 mg/dL Invalid Interpretation Code 0.00-0.30 [employer] Work Phone: [phone] Bilirubin (total) 1.20 mg/dL High 0.20-1.00 [employer] Work Phone: [phone] Globulin 2.7 g/dL Invalid Interpretation Code 2.2-4.2 [employer] Work Phone: [phone] Protein 6.5 g/dL Invalid Interpretation Code 6.4-8.2 [employer] Work Phone: [phone] Clinical Lists Update: 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 soil expert 06-21-2017 Left ventricular Ejection fraction 60 % Invalid Interpretation Code [employer] Work Phone: [phone] Office Visiton 06-14-2017 Documentation of current medications (procedure) Done Invalid Interpretation Code [employer] Work Phone: [phone] Fall risk assessment No Invalid Interpretation Code [employer] Work Phone: [phone] Protein mass conc Done [employer] Work Phone: [phone] Lab Report: Basic Metabolic Profile (BMP)on 06-10-2017 Anion gap 6 mmol/L Invalid Interpretation Code 5-15 [employer] Work Phone: [phone] Anion gap molar conc 6 mmol/L 5-15 [employer] Work Phone: [phone] BUN/Creatinine Ratio 30.6 RATIO High 10-20 [employer] Work Phone: [phone] Calcium 8.8 mg/dL Invalid Interpretation Code 8.5-10.1 [employer] Work Phone: [phone] Chloride 108 mmol/L High 98-107 [employer] Work Phone: [phone] CO2 27.0 mmol/L Invalid Interpretation Code 21.0-32.0 [employer] Work Phone: [phone] CO2 ppres (BldV) 27.0 mmol/L 21.0-32.0 [facility] Work Phone: [phone] Creatinine 0.92 mg/dL Invalid Interpretation Code 0.70-1.30 [facility] Work Phone: [phone] eGFR (non-black) 105 mL/min/{1.73_m2} Invalid Interpretation Code >60 [facility] Work Phone: [phone] eGFR (non-black) 87 mL/min/{1.73_m2} Invalid Interpretation Code >60 [facility] Work Phone: [phone] EST GFR - AA 105 mL/min >60 [facility] Work Phone: [phone] Glucose 99 mg/dL Invalid Interpretation Code 70-110 [facility] Work Phone: [phone] Glucose mass conc 99 mg/dL 70-110 [facility] Work Phone: [phone] Potassium 3.7 mmol/L Invalid Interpretation Code 3.5-5.1 [facility] Work Phone: [phone] Sodium 141 mmol/L Invalid Interpretation Code 136-145 [facility] Work Phone: [phone] Urea nitrogen 28 mg/dL High 7-18 [facility] Work Phone: [phone] Lab Report: CBC-Complete Blo od Cnt No Diffon 06-10-2017 Erythrocyte distribution width Ratio (RBC) 13.5 % 11.6-14.6 [facility] Work Phone: [phone] Erythrocyte distribution width Ratio (RBC) 44.8 fL High 35.1-43.9 [facility] Work Phone: [phone] Erythrocytes (RBC) 4.50 10*6/uL Low 4.6-6.[address] [facility] Work Phone: [phone] Hematocrit (HCT) 42.5 % Invalid Interpretation Code 40-54 [facility] Work Phone: [phone] Hematocrit Volume Fraction (Bld) 42.5 % 40-54 [facility] Work Phone: [phone] Hemoglobin (HGB) 14.2 g/dL Invalid Interpretation Code 13.0-16.5 [facility] Work Phone: [phone] MCH 31.6 pg Invalid Interpretation Code 27.0-32.0 [facility] Work Phone: [phone] MCH Entitic mass (RBC) 31.6 pg 27.0-32.0 [facility] Work Phone: [phone] MCHC 33.4 G/GL Invalid Interpretation Code 32-36 [facility] Work Phone: [phone] MCHC mass conc (RBC) 33.4 G/GL 32-[address] [facility] Work Phone: [phone] MCV 94.4 fL High 80-94 [facility] Work Phone: [phone] MCV Entitic volume (RBC) 94.4 fL High 80-94 [facility] Work Phone: [phone] Platelet mean volume Entitic volume (Bld) 10.9 fL 6.2-12.0 [facility] Work Phone: [phone] Platelets 124 10*3/mm3 Low 150-450 [facility] Work Phone: [phone] Platelets #/vol (Bld) 124 10*3/mm3 Low 150-450 [facility] Work Phone: [phone] PMV by Gabby 10.9 fL Invalid Interpretation Code 6.2-12.0 [facility] Work Phone: [phone] RBC #/vol (Bld) 4.50 10*6/uL Low 4.6-6.2 [facility] Work Phone: [phone] RDW-CA 13.5 % Invalid Interpretation Code 11.6-14.6 [facility] Work Phone: [phone] red blood cell distribution width, size density 44.8 fL High 35.1-43.9 [facility] Work Phone: [phone] WBC #/vol (Bld) 4.5 10*3/uL 4.4-11.0 [facility] Work Phone: [phone] WBC (Leukocytes) 4.5 10*3/uL Invalid Interpretation Code 4.4-11.0 [employer] Work Phone: [phone] Lab Report: Lipid Profileon 06-10-2017 Cholesterol 129 mg/dL Invalid Interpretation Code 200 [employer] Work Phone: [phone] HDL Cholesterol 61 mg/dL Invalid Interpretation Code [employer] Work Phone: [phone] LDL Cholesterol 50 mg/dL Invalid Interpretation Code 0-130 [employer] Work Phone: [phone] Triglyceride 91 mg/dL Invalid Interpretation Code [employer] Work Phone: [phone] very low density lipoproteins 18 mg/dL Invalid Interpretation Code 5-40 [employer] Work Phone: [phone] Lab Report: Liver Profileon 06-10-2017 Alanine aminotransferase (ALT) 23 U/L 12-78 [employer] Work Phone: [phone] Albumin 3.9 g/dL 3.4-5.0 [employer] Work Phone: [phone] Alkaline phosphatase (ALP) 59 U/L Invalid Interpretation Code 45-117 [employer] Work Phone: [phone] ALP enzyme act/vol (Bld) 59 U/L 45-117 [employer] Work Phone: [phone] Aspartate aminotransferase (AST) 21 U/L 15-37 [employer] Work Phone: [phone] Bilirubin (direct) 0.35 mg/dL High 0.00-0.[address] [facility] [employer] Work Phone: [phone] Bilirubin (total) 1.90 mg/dL High 0.20-1.00 [employer] Work Phone: [phone] Globulin 2.5 g/dL Invalid Interpretation Code 2.3-3.5 [employer] Phone: [phone] Globulin mass conc (S) 2.5 g/dL 2.3-3.5 [employer] Work Phone: [phone] Protein 6.4 g/dL 6.4-8.2 [employer] Work Phone: [phone] Office Visit: Spine Visit- R sided neck painon 06-06-2017 Documentation of current medications (procedure) Done Invalid Interpretation Code [employer] Work Phone: [phone] Protein mass conc Done [facility] Work Phone: [phone] Office Visit: Spine Visit- R sided neck painon 06-04-2017 Documentation of current medications (procedure) Done Invalid Interpretation Code [facility] Work Phone: [phone] Protein mass conc Done [facility] Work Phone: [phone] Office Visit: Spine Visit- R sided neck painon 05-29-2017 Documentation of current medications (procedure) Done Invalid Interpretation Code [facility] Work Phone: [phone] Office Visit: Spine Visit- N EWon 05-28-2017 Alcoholism counseling (procedure) no Invalid Interpretation Code [facility] Work Phone: [phone] Protein mass conc no [facility] Work Phone: [phone] Tobacco smoking status NHIS Tobacco smoking status NHIS Invalid Interpretation Code [facility] Work Phone: [phone] Tobacco smoking status NHIS Former smoker [facility] Work Phone: [phone] Tobacco use [facility] Former smoker Invalid Interpretation Code [facility] Work Phone: [phone] Lab Report: Basic Metabolic Profile (BMP)on 12-27-2016 Anion gap 8 mmol/L Invalid Interpretation Code 5-15 [facility] Work Phone: [phone] Anion gap molar conc 8 mmol/L 5-15 [facility] Work Phone: [phone] BUN/Creatinine Ratio 28.7 RATIO High 10-[address] [facility] Work Phone: [phone] Calcium 8.3 mg/dL Low 8.5-10.1 [facility] Work Phone: [phone] Chloride 107 mmol/L 98-107 [facility] Work Phone: [phone] CO2 28.0 mmol/L Invalid Interpretation Code 21.0-32.0 [facility] Work Phone: [phone] CO2 ppres (BldV) 28.0 mmol/L 21.0-32.0 [facility] Work Phone: [phone] Creatinine 0.84 mg/dL 0.70-1.30 [facility] Work Phone: [phone] eGFR (non-black) 97 mL/min/{1.73_m2} >60 [facility] Work Phone: [phone] eGFR (non-black) 117 mL/min/{1.73_m2} Invalid Interpretation Code >60 [facility] Work Phone: [phone] EST GFR - AA 117 mL/min >60 [facility] Work Phone: [phone] Glucose 96 mg/dL Invalid Interpretation Code 70-110 [facility] Work Phone: [phone] Glucose mass conc 96 mg/dL 70-110 [facility] Work Phone: [phone] Potassium 4.5 mmol/L 3.5-5.1 [facility] Work Phone: [phone] Sodium 143 mmol/L 136-145 [facility] Work Phone: [phone] Urea nitrogen 24 mg/dL High 7-18 [facility] Work Phone: [phone] Lab Report: CBC-Complete Blo od Cnt No Diffon 12-27-2016 Erythrocyte distribution width Ratio (RBC) 43.0 fL 35.1-43.9 [facility] Work Phone: [phone] Erythrocyte distribution width Ratio (RBC) 13.0 % 11.6-14.6 [facility] Work Phone: [phone] Erythrocytes (RBC) 4.72 10*6/uL Invalid Interpretation Code 4.6-6.2 [facility] Work Phone: [phone] Hematocrit (HCT) 44.3 % Invalid Interpretation Code 40-54 [facility] Work Phone: [phone] Hematocrit Volume Fraction (Bld) 44.3 % 40-54 [facility] Work Phone: [phone] Hemoglobin (HGB) 14.6 g/dL 13.0-16.5 [facility] Work Phone: [phone] MCH 30.9 pg Invalid Interpretation Code 27.0-32.0 [facility] Work Phone: [phone] MCH Entitic mass (RBC) 30.9 pg 27.0-32.0 [facility] Work Phone: [phone] MCHC 33.0 G/GL Invalid Interpretation Code 32-36 [facility] Work Phone: [phone] MCHC mass conc (RBC) 33.0 G/GL 32-36 [facility] Work Phone: [phone] MCV 93.9 fL Invalid Interpretation Code 80-94 [facility] Work Phone: [phone] MCV Entitic volume (RBC) 93.9 fL 80-94 [facility] Work Phone: [phone] Platelet mean volume Entitic volume (Bld) 10.1 fL 6.2-12.0 [facility] Work Phone: [phone] Platelets 141 10*3/mm3 Low 150-450 [facility] Work Phone: [phone] Platelets #/vol (Bld) 141 10*3/mm3 Low 150-450 [facility] Work Phone: [phone] PMV by Gabby 10.1 fL Invalid Interpretation Code 6.2-12.0 [facility] Work Phone: [phone] RBC #/vol (Bld) 4.72 10*6/uL 4.6-6.2 [facility] Work Phone: [phone] RDW-CA 13.0 % Invalid Interpretation Code 11.6-14.6 [facility] Work Phone: [phone] red blood cell distribution width, size density 43.0 fL Invalid Interpretation Code 35.1-43.9 [facility] Work Phone: [phone] WBC #/vol (Bld) 5.5 10*3/uL 4.4-11.0 [facility] Work Phone: [phone] WBC (Leukocytes) 5.5 10*3/uL Invalid Interpretation Code 4.4-11.0 [facility] Work Phone: [phone] Lab Report: Partial Thrombop last Timeon 12-27-2016 aPTT 24.5 s Invalid Interpretation Code 24.1-36.2 [employer] Work Phone: [phone] Lab Report: Prothrombin Time w/INRon 12-27-2016 Coagulation tissue factor induced in platelet poor plasma 12.8 s Invalid Interpretation Code 11.7-14.9 [employer] Work Phone: [phone] INR Coag RelTime (PPP) 1.0 {INR} [employer] 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 ABNORMAL Invalid Interpretation Code [employer] Work Phone: [phone] GE use only - for [employer] import when terms are not otherwise specified 408 ms Invalid Interpretation Code [employer] Work Phone: [phone] Interpretation Marked sinus Bradyca rdia -Old inferior infarct. ABNORMAL [employer] Work Phone: [phone] P [place] 35 deg [facility] Work Phone: [phone] P wave axis, electrocardiogram 35 deg Invalid Interpretation Code [employer] Work Phone: [phone] AR Interval 202 ms [employer] Work Phone: [phone] AR interval, electrocardiogram 202 ms Invalid Interpretation Code [employer] Work Phone: [phone] Pulse (Heart Rate) 46 /min Invalid Interpretation Code [employer] Work Phone: [phone] QRS axis, electrocardiogram 7 deg Invalid Interpretation Code [employer] Work Phone: [phone] QRS Duration 94 ms [employer] Work Phone: [phone] QRS duration, electrocardiogram 94 ms Invalid Interpretation Code [employer] Work Phone: [phone] QT Interval new path ms [employer] Work Phone: [phone] QT interval, electrocardiogram new path ms Invalid Interpretation Code [facility] Work Phone: [phone] QTc [place] 408 ms [facility] Work Phone: [phone] T [place] 11 deg [facility] Work Phone: [phone] T wave axis, electrocardiogram 11 deg Invalid Interpretation Code [facility] Work Phone: [phone] Office Visit: [facility] 12-04-19 17 Dietary management education, guidance, and counseling (procedure) yes Invalid Interpretation Code [facility] Work Phone: [phone] Documentation of current medications (procedure) Done Invalid Interpretation Code [facility] Work Phone: [phone] Clinical Lists Updateon Left ventricular Ejection fraction 65 % Invalid Interpretation Code [facility] Work Phone: [phone] Lab Report: Lipid Profileon 11-30-2016 Cholesterol 112 mg/dL 200 [facility] Work Phone: [phone] HDL Cholesterol 59 mg/dL [facility] Work Phone: [phone] LDL Cholesterol 42 mg/dL 0-130 [facility] Work Phone: [phone] Triglyceride 54 mg/dL [facility] Work Phone: [phone] very low density lipoproteins 11 mg/dL 5-40 [facility] Work Phone: [phone] Lab Report: Liver Profileon 11-30-2016 Alanine aminotransferase (ALT) 22 U/L 12-78 [facility] Work Phone: [phone] Albumin 4.1 g/dL 3.4-5.0 [facility] Work Phone: [phone] Alkaline phosphatase (ALP) 78 U/L Invalid Interpretation Code 45-117 [facility] Work Phone: [phone] ALP enzyme act/vol (Bld) 78 U/L 45-117 [facility] Work Phone: [phone] Aspartate aminotransferase (AST) 20 U/L 15-37 [facility] Work Phone: [phone] Bilirubin (direct) 0.31 mg/dL High 0.00-0.30 [facility] Work Phone: [phone] Bilirubin (total) 1.40 mg/dL High 0.20-1.00 [facility] Work Phone: [phone] Globulin 2.6 g/dL Invalid Interpretation Code 2.3-3.5 [facility] Work Phone: [phone] Globulin mass conc (S) 2.6 g/dL 2.3-3.5 [facility] Work Phone: [phone] Protein 6.7 g/dL 6.4-8.2 [facility] Work Phone: [phone] Office Visit: [facility] 10-17-20 15 Tobacco use [facility] Former smoker Invalid Interpretation Code [facility] Work Phone: [phone] Office Visiton 04-22-2015 cardiac risk group C Invalid Interpretation Code [facility] Work Phone: [phone] General cardiovascular disease 10Y risk [#] [place].D'Agostino N/A Invalid Interpretation Code [facility] Work Phone: [phone] Replaced Document: [employer] CG Observationson 05-27-2013 Pulse (Heart Rate) 389 ms Invalid Interpretation Code [facility] Work Phone: [phone] Office Visiton 02-28-2012 Alcoholism counseling (procedure) no Invalid Interpretation Code [facility] Work Phone: [phone] Clinical Lists Update: Prelo soil expert 01-17-2012 MCHC 35 % Invalid Interpretation Code [facility] Work Phone: [phone] MCHC mass conc (RBC) 35 % [facility] Work Phone: [phone] Vital Signs Date Time Vital Sign Value Performing Clinician Facility 06-09-2025 09:50-0400 Body height 175.[address] Nori Louis MD Work Phone: [facility] 06-09-2025 09:50-0400 Body mass index (BMI) [Ratio] 23.4 kg/m2 Dr. Nori Louis MD Work Phone: [facility] 06-09-2025 09:50-0400 Body temperature 98.2 [degF] Dr. Nori Louis MD Work Phone: [phone] [place] [address] 06-09-2025 09:50-0400 Body weight 72.[address] Nori Louis MD Work Phone: [phone] [place] [address] 06-09-2025 09:50-0400 Diastolic blood pressure 58 mm[Hg] Dr. Nori Louis MD Work Phone: [phone] [place] [address] 06-09-2025 09:50-0400 Heart rate 64 /min Dr. Nori Louis MD Work Phone: [phone])[phone] [place] [address] 06-09-2025 09:50-0400 Respiratory rate 16 /min Dr. Nori Louis MD Work Phone: [phone] [place] [address] 06-09-2025 09:50-0400 SaO2% (BldA) [Mass fraction] 98 % Dr. Nori Louis MD Work Phone: [phone] [place] [address] 06-09-2025 09:50-0400 Systolic blood pressure 124 mm[Hg] Dr. Nori Louis MD Work Phone: [phone])[phone] [place] [address] 06-08-2025 10:45-0400 Body height 175.[address] Nori Louis MD Work Phone: [phone] [place] [address] 06-08-2025 10:45-0400 Body mass index (BMI) [Ratio] 23.3 kg/m2 Dr. Nori Louis MD Work Phone: [phone])[phone] [place] [address] 06-08-2025 10:45-0400 Body weight 71.[address] Nori Louis MD Work Phone: [phone])[phone] [place] [address] 06-08-2025 10:45-0400 Diastolic blood pressure 57 mm[Hg] Dr. Nori Louis MD Work Phone: [phone])[phone] [place] [address] 06-08-2025 10:45-0400 Heart rate 62 /min Dr. Nori Louis MD Work Phone: [phone] [place] [address] 06-08-2025 10:45-0400 Respiratory rate 18 /min Dr. Nori Louis MD Work Phone: [facility] 06-08-2025 10:45-0400 SaO2% (BldA) [Mass fraction] 98 % Dr. Nori Louis MD Work Phone: [facility] 06-08-2025 10:45-0400 Systolic blood pressure 108 mm[Hg] Dr. Nori Louis MD Work Phone: [facility] 02-01-2025 14:33-0400 Body height 175.[address] Nori Louis MD Work Phone: [phone] [address] 02-01-2025 14:33-0400 Body mass index (BMI) [Ratio] 23.2 kg/m2 Dr. Nori Louis MD Work Phone: 9(438)723-342170 [address] 02-01-2025 14:33-0400 Body temperature 98.2 [degF] Dr. Nori Louis MD Work Phone: 8(952)[phone] [place] [address] 02-01-2025 14:33-0400 Body weight 71.[address] Nori Louis MD Work Phone: 7(582)123-221894 [place] [address] 02-01-2025 14:33-0400 Diastolic blood pressure 65 mm[Hg] Dr. Nori Louis MD Work Phone: [facility] 02-01-2025 14:33-0400 Heart rate 61 /min Dr. Nori Louis MD Work Phone: [facility] 02-01-2025 14:33-0400 Respiratory rate 18 /min Dr. Nori Louis MD Work Phone: [facility] 02-01-2025 14:33-0400 SaO2% (BldA) [Mass fraction] 97 % Dr. Nori Louis MD Work Phone: [facility] 02-01-2025 14:33-0400 Systolic blood pressure 128 mm[Hg] Dr. Nori Louis MD Work Phone: [facility] 12-01-2024 10:18-0500 Body mass index (BMI) [Ratio] 23 kg/m2 Dr. Nori Louis MD Work Phone: [facility] 12-01-2024 10:18-0500 Body weight 70.[address] Nori Louis MD Work Phone: [facility] 12-01-2024 10:18-0500 Diastolic blood pressure 66 mm[Hg] Dr. Nori Louis MD Work Phone: [facility] 12-01-2024 10:18-0500 Heart rate 71 /min Dr. Nori Louis MD Work Phone: [facility] 12-01-2024 10:18-0500 Respiratory rate 16 /min Dr. Nori Louis MD Work Phone: [facility] 12-01-2024 10:18-0500 Systolic blood pressure 120 mm[Hg] Dr. Nori Louis MD Work Phone: [facility] 01-29-2024 14:57-0400 Body height 175.[address] Nori Louis Work Phone: [facility] 01-29-2024 14:57-0400 Body mass index (BMI) [Ratio] 24.5 kg/m2 Dr. Nori Louis Work Phone: [facility] 01-29-2024 14:57-0400 Body temperature 97.8 [degF] Dr. Nori Louis Work Phone: [facility] 01-29-2024 14:57-0400 Body weight 75.[address] Nori Louis Work Phone: [facility] 01-29-2024 14:57-0400 Diastolic blood pressure 52 mm[Hg] Dr. Nori Louis Work Phone: [facility] 01-29-2024 14:57-0400 Heart rate 61 /min Dr. Nori Louis Work Phone: [facility] 01-29-2024 14:57-0400 Respiratory rate 16 /min Dr. Nori Louis Work Phone: [facility] 01-29-2024 14:57-0400 SaO2% (BldA) [Mass fraction] 98 % Dr. Nori Louis Work Phone: [facility] 01-29-2024 14:57-0400 Systolic blood pressure 157 mm[Hg] Dr. Nori Louis Work Phone: [facility] 09-27-2023 13:42-0500 Body height 175.[address] Nori Louis Work Phone: 1(106)565-742294 [place] [address] 09-27-2023 13:42-0500 Body mass index (BMI) [Ratio] 25.2 kg/m2 Dr. Nori Louis Work Phone: 3(034)045-756794 [place] [address] 09-27-2023 13:42-0500 Body weight 77.[address] Nori Louis Work Phone: 7(643)157-635494 [place] [address] 09-27-2023 13:42-0500 Diastolic blood pressure 67 mm[Hg] Dr. Nori Louis Work Phone: 0(705)031-328594 [place] [address] 09-27-2023 13:42-0500 Heart rate 59 /min Dr. Nori Louis Work Phone: [facility] 09-27-2023 13:42-0500 Respiratory rate 14 /min Dr. Nori Louis Work Phone: [facility] 09-27-2023 13:42-0500 Systolic blood pressure 138 mm[Hg] Dr. Nori Louis Work Phone: [facility] 08-07-2023 14:17-0400 Body height 175.[address] Nori Louis Work Phone: 1(450)533-783794 [place] [address] 08-07-2023 14:17-0400 Body mass index (BMI) [Ratio] 24.6 kg/m2 Dr. Nori Louis Work Phone: [facility] 08-07-2023 14:17-0400 Body temperature 98.9 [degF] Dr. Nori Louis Work Phone: [facility] 08-07-2023 14:17-0400 Body weight 75.[address] Nori Louis Work Phone: [facility] 08-07-2023 14:17-0400 Diastolic blood pressure 72 mm[Hg] Dr. Nori Louis Work Phone: [facility] 08-07-2023 14:17-0400 Heart rate 56 /min Dr. Nori Louis Work Phone: [facility] 08-07-2023 14:17-0400 Respiratory rate 16 /min Dr. Nori Louis Work Phone: 7(889)059-784894 [place] [address] 08-07-2023 14:17-0400 SaO2% (BldA) [Mass fraction] 96 % Dr. Nori Louis Work Phone: 4(099)471-030394 [place] [address] 08-07-2023 14:17-0400 Systolic blood pressure 154 mm[Hg] Dr. Nori Louis Work Phone: 2(360)638-018794 [place] [address] 02-06-2023 15:01-0400 Body height 175.[address] Nori Louis Work Phone: [facility] 02-06-2023 14:54-0400 Body mass index (BMI) [Ratio] 25 kg/m2 Dr. Nori Louis Work Phone: [facility] 02-06-2023 14:54-0400 Body temperature 98.2 [degF] Dr. Nori Louis Work Phone: [facility] 02-06-2023 14:54-0400 Body weight 76.[address] Nori Louis Work Phone: [facility] 02-06-2023 14:54-0400 Diastolic blood pressure 68 mm[Hg] Dr. Nori Louis Work Phone: [facility] 02-06-2023 14:54-0400 Heart rate 51 /min Dr. Nori Louis Work Phone: [facility] 02-06-2023 14:54-0400 Respiratory rate 17 /min Dr. Nori Louis Work Phone: [facility] 02-06-2023 14:54-0400 SaO2% (BldA) [Mass fraction] 99 % Dr. Nori Louis Work Phone: [facility] 02-06-2023 14:54-0400 Systolic blood pressure 137 mm[Hg] Dr. Nori Louis Work Phone: [facility] 01-09-2023 11:34-0400 Body height 175.[address] Nori Louis Work Phone: [facility] 01-09-2023 11:27-0400 Body mass index (BMI) [Ratio] 24.5 kg/m2 Dr. Nori Louis Work Phone: [facility] 01-09-2023 11:27-0400 Body temperature 97.9 [degF] Dr. Nori Louis Work Phone: [facility] 01-09-2023 11:27-0400 Body weight 75.[address] Nori Louis Work Phone: [facility] 01-09-2023 11:27-0400 Diastolic blood pressure 68 mm[Hg] Dr. Nori Louis Work Phone: [facility] 01-09-2023 11:27-0400 Heart rate 35 /min Dr. Nori Louis Work Phone: [facility] 01-09-2023 11:27-0400 Respiratory rate 1 /min Dr. Nori Louis Work Phone: [facility] 01-09-2023 11:27-0400 SaO2% (BldA) [Mass fraction] 100 % Dr. Nori Louis Work Phone: [facility] 01-09-2023 11:27-0400 Systolic blood pressure 174 mm[Hg] Dr. Nori Louis Work Phone: [facility] 07-18-2022 11:43-0400 Body height 175.[address] Nori Louis Work Phone: [facility] Work Phone: 07-18-2022 11:38-0400 Body mass index (BMI) [Ratio] 24.3 kg/m2 Dr. Nori Louis Work Phone: [facility] Work Phone: 07-18-2022 11:38-0400 Body temperature 98.2 [degF] Dr. Nori Louis Work Phone: [facility] Work Phone: 07-18-2022 11:38-0400 Body weight 74.[address] Nori Louis Work Phone: [facility] Work Phone: 07-18-2022 11:38-0400 Diastolic blood pressure 58 mm[Hg] Dr. Nori Louis Work Phone: [facility] Work Phone: 07-18-2022 11:38-0400 Heart rate 59 /min Dr. Nori Louis Work Phone: [facility] Work Phone: 07-18-2022 11:38-0400 Respiratory rate 15 /min Dr. Nori Louis Work Phone: [facility] Work Phone: 07-18-2022 11:38-0400 SaO2% (BldA) [Mass fraction] 98 % Dr. Nori Louis Work Phone: [facility] Work Phone: 07-18-2022 11:38-0400 Systolic blood pressure 143 mm[Hg] Dr. Nori Louis Work Phone: [facility] Work Phone: 07-10-2022 13:00-0400 Body mass index (BMI) [Ratio] 23.9 kg/m2 Dr. Nori Louis Work Phone: [facility] Work Phone: 07-10-2022 13:00-0400 Body weight 73.[address] Nori Louis Work Phone: [facility] Work Phone: 07-10-2022 13:00-0400 Diastolic blood pressure 53 mm[Hg] Dr. Nori Louis Work Phone: [facility] Work Phone: 07-10-2022 13:00-0400 Heart rate 59 /min Dr. Nori Louis Work Phone: [facility] Work Phone: 07-10-2022 13:00-0400 Respiratory rate 16 /min Dr. Nori Louis Work Phone: [facility] Work Phone: 07-10-2022 13:00-0400 Systolic blood pressure 128 mm[Hg] Dr. Nori Louis Work Phone: [facility] Work Phone: 06-26-2022 09:11-0400 Body temperature 98.24 [degF] SAMMI NULL MD [facility] 06-26-2022 09:11-0400 Diastolic Blood Pressure NBP 47 1 SAMMI NULL MD [facility] 06-26-2022 09:11-0400 Heart rate 55 /min SAMMI NULL MD [facility] 06-26-2022 09:11-0400 Reason For Taking VItal Signs SAMMI NULL MD [facility] 06-26-2022 09:11-0400 Respiratory rate 18 /min SAMMI NULL MD [facility] 06-26-2022 09:11-0400 Systolic Blood Pressure NBP 100 1 MIHAIL PAXOS MD [address] [place] [address] 06-26-2022 09:05-0400 Diastolic Blood Pressure NBP 58 1 SAMMI NULL MD [address] [place] [address] 06-26-2022 09:05-0400 Heart rate 61 /min SAMMI NULL MD [address] [place] [address] 06-26-2022 09:05-0400 Respiratory rate 16 /min SAMMI NULL MD [address] [place] [address] 06-26-2022 09:05-0400 Systolic Blood Pressure NBP 115 1 SAMMI NULL MD [address] [place] [address] 06-26-2022 09:00-0400 Diastolic Blood Pressure NBP 59 1 SAMMI NULL MD [address] [place] [address] 06-26-2022 09:00-0400 Systolic Blood Pressure NBP 123 1 SAMMI NULL MD [address] [place] [address] 06-26-2022 08:35-0400 Body temperature 97.7 [degF] SAMMI NULL MD [address] [place] [address] 06-26-2022 08:25-0400 Body temperature 96.76 [degF] SAMMI NULL MD [address] [place] [address] 06-26-2022 08:20-0400 Body temperature 96.73 [degF] SAMMI NULL MD [address] [place] [address] 06-26-2022 08:15-0400 Body temperature 96.71 [degF] SAMMI NULL MD [address] [place] [address] 06-26-2022 05:30-0400 Body height 175.3 cm SAMMI NULL MD [address] [place] [address] 06-26-2022 05:30-0400 Body temperature 97.16 [degF] SAMMI NULL MD [address] [place] [address] 06-26-2022 05:30-0400 Body weight 73.3 kg SAMMI NULL MD [facility] 06-26-2022 05:30-0400 Body weight 23.85 kg/m2 SAMMI NULL MD [facility] 06-26-2022 05:30-0400 diastolic 65 mm[Hg] SAMMI NULL MD [facility] 06-26-2022 05:30-0400 Heart rate 73 /min SAMMI NULL MD [facility] 06-26-2022 05:30-0400 systolic 142 mm[Hg] SAMMI NULL MD [facility] 04-25-2022 11:25-0400 Body height 175.[address] Nori Louis Work Phone: [facility] Work Phone: 04-25-2022 11:21-0400 Body mass index (BMI) [Ratio] 24 kg/m2 Dr. Nori Louis Work Phone: [facility] Work Phone: 04-25-2022 11:21-0400 Body temperature 98.2 [degF] Dr. Nori Louis Work Phone: [facility] Work Phone: 04-25-2022 11:21-0400 Body weight 73.[address] Nori Louis Work Phone: [facility] Work Phone: 04-25-2022 11:21-0400 Diastolic blood pressure 61 mm[Hg] Dr. Nori Louis Work Phone: [facility] Work Phone: 04-25-2022 11:21-0400 Heart rate 64 /min Dr. Nori Louis Work Phone: [facility] Work Phone: 04-25-2022 11:21-0400 Respiratory rate 15 /min Dr. Nori Louis Work Phone: [facility] Work Phone: 04-25-2022 11:21-0400 SaO2% (BldA) [Mass fraction] 97 % Dr. Nori Louis Work Phone: [facility] Work Phone: 04-25-2022 11:21-0400 Systolic blood pressure 167 mm[Hg] Dr. Nori Louis Work Phone: [facility] Work Phone: 04-18-2022 11:50-0400 Heart rate 66 /min Dr. Nori Louis Work Phone: [facility] Work Phone: 04-18-2022 11:50-0400 Respiratory rate 18 /min Dr. Nori Louis Work Phone: [facility] Work Phone: 04-18-2022 11:50-0400 SaO2% (BldA) [Mass fraction] 98 % Dr. Nori Louis Work Phone: [facility] Work Phone: 04-18-2022 11:28-0400 Diastolic blood pressure 60 mm[Hg] Dr. Nori Louis Work Phone: [facility] Work Phone: 04-18-2022 11:28-0400 Systolic blood pressure 130 mm[Hg] Dr. Nori Louis Work Phone: [facility] Work Phone: 04-18-2022 09:02-0400 Body height 175.[address] Nori Louis Work Phone: [facility] Work Phone: 04-18-2022 09:02-0400 Body mass index (BMI) [Ratio] 23.3 kg/m2 Dr. Nori Louis Work Phone: [facility] Work Phone: 04-18-2022 09:02-0400 Body temperature 97.5 [degF] Dr. Nori Louis Work Phone: [facility] Work Phone: 04-18-2022 09:02-0400 Body weight 71.[address] Nori Louis Work Phone: [facility] Work Phone: 04-09-2022 10:57-0400 Body mass index (BMI) [Ratio] 23.9 kg/m2 Dr. Nori Luois Work Phone: [facility] Work Phone: 04-09-2022 10:57-0400 Body temperature 98.2 [degF] Dr. Nori Louis Work Phone: [facility] Work Phone: 04-09-2022 10:57-0400 Body weight 73.[address] Nori Louis Work Phone: [facility] Work Phone: 04-09-2022 10:57-0400 Diastolic blood pressure 73 mm[Hg] Dr. Nori Louis Work Phone: [facility] Work Phone: 04-09-2022 10:57-0400 Heart rate 58 /min Dr. Nori Louis Work Phone: [facility] Work Phone: 04-09-2022 10:57-0400 Respiratory rate 15 /min Dr. Nori Louis Work Phone: [facility] Work Phone: 04-09-2022 10:57-0400 SaO2% (BldA) [Mass fraction] 96 % Dr. Nori Louis Work Phone: [facility] Work Phone: 04-09-2022 10:57-0400 Systolic blood pressure 149 mm[Hg] Dr. Nori Louis Work Phone: [facility] Work Phone: 04-06-2022 10:30-0400 Body weight 73.[address] Nori Louis Work Phone: [facility] Work Phone: 04-06-2022 10:30-0400 Diastolic blood pressure 60 mm[Hg] Dr. Nori Louis Work Phone: [facility] Work Phone: 04-06-2022 10:30-0400 Heart rate 64 /min Dr. Nori Louis Work Phone: [facility] Work Phone: 04-06-2022 10:30-0400 Respiratory rate 16 /min Dr. Nori Louis Work Phone: [facility] Work Phone: 04-06-2022 10:30-0400 Systolic blood pressure 130 mm[Hg] Dr. Nori Louis Work Phone: [facility] Work Phone: 02-21-2022 11:47-0400 Heart rate 59 /min SAMMI NULL MD [facility] 02-21-2022 11:15-0400 Heart rate 57 /min SAMMI NULL MD [facility] 02-21-2022 11:15-0400 Reason For Taking VItal Signs SAMMI NULL MD [facility] 02-21-2022 11:15-0400 Respiratory rate 16 /min SAMMI NULL MD [facility] 02-21-2022 10:20-0400 Diastolic Blood Pressure NBP 60 1 SAMMI NULL MD [facility] 02-21-2022 10:20-0400 Heart rate 63 /min SAMMI NULL MD [facility] 02-21-2022 10:20-0400 Mean blood pressure 81 mm[Hg] SAMMI NULL MD [address] [place] [address] 02-21-2022 10:20-0400 Reason For Taking VItal Signs SAMMI NULL MD [address] 02-21-2022 10:20-0400 Systolic Blood Pressure NBP 142 1 SAMMI NULL MD [address] [place] [address] 02-21-2022 07:24-0400 Body temperature 98.06 [degF] SAMMI NULL MD [address] [place] [address] 02-21-2022 07:24-0400 Diastolic Blood Pressure NBP 66 1 SAMMI NULL MD [facility] 02-21-2022 07:24-0400 Mean blood pressure 82 mm[Hg] SMAMI NULL MD [facility] 02-21-2022 07:24-0400 Reason For Taking VItal Signs SAMMI NULL MD [facility] 02-21-2022 07:24-0400 Respiratory rate 18 /min SAMMI NULL MD [facility] 02-21-2022 07:24-0400 Systolic Blood Pressure NBP 133 1 SAMMI NULL MD [address] [place] [address] 02-21-2022 07:21-0400 Body temperature 98.06 [degF] SAMMI NULL MD [address] [place] [address] 02-21-2022 07:11-0400 Respiratory rate 16 /min SAMMI NULL MD [address] [place] [address] 02-21-2022 04:55-0400 Body temperature 98.24 [degF] SAMMI NULL MD [address] [place] [address] 02-21-2022 04:55-0400 Diastolic Blood Pressure NBP 72 1 SAMMI NULL MD [address] [place] [address] 02-21-2022 04:55-0400 Mean blood pressure 96 mm[Hg] SAMMI NULL MD [address] [place] [address] 02-21-2022 04:55-0400 Systolic Blood Pressure NBP 158 1 SAMMI NULL MD [address] [place] [address] 02-20-2022 19:39-0400 Diastolic blood pressure 42 mm[Hg] SAMMI NULL MD [facility] 02-20-2022 19:39-0400 Mean blood pressure 67 mm[Hg] SAMMI NULL MD [address] [place] [address] 02-20-2022 19:39-0400 Systolic blood pressure 127 mm[Hg] SAMMI NULL MD [address] [place] [address] 02-20-2022 19:27-0400 Diastolic blood pressure 43 mm[Hg] SAMMI NULL MD [address] [place] [address] 02-20-2022 19:27-0400 Mean blood pressure 70 mm[Hg] SAMMI NULL MD [address] [place] [address] 02-20-2022 19:27-0400 Systolic blood pressure 131 mm[Hg] SAMMI NULL MD [address] [place] [address] 02-20-2022 19:05-0400 Diastolic blood pressure 46 mm[Hg] SAMMI NULL MD [address] [place] [address] 02-20-2022 19:05-0400 Mean blood pressure 75 mm[Hg] SAMMI NULL MD [address] [place] [address] 02-20-2022 19:05-0400 Systolic blood pressure 135 mm[Hg] SAMMI NULL MD [address] [place] [address] 02-20-2022 06:04-0400 Body height 175.3 cm SAMMI NULL MD [address] [place] [address] 02-20-2022 06:04-0400 Body weight 73.8 kg SAMMI NULL MD [address] [place] [address] 02-20-2022 06:04-0400 Body weight 24.02 kg/m2 SAMMI NULL MD [address] [place] [address] 02-20-2022 06:04-0400 diastolic 53 mm[Hg] SAMMI NULL MD [address] [place] [address] 02-20-2022 06:04-0400 Heart rate 61 /min SAMMI NULL MD [facility] 02-20-2022 06:04-0400 systolic 129 mm[Hg] SAMMI NULL MD [facility] 02-19-2022 13:35-0400 Body height 176 cm SAMMI NULL MD [facility] 02-19-2022 13:35-0400 Body temperature 97.34 [degF] SAMMI NULL MD [facility] 02-19-2022 13:35-0400 Body weight 73.4 kg SAMMI NULL MD [facility] 02-19-2022 13:35-0400 Body weight 23.7 kg/m2 SAMMI NULL MD [facility] 02-19-2022 13:35-0400 diastolic 56 mm[Hg] SAMMI NULL MD [facility] 02-19-2022 13:35-0400 Heart rate 69 /min SAMMI NULL MD [facility] 02-19-2022 13:35-0400 systolic 170 mm[Hg] SAMMI NULL MD [facility] 02-19-2022 10:59-0400 Body temperature 98 [degF] Dr. Nori Louis Work Phone: [facility] Work Phone: 02-19-2022 10:59-0400 Body weight 73.[address] Nori Louis Work Phone: [facility] Work Phone: 02-19-2022 10:59-0400 Diastolic blood pressure 65 mm[Hg] Dr. Nori Louis Work Phone: [facility] Work Phone: 02-19-2022 10:59-0400 Heart rate 59 /min Dr. Nori Louis Work Phone: [facility] Work Phone: 02-19-2022 10:59-0400 Respiratory rate 14 /min Dr. Nori Louis Work Phone: [facility] Work Phone: 02-19-2022 10:59-0400 SaO2% (BldA) [Mass fraction] 98 % Dr. Nori Louis Work Phone: [facility] Work Phone: 02-19-2022 10:59-0400 Systolic blood pressure 145 mm[Hg] Dr. Nori Louis Work Phone: [facility] Work Phone: 12-25-2021 08:26-0500 Body mass index (BMI) [Ratio] 25.2 kg/m2 Dr. Nori Louis Work Phone: [facility] Work Phone: 12-25-2021 08:26-0500 Body temperature 98.4 [degF] Dr. Nori Louis Work Phone: [facility] Work Phone: 12-25-2021 08:26-0500 Body weight 77.[address] Nori Louis Work Phone: [facility] Work Phone: 12-25-2021 08:26-0500 Diastolic blood pressure 71 mm[Hg] Dr. Nori Louis Work Phone: [facility] Work Phone: 12-25-2021 08:26-0500 Heart rate 67 /min Dr. Nori Louis Work Phone: [facility] Work Phone: 12-25-2021 08:26-0500 Respiratory rate 15 /min Dr. Nori Louis Work Phone: [facility] Work Phone: 12-25-2021 08:26-0500 SaO2% (BldA) [Mass fraction] 96 % Dr. Nori Louis Work Phone: [facility] Work Phone: 12-25-2021 08:26-0500 Systolic blood pressure 138 mm[Hg] Dr. Nori Louis Work Phone: [facility] Work Phone: 12-14-2021 13:25-0500 Heart rate 86 /min SAMMI NULL MD [facility] 12-14-2021 13:25-0500 Reason For Taking VItal Signs SAMMI NULL MD [facility] 12-14-2021 11:34-0500 Body temperature 98.42 [degF] SAMMI NULL MD [facility] 12-14-2021 11:34-0500 Diastolic Blood Pressure NBP 56 1 SAMMI NULL MD [facility] 12-14-2021 11:34-0500 Heart rate 59 /min SAMMI NULL MD [facility] 12-14-2021 11:34-0500 Mean blood pressure 71 mm[Hg] SAMMI NULL MD [facility] 12-14-2021 11:34-0500 Reason For Taking VItal Signs SAMMI NULL MD [facility] 12-14-2021 11:34-0500 Respiratory rate 16 /min SAMMI NULL MD [address] [place] [address] 12-14-2021 11:34-0500 Systolic Blood Pressure NBP 106 1 SAMMI NULL MD [address] [place] [address] 12-14-2021 11:27-0500 Heart rate 53 /min SAMMI NULL MD [facility] 12-14-2021 11:27-0500 Reason For Taking VItal Signs SAMMI NULL MD [facility] 12-14-2021 07:03-0500 Body temperature 98.24 [degF] SAMMI NULL MD [facility] 12-14-2021 07:03-0500 Diastolic Blood Pressure NBP 53 1 SAMMI NULL MD [facility] 12-14-2021 07:03-0500 Mean blood pressure 71 mm[Hg] SAMMI NULL MD [facility] 12-14-2021 07:03-0500 Respiratory rate 16 /min SAMMI NULL MD [facility] 12-14-2021 07:03-0500 Systolic Blood Pressure NBP 121 1 SAMMI NULL MD [address] [place] [address] 12-14-2021 03:55-0500 Body temperature 98.06 [degF] SAMMI NULL MD [facility] 12-14-2021 03:55-0500 Diastolic Blood Pressure NBP 58 1 SAMMI NULL MD [address] [place] [address] 12-14-2021 03:55-0500 Mean blood pressure 71 mm[Hg] SAMMI NULL MD [address] [place] [address] 12-14-2021 03:55-0500 Respiratory rate 16 /min SAMMI NULL MD [facility] 12-14-2021 03:55-0500 Systolic Blood Pressure NBP 111 1 SAMMI NULL MD [address] [place] [address] 12-13-2021 18:44-0500 diastolic 60 mm[Hg] SAMMI NULL MD [facility] 12-13-2021 18:44-0500 systolic 148 mm[Hg] SAMMI NULL MD [facility] 12-13-2021 05:52-0500 Body height 175 cm SAMMI NULL MD [facility] 12-13-2021 05:52-0500 Body weight 74.1 kg SAMMI NULL MD [facility] 12-13-2021 05:52-0500 diastolic 79 mm[Hg] SAMMI NULL MD [facility] 12-13-2021 05:52-0500 Heart rate 65 /min SAMMI NULL MD [facility] 12-13-2021 05:52-0500 systolic 135 mm[Hg] SAMMI NULL MD [facility] 05-25-2021 08:59-0400 Body mass index (BMI) [Ratio] 23.8 kg/m2 Dr. Nori Louis Work Phone: [facility] Work Phone: 06-14-2017 08:51-0400 BMI (Body Mass Index) 25.03 kg/m2 [facility] Work Phone: 06-14-2017 08:51-0400 BP Diastolic 64 mm[Hg] [facility] Work Phone: 06-14-2017 08:51-0400 BP Systolic 112 mm[Hg] [facility] Work Phone: 06-14-2017 08:51-0400 Height 176.53 cm [facility] Work Phone: 06-14-2017 08:51-0400 Pulse (Heart Rate) 46 /min [facility] Work Phone: 06-14-2017 08:51-0400 Respiratory Rate 18 /min [facility] Work Phone: 06-14-2017 08:51-0400 Weight 78.02 kg Stefany [facility] Work Phone: 05-28-2017 15:02-0400 Height 426.72 cm Lizbeth Silverio DC [facility] Work Phone: 05-28-2017 15:02-0400 Pulse (Heart Rate) 80 /min Lizbeth Silverio DC [facility] Work Phone: 05-28-2017 15:02-0400 Respiratory Rate 18 /min Lizbeth Silverio DC [facility] Work Phone: 12-27-2016 09:01-0500 Heart rate 46 /min Lizbeth Silverio DC [facility] Work Phone: 12-04-2016 11:00-0500 BMI (Body Mass Index) 25.48 kg/m2 Denis Rakesh GAS LINE INSTALLER SUPERVISOR [facility] Work Phone: 12-04-2016 11:00-0500 BP Diastolic 66 mm[Hg] Denis Cameron G[employer] LINE INSTALLER SUPERVISOR [facility] Work Phone: 12-04-2016 11:00-0500 BP Systolic 102 mm[Hg] Denis Rakesh GAS LINE INSTALLER SUPERVISOR [facility] Work Phone: 12-04-2016 11:00-0500 BSA (Body Surface Area) 1.99 m2 Denis Rakesh GAS LINE INSTALLER SUPERVISOR [facility] Work Phone: 12-04-2016 11:00-0500 Pulse (Heart Rate) 44 /min Denis Rakesh GAS LINE INSTALLER SUPERVISOR [facility] Work Phone: 12-04-2016 11:00-0500 Respiratory Rate 16 /min Denis Rakesh GAS LINE INSTALLER SUPERVISOR [facility] Work Phone: 12-04-2016 11:00-0500 Weight 80.56 kg Denis Rakesh GAS LINE INSTALLER SUPERVISOR [facility] Work Phone: 05-27-2013 10:51-0400 Heart rate 389 ms Lizbeth Silverio DC [facility] Work Phone: 02-28-2012 16:03-0400 Height 177.8 cm Denis Rakesh GAS LINE INSTALLER SUPERVISOR [facility] Work Phone: Encounters Encounter Date Encounter Type Care Provider Facility Start: 07-06-2025 ambulatory Lopez Burnette Facility:[facility] Start: 06-25-2025 End: 06-25-[address] Nori Louis MD Work Phone: -Pulmonary Services/Neurology Start: 06-25-2025 End: 06-25-[address] Elvin Grant MD -Pulmonary Services/Neurology Work Phone: Start: 06-25-2025 End: 06-25-2025 ambulatory [facility] Facility:[facility] Start: 06-21-2025 End: 06-21-[address] Nori Louis MD Work Phone: -Cardiovascular Services Start: 06-21-2025 End: 06-21-[address] Elvin Grant MD -Cardiovascular Services Work Phone: Start: 06-21-2025 End: 06-21-2025 ambulatory [facility] Facility:[facility] Start: 06-10-2025 End: 06-10-[address] Nori Louis MD Work Phone: -Laboratory [place] Start: 06-10-2025 End: 06-10-[address] Elvin Grant MD -[facility] Work Phone: Start: 06-09-2025 End: 06-09-[address] Elvin Grant MD -[facility] Work Phone: Start: 06-09-2025 End: 06-10-[address] Nori Louis MD Work Phone: -[facility] Start: 06-08-2025 End: 06-08-2025 Patient encounter procedure Hitesh LUNA -[facility] Work Phone: Start: 06-08-2025 End: 06-08-[address] Nori Louis MD Work Phone: -[facility] Start: 06-08-2025 End: 06-08-2025 ambulatory [facility] Facility:[facility] Start: 02-22-2025 End: 02-22-[address] Nori Louis MD -[facility] Work Phone: Start: 02-22-2025 End: 02-22-2025 ambulatory Nori Louis Facility:[facility] Start: 02-01-[address] Wade Lopez MD -[facility] Start: 02-01-2025 End: 02-01-[address] Wade Lopez MD -[facility] Work Phone: Start: 02-01-2025 End: 02-01-2025 ambulatory Nori Louis Facility:[facility] Start: 01-29-2025 End: 01-29-[address] Nori Louis MD Work Phone: [facility] Work Phone: Start: 01-29-2025 End: 01-29-[address] [facility] Start: 01-29-2025 End: 01-29-2025 ambulatory Nori Louis Facility:[facility] Start: 12-01-2024 End: 12-01-2024 Patient encounter procedure Denis Cameron GAS LINE INSTALLER SUPERVISOR-C -[facility] Work Phone: Start: 12-01-2024 End: 12-01-2024 ambulatory Denis Cameron NP Facility:[facility] Start: 12-01-2024 End: 12-01-2024 Patient encounter procedure Denis Cameron GAS LINE INSTALLER SUPERVISOR-C -Laboratory Work Phone: Start: 12-01-2024 End: 12-01-2024 ambulatory Denis Cameron NP Facility:[facility] Start: 11-16-2024 End: 11-16-[address] Nori Louis MD -Cat Scan, [facility] Work Phone: Start: 11-16-2024 End: 11-16-2024 ambulatory Nori Louis Facility:[facility] Start: 08-27-2024 End: 08-27-2024 ambulatory Navid Vera Facility:[facility] Start: 01-29-2024 End: 01-29-[address] Nori Louis Work Phone: [facility] Work Phone: Start: 01-27-2024 End: 01-27-[address] Nori Louis Work Phone: [facility] Work Phone: Start: 01-27-2024 End: 01-27-[address] [facility] Start: 11-19-2023 Non-patient / Non-visit Dr. Jaimie Louis Work Phone: [facility] Start: 11-19-2023 End: 11-19-[address] Nori Louis Work Phone: [facility] Work Phone: Start: 11-19-2023 End: 11-19-[address] Nori Louis Work Phone: [facility]Cardiovascula r Services Work Phone: Start: 09-27-2023 End: 09-27-[address] Nori Louis Work Phone: [facility] Work Phone: Start: 08-07-2023 End: 08-07-[address] Nori Louis Work Phone: [facility] Work Phone: Start: 08-06-2023 End: 08-06-[address] Nori Louis Work Phone: [facility] Work Phone: Start: 08-06-2023 End: 08-06-[address] Nroi Louis Work Phone: [facility]-Laboratory Work Phone: Start: 04-12-[address] Mac Louis Work Phone: [facility] Start: 02-20-2023 End: 02-20-[address] Nori Louis Work Phone: [facility] Work Phone: Start: 02-20-2023 End: 02-20-[address] Nori Louis Work Phone: [facility] Start: 02-06-2023 End: 02-06-[address] Nori Louis Work Phone: [facility] Start: 01-30-2023 End: 01-30-[address] Nori Louis Work Phone: [facility] Work Phone: Start: 01-30-2023 End: 01-30-[address] Nori Louis Work Phone: [facility] Start: 01-09-2023 End: 01-09-[address] Nori Louis Work Phone: [facility] Start: 01-08-2023 End: 01-08-[address] Nori Louis Work Phone: [facility] Work Phone: Start: 01-08-2023 End: 01-08-[address] Nori Louis Work Phone: [facility]Laboratory Start: 07-18-2022 End: 07-18-[address] Nori Louis Work Phone: [facility] Start: 07-17-2022 End: 07-17-[address] Nori Louis Work Phone: [facility] Work Phone: Start: 07-17-2022 End: 07-17-[address] Nori Louis Work Phone: [facility]-Laboratory Start: 07-10-2022 End: 07-10-[address] Nori Louis Work Phone: [facility] Start: 06-26-2022 End: 06-26-2022 ambulatory SAMMI NULL MD Facility:A Start: 06-26-2022 End: 06-26-2022 SAME DAY STAY SAMMI NULL MD [facility] Start: 06-19-2022 End: 06-20-2022 ambulatory MIGUELINA ETIENNE BRUSH FILLER HAND-NETWORK ARCHITECT Facility:[facility] Start: 06-19-2022 End: 06-19-2022 Patient encounter procedure MIGUELINA ETIENNE BRUSH FILLER HAND-NETWORK ARCHITECT [facility] Start: 06-13-2022 End: 06-13-[address] Nori Louis Work Phone: [facility] Start: 04-25-2022 End: 04-25-[address] Nori Louis Work Phone: [facility] Start: 04-18-2022 End: 04-18-[address] Nori Louis Work Phone: [facility] Start: 04-09-2022 End: 04-09-[address] Nori Louis Work Phone: [facility] Start: 04-06-2022 End: 04-06-[address] Nori Louis Work Phone: [facility] Start: 04-02-[address] Nori jj Work Phone: [facility] Start: 03-22-2022 End: 03-23-2022 ambulatory MIGUELINA ETIENNE BRUSH FILLER HAND-NETWORK ARCHITECT Facility:[facility] Start: 03-22-2022 End: 03-22-2022 Patient encounter procedure MIGUELINA JAIMIE MADERA-NETWORK ARCHITECT [facility] Start: 02-20-2022 End: 02-21-2022 Evaluation and management of inpatient SAMMI NULL MD Facility:A Start: 02-20-2022 End: 02-21-2022 Evaluation and management of inpatient SAMMI NULL MD [facility] Start: 02-19-2022 End: 02-20-2022 ambulatory SAMMI NULL MD Facility:A Start: 02-19-2022 End: 02-19-2022 Admission to [facility] SAMMI NULL MD [facility] Start: 02-19-2022 End: 02-19-[address] Nori Louis Work Phone: [facility] Start: 01-25-2022 End: 01-26-2022 ambulatory MIGUELINA ETIENNE BRUSH FILLER HAND-NETWORK ARCHITECT Facility:A Start: 01-11-2022 End: 01-12-2022 ambulatory MIGUELINA ETIENNE BRUSH FILLER HAND-NETWORK ARCHITECT Facility:[facility] Start: 01-11-2022 End: 01-11-2022 Patient encounter procedure MIGUELINA ETIENNE APRN-NETWORK ARCHITECT [facility] Start: 12-25-2021 End: 12-25-[address] Nori Louis Work Phone: [facility] Start: 12-13-2021 End: 12-14-2021 Evaluation and management of inpatient SAMMI NULL MD Facility:A Start: 12-13-2021 End: 12-14-2021 Evaluation and management of inpatient SAMMI NULL MD [facility] Start: 12-04-2021 End: 12-05-2021 ambulatory MIGUELINA ETIENNE BRUSH FILLER HAND-NETWORK ARCHITECT Facility:[facility] Start: 12-04-2021 End: 12-04-2021 Patient encounter procedure MIGUELINA ETIENNE APRN-NETWORK ARCHITECT [facility] Start: 11-21-2021 End: 11-22-2021 ambulatory MIGUELINA ETIENNE BRUSH FILLER HAND-NETWORK ARCHITECT Facility:A Start: 11-21-2021 End: 11-21-2021 Patient encounter procedure MIGUELINA CABRERA [facility] Start: 11-07-2021 End: 11-08-2021 ambulatory MIGUELINA ETIENNE BRUSH FILLER HAND-NETWORK ARCHITECT Facility:[facility] Start: 11-02-2021 End: 11-03-2021 ambulatory SAMMI NULL MD Facility:[facility] Procedures Date Procedure Procedure Detail Performing Clinician Start: 06-10-[address] Nori Louis MD Work Phone: Comment on above: Deficiency: <3.4 Mar ginal: 3.4 - 5.1 Adequate: >5.1 Start: 02-22-2025 CT of head without contrast Dr. Nori Louis MD Work Phone: Start: 11-16-2024 CT of head without contrast Dr. Nori Louis MD Work Phone: Start: 02-20-[address] Jaimie Louis Work Phone: Start: 01-30-[address] Nori jj Work Phone: Start: 01-30-[address] Nori Louis Work Phone: Start: 06-13-2022 Plain x-ray of hand Dr. Nori Louis Work Phone: Start: 04-18-2022 Biopsy/Inj or Needle Placement Dr. Nori Louis Work Phone: Start: 01-25-2022 Transesophageal echocardiography SAMMI NULL MD Start: 12-13-2021 Percutaneous replace ment of aortic valve using fluoroscopic guidance SAMMI NULL MD Start: 09-26-2021 Catheterization of l eft heart MIGUELINA ETIENNE BRUSH FILLER HAND-NETWORK ARCHITECT Start: 12-11-2017 End: 12-24-2017 *Hepatic Function Panel Lopez Yadav MD Start: 12-11-2017 End: 12-27-2017 Lipid panel [AGGREGATE] Lopez Yadav MD Start: 06-14-2017 End: 06-21-2017 Echocardiography Lopez Yadav MD Start: 06-14-2017 End: 06-14-2017 Follow Up Appt 6 months Lopez Yadav MD Start: 06-14-2017 End: 06-14-2017 MMM Lopez Yadav MD Start: 06-06-2017 End: 06-06-2017 Chiropract manj 1-2 regions Lzibeth B Mirlande i DC Work Phone: Start: 06-06-2017 End: 06-06-2017 Electric stimulation therapy Lizbeth B Dos si DC Work Phone: Start: 06-04-2017 End: 06-04-2017 Chiropract manj 1-2 regions Lizbeth B Mirlande i DC Work Phone: Start: 06-04-2017 End: 06-04-2017 Electric stimulation therapy Lizbeth B Dos si DC Work Phone: Start: 05-30-2017 End: 06-10-2017 *Hepatic Function Panel Devi armendariz PA-C Work Phone: Start: 05-30-2017 End: 06-10-2017 Lipid panel [AGGREGATE] Devi armendariz PA-C Work Phone: Start: 05-29-2017 End: 05-29-2017 Chiropract manj 1-2 regions Lizbeth Schulz Mirlande i DC Work Phone: Start: 05-29-2017 End: 05-29-2017 Electric stimulation therapy Lizbeth Schulz Dos si DC Work Phone: Start: 05-28-2017 End: 05-29-2017 Chiropract manj 1-2 regions Lizbeth Schulz Mirlande i DC Work Phone: Start: 05-28-2017 End: 05-29-2017 Electric stimulation therapy Lizbeth Schulz Dos si DC Work Phone: Start: 12-27-2016 End: 06-10-2017 Electrocardiogram, complete Lopez hunt MD Start: 12-27-2016 End: 12-27-2016 Nurse, Teaching, Wound Check (no charge) Lopez Yadav MD Start: 12-13-2016 End: 12-27-2016 *BMP Lopez Yadav MD Start: 12-13-2016 End: 12-27-2016 aPTT Lopez Yadav MD Start: 12-13-2016 End: 12-27-2016 CBC W Auto Differential panel - Blood Lopez Yadav MD Start: 12-13-2016 End: 06-10-2017 Chest x-ray Lopez Yadav MD Start: 12-13-2016 End: 12-27-2016 Coagulation factor induced.INR assay in platelet poor plasma Lopez Yadav MD Start: 12-13-2016 End: 06-10-2017 Left Heart Cath W/Grafts Lopez fernandez MD Start: 12-04-2016 End: 06-10-2017 *BMP Devi Ramos PA-C Work Phone: Start: 12-04-2016 End: 06-10-2017 Carotid duplex Devi Ramos PA-C Work Phone: Start: 12-04-2016 End: 06-10-2017 CBC W Auto Differential panel - Blood Devi Ramos PA-C Work Phone: Start: 12-04-2016 End: 06-10-2017 Follow Up Appt 6 months Devi armendariz PA-C Work Phone: Start: 12-04-2016 End: 12-24-2016 Nuclear stress test -exercise Devi Ramos PA-C Work Phone: Start: 12-04-2016 End: 06-10-2017 PFM Devi Ramos PA-C Work Phone: Start: 11-15-2016 End: 12-04-2016 *Hepatic Function Panel Lopez Yadav MD Start: 11-15-2016 End: 12-04-2016 Lipid panel [AGGREGATE] Lopez Yadav MD Start: 06-06-2016 End: 06-06-2016 Follow Up Appt 6 months Lopez Yadav MD Start: 06-06-2016 End: 06-06-2016 MMM Lopez Yadav MD Start: 04-16-2016 End: 05-21-2016 *Hepatic Function Panel Devi armendariz PA-C Work Phone: Start: 04-16-2016 End: 05-21-2016 Lipid panel [AGGREGATE] Devi armendariz PA-C Work Phone: Start: 10-17-2015 End: 11-22-2016 Electrocardiogram, complete Devi Galicia PA-C Work Phone: Start: 10-17-2015 End: 10-17-2015 Follow Up Appt 6 months Devi armendariz PA-C Work Phone: Start: 10-17-2015 End: 11-22-2016 Follow Up Appt Other Devi reynolds PA-C Work Phone: Start: 10-17-2015 End: 10-17-2015 PFM Devi Ramos PA-C Work Phone: Start: 10-11-2015 End: 10-14-2015 *Hepatic Function Panel Devi armendariz PA-C Work Phone: Start: 10-11-2015 End: 10-14-2015 Lipid panel [AGGREGATE] Devi armendariz PA-C Work Phone: Start: 04-22-2015 End: 04-23-2015 Documentation of current medications Lopez Yadav MD Start: 04-22-2015 End: 04-22-2015 Follow Up Appt 6 months Lopez Yadav MD Start: 04-22-2015 End: 04-22-2015 MMM Lopez Yadav MD Start: 02-24-2015 End: 04-11-2015 *Hepatic Function Panel Devi armendariz PA-C Work Phone: Start: 02-24-2015 End: 04-11-2015 Lipid panel [AGGREGATE] Devi armendariz PA-C Work Phone: Start: 08-02-2014 End: 08-02-2014 Electrocardiogram, complete Devi Galicia PA-C Work Phone: Start: 08-02-2014 End: 08-02-2014 Follow Up Appt 6 months Devi armendariz PA-C Work Phone: Start: 08-02-2014 End: 08-02-2014 PFM Devi Ramos PA-C Work Phone: Start: 03-28-2014 End: 08-02-2014 *Hepatic Function Panel Devi armendariz PA-C Work Phone: Start: 03-28-2014 End: 08-02-2014 Lipid panel [AGGREGATE] Devi armendariz PA-C Work Phone: Start: 02-01-2014 End: 02-01-2014 Follow Up Appt 6 months Lopez Yadav MD Start: 02-01-2014 End: 02-01-2014 MMM Lopez Yadav MD Start: 09-27-2013 End: 10-15-2013 *Hepatic Function Panel Heidy Duff Start: 09-27-2013 End: 10-15-2013 Lipid panel [AGGREGATE] Heidy Duff Start: 05-27-2013 End: 10-15-2013 Carotid duplex Lopez Yadav MD Start: 05-27-2013 End: 10-15-2013 Echocardiography Lopez Yadav MD Start: 05-27-2013 End: 05-27-2013 Electrocardiogram, complete Lopez hunt MD Start: 05-27-2013 End: 05-27-2013 Follow Up Appt 6 months Lopez Yadav MD Start: 05-27-2013 End: 10-15-2013 Nuclear stress test -exercise Lopez Yadav MD Start: 05-27-2013 End: 05-27-2013 PFM Lopez Yadav MD Start: 04-08-2013 End: 10-15-2013 *Hepatic Function Panel Pito Segal MD Start: 04-08-2013 End: 10-15-2013 Lipid panel [AGGREGATE] Pito Segal MD Start: 09-30-2012 End: 09-30-2012 Follow Up Appt 1 year Pito Segal MD Start: 09-03-2012 End: 09-30-2012 *Hepatic Function Panel Pito Segal MD Start: 09-03-2012 End: 09-30-2012 Lipid panel [AGGREGATE] Pito Segal MD Start: 02-28-2012 End: 08-27-2012 *Hepatic Function Panel Pito Segal MD Start: 02-28-2012 End: 04-28-2012 Echocardiography Pito Segal MD Start: 02-28-2012 End: 02-28-2012 Electrocardiogram, complete Pito Segal MD Start: 02-28-2012 End: 02-28-2012 Follow Up Appt 6 months Pito Segal MD Start: 02-28-2012 End: 08-27-2012 Lipid panel [AGGREGATE] Pito Segal MD Start: 02-28-2012 End: 04-28-2012 Nuclear stress test -exercise Pito Segal MD Start: 01-11-1993 Coronary artery bypass graft MIGUELINA CABRERA Comment on above: x4 Appendectomy SAMMI NULL MD Colonoscopy SAMMI NULL MD Decompression of spinal cord SAMMI NULL MD Comment on above: x2 Esophageal hiatus he rnia repair SAMMI NULL MD Exploration spinal fusion JACQUIE NULL MD Repair of meniscus SAMMI WEATHERS MD Repair of meniscus SAMMI WEATHERS MD Comment on above: left right Tonsillectomy SAMMI Garrett Plan of Treatment Date Care Activity Detail Author Start: 06-25-[address] [facility] Start: 06-21-[address] [facility] Start: 06-10-2025 Thiamine measurement [facility] Start: 06-10-2025 Vitamin B6 measurement [facility] Start: 06-08-2025 Evaluation of diagnostic study results [facility] Start: 02-01-2025 Helicobacter pylori [Presence] in Stomach by urea breath test [facility] Start: 04-18-2022 Diagnostic bone marrow biopsies DX BONE MARROW BIOPSIES [facility] Work Phone: Start: 04-18-2022 Catheterization of vein [facility] Work Phone: Start: 04-18-2022 Oxygen therapy [facility] Work Phone: Start: 04-18-2022 Patient discharge [facility] Work Phone: Start: 04-18-2022 Vital signs measurements [facility] Work Phone: Start: 04-18-2022 Following clinical pathway protocol [facility] Work Phone: Start: 12-23-2017 End: 12-23-2017 Appointment Appointment [facility] Work Phone: Start: 12-11-2017 End: 12-24-2017 *Hepatic Function Panel [facility] Work Phone: Start: 12-11-2017 End: 12-27-2017 Lipid panel [AGGREGATE] *Lipid Profile CC PCP [facility] Work Phone: Start: 06-14-2017 End: 06-14-2017 Appointment Appointment [facility] Work Phone: Start: 06-14-2017 End: 06-14-2017 Echocardiography Echocardiogram (complete) [facility] Work Phone: Start: 06-14-2017 End: 06-14-2017 Follow Up Appt 6 months Follow Up Appt 6 months [facility] Work Phone: Start: 06-14-2017 End: 06-14-2017 MMM MMM [facility] Work Phone: Start: 06-06-2017 End: 06-06-2017 Appointment Appointment [facility] Work Phone: Start: 06-05-2017 End: 06-05-2017 Appointment Appointment [facility] Work Phone: Start: 06-04-2017 End: 06-04-2017 Appointment Appointment [facility] Work Phone: Start: 06-04-2017 End: 06-04-2017 Follow up Appt 2x/week Follow up Appt 2x/week [facility] Work Phone: Start: 05-30-2017 End: 06-10-2017 *Hepatic Function Panel *Hepatic Function Panel [facility] Work Phone: Start: 05-30-2017 End: 06-10-2017 Lipid panel [AGGREGATE] *Lipid Profile CC PCP [facility] Work Phone: Start: 05-29-2017 End: 05-29-2017 Appointment Appointment [facility] Work Phone: Start: 05-29-2017 End: 05-29-2017 Follow up Appt 2x/week Follow up Appt 2x/week [facility] Work Phone: Start: 05-28-2017 End: 05-29-2017 Follow up Appt 2x/week Follow up Appt 2x/week [facility] Work Phone: Start: 12-27-2016 End: 06-10-2017 Electrocardiogram, complete EKG (In office) [facility] Work Phone: Start: 12-13-2016 End: 12-27-2016 *BMP *BMP [facility] Work Phone: Start: 12-13-2016 End: 12-27-2016 aPTT *PTT-Partial Thromboplastin Time [facility] Work Phone: Start: 12-13-2016 End: 12-27-2016 aPTT Coag time (PPP) *PTT-Partial Thromboplastin Time [facility] Work Phone: Start: 12-13-2016 End: 12-27-2016 CBC W Auto Differential panel - Blood *CBC without Diff [facility] Work Phone: Start: 12-13-2016 End: 06-10-2017 Chest x-ray X-Ray, Chest, PA & Lateral [facility] Work Phone: Start: 12-13-2016 End: 12-27-2016 Coagulation factor induced.INR assay in platelet poor plasma *PT/INR [facility] Work Phone: Start: 12-13-2016 End: 12-13-2016 Left Heart Cath W/Grafts Left Heart Cath W/Grafts [facility] Work Phone: Start: 12-04-2016 End: 06-10-2017 *BMP *BMP [facility] Work Phone: Start: 12-04-2016 End: 12-04-2016 Carotid duplex Carotid duplex [facility] Work Phone: Start: 12-04-2016 End: 06-10-2017 CBC W Auto Differential panel - Blood *CBC without Diff [facility] Work Phone: Start: 12-04-2016 End: 06-10-2017 Follow Up Appt 6 months Follow Up Appt 6 months [facility] Work Phone: Start: 12-04-2016 End: 12-04-2016 Nuclear stress test -exercise Nuclear stress test -exercise [facility] Work Phone: Start: 12-04-2016 End: 06-10-2017 PFM PFM [facility] Work Phone: Start: 11-15-2016 End: 12-04-2016 *Hepatic Function Panel *Hepatic Function Panel [facility] Work Phone: Start: 11-15-2016 End: 12-04-2016 Lipid panel [AGGREGATE] *Lipid Profile CC PCP [facility] Work Phone: Start: 06-06-2016 End: 06-06-2016 Follow Up Appt 6 months Follow Up Appt 6 months [facility] Work Phone: Start: 06-06-2016 End: 06-06-2016 MMM MMM [facility] Work Phone: Start: 04-16-2016 End: 05-21-2016 *Hepatic Function Panel *Hepatic Function Panel [facility] Work Phone: Start: 04-16-2016 End: 05-21-2016 Lipid panel [AGGREGATE] *Lipid Profile CC PCP [facility] Work Phone: Start: 10-17-2015 End: 10-17-2015 Electrocardiogram, complete EKG (In office) [facility] Work Phone: Start: 10-17-2015 End: 10-17-2015 Follow Up Appt 6 months Follow Up Appt 6 months [facility] Work Phone: Start: 10-17-2015 End: 11-22-2016 Follow Up Appt Other Follow Up Appt Other [facility] Work Phone: Start: 10-17-2015 End: 10-17-2015 PFM PFM [facility] Work Phone: Start: 10-11-2015 End: 10-14-2015 *Hepatic Function Panel *Hepatic Function Panel [facility] Work Phone: Start: 10-11-2015 End: 10-14-2015 Lipid panel [AGGREGATE] *Lipid Profile CC PCP [facility] Work Phone: Start: 04-22-2015 End: 04-22-2015 Follow Up Appt 6 months Follow Up Appt 6 months [facility] Work Phone: Start: 04-22-2015 End: 04-22-2015 MMM MMM [facility] Work Phone: Start: 02-24-2015 End: 04-11-2015 *Hepatic Function Panel *Hepatic Function Panel [facility] Work Phone: Start: 02-24-2015 End: 04-11-2015 Lipid panel [AGGREGATE] *Lipid Profile CC PCP [facility] Work Phone: Start: 08-02-2014 End: 08-02-2014 Electrocardiogram, complete EKG (In office) [facility] Work Phone: Start: 08-02-2014 End: 08-02-2014 Follow Up Appt 6 months Follow Up Appt 6 months [facility] Work Phone: Start: 08-02-2014 End: 08-02-2014 PFM PFM [facility] Work Phone: Start: 03-28-2014 End: 08-02-2014 *Hepatic Function Panel *Hepatic Function Panel [facility] Work Phone: Start: 03-28-2014 End: 08-02-2014 Lipid panel [AGGREGATE] *Lipid Profile CC PCP [facility] Work Phone: Start: 02-01-2014 End: 02-01-2014 Follow Up Appt 6 months Follow Up Appt 6 months [facility] Work Phone: Start: 02-01-2014 End: 02-01-2014 MMM MMM [facility] Work Phone: Start: 09-27-2013 End: 10-15-2013 *Hepatic Function Panel *Hepatic Function Panel [facility] Work Phone: Start: 09-27-2013 End: 10-15-2013 Lipid panel [AGGREGATE] *Lipid Profile CC PCP [facility] Work Phone: Start: 05-27-2013 End: 05-27-2013 Carotid duplex Carotid duplex [facility] Work Phone: Start: 05-27-2013 End: 05-27-2013 Echocardiography Echocardiogram (complete) [facility] Work Phone: Start: 05-27-2013 End: 05-27-2013 Electrocardiogram, complete EKG (In office) [facility] Work Phone: Start: 05-27-2013 End: 05-27-2013 Follow Up Appt 6 months Follow Up Appt 6 months [facility] Work Phone: Start: 05-27-2013 End: 05-27-2013 Nuclear stress test -exercise Nuclear stress test -exercise [facility] [employer] Work Phone: Start: 05-27-2013 End: 05-27-2013 PFM PFM [facility] Work Phone: Start: 04-08-2013 End: 10-15-2013 *Hepatic Function Panel *Hepatic Function Panel [facility] Work Phone: Start: 04-08-2013 End: 10-15-2013 Lipid panel [AGGREGATE] *Lipid Profile [facility] Work Phone: Start: 09-30-2012 End: 09-30-2012 Follow Up Appt 1 year Follow Up Appt 1 year [facility] Work Phone: Start: 09-03-2012 End: 09-30-2012 *Hepatic Function Panel *Hepatic Function Panel [employer] Work Phone: Start: 09-03-2012 End: 09-30-2012 Lipid panel [AGGREGATE] *Lipid Profile [facility] Work Phone: Start: 02-28-2012 End: 08-27-2012 *Hepatic Function Panel *Hepatic Function Panel [employer] Work Phone: Start: 02-28-2012 End: 02-28-2012 Echocardiography Echocardiogram (complete) [employer] Work Phone: Start: 02-28-2012 End: 02-28-2012 Electrocardiogram, complete EKG (In office) [facility] Work Phone: Start: 02-28-2012 End: 02-28-2012 Follow Up Appt 6 months Follow Up Appt 6 months [facility] Work Phone: Start: 02-28-2012 End: 08-27-2012 Lipid panel [AGGREGATE] *Lipid Profile [facility] Work Phone: Start: 02-28-2012 End: 02-28-2012 Nuclear stress test -exercise Nuclear stress test -exercise [facility] Work Phone: Bone marrow biopsy, needle or trocar [facility] Work Phone: CBC W Auto Different ial panel - Blood [facility] Work Phone: CBC W Auto Different ial panel - Blood [facility] CBC W Auto Different ial panel - Blood [facility] CT Abdomen [facility] Ferritin [Mass/volum e] in Serum or Plasma [facility] Work Phone: Ferritin [Mass/volum e] in Serum or Plasma [facility] Folate [Mass/volume] in Serum or Plasma [facility] Work Phone: Folate [Mass/volume] in Serum or Plasma [facility] Gamma glutamyl trans ferase measurement [facility] Haptoglobin [Mass/vo lume] in Serum or Plasma [facility] Work Phone: Hepatic function panel [facility] Hepatic function panel [facility] Iron and Iron bindin g capacity panel - Serum or Plasma [facility] Work Phone: Iron and Iron bindin g capacity panel - Serum or Plasma [facility] Lactate dehydrogenas e measurement [facility] Lactate dehydrogenas e measurement [facility] LDH [facility] Work Phone: Lipid 1995 panel - S amarilys or Plasma [facility] Lipid 1995 panel - S amarilys or Plasma [facility] MR Brain WO and W contrast IV [facility] MR Brain WO and W contrast IV [facility] Patient Education [facility] Work Phone: Patient referral [facility] Work Phone: Ultrasound elastography [facility] US Carotid arteries [facility] Vitamin B12 measurement [facility] Work Phone: Vitamin B12 measurement [facility] XR Orbit - bilateral Views for foreign body [facility] Immunizations Immunization Date Immunization Notes Care Provider Jacqueline nails 01-26-2022 SARS-CoV-2 (COVID-19 ) [id number] vaccine SAMMI NULL MD [facility] 09-02-2021 SARS-CoV-2 (COVID-19 ) mRNA-[id number] vaccine SAMMI NULL MD [facility] 08-28-2021 SARS-CoV-2 (COVID-19 ) mRNA-1273 vaccine SAMMI NULL MD [facility] 07-28-2021 influenza virus vacc ine, unspecified formulation SAMIM NULL MD [facility] 07-14-2021 influenza virus vacc ine, unspecified formulation SAMMI NULL MD [facility] 01-26-2021 SARS-CoV-2 (COVID-19 ) mRNA-[id number] vaccine SAMMI NULL MD [facility] 01-07-2021 SARS-CoV-2 (COVID-19 ) mRNA-1273 vaccine SAMMI NULL MD [facility] 12-10-2020 SARS-CoV-2 (COVID-19 ) mRNA-1273 vaccine SAMMI NULL MD [facility] 07-08-2020 influenza virus vacc ine, unspecified formulation SAMMI NULL MD [facility] 08-15-2019 influenza virus vacc ine, unspecified formulation SAMMI NULL MD [facility] 12-13-2015 pneumococcal conjuga te vaccine, 13 valent SAMMI NULL MD [facility] 10-07-2012 pneumococcal polysaccharide vaccine, 23 valent SAMMI NULL MD [facility] Payers Date Payer Category Payer Self-pay [id number] 2021 Unknown [id number] 2011 Medicare [id number] 1946 Unknown [id number] 2.16.8 40.1.539043.3.579.2.627 1946 Unknown [id number] 2.16.8 40.1.181321.3.579.2.627 1946 Unknown [id number] 2.16.8 40.1.470611.3.579.2.627 1946 Unknown [id number] 2.16.8 40.1.188988.3.579.2.627 1946 Unknown [id number] 2.16.8 40.1.359614.3.579.2.627 1946 Unknown [id number] 2.16.8 40.1.683888.3.579.2.627 1946 Unknown [id number] 2.16.8 40.1.162345.3.579.2.627 1946 Unknown [id number] 2.16.8 40.1.599600.3.579.2.627 1946 Unknown [id number] 2.16.8 40.1.890426.3.579.2.627 1946 Unknown [id number] 2.16.8 40.1.526315.3.579.2.627 1946 Unknown [id number] 2.16.8 40.1.833091.3.579.2.627 1946 Unknown [id number] 2.16.8 40.1.270608.3.579.2.627 1946 Unknown [id number] 2.16.8 40.1.985955.3.579.2.627 Unknown [id number] 2.16.8 40.1.631927.3.579.2.462 Unknown [id number] 2.16.8 40.1.528697.3.579.2.462 Unknown [id number] 2.16.8 40.1.983610.3.579.2.462 Unknown [id number] 2.16.8 40.1.624864.3.579.2.462 Unknown [id number] 2.16.8 40.1.726922.3.579.2.462 Unknown [id number] 2.16.8 40.1.387224.3.579.2.462 Unknown [id number] 2.16.8 40.1.922502.3.579.2.462 Unknown [id number] 2.16.8 40.1.430365.3.579.2.462 Unknown [id number] 2.16.8 40.1.799822.3.579.2.462 Unknown [id number] 2.16.8 40.1.978589.3.579.2.462 Unknown [id number] 2.16.8 40.1.344808.3.579.2.462 Unknown [id number] 2.16.8 40.1.273405.3.579.2.462 Unknown [id number] 2.16.8 40.1.980241.3.579.2.462 Unknown [id number] 2.16.8 40.1.530969.3.579.2.462 Unknown [id number] 2.16.8 40.1.181056.3.579.2.462 Social History Date Type Detail Facility Start: 10-06-2021 End: 09-27-2023 Ex-smoker (finding) [facility] Comment on above: quit 1981 Sex Assigned At [facility] Start: 04-18-2022 End: 09-27-2023 Tobacco smoking status NHIS Unknown if ever smoked [facility] Start: 1945 Sex Assigned At Male [facility] Start: 07-04-2018 Occasional [facility] Start: 07-04-2018 Spouse/ Signif icant Other [facility] Start: 02-01-2025 Sex Male (finding) [facility] Functional Status Date Assessment Result Facility 06-26-2022 Functional Status Ambulating in room, Awake, Repositions self, Resting [facility] 06-26-2022 Functional Status Room located n ear nursing station, Room check performed [facility] 06-26-2022 Functional Status [facility] 02-21-2022 Functional Status [facility] 02-21-2022 Functional Status [facility] 02-21-2022 Functional Status [facility] 02-21-2022 Functional Status [facility] 02-21-2022 Functional Status [facility] 02-20-2022 Functional Status [facility] 02-20-2022 Functional Status [facility] 02-20-2022 Functional Status [facility] 02-20-2022 Functional Status [facility] 02-20-2022 Functional Status [facility] 02-20-2022 Functional Status [facility] Mental Status Date Assessment Result Facility 06-26-2022 Mental Status Orientation Oriented x 4 [facility] 06-26-2022 Mental Status [facility] 04-18-2022 Cognitive function Voice/Name;Touch/Lopez beulah [facility] Work Phone: 02-21-2022 [facility] 02-21-2022 Mental Status [facility] 02-21-2022 [facility] Clinical Notes 12-01-2021 to 06-08-2025 Note Date & Type Note Facility 06-08-2025 Evaluation note Diagnosis Onset Date Resolution Chest pain acute June 08, 025 3:22pm Concussion acute June 09, 2 025 9:48am [facility] Work Phone: 1(774) 822-852108-12-2025 Evaluation note* Diagnosis Onset Date Resolution Status Admit Date Chest pain acute June 08, 025 3:22pm Bilateral carotid bruits acute June 09, 2025 9:48am Concussion acute June 09, 2 025 9:48am Fatigue acute June 09 025 9:48am Paresthesia of both hands acute June 09, 2025 9:48am Postconcussive syndrome acute A ug2024 9:48am [facility] Work Phone: 1(884) 889-207208-12-2025 Evaluation note* Diagnosis Onset Date Resolution Status Admit Date Chest pain acute June 08, 2 025 3:22pm History of transcatheter aor tic valve replacement (TAVR) 2021 acute June 08, 2025 3:22pm SOBOE (shortness of breath o n exertion) acute June 08 3:22pm Essential hypertension chronic 2024 3:22pm Hyperlipidemia chronic May 3:22pm Presence of aortocoronary bypass graft December,June 08 3:22pm Sinus bradycardia chronic June 08, 2025 3:22pm Bilateral carotid bruits acute June 09, 2025 9:48am Concussion acute June 09, 2 025 9:48am Fatigue acute [place] 13th, 2 025 9:48am Paresthesia of both hands acute June 09, 2025 9:48am Postconcussive syndrome acute A ugust 2024 9:48am [facility] Work Phone: 1(776) 830-291902-04-2025 Evaluation note* Diagnosis Onset Date Resolution Status Admit Date History of transcatheter aor tic valve replacement (TAVR) 2021 acute 2024 10:16am SOBOE (shortness of breath o n exertion) acute December 01 10:16am Essential hypertension chronic Fe bruary 2024 10:16am Hyperlipidemia chronic December 012024 10:16am Presence of aortocoronary bypass graft December, chronic December 01 10:16am Sinus bradycardia chronic 2024 10:16am Liver fibrosis chronic February 01, 2025 1:14pm Thrombocytopenia chronic January 1:14pm [facility] Work Phone: 1(345) 706-445308-30-2022 Discharge summary Date of Service 06/26/2022 Discharge Diagnosis 1. Paravalvular leak (prosthetic valve) (T82.03XA - ICD-10-CM) 2. S/P TAVR (transcatheter aortic valve replacement) (Z95.2 - ICD-10-CM) Hospital Course This is a 76-year-old gentleman with a medical history significant for severe aortic stenosis s/p TAVR 11/2021 with an Parsons 23 mm S3, post dilated in January for severe paravalvular leak, coronary artery disease s/p CABG (DELANEY-LAD, THIAGO- LCX, SVG-RPDA, SVG-Diagonal, hypertension, hyperlipidemia and thrombocytopenia. He presented through the ambulatory cardiac unit today for possible paravalvular leak closure with vascular plug. Upon review of KRISTAN today paravalvular leak appears mild with no indication to pursue closure. Patient stable for discharge home after recovery from anesthesia. Results of KRISTAN discussed with patient and his by Dr. Null. This dictation was created using voice recognition software. Phonetic and/or minor grammatical errors may exist. Allergies heparin (thrombocytopenia) Morphine Sulfate (Nausea and vomiting) opioid-like analgesic (Nausea and vomiting) Consults Consult to Anesthesia - Ordered -- 06/26/22 5:00:00 EDT, surgery pending Objective Vitals and Measurements T: 36.8 C (Oral) TMIN: 35.94 C TMAX: 36.8 C (Oral) HR: 55(Monitored) RR: 18 BP: 100/47 BP: 142/65(Left Arm) SpO2: 98% HT: 175.3 cm WT: 73.3 kg BMI: 23.85 BMI: 23.85 Weight Dosing Weight: 73.3 kg (06/26/22) General Appearance: NAD, sitting up in bed Cardiac: RRR, S1 and S2 WNL, no gallop/murmur/rub noted Lungs: CTAB, respirations easy and unlabored on room air Abdomen: flat, soft, nontender, bowel sounds present x4 Extremities: METCALF x4, PPPx4, no edema noted Neurological: A&O x4, CN intact Skin: warm, dry, intact Code Status No qualifying data available. Admission Date 06/26/2022 Discharge Date 06/26/2022 Medications Unchanged acetaminophen (Tylenol Extra Strength 500 mg oral tablet)1 tab(s) by mouth every 4 hours as needed as needed for pain. aspirin (aspirin 81 mg oral delayed release tablet)1 tab(s) by mouth once a day (in the evening). cholecalciferol (Vitamin D3 25 mcg (1000 intl units) oral capsule)1 cap by mouth once a day (in themorning). cyanocobalamin (Vitamin B12 2500 mcg sublingual tablet)1 tab(s) under the tongue. dutasteride (dutasteride 0.5 mg oral capsule)1 cap by mouth once a day (in the morning). iron polysaccharide (Ferrex-150 oral capsule)1 cap by mouth once a day (in the morning). lisinopril (lisinopril 10 mg oral tablet)2 tab(s) by mouth once a day (in the morning). Refills: 3. Misc Medication (medical marijuana)0.5 dropper by mouth once a day. omeprazole (omeprazole 20 mg oral delayed release tablet)1 tab(s) by mouth once a day (in the morning). oxymetazoline nasal (Zicam Sinus Relief 0.05% nasal spray)2 spray(s) in the nose daily at bedtime. rosuvastatin (rosuvastatin 40 mg oral capsule)1 cap by mouth once a day (in the evening). tamsulosin (tamsulosin 0.4 mg oral capsule)1 cap by mouth once a day (in the morning). Follow Up Follow Up with SAMMI NULL MD When 07/06/2022 10:45 AM EDT Where: [address] [facility] [place] [address]- [phone] Follow Up Appointments No qualifying data available. Follow Up Labs/Studies Discharge Labs No Follow-up Labs Discharge Studies No Follow-up Studies Discharge Diet Discharge Diet - Ordered -- No changes were made to your diet during your hospital stay. Please resume your pre hospitalization diet on discharge., 06/26/22 10:20:00 EDT Discharge Activity Discharge Activity - Ordered -- NO activity restrictions, 06/26/22 10:20:00 EDT Condition on Discharge stable Readmission Risk/Palliative Score No qualifying data available. Discharge Disposition home Information Provided To patient Time Spent > 30 minutes, at least 50% of this time was spent counseling the patient and/or coordinating care. Digitally Signed by MIGUELINA ETIENNE on 06/26/2022 03:14 PM [id number] Discharge instructions Patient Education 06/26/2022 10:19:23 Cardiac SD - Transesophageal Echocardiogram (KRISTAN) Discharge Instructions 05/2022(CUSTOM) TRANSESOPHAGEAL ECHOCARDIOGRAM (KRISTAN) DISCHARGE INSTRUCTIONS TRANSESOPHAGEAL ECHOCARDIOGRAM (KRISTAN)- A test that uses sound waves to take pictures of your heart. KRISTAN is done by passing a flexible tube down the esophagus. The esophagus is the tube that carries food from the throat to the stomach. The pictures give detailed images of your heart. This can help the doctor to see if there are problems with your heart. DIET When you wake up, your throat may feel sore and numb. This will get better over time. Do not eat or drink until throat numbness is resolved. Avoid hot liquids for 4-5 hours. Sips of water for 1-2 hours, then resume normal diet. Throat lozenges may be used for minor throat irritation. Do not drink alcohol for 24 hours. ACTIVITY Do not drive or operate machinery for 24 hours if you were given medication to help you relax. Postpone making any legal decisions for 24 hours. MEDICATION/PAIN Do not take bylv-kvz-kubuyaq medicines, vitamins, herbs, or supplements unless instructed by your doctor. Taking medicines such as aspirin and ibuprofen can thin your blood. DRESSING OR WOUND CARE If you had an IV inserted, you may remove the gauze dressing in 1 hour. CALL YOUR DOCTOR IF: You have severe throat pain or any bleeding. You develop any new redness, swelling, or drainage around your IV insertion site. If you have a temperature of 101 degrees or higher. 06/26/2022 10:18:12 Moderate Conscious Sedation, Adult, Care After Moderate Conscious Sedation, Adult, Care After These instructions provide you with information about caring for yourself after your procedure. Your health care provider may also give you more specific instructions. Your treatment has been plannedaccording to current medical practices, but problems sometimes occur. Call your health care provider if you have any problems or questions after your procedure. What can I expect after the procedure? After your procedure, it is common: To feel sleepy for several hours. To feel clumsy and have poor balance for several hours. To have poor judgment for several hours. To vomit if you eat too soon. Follow these instructions at home: For at least 24 hours after the procedure: Do not: ?Participate in activities where you could fall or become injured. ?Drive. ?Use heavy machinery. ?Drink alcohol. ?Take sleeping pills or medicines that cause drowsiness. ?Make important decisions or sign legal documents. ?Take care of children on your own. Rest. Eating and drinking Follow the diet recommended by your health care provider. If you vomit: ?Drink water, juice, or soup when you can drink without vomiting. ?Make sure you have little or no nausea before eating solid foods. General instructions Have a responsible adult stay with you until you are awake and alert. Take bdbn-agk-ctdqsjm and prescription medicines only as told by your health care provider. If you smoke, do not smoke without supervision. Keep all follow-up visits as told by your health care provider. This is important. Contact a health care provider if: You keep feeling nauseous or you keep vomiting. You feel light-headed. You develop a rash. You have a fever. Get help right away if: You have trouble breathing. This information is not intended to replace advice given to you by your health care provider. Make sure you discuss any questions you have with your health care provider. Document Released: 08/04/2014 Document Revised: 09/26/2018 Document Reviewed: 02/02/2017 [employer] Patient Education 2020 [employer]. Follow Up Care 06/04/2022 10:53:45 With:SAMMI NULL MD Address: [address] [facility] [address] [place] [address]- [phone] When:07/06/2022 10:45:00 [facility] 08-30-2022 Summary of episode note Discharge Instructions Thank you for allowing [facility] to assist you with your healthcare needs. The following is importantdischarge information regarding your hospital visit. Your Care Team NORI LOUIS MD What to do next Scheduled Follow-Up Appointments Appointment Type When Where Contact InformationCV OV 07/06/2022 10:45 AM [facility]T [facility] Follow Up Appointments Follow Up with SAMMI NULL MD When 07/06/2022 10:45 AM EDT Where: [address] [facility] [address] [place] [address]- [phone] The Following Activity and Diet Have Been Ordered for You Discharge Activity - Ordered -- NO activity restrictions, 06/26/22 10:20:00 EDT Discharge Diet - Ordered -- No changes were made to your diet during your hospital stay. Please resume your pre hospitalization diet on discharge., 06/26/22 10:20:00 EDT Allergies heparin (thrombocytopenia) Morphine Sulfate (Nausea and vomiting) opioid-like analgesic (Nausea and vomiting) Medications Please ask your primary doctor or pharmacist before taking any other medication not listed, including over the counter drugs, herbal medications, vitamins and or supplements as they may interact withyour home medications. What How Much When Instructions Last Dose Unchanged acetaminophen (Tylenol Extra Strength 500 mg oral tablet) 1 tab(s) by mouth Every 4 hours as needed for as needed for pain Unchanged aspirin (aspirin 81 mg oral delayed release tablet) 1 tab(s) by mouth Once a day (in the evening) Unchanged cholecalciferol (Vitamin D3 25 mcg (1000 intl units) oral capsule) 1 cap by mouth Once a day (in the morning) Unchanged cyanocobalamin (Vitamin B12 2500 mcg sublingual tablet) 1 tab(s) under the tongue Unchanged dutasteride (dutasteride 0.5 mg oral capsule) 1 cap by mouth Once a day (in the morning) Unchanged iron polysaccharide (Ferrex-150 oral capsule) 1 cap by mouth Once a day (in the morning) Unchanged lisinopril (lisinopril 10 mg oral tablet) 2 tab(s) by mouth Once a day (in the morning) Unchanged Misc Medication (medical marijuana) 0.5 dropper by mouth Once a day Unchanged omeprazole (omeprazole 20 mg oral delayed release tablet) 1 tab(s) by mouth Once a day (in the morning) Unchanged oxymetazoline nasal (Zicam Sinus Relief 0.05% nasal spray) 2 spray(s) in the nose Daily at bedtime Unchanged rosuvastatin (rosuvastatin 40 mg oral capsule) 1 cap by mouth Once a day (in the evening) Unchanged tamsulosin (tamsulosin 0.4 mg oral capsule) 1 cap by mouth Once a day (in the morning) Please take this list to your next doctor s visit. Bring all medications you take, including over the counter medications, herbals and other supplements with you to your doctor s visit. Patients and families are reminded to discard old lists and to update any records with all medication providers or retail pharmacies. Education Materials TRANSESOPHAGEAL ECHOCARDIOGRAM (KRISTAN) DISCHARGE INSTRUCTIONS TRANSESOPHAGEAL ECHOCARDIOGRAM (KRISTAN)- A test that uses sound waves to take pictures of your heart. KRISTAN is done by passing a flexible tube down the esophagus. The esophagus is the tube that carries food from the throat to the stomach. The pictures give detailed images of your heart. This can help the doctor to see if there are problems with your heart. DIET When you wake up, your throat may feel sore and numb. This will get better over time. Do not eat or drink until throat numbness is resolved. Avoid hot liquids for 4-5 hours. Sips of water for 1-2 hours, then resume normal diet. Throat lozenges may be used for minor throat irritation. Do not drink alcohol for 24 hours. ACTIVITY Do not drive or operate machinery for 24 hours if you were given medication to help you relax. Postpone making any legal decisions for 24 hours. MEDICATION/PAIN Do not take fycu-omx-asbvmct medicines, vitamins, herbs, or supplements unless instructed by your doctor. Taking medicines such as aspirin and ibuprofen can thin your blood. DRESSING OR WOUND CARE If you had an IV inserted, you may remove the gauze dressing in 1 hour. CALL YOUR DOCTOR IF: You have severe throat pain or any bleeding. You develop any new redness, swelling, or drainage around your IV insertion site. If you have a temperature of 101 degrees or higher. Moderate Conscious Sedation, Adult, Care After These instructions provide you with information about caring for yourself after your procedure. Your health care provider may also give you more specific instructions. Your treatment has been plannedaccording to current medical practices, but problems sometimes occur. Call your health care provider if you have any problems or questions after your procedure. What can I expect after the procedure? After your procedure, it is common: To feel sleepy for several hours. To feel clumsy and have poor balance for several hours. To have poor judgment for several hours. To vomit if you eat too soon. Follow these instructions at home: For at least 24 hours after the procedure: Do not: ? Participate in activities where you could fall or become injured. ? Drive. ? Use heavy machinery. ? Drink alcohol. ? Take sleeping pills or medicines that cause drowsiness. ? Make important decisions or sign legal documents. ? Take care of children on your own. Rest. Eating and drinking Follow the diet recommended by your health care provider. If you vomit: ? Drink water, juice, or soup when you can drink without vomiting. ? Make sure you have little or no nausea before eating solid foods. General instructions Have a responsible adult stay with you until you are awake and alert. Take tmrw-zik-xldvctr and prescription medicines only as told by your health care provider. If you smoke, do not smoke without supervision. Keep all follow-up visits as told by your health care provider. This is important. Contact a health care provider if: You keep feeling nauseous or you keep vomiting. You feel light-headed. You develop a rash. You have a fever. Get help right away if: You have trouble breathing. This information is not intended to replace advice given to you by your health care provider. Make sure you discuss any questions you have with your health care provider. Document Released: 08/04/2014 Document Revised: 09/26/2018 Document Reviewed: 02/02/2017 [employer] Patient Education 2020 [employer] Additional Information VACCINATE! IT SAVES LIVES! Members of the community who have not yet received the COVID-19 vaccine and would like to receive it can visit one of [facility] vaccine clinics. There are many vaccine clinic locations within the [facility]. For locations and available times, please visit [email or web address] It is important to note that some COVID mobile vaccine clinics are held outdoors and may be canceled in rainy or stormy conditions. To learn more about pediatric vaccinations (ages 5-11), we invite you to visit the [facility] webpage. [email or web address] learn more about the COVID-19 vaccine, we invite you to visit the [facility] website for a list of frequently asked questions. [email or web address] [facility] Patient Portal Access Instructions: Stay connected with your healthcare team and access your personal medical information anytime with the [facility] Patient Portal.If you would like a full copy of your medical records, please contact the [facility] Medical Records Department, Saturday through Saturday between 8a.m. and 4:30p.m. Please follow the directions below to access the portal: 1.Access the email account you provided upon registration to the hospital.2.Look for an invitation email from [facility].3.Open the email and access the invitation link: Accept Invitation to [facility]4.Fill in the required herzog to create your account. Sign into [email or web address] with your username and password that you created in the above steps to stay up to date. You can then view a summary of results, a summary of your visits, and the ability to download your summaries to your computer or send the information securely to a physician. Remember that your healthcare information is confidential, so carefully consider who you will allow to register on the [facility] Patient Portal for access to your information. You can also access the [facility] Patient Portal on the [employer]. Simply click on Health Records under [place] and then click on the [employer] ([employer]) logo. HOW TO SAFELY DISPOSE OF PRESCRIPTION MEDICATIONS Please use one of the following methods to safely dispose of your unused medications. 1.Use a drug disposal kit: the drug disposal pouch allows you to safely discard your old and unuseddrugs. Ask your nurse to give you one when you are discharged.2.Visit a local take-back location: Many local pharmacies and police departments have programs that collect old and unwanted prescriptiondrugs. Call your local pharmacy or go to http://adsquare.FlatBurger/7L0Dt7r to find one close to you.3.Make use of household items: Use cat litter or old coffee grounds to dispose medications if other options arenot available. Mix your drugs with these household products, seal them in an airtight container andthrow it into the garbage. Call [facility]: [phone] to be sure your drugs can be disposed of in this way. Some medicines may require a different approach.4.Never flush your medications down the toilet. IF YOU HAVE BEEN PRESCRIBED AN OPIOID FOR PAIN If you have been prescribed an opioid (such as hydrocodone, oxycodone or morphine), it is critical to understand the possible side effects and risks of opioid pain medications. Even when taken as directed, opioids can have several side effects including: Tolerance, meaning you might need to take more of a medication for the same pain relief. Nausea, vomiting and/or constipation. Sleepiness, dizziness, dry mouth, confusion, depression or itching. Physical dependence, meaning you have withdrawal symptoms when a medication is stopped, can develop within a few days. KNOW YOUR RESPONSIBILITIES It is important to know exactly how much and how often to take the opioid pain medications you are prescribed. Never take opioids in higher amounts or more often than prescribed. Do not combine opioids with alcohol or other drugs that cause drowsiness, such as benzodiazepines, also known as benzos, including diazepam and alprazolam, muscle relaxants or sleep aids. Never sell or share prescription opioids. This is illegal. Store opioids in a secure place and out of reach of others (including children, family, friends and visitors). The last page of this document has been signed and retained as a CHART COPY. Signatures Patient Education Materials Cardiac SD - Transesophageal Echocardiogram (KRISTAN) Discharge Instructions 05/2022(CUSTOM) Moderate Conscious Sedation, Adult, Care After Medication Leaflets My discharge plan and instructions have been reviewed and explained to me and I,LOPEZ NAJERA JR understand my current condition and have read and understand these discharge instructions. I have received a written copy of the plan/instructions. If I have questions, I am aware that I should contact my doctor. Patient/[place] Strip Gauger Signature: Date/Time: Relationship to Patient: Witness Name/Signature: [id number] Anesthesiology Consult note Patient: LOPEZ NAJERA JR Age: 76 years Sex: Male : 1945 Associated Diagnoses: None Author: ONELIA REILLY DO Preoperative Information Greater than 6 hours Anesthesia history Patient's history: negative. Family's history: negative. Review of Systems Ear/Nose/Mouth/Throat: Negative except as documented in history of present illness. Respiratory: Negative except as documented in history of present illness. Cardiovascular: Negative except as documented in history of present illness. Gastrointestinal: Negative except as documented in history of present illness. Genitourinary: Negative except as documented in history of present illness. Endocrine: Negative except as documented in history of present illness. Musculoskeletal: Negative except as documented in history of present illness. Integumentary: Negative except as documented in history of present illness. Neurologic: Negative except as documented in history of present illness. Health Status Allergies: Allergic Reactions (Selected) Severe Heparin- Thrombocytopenia. Severity Not Documented Morphine Sulfate- Nausea and vomiting. Opioid-like analgesic- Nausea and vomiting., Allergies (3) ActiveReaction heparinthrombocytopenia Morphine SulfateNausea and vomiting opioid-like analgesicNausea and vomiting Current medications: (Selected) Inpatient Medications Ordered Cooper: Start: 06/26/22 5:00:00 EDT, Dose= 2 gram(s), = 20 mL, IV Push (INT), PREOP pharm, Routine,Rate: 240 mL/hr, Infuse over: 5 minute(s), 20 mL, 06/26/22 5:00:00 EDT Prescriptions Prescribed lisinopril 10 mg oral tablet: Dose : 20 mg = 2 tab(s), Oral, qAM, # 60 tab(s), 3 Refill(s), Pharmacy: [facility], 175.3, cm, 02/20/22 6:39:00 EDT, Height Documented Medications Documented Ferrex-150 oral capsule: Dose : 150 mg = 1 cap(s), Oral, qAM, 0 Refill(s) Tylenol Extra Strength 500 mg oral tablet: Dose : 500 mg = 1 tab(s), Oral, q4h, PRN as needed for pain, # 50 tab(s), 0 Refill(s) Vitamin B12 2500 mcg sublingual tablet: Dose : 2,500 mcg = 1 tab(s), Sublingual, 0 Refill(s) Vitamin D3 25 mcg (1000 intl units) oral capsule: Dose : 1,000 unit(s) = 1 cap(s), Oral, qAM, # 30 cap(s), 0 Refill(s) Zicam Sinus Relief 0.05% nasal spray: Dose = 2 spray(s), Nasal, qHS, # 15 mL, 0 Refill(s) aspirin 81 mg oral delayed release tablet: Dose : 81 mg = 1 tab(s), Oral, qPM, 0 Refill(s) dutasteride 0.5 mg oral capsule: Dose : 0.5 mg = 1 cap(s), Oral, qAM, 0 Refill(s) medical marijuana: medical marijuana, 0.5 dropper, Oral, qDay, 0 Refill(s), 75 omeprazole 20 mg oral delayed release tablet: Dose : 20 mg = 1 tab(s), Oral, qAM, tab(s), 0 Refill(s) rosuvastatin 40 mg oral capsule: Dose : 40 mg = 1 cap(s), Oral, qPM, 0 Refill(s) tamsulosin 0.4 mg oral capsule: Dose : 0.4 mg = 1 cap(s), Oral, qAM, 0 Refill(s), Medications (1) Active Scheduled: (1) ceFAZolin syringe 2 gram(s) 20 mL, IV Push (INT), PREOP pharm Continuous: (0) PRN: (0) Problem list: Medical Anemia / SNOMED CT 414322625 / Confirmed Back pain / SNOMED CT 5176697422 / Confirmed Left carotid bruit / SNOMED CT 8818689141 / Confirmed Cataract / SNOMED CT 091901474 / Confirmed CAD (coronary artery disease) / SNOMED CT 23809948 / Confirmed SOB (shortness of breath) on exertion / SNOMED CT 768424658 / Confirmed Enlarged prostate / SNOMED CT 623028735 / Confirmed Acid reflux / SNOMED CT 109581542 / Confirmed Glasses / SNOMED CT 4277570377 / Confirmed History of retinal detachment / SNOMED CT 494300078 / Confirmed Hard of hearing / SNOMED CT 451953294 / Confirmed Hearing aid / SNOMED CT 05014209 / Confirmed Heparin induced thrombocytopenia / SNOMED CT 504763218 / Confirmed Hiatal hernia / SNOMED CT 171838815 / Confirmed S/P TAVR (transcatheter aortic valve replacement) / SNOMED CT 8893386105 / Confirmed Hyperlipidemia / SNOMED CT 18589394 / Confirmed HTN (hypertension) / SNOMED CT 2351083463 / Confirmed Medical marijuana use / SNOMED CT 8038472813 / Confirmed Paravalvular leak (prosthetic valve) / SNOMED CT 030530305 / Confirmed Migraine / SNOMED CT 51788104 / Confirmed Palpitations / SNOMED CT 749922558 / Confirmed Premature ventricular contractions (PVCs) (VPCs) / SNOMED CT 83225998 / Confirmed, Active Problems (22) Acid reflux Anemia Back pain CAD (coronary artery disease) Cataract Enlarged prostate Glasses Hard of hearing Hearing aid Heparin induced thrombocytopenia Hiatal hernia History of retinal detachment HTN (hypertension) Hyperlipidemia Left carotid bruit Medical marijuana use Migraine Palpitations Paravalvular leak (prosthetic valve) 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 Kidney stones (457729600): Resolved. History of Mohs micrographic surgery for skin cancer (6492647063): Resolved. Comments: 06/21/2022 EDT 10:06 Rubén Juarez RN forehead Family History: High blood pressure Sister Heart attack Father () Coronary artery disease Father () Malignant neoplasm of bone Father () Alzheimer disease Mother () Procedure history: TOE - Transesophageal echocardiography (0024165867) on 01/25/2022 at 76 Years. TAVR - Transcatheter aortic valve replacement ([id number]) on 12/13/2021 at 76 Years. Cardiac catheterization, left heart (159332681) on 09/26/2021 at 76 Years. CABG - Coronary artery bypass graft (514666147) on 01/11/1993 at 47 Years. Comments: 10/06/2021 15:05 Molly Monsalve RN x4 Repair of meniscus (347832279). Comments: 06/21/2022 10:08 Rubén Juarez RN right Repair of diaphragmatic hiatal hernia (544322892). Appendectomy (989513563). Tonsillectomy (495989048). Repair of meniscus (975579596). Comments: 06/21/2022 10:08 Rubén Juarez RN left Colonoscopy (692596125). Exploration of spinal fusion (89951). Decompression of spinal cord (90545571). Comments: 12/06/2021 11:19 ROXANN Hansen x2 Social History Social & Psychosocial Habits Alcohol 12/06/2021 Use: Current Type: Wine Frequency: 3-5 times per week Average drinks per episode in last year: 1 Previous treatment: None Substance Abuse 12/06/2021isk Assessment: Denies Substance Abuse 12/13/2021 Use: Current Type: Marijuana Frequency: Daily Comment: Medical [place] for his hiatal hernia - 12/13/2021 06:02 ROXANN De Guzman Tobacco 10/06/2021 Tobacco Use: Former smoker, quit more Type: Cigarettes Comment: quit 1981 - 10/06/2021 15:07 Molly Lowry RN Home/Environment 06/21/2022 Domestic Concerns None Living situation: Home/Independent Safe place to go: Yes Nutrition/Health 02/19/2022 Type of diet: FISH only animal meat, Vegetarian Appetite Poor Eating Difficulties None Caffeine intake amount: 1 cup black tea/day Sexual 02/20/2022 Self described orientation: Straight or heterosexual . Physical Examination General: Alert and oriented. Airway: Normal temporomandibular joint mobility, Normal mouth, Normal throat, Normal neck range of motion, Trachea midline. Mallampati classification: II (soft palate, fauces, uvula visible). Head: Normocephalic. Dentition Evaluation: Intact, Own teeth, Denies loose/chipped teeth. Neck: Supple. Respiratory: Lungs are clear to auscultation, Respirations are non-labored. Cardiovascular: Normal rate, Regular rhythm. Heart Sounds: Normal, Murmur. Gastrointestinal: Soft. Musculoskeletal Normal range of motion. Integumentary: Intact, Warm, Dry. Neurologic: Alert, Oriented. Review / Management Results review: Lab results 06/26/2022 5:58 EDT SN - Preop - CTm - Pt in HL SD Room 06/26/2022 5:30 SN - Preop - CTm - HL Pt Ready for Procedure 06/26/2022 5:58 06/26/2022 5:47 EDT chlorhexidine topical 15 mL mL 06/26/2022 5:30 EDT Designated Person #1 We May Share PHI Designated Person #1 We May Share PHI Designated Person #1 Relationship Spouse Privacy Restrictions Requested None Height 175.3 cm Height in inches 69 inch(es) Admission Weight 73.3 kg Weight Lbs 161.3 lb Weight Method Actual [place] Body Weight 70.74 kg Type of Scale Used Standing Body Mass Index 23.85 kg/m2 Body Mass Index 23.85 kg/m2 Admission Body Mass Index 23.85 m2 Temperature Oral 36.2 DegC Apical Heart Rate 73 bpm Respiratory Rate 18 br/min Systolic BP Left Arm 142 mmHg HI Diastolic BP Left Arm 65 mmHg Primary Pain Intensity 0 Acceptable Pain Intensity 3 Pain Scale Type 0-10 Pain scale Nail Bed Color Doolittle Capillary Refill < 2 seconds Heart Sounds ICU S1S2 Heart Rhythm Regular Dorsalis Pedis Pulse, Left 2+ Normal Dorsalis Pedis Pulse, Right 2+ Normal Radial Pulse, Left 2+ Normal Radial Pulse, Right 2+ Normal Edema Generalized None Respirations Unlabored Respiratory Pattern Regular All Lobes Breath Sounds Clear, Diminished Cough None Oxygen Therapy Room air Oxygen Saturation 99 % Abdomen Description Non-distended Abdomen Palpation Non-Tender Bowel Sounds All Quadrants Present Tolerating Oral Intake Yes Urinary Elimination Voiding, no difficulties Urine Color Yellow Urine Description Clear Status N/A All Extremity Description [place] Skin Temperature Warm Temperature All Extremities Warm Skin Description [place], Dry Skin Integrity Intact Mucous Membrane Color [place] IV Present Present Continuous IV Infusions prn adapted Wrist Left 06/26/2022 20 gauge Peripheral IV Activity: Insert new site Peripheral IV Dressing Condition: Clean, Dry, Intact Peripheral IV Dressing Activity: Applied, Transparent dressing Peripheral IV Line Status/Patency: Flushes easily Peripheral IV Site Condition: No complications Peripheral IV Equipment: PRN Adaptor Peripheral IV Number of Attempts: 1 Neurological Symptoms Patient denies Extremity Movement Equal Characteristics of Speech Clear Level of Consciousness Alert LORA Yes Strength All Extremities Strong Tone All Extremities Normal Sensation All Extremities Intact Affect/Behavior Appropriate, Calm, Cooperative Orientation Oriented x 4 Sensory Deficits Hearing deficit, left ear, Hearing deficit, right ear Sleep Apnea Snore Yes Sleep Apnea Tired No Sleep Apnea Obstruction No Sleep Apnea Pressure Yes Sleep Apnea BMI No Sleep Apnea Age Yes Sleep Apnea Neck No Sleep Apnea Gender Yes Sleep Apnea Score 4 High Risk for Sleep Apnea No Diagnosed With Sleep Apnea No Advanced Directives Yes Advance Directive Type [place] Durable Power of Power Distribution [facility], [place] Declaration (Living Will) Advance Directive Location Family instructed to bring in copy Infectious Disease Symptoms Patient states no symptoms Infectious Disease Recent Exposure No Alcohol and Drug Use No Employee of Institutional Living No Health Care Employee No History of Exposure to TB No History of Positive Chest X-Ray for TB No History of Positive TB Skin Test No Homeless No Known Immunosuppression No Recent Immigrant No Resident of Institutional Living No Bloody Sputum No Fatigue No Fever No Loss of Appetite No Night Sweats No Persistent Cough > 3 Weeks No Weight Loss No SN - Preprocedure Comments Other: dial gold Notification Attempts LMOM @08am 06/21/22 RE: MAYRA MATTY Consent Form Signed Yes Patient Dressed In Hospital gown, No undergarments CHG Preoperative Wash/Wipe Night before procedure, Day of procedure, Site specific wipe Preop Nasal Swab Povidone-Iodine MRSA/MSSA Protocol Partial due to medical urgency Safety Brochure Information Reviewed Yes Masha Wiggins Video Viewed Patient refused Individuals Taught Patient Learning Readiness Willing to learn Barriers to Learning None evident Teaching Method Explanation Teaching Evaluation Verbalizes/Nonverbally indicates understanding Preferred Written Language Uzbek Preferred Spoken Language Uzbek General Infection Prevention Strategies Hand hygiene, Remind patient/visitor to mask when w/Healthcare Provider, Respiratory hygiene - Cover Your Cough Pre Procedure/Surgery Education Appropriate expectations, Date/Time of procedure/surgery, Hospital gown requirement worn to OR, Meds to take or hold, NPO, Surgical skin prep, Transfer to ICU after surgery Information Given by Patient Patient's Current Physicians Patient's Current Physicians Belongings At Bedside Glasses, Jacket, Pants, Shirt, Shoes, Socks, Undergarments, Watch, Other: allbelongings with Discharge To, Anticipated Home with family care Activity Status ADL Resting Assistive Device None NPO Status Maintained Standard Safety ID band on, Allergy Band on, Call device within reach, Bed in low position, Wheels locked, Upper/Half-Length side-rails up, Phone within reach, personal items within reach, Bedside Cart Locked, Safety level maintained, Hazards removed from floor, Non-Slip footwear, Precautions mainta ined High Risk Safety Room located near nursing station, Room check performed Demonstrates Correct Call Light Use Yes Prev Test Positive/Diagnosis w/COVID-19 No Current Quarantine/Isolated any Illness No Any Contact with Sick Animals/Birds No Traveled Anywhere in Last 30 Days No Blood Consent Signed Yes Last Fluid Intake 06/25/2022 18:30 Last Food Intake 06/25/2022 18:30 Last Void 06/26/2022 5:55 Lost Weight Unintentionally Recently No Eat Poorly Due to Decreased Appetite No Total MST Score 0 N/A Personal Devices, Patient Valuables Glasses Anesthesia/Transfusions Prior anesthesia Admission Note-Nursing Same Day Patient History . Assessment and Plan [place] [employer]esthesi[employer] (ASA) physical status classification: Class IV. Anesthetic Preoperative Plan Premedication: intravenous. Anesthetic technique: General. Induction: intravenously. Maintenance airway: Oral endotracheal tube. Special techniques: Warming device. Special Monitoring: Arterial line. Postoperative pain management: Per surgeon. Risks discussed: nausea, vomiting, headache, sore throat, dental injury, hypotension, allergic reaction, serious complications. Informed consent: signed by patient. Beta Letitia: Beta Letitia Taken Within 24 Hrs: Yes. Digitally Signed by ONELIA REILLY DO on 06/26/2022 06:29 AM [id number] Discharge instructions Patient Education 02/21/2022 13:59:52 Valvuloplasty, Care After Valvuloplasty, Care After This sheet gives you information about how to care for yourself after your procedure. Your health care provider may also give you more specific instructions. If you have problems or questions, contact your health care provider. What can I expect after the procedure? After the procedure, it is common to have: A tender lump and bruising in your groin. Soreness. Follow these instructions at home: Incision care Follow instructions from your health care provider about how to take care of your incision. Make sure you: ?Wash your hands with soap and water before you change your bandage (dressing). If soap and water are not available, use hand hotel night auditor. ?Change your dressing as told by your health care provider. ?Leave stitches (sutures), skin glue, or adhesive strips in place. These skin closures may need to stay in place for 2 weeks or longer. If adhesive strip edges start to loosen and curl up, you may trim the loose edges. Do not remove adhesive strips completely unless your health care provider tells you to do that. Check your incision area every day for signs of infection. Check for: ?More redness, swelling, or pain. ?More fluid or blood. ?Warmth. ?Pus or a bad smell. Do not apply powder or lotion to the area. Driving Do not drive until your health care provider approves. Do not drive or use heavy machinery while taking prescription pain medicine. Activity Return to your normal activities as told by your health care provider. Ask your health care provider what activities are safe for you. Do not lift anything that is heavier than 10 lb (4.5 kg) until your health care provider says it issafe. Lifestyle Limit alcohol intake to no more than 1 drink a day for non women and 2 drinks a day for men. One drink equals 12 oz of beer, 5 oz of wine, or 1 oz of hard liquor. Do not use any products that contain nicotine or tobacco, such as cigarettes and e-cigarettes. If you need help quitting, ask your health care provider. General instructions Take tgxa-arp-skyfwqt and prescription medicines only as told by your health care provider. Do not take baths, swim, or use a hot tub until your health care provider approves. To prevent or treat constipation while you are taking prescription pain medicine, your health care provider may recommend that you: ?Drink enough fluid to keep your urine clear or pale yellow. ?Take skwu-hdo-vycucnh or prescription medicines. ?Eat foods that are high in fiber, such as fresh fruits and vegetables, whole grains, and beans. ?Limit foods that are high in fat and processed sugars, such as fried and sweet foods. Follow instructions from your health care provider about eating or drinking restrictions. Wear compression stockings as told by your health care provider. These stockings help to prevent blood clots and reduce swelling in your legs. Keep all follow-up visits as told by your health care provider. This is important. Contact a health care provider if: You have a fever or chills. You have more redness, swelling, or pain around your incision. You have more fluid or blood coming from your incision. Your incision feels warm to the touch. You have pus or a bad smell coming from your incision. You have nausea or you feel dizzy. You have swelling or pain in your leg. Get help right away if: You develop bleeding from your incision that does not stop. You have chest pain. You have difficulty breathing. This information is not intended to replace advice given to you by your health care provider. Make sure you discuss any questions you have with your health care provider. Document Released: 02/28/2016 Document Revised: 09/26/2018 Document Reviewed: 09/10/2017 [employer] Patient Education 2020 [employer]. Follow Up Care 02/14/2022 09:41:58 With:Echocardiogram Address: When:03/22/2022 13:00:00 Comments:This department is located in the first floor lobby of the [facility]. Please have lab work done around the same time, prior to your office visit. With:SAMMI NULL MD Address: [address] [place] [address] A-[address] [facility] [address] [facility] [place] [address]- [phone] When:03/30/2022 13:15:00 Comments:30-day TAVR follow up; echo and lab work prior to office visit With:Tube Sorter follow up Address: When: Unknown Comments:Izabela Rodriguez or covering Nurse Tube Sorter will call you and/or your family after your release from the hospital. Office Hours: Saturday thru Saturday 730am - 4pmPhone: Igtes: [email or web address] With:NORI LOUIS MD Address: [address] [place], [place] [id number]- When: Unknown Comments:PLEASE CALL THIS OFFICE TO SCHEDULE A HOSPITAL FOLLOW UP APPOINTMENT. [facility] 04-15-2022 Evaluation + Plan noteExtracted from: Title:Clinical Document Author:Tejeda, HIM Jeremy lima Date:02/09/22 Result type: Cardiology Office Note Result date: February 09, 2022 19:35 EDT Result status: Auth (Verified) Result title: Office Visit Note Performed by: SAMMI NULL MD on February 09, 2022 19:35 EDT Verified by: SAMMI NULL MD on February 09, 2022 19:35 EDT Encounter info: [id number], [facility] [place], Office, 02/09/2022 - 02/09/2022 Chief Complaint follow up from KRISTAN-chest pain with exercise History of Present Illness Heparin allergy with LEN. This is a 76-year-old gentleman with a medical history significant for severe aortic stenosis s/p TAVR with Parsons 23 mm S3 valve +1cc on 12/13/2021. History also includes coronary artery disease s/p CABG with DELANEY-LAD, THIAGO-LCX, SVG-RPDA, SVG-D1, hypertension, hyperlipidemia, LEN after heparin exposure during TAVR procedure. 30-day echocardiogram showed moderate-severe paravalvular regurgitation, KRISTAN confirmed moderate to severe paravalvular regurgitation. Discussed with patient BAV of bioprosthetic valve to improve paravalvular regurgitation. Patient reports [place], not as severe as prior to procedure. He denies pnd, orthopnea or increased LE edema. Denies chest pain. Review of Systems Constitutional: Denies fevers chills Eyes: Denies visual changes Ears, Nose, Mouth & Throat: Denies Sore throat or neck pain Cardiovascular: Denies current chest pain. Respiratory: [place] Gastrointestinal: Denies GI upset or GERD symptoms. Genitourinary: Denies hematuria Musculoskeletal: Denies joint pain Skin: Denies rash or sores Neurological: Denies focal neurologic symptoms or headache Psychiatric: Denies depression Endocrine: Denies increased thirst or urination Hematologic/Lymphatic: Denies bleeding issues Allergic/Immunologic: Denies contrast allergy Physical Exam Vitals and Measurements HR: 70(Apical) BP: 164/80(Left Arm) HT: 175.3 cm WT: 74.1 kg BMI: 24.11 No qualifying data available. General Appearance: No apparent distress Head: Normocephalic atraumatic EENT: PERRLA Neck: No JVD Cardiac: Regular rate and rhythm flow murmur RUSB. no rubs or gallops Lungs: Clear to auscultation bilaterally Abdomen: Soft nontender bowel sounds present Musculoskeletal: No Joint deformity Extremities: No lower extremity edema Neurological: No focal neurologic deficits, moving all extremities Skin: No rash or sores Psychiatric: Appropriate mood and behavior Imaging Results and Diagnostics Social History Alcohol Use: Current. Type: Wine. Frequency: 3-5 times per week. Average drinks per day: 1. Previous treatment: None., 12/06/2021 Substance Abuse - Denies Substance Abuse, 12/06/2021 Use: Current. Type: Marijuana. Frequency: Daily., 12/13/2021 Tobacco Nicotine Use: Former smoker, quit more than 30 days ago. Type: Cigarettes., 10/06/2021 Family History Alzheimer disease: Mother. Coronary artery disease: Father. Heart attack: Father. High blood pressure: Sister. Malignant neoplasm of bone: Father. Assessment/Plan 1. Paravalvular leak (prosthetic valve) Will plan on balloon dilation of valve under KRISTAN guidance. Discussed possible need for vascular plug if redilation of parsons valve is not successful. Discussed risk/benefits with patient and . Risk and benefits of procedure were discussed with patient which include but are not limited to heart attack, stroke, , renal failure, vascular injury requiring surgery or stenting, bleeding requiring transfusion, need for permanent pacemaker, pericardial effusion requiring drainage, annular rupture or aortic rupture requiring emergent surgery. Ordered: CV Return to Office 2. CAD (coronary artery disease) Continue aspirin, statin. Currently denies chest pain. Ordered: CV Return to Office 3. HTN (hypertension) Continue current medications. BP elevated at today's appointment. Continue lisinopril. May require uptitration. Ordered: CV Return to Office Problem List/Past Medical History Ongoing Aortic valve stenosis Paravalvular leak (prosthetic valve) S/P TAVR (transcatheter aortic valve replacement) Historical No qualifying data Procedure/Surgical History Cardiac catheterization, left heart: 09/26/21 CABG - Coronary artery bypass graft: 01/11/93 Colonoscopy Decompression of spinal cord Exploration of spinal fusion Repair of diaphragmatic hiatal hernia Appendectomy Repair of meniscus Tonsillectomy Repair of meniscus Allergies heparin (thrombocytopenia) Morphine Sulfate (Nausea and vomiting) Lab Results Medications What How Much When Instructions Last Dose Unchanged aspirin (aspirin 81 mg oral delayed release tablet) 1 tab(s) by mouth Once a day (in the evening) Unchanged cholecalciferol (Vitamin D3 25 mcg (1000 intl units) oral capsule) 1 cap by mouth Once a day (in the morning) Unchanged cyanocobalamin (Vitamin B12 2500 mcg sublingual tablet) 1 tab(s) under the tongue Unchanged dutasteride (dutasteride 0.5 mg oral capsule) 1 cap by mouth Once a day (in the morning) Unchanged lisinopril (lisinopril 10 mg oral tablet) 1.5 tab(s) by mouth Once a day (in the morning) Unchanged Misc Medication (medical marijuana) 0.5 dropper by mouth Once a day Unchanged omeprazole (omeprazole 20 mg oral delayed release tablet) 1 tab(s) by mouth Once a day (in the morning) Unchanged rosuvastatin (rosuvastatin 40 mg oral capsule) 1 cap by mouth Once a day (in the evening) Unchanged tamsulosin (tamsulosin 0.4 mg oral capsule) 1 cap by mouth Once a day (in the morning) Signature Line Digitally Signed by SAMMI NULL MD on 02/09/2022 07:35 PM (copied from office note/pp) Future Appointments Appointment Date:03/22/2022 01:00:00 PM Scheduled Provider: Location:RAD Appointment Type:CV Procedure - AO Echo Appointment Date:03/30/2022 01:15:00 PM Scheduled Provider: Location:[facility] Appointment Type:CV OV Structural Heart Future Scheduled Tests Laboratory* Basic Metabolic Panel 02/20/22 * Complete Blood Count 02/20/22 Radiology* XR Chest 2 Views (PA & Lateral) 12/01/21 [facility] 02-17-2022 Hospital Discharge instructions Patient Education 12/14/2021 13:48:13 3- SH TRANSCATHETER AORTIC VALVE REPLACEMENT (TAVR) Discharge Instructions 11/11/2018(CUSTOM) TRANSCATHETER AORTIC VALVE REPLACEMENT (TAVR) Discharge Instructions DIET INSTRUCTIONS Resume your previous diet as tolerated Drink plenty of fluids for the next 48 hours to help your kidneys flush the dye out of your system ACTIVITIES May go up and down stairs CAREFULLY AFTER [address] car FOR 5 DAYS AFTER PROCEDURE No heavy lifting GREATER THAN 10 POUNDS or pushing or straining FOR 5 DAYS Someone must stay with you at home after the procedure FOR 3 DAYS BATHING/SHOWERING May tub bathe in 1 week May shower tomorrow, but cover groin incisions with plastic for 3 days after procedure WOUND CARE You will go home with a Band-Aid over your catheter insertion site. Keep a Band- Aid on for the next24 hours and then leave open to air. Some degree of bruising and tenderness is normal around the catheter insertion site. It will take awhile for any bruising to completely resolve. Keep your site clean and dry. You need to report the following to your dimension quarry supervisor: Any draining or oozing from the site Any swelling at the site Any increased pain or tenderness at the site Any numbness in your leg where the procedure was done Any signs of infection IMPORTANT! CALL 911 FOR ANY BLEEDING OR SWELLING AT THE PROCEDURE SITE If there is any large amount of bleeding, you or someone else need to apply direct pressure to the site (just like the nurse did in the heart lab after your procedure). It is very important that you hold constant pressure. Do not release the pressure to check if the bleeding has stopped. You then need to be transported to the nearest emergency room. WATCH FOR SIGNS OF INFECTION (Usually appears 36-48 hours after surgery) A temperature above 100.5 Redness or swelling Increased pain Foul odor or drainage If you have any questions, please call your doctor at the number listed on your follow up instructions. CONTACT YOUR CARDIOLOGY OFFICE FOR A PRESCRIPTION FOR ANTIBIOTICS PRIOR TO ANY DENTAL PROCEDURE! Follow all instructions given to you by your doctor Follow Up Care 12/01/2021 13:01:06 With:NORI LOUIS MD Address: [address] [place] [phone]- When:1-2 days With:Tube Sorter follow up Address: When: Unknown Comments:Izabela Rodriguez or covering Nurse Tube Sorter will call you and/or your family after your release from the hospital. Office Hours: Saturday thru Saturday 730am - 4pmPhone: Qugts: [email or web address] With:SAMMI NULL MD Address: [address] [place] [address] A[address] [facility] [address] [facility] [address] [phone] When:01/19/2022 13:00:00 Comments:30-day TAVR follow up; echo and lab work prior to office visit With:Echocardiogram Address: When:01/11/2022 14:00:00 Comments:This is scheduled at [facility]. Please have lab work done around the same time, prior to your office visit. [facility] 02-04-2022 Evaluation + Plan note Future Appointments Future Scheduled Tests Radiology* XR Chest 2 Views (PA & Lateral) 12/01/21 [facility] evaluation + Plan note Future Appointments Appointment Date:12/01/2021 01:15:00 PM Scheduled Provider: Location:[facility] Appointment Type:CV OV Structural Heart [facility] evaluation + Plan note Future Appointments Appointment Date:12/13/2021 08:00:00 AM Scheduled Provider: Location:Heart Lab Appointment Type:CV Procedure - Heart Lab/Hybrid OR Appointment Date:04/13/2022 01:30:00 PM Scheduled Provider: Location:[facility] Appointment Type:CV OV Future Scheduled Tests Laboratory* Type and Screen 12/01/21 Radiology* XR Chest 2 Views (PA & Lateral) 12/01/21 [facility] Evaluation + Plan note Future Appointments Appointment Date:01/11/2022 02:00:00 PM Scheduled Provider: Location:RAD Appointment Type:CV Procedure - AOH Echo Appointment Date:01/19/2022 01:00:00 PM Scheduled Provider: Location:[facility] Appointment Type:CV OV Structural Heart Future Scheduled Tests Laboratory* Basic Metabolic Panel 12/13/21 * Complete Blood Count 12/13/21 Radiology* XR Chest 2 Views (PA & Lateral) 12/01/21 [facility] evaluation + Plan note Future Appointments Appointment Date:01/19/2022 01:00:00 PM Scheduled Provider: Location:[facility] Appointment Type:CV OV Structural Heart Future Scheduled Tests Radiology* XR Chest 2 Views (PA & Lateral) 12/01/21 [facility] evaluation + Plan note Future Appointments Appointment Date:03/30/2022 01:15:00 PM Scheduled Provider: Location:[facility] Appointment Type:CV OV Structural Heart Future Scheduled Tests Laboratory* Basic Metabolic Panel 02/20/22 * Complete Blood Count 02/20/22 Radiology* XR Chest 2 Views (PA & Lateral) 12/01/21 [facility] Evaluation + Plan note Future Appointments Appointment Date:06/26/2022 01:30:00 PM Scheduled Provider: Location:Heart Lab Appointment Type:CV Procedure - Heart Lab/Hybrid OR Appointment Date:07/06/2022 10:45:00 AM Scheduled Provider: Location:[facility] Appointment Type:CV OV Future Scheduled Tests Laboratory* Basic Metabolic Panel 02/20/22 * Complete Blood Count 02/20/22 Radiology* XR Chest 2 Views (PA & Lateral) 12/01/21 [facility] Evaluation + Plan note Future Appointments Appointment Date:07/06/2022 10:45:00 AM Scheduled Provider: Location:[facility] Appointment Type:CV OV Future Scheduled Tests Laboratory* Basic Metabolic Panel 02/20/22 * Complete Blood Count 02/20/22 Radiology* XR Chest 2 Views (PA & Lateral) 12/01/21 [facility] Evaluation note* Diagnosis Onset Date Resolution Status Thrombocytopenia acute Thrombocytopenia acute S/P TAVR (transcatheter aortic valve replacement) acute Thrombocytopenia acute Atherosclerosis of coronary artery bypass graft without angina pectoris chronic Essential hypertension chron ic Hyperlipidemia chronic Presence of aortocoronary bypass graft December, chronic Sinus bradycardia chronic Thrombocytopenia acute [facility] Work Phone: Evaluation note* Diagnosis Onset Date Resolution Status Thrombocytopenia acute S/P TAVR (transcatheter aortic valve replacement) acute Thrombocytopenia acute Atherosclerosis of coronary artery bypass graft without angina pectoris chronic Essential hypertension chron ic Hyperlipidemia chronic Presence of aortocoronary bypass graft December, chronic Sinus bradycardia chronic Thrombocytopenia acute Iron deficiency acute Thrombocytopenia acute [facility] Work Phone: Evaluation note* Diagnosis Onset Date Resolution Status Thrombocytopenia acute Atherosclerosis of coronary artery bypass graft without angina pectoris chronic Essential hypertension chron ic Hyperlipidemia chronic Presence of aortocoronary bypass graft December, chronic Sinus bradycardia chronic Thrombocytopenia acute Thrombocytopenia acute Iron deficiency chronic Thrombocytopenia acute Atherosclerosis of coronary artery bypass graft without angina pectoris chronic Essential hypertension chron ic Hyperlipidemia chronic Presence of aortocoronary bypass graft December, chronic Sinus bradycardia chronic Thrombocytopenia acute Iron deficiency [facility] Work Phone: Evaluation note* Diagnosis Onset Date Resolution Status Decreased ferritin acute Thrombocytopenia acute Iron deficiency [facility] Work Phone: Evaluation note* Diagnosis Onset Date Resolution Status Thrombocytopenia acute Decreased ferritin chronic Iron deficiency chronic Thrombocytopenia acute Decreased ferritin chronic Iron deficiency chronic Liver fibrosis [facility] Work Phone: Evaluation note* Diagnosis Onset Date Resolution Status Decreased ferritin chronic Iron deficiency chronic Liver fibrosis chronic Thrombocytopenia [facility] Work Phone: Evaluation note* Diagnosis Onset Date Resolution Status Decreased ferritin chronic Iron deficiency chronic Liver fibrosis chronic Thrombocytopenia chronic Essential hypertension chron ic Hyperlipidemia chronic Presence of aortocoronary bypass graft December, chronic Sinus bradycardia chronic Thrombocytopenia [facility] Work Phone: Evaluation note* Diagnosis Onset Date Resolution Status Admit Date Chest pain acute June 08 025 3:22pm [facility] Work Phone: Hospital course Narrative No data available for this section [facility] Hospital Discharge instructions No data available for this section [facility] Progress note No data available for this section [facility] Reason for referral (narrative)No reason for referral information [facility] Work Phone: Summary Purpose Family History No Family History Records Found Relationship Condition Age at Onset Recorded Date/T katherine Not Specified Family history of hypertension Unknown father Coronary artery disease Unknown Malignant neoplasm Unknown Myocardial infarction Unknown Unknown Family history of co ronary artery bypass surgery Unknown mother Alzheimer's disease Unknown sister Hypertension Unknown Advance Directives No Advanced Directives Records Found Advance Directive Response Recorded Date/ Time Advance Directives Yes August 9:26am Living Will Yes September 26 9:26am Power of Power Distribution Engineer Yes September 26, 2021 9:26am Advance Directive Response Recorded Date/ Time Advance Directives Yes August 8:26am Living Will Yes September 26 8:26am Power of Power Distribution Engineer Yes September 26, 2021 8:26am Advance Directive Response Recorded Date/ Time Living Will Yes September 26 9:26am Do you have a Healthcare Power of Power Distribution Engineer? Yes September 26, 2021 9:26am Advance Directives Yes August 9:26am Advance Directive Response Recorded Date/ Time Advance Directives Yes August 9:26am Chief Complaint and Reason for Visit Chief Complaint 1WK LABS PRIOR 8WKS LABS MED ONC 10 MO F/U 6WKS LABS PRIOR BONE MARROW BIOPSY Reason for Visit Thrombocytopenia Thrombocytopenia S/P TAVR (transcatheter aortic valve replacement) Thrombocytopenia Atherosclerosis of coronary artery bypass graft without angina pectoris Essential hypertension Hyperlipidemia Presence of aortocoronary bypass graft Sinus bradycardia Thrombocytopenia Chief Complaint 8WKS LABS MED ONC 10 MO F/U 6WKS LABS PRIOR BONE MARROW BIOPSY 2WKS NO LABS REVIEW BM BX PATH Reason for Visit Thrombocytopenia S/P TAVR (transcatheter aortic valve replacement) Thrombocytopenia Atherosclerosis of coronary artery bypass graft without angina pectoris Essential hypertension Hyperlipidemia Presence of aortocoronary bypass graft Sinus bradycardia Thrombocytopenia Iron deficiency Thrombocytopenia Chief Complaint MED ONC 10 MO F/U 6WKS LABS PRIOR BONE MARROW BIOPSY 2WKS NO LABS REVIEW BM BX PATH 3 M FU 2 ORDERING DOCTORS/E ORDER & PAPER 3MO - LABS DONE 07-17-22 Reason for Visit Thrombocytopenia Atherosclerosis of coronary artery bypass graft without angina pectoris Essential hypertension Hyperlipidemia Presence of aortocoronary bypass graft Sinus bradycardia Thrombocytopenia Thrombocytopenia Iron deficiency Thrombocytopenia Atherosclerosis of coronary artery bypass graft without angina pectoris Essential hypertension Hyperlipidemia Presence of aortocoronary bypass graft Sinus bradycardia Thrombocytopenia Iron deficiency Chief Complaint 2 ORDERING DRS/ E OR DERS 6MO LABS PRIOR Reason for Visit Decreased ferritin Thrombocytopenia Iron deficiency Chief Complaint 2 ORDERING DRS/ E OR DERS 6MO LABS PRIOR LOW FERRITIN, R/O LIVER DISEASE Reason for Visit Decreased ferritin Thrombocytopenia Iron deficiency Chief Complaint 2 ORDERING DRS/ E OR DERS 6MO LABS PRIOR LOW FERRITIN, R/O LIVER DISEASE 4WKS NO LABS REVIEW US CYST ON KIDNEY Reason for Visit Thrombocytopenia Decreased ferritin Iron deficiency Thrombocytopenia Decreased ferritin Iron deficiency Liver fibrosis Chief Complaint INT LABS TWO DR'S 6MO -LABS PRIOR Reason for Visit Decreased ferritin Iron deficiency Liver fibrosis Thrombocytopenia Chief Complaint INT LABS TWO DR'S 6MO -LABS PRIOR 1 y fu PREV PFM PT Atherosclerosis of coronary artery bypass graft(s) Reason for Visit Decreased ferritin Iron deficiency Liver fibrosis Thrombocytopenia Essential hypertension Hyperlipidemia Presence of aortocoronary bypass graft Sinus bradycardia Thrombocytopenia Chief Complaint Atherosclerosis of c oronary artery bypass graft(s) INT LABS 6MO LABS PRIOR Reason for Visit Decreased ferritin Iron deficiency Liver fibrosis Thrombocytopenia Chief Complaint Admit Date RECENT FALL WITH LOSS OF CONCIOUSNESS Torin ramesh 2024 11:42am E-ORDER December 01, 2024 6 :49am 6 M FU December 01, 2024 1 0:16am COGNITIVE CHANGE January 29, 2025 12:3 3pm 1 YEAR LABS February 01, 2025 1:14 pm MED ONC February 01, 2025 1:45 pm Reason for Visit Admit Date History of transcatheter aortic valve re placement (TAVR) December 01, 2024 10:16am SOBOE (shortness of breath on exertion) December 01, 2024 10:16am Essential hypertension December 01 10:16am Hyperlipidemia December 01, 2024 1 0:16am Presence of aortocoronary bypass graft F ebruary 2024 10:16am Sinus bradycardia December 01, 2024 1 0:16am Liver fibrosis February 01, 2025 1:14 pm Thrombocytopenia February 01, 2025 1:14 pm Chief Complaint Admit Date COGNITIVE DECLINE February 22, 2025 4:4 4pm 1 Y FU June 08, 2025 3: 22pm Reason for Visit Admit Date Chest pain June 08, 2025 3: 22pm Chief Complaint Admit Date COGNITIVE DECLINE February 22, 2025 4:4 4pm 1 Y FU June 08, 2025 3: 22pm INT LAB ORDERS June 08, 2025 4: 22pm Establish Care for abnormal CT & cogniti ve concern June 09, 2025 9:48am Reason for Visit Admit Date Chest pain June 08, 2025 3: 22pm Concussion June 09, 2025 9: 48am Chief Complaint Admit Date COGNITIVE DECLINE February 22, 2025 4:4 4pm 1 Y FU June 08, 2025 3: 22pm INT LAB ORDERS June 08, 2025 4: 22pm Establish Care for abnormal CT & cogniti ve concern June 09, 2025 9:48am EORDERS June 10, 2025 7: 55am Reason for Visit Admit Date Chest pain June 08, 2025 3: 22pm Bilateral carotid bruits June 09 9:48am Concussion June 09, 2025 9: 48am Fatigue June 09, 2025 9: 48am Paresthesia of both hands June 09, 2 025 9:48am Postconcussive syndrome June 09 9:48am Chief Complaint Admit Date 1 Y FU June 08, 2025 3: 22pm INT LAB ORDERS June 08, 2025 4: 22pm Establish Care for abnormal CT & cogniti ve concern June 09, 2025 9:48am EORDERS June 10, 2025 7: 55am Postconcussional syndrome,BILAT CS Augus t 2024 9:50am Reason for Visit Admit Date Chest pain June 08, 2025 3: 22pm History of transcatheter aortic valve re placement (TAVR) June 08, 2025 3:22pm SOBOE (shortness of breath on exertion) June 08, 2025 3:22pm Essential hypertension June 08, 2025 3:22pm Hyperlipidemia June 08, 2025 3: 22pm Presence of aortocoronary bypass graft A ugust 2024 3:22pm Sinus bradycardia June 08, 2025 3: 22pm Bilateral carotid bruits June 09 9:48am Concussion June 09, 2025 9: 48am Fatigue June 09, 2025 9: 48am Paresthesia of both hands June 09, 2 025 9:48am Postconcussive syndrome June 09 9:48am Chief Complaint Admit Date 1 Y FU June 08, 2025 3: 22pm INT LAB ORDERS June 08, 2025 4: 22pm Establish Care for abnormal CT & cogniti ve concern June 09, 2025 9:48am EORDERS June 10, 2025 7: 55am Postconcussional syndrome,BILAT CS Augus t 2024 9:50am Postconcussional syndrome June 25, 2 025 8:08am Additional Source Comments (unrecognized sect ion and content) No Status Records FoundNo Status Records FoundNo Status Records Found INFORMATION SOURCE (unrecogn ized section and content) DATE CREATED AUTHOR 01/18/2022 [facility] DATE CREATED AUTHOR AUTHOR'S ORGANIZ ATION 08/18/2022 [facility] ([place]) DATE CREATED AUTHOR AUTHOR'S ORGANIZ ATION 07/06/2025 [facility] Care Team (unrecognized sect ion and content) Team Status: Active Member Role Status Dates Dr. Nori Louis MD Family Provider Active Dr. Nori Louis MD Primary Care Provider Active Team Status: Inactive Member Role Status Dates Dr. Nori Louis MD Primary Care Provider, Referrin g Provider Active Dr. Wade Lopez MD Attending Provider Active Team Status: Inactive Member Role Status Dates Dr. Nori Louis MD Primary Care Provider Active Dr. Wade Lopez MD Attending Provider, Referring Pro vider Active Denis Cameron GAS LINE INSTALLER SUPERVISOR, GAS LINE INSTALLER SUPERVISOR-C Other Provider Active Team Status: Inactive Member Role Status Dates Dr. Nori Louis MD Primary Care Provider Active Dr. Wade Lopez MD Attending Provider, Referring Pro vider Active Team Status: Inactive Member Role Status Dates Dr. Nori Louis MD Primary Care Provider Active Dr. Wade Lopez MD Attending Provider Active Team Status: Inactive Member Role Status Dates Dr. Nori Louis MD Primary Care Prov ider, Attending Provider, Referring Provider Active Team Status: Inactive Member Role Status Dates Dr. Nori Louis MD Primary Care Provider, Referrin g Provider Active Dr. Mg Forman MD Attending Provider Active Team Status: Active Member Role Status Dates Dr. Nori Louis MD Primary Care Provider Active Dr. Mg Forman MD Attending Provider Active Team Status: Inactive Member Role Status Dates Dr. Nori Louis MD Primary Care Provider Active Dr. Mg Forman MD Attending Provider, Referring Pro vider Active Team Status: Active Member Role Status Dates Dr. Nori Louis MD Primary Care Provider Active Dr. Mg Forman MD Attending Provider, Referring Pro vider Active Team Status: Inactive Member Role Status Dates Dr. Nori Louis MD Primary Care Provider Active Denis H Roof GAS LINE INSTALLER SUPERVISOR, GAS LINE INSTALLER SUPERVISOR-C Attending Provider, Referring Pro vider Active Dr. Wade Lopez MD Other Provider Active Team Status: Active Member Role Status Dates Dr. Nori Louis MD Primary Care Provider Active Team Status: Inactive Member Role Status Dates Dr. Nori Louis MD Primary Care Provider Active Start: November 16, 2024 End: November 16, 2024 Dr. Nori Louis MD Attending Provider Active Start: November 16, 2024 End: November 16, 2024 Dr. Nori Louis MD Referring Provider Active Start: November 16, 2024 End: November 16, 2024 Team Status: Inactive Member Role Status Dates Dr. Nori Loius MD Primary Care Provider Active Start: December 01, 2024 End: December 01, 2024 Denis Cameron GAS LINE INSTALLER SUPERVISOR, GAS LINE INSTALLER SUPERVISOR-C Attending Provider Active S tart: December 01, 2024 End: December 01, 2024 Denis Cameron GAS LINE INSTALLER SUPERVISOR, GAS LINE INSTALLER SUPERVISOR-C Referring Provider Active S tart: December 01, 2024 End: December 01, 2024 Team Status: Inactive Member Role Status Dates Dr. Nori Louis MD Primary Care Provider Active Start: December 01, 2024 End: December 01, 2024 Dr. Nori Louis MD Referring Provider Active Start: December 01, 2024 End: December 01, 2024 Denis Cameron GAS LINE INSTALLER SUPERVISOR, GAS LINE INSTALLER SUPERVISOR-C Attending Provider Active S tart: December 01, 2024 End: December 01, 2024 Team Status: Inactive Member Role Status Dates Dr. Nori Louis MD Primary Care Provider Active Start: January 29, 2025 End: January 29, 2025 Dr. Nori Louis MD Attending Provider Active Start: January 29, 2025 End: January 29, 2025 Dr. Nori Louis MD Referring Provider Active Start: January 29, 2025 End: January 29, 2025 Team Status: Inactive Member Role Status Dates Dr. Nori Louis MD Primary Care Provider Active Start: February 01, 2025 End: February 01, 2025 Dr. Nori Louis MD Referring Provider Active Start: February 01, 2025 End: February 01, 2025 Dr. Wade Lopez MD Attending Provider Active S tart: February 01, 2025 End: February 01, 2025 Team Status: Active Member Role Status Dates Dr. Nori Louis MD Primary Care Provider Active Start: February 01, 2025 Dr. Wade Lopez MD Attending Provider Active S tart: February 01, 2025 Dr. Wade Lopez MD Referring Provider Active S tart: February 01, 2025 Team Status: Active Member Role/Relationship Status Dates Dr. Lopez Burnette MD Primary Care Provider Active Team Status: Inactive Member Role/Relationship Status Dates Dr. Nori Louis MD Primary Care Provider Active Start: February 22, 2025 End: February 22, 2025 Dr. Nori Louis MD Attending Provider Active Start: February 22, 2025 End: February 22, 2025 Dr. Nori Louis MD Referring Provider Active Start: February 22, 2025 End: February 22, 2025 Team Status: Inactive Member Role/Relationship Status Dates Dr. Nori Louis MD Referring Provider Active Start: June 08, 2025 End: June 08, 2025 JEREMY Tenorio Attending Provider Active St art: June 08, 2025 End: June 08, 2025 Dr. Lopez Burnette MD Primary Care Provider Active Start: June 08, 2025 End: June 08, 2025 Team Status: Active Member Role/Relationship Status Dates Dr. Lopez Burnette MD Primary Care Provider Active Start: June 08, 2025 JEREMY Tenorio Attending Provider Active St art: June 08, 2025 JEREMY Tenorio Referring Provider Active St art: June 08, 2025 Team Status: Inactive Member Role/Relationship Status Dates Dr. Nori Louis MD Referring Provider Active Start: June 09, 2025 End: June 09, 2025 Dr. Elvin Grant MD Attending Provider Active Start: June 09, 2025 End: June 09, 2025 Dr. Lopez Burnette MD Primary Care Provider Active Start: June 09, 2025 End: June 09, 2025 Team Status: Inactive Member Role/Relationship Status Dates Dr. Lopez Burnette MD Primary Care Provider Active Start: June 08, 2025 End: June 08, 2025 JEREMY Tenorio Attending Provider Active St art: June 08, 2025 End: June 08, 2025 JEREMY Tenorio Referring Provider Active St art: June 08, 2025 End: June 08, 2025 Team Status: Active Member Role/Relationship Status Dates Dr. Lopez Burnette MD Primary Care Provider Active Start: June 10, 2025 Dr. Elvin Grant MD Attending Provider Active Start: June 10, 2025 Dr. Elvin Grant MD Referring Provider Active Start: June 10, 2025 Team Status: Inactive Member Role/Relationship Status Dates Dr. Lopez Burnette MD Primary Care Provider Active Start: June 10, 2025 End: June 10, 2025 Dr. Elvin Grant MD Attending Provider Active Start: June 10, 2025 End: June 10, 2025 Dr. Elvin Grant MD Referring Provider Active Start: June 10, 2025 End: June 10, 2025 Team Status: Inactive Member Role/Relationship Status Dates Dr. Nori Louis MD Referring Provider Active Start: June 08, 2025 End: June 08, 2025 JEREMY Tenorio Attending Provider Active St art: June 08, 2025 End: June 08, 2025 Dr. Lopez Burnette MD Primary Care Provider Active Start: June 08, 2025 End: June 08, 2025 Team Status: Inactive Member Role/Relationship Status Dates Dr. Lopez Burnette MD Primary Care Provider Active Start: June 08, 2025 End: June 08, 2025 JEREMY Tenorio Attending Provider Active St art: June 08, 2025 End: June 08, 2025 JEREMY Tenorio Referring Provider Active St art: June 08, 2025 End: June 08, 2025 Team Status: Inactive Member Role/Relationship Status Dates Dr. Nori Louis MD Referring Provider Active Start: June 09, 2025 End: June 09, 2025 Dr. Elvin Grant MD Attending Provider Active Start: June 09, 2025 End: June 09, 2025 Dr. Lopez Burnette MD Primary Care Provider Active Start: June 09, 2025 End: June 09, 2025 Team Status: Inactive Member Role/Relationship Status Dates Dr. Lopez Burnette MD Primary Care Provider Active Start: June 10, 2025 End: June 10, 2025 Dr. Elvin Grant MD Attending Provider Active Start: June 10, 2025 End: June 10, 2025 Dr. Elvin Grant MD Referring Provider Active Start: June 10, 2025 End: June 10, 2025 Team Status: Inactive Member Role/Relationship Status Dates Dr. Lopez Burnette MD Primary Care Provider Active Start: June 21, 2025 End: June 21, 2025 Dr. Elvin Grant MD Attending Provider Active Start: June 21, 2025 End: June 21, 2025 Dr. Elvin Grant MD Referring Provider Active Start: June 21, 2025 End: June 21, 2025 Team Status: Inactive Member Role/Relationship Status Dates Dr. Lopez Burnette MD Primary Care Provider Active Start: June 25, 2025 End: June 25, 2025 Dr. Elvin Grant MD Attending Provider Active Start: June 25, 2025 End: June 25, 2025 Dr. Elvin Grant MD Referring Provider Active Start: June 25, 2025 End: June 25, 2025 Goals (unrecognized section and content) Goals may be documented in a n alternate section Care Team (unrecognized sect ion and content) Care Team Personnel Name: NORI LOUIS MD Member Role: Primary Care Physician Address: Address: [address] [place] [address] Name: LOPEZ YADAV MD Address: Address: [address] [place] [address] Name: SAMMI NULL MD Position: P4 Physician - Cardiology Address: Address: [address] [place] [address] Care Team Related Persons Name: MIGUEL A NAJERA Care Team Personnel Name: NORI LOUIS MD Member Role: Primary Care Physician Address: Address: [address] [place] [address] Name: LOPEZ YADAV MD Address: Address: [address] [place] [address] Name: SAMMI NULL MD Position: P4 Physician - Cardiology Address: Address: [address] [place] [address] Care Team Related Persons Name: MIGUEL A NAJERA FOR RECORDS PERTAINING TO PATIENTS WHO ARE OR HAVE BEEN ENROLLED IN A CHEMICAL DEPENDENCY/SUBSTANCEABUSE PROGRAM, SOME INFORMATION MAY BE OMITTED. This clinical summary was aggregated from multiple sources. Caution should be exercised in using it in the provision of clinical care. This summary normalizes information from multiple sources, and as a consequence, information in this document may materially change the coding, format and clinical context of patient data. In addition, data may be omitted in some cases. CLINICAL DECISIONS SHOULD BE BASED ON THE PRIMARY CLINICAL RECORDS. [facility] [employer] [facility]. provides no warranty or guarantee of the accuracy or completeness of information in this document.
== END | disposition home or self-care (01) ==
LOC: OPMRI 07:02
PROVIDERS: PCP Family Medicine; Referring Provider Psychiatry & Neurology Neurology; Visit Provider Psychiatry & Neurology Neurology
DX: S06.5XAA Traumatic subdural hemorrhage with loss of consciousness status unknown, initial encounter (principal); F07.81 Postconcussional syndrome
CPT/HCPCS: 70553; A9575

== ENCOUNTER → 2025-09-06 | Outpatient (CLI) | payer MEDICARE, OTHER, SELFPAY ==
[2025-09-06 13:07] LABS: PSA,Total- Diagnostic 2.16 ng/mL (0.00-4.00)
== END | disposition home or self-care (01) ==
LOC: LAB 11:07
PROVIDERS: PCP Family Medicine; Referring Provider Urology; Visit Provider Urology
DX: R97.20 Elevated prostate specific antigen [PSA] (principal)
CPT/HCPCS: 36415; 84153